=== PATIENT | female | born 1935 | race Caucasian/White ===

== ENCOUNTER 2018-09-24 16:51 | Inpatient (IN) | payer MEDICARE, OTHER ==
[2018-09-24] VITALS (7 sets, daily range): BP systolic 96–118; BP diastolic 44–73
[~2018-09-24] VITALS: Ht 152.4 cm; Wt 74.4 kg
[~2018-09-24 16:51] MED LIST: DONE5TAB14 PO; LEVO25TA4 PO; LOSA25TA54 PO; MEMA5TAB PO
[2018-09-24] MEDS ORDERED: PANTOPRAZOLE IV PUSH 40 MG VIAL. IVP ONE (17:15)
[2018-09-24] MEDS ORDERED: IV NORMAL SALINE 1000ML BAG 1,000 ML IV ONE (17:15)
--- NOTE | 2018-09-24 17:43 | PHYS DOC ---
Past Medical History Past Medical History: Arthritis, CAD, Hypertension, Hypothyroid, Other Additional Past Medical Histor: alzheimer's, MDD, insomnia (LOYDA OROSCO MD) Past Surgical History: Cholecystectomy, Tonsillectomy, Other Additional Past Surgical Histo: -, poor historian (LOYDA OROSCO MD) Alcohol Use: None Drug Use: None (LOYDA OROSCO MD) Adult General Chief Complaint Chief Complaint: DIZZY/LIGHT HEADED HPI HPI Patient is a 83 year old female patient resident of senior living who is in by EMS because of dizziness. Patient has dementia and history remain taking from her daughter who states she had stent placement and blood clot to right lower extremity recently and started on Eliquis besides Plavix. Patient had constipation and treated with laxative at senior living and had multiple episodes of diarrhea today. Patient states she had at least 6 episodes of diarrhea with black stool today. Patient complaining of nausea and mild intermittent abdominal pain without chest pain, headache, focal neuro deficit. EMS reported patient has blood pressure of 90s without tachycardia. (LOYDA OROSCO MD) Review of Systems Review of Systems Constitutional: Denies fever or chills [] Eyes: Denies change in visual acuity, redness, or eye pain [] HENT: Denies nasal congestion or sore throat [] Respiratory: Denies cough or shortness of breath [] Cardiovascular: No additional information not addressed in HPI [] GI: Denies abdominal pain, nausea, vomiting, bloody stools or diarrhea [] : Denies dysuria or hematuria [] Musculoskeletal: Denies back pain or joint pain [] Integument: Denies rash or skin lesions [] Neurologic: Denies headache, focal weakness or sensory changes, reports dizziness and generalized weakness[] Endocrine: Denies polyuria or polydipsia [] All other systems were reviewed and found to be within normal limits, except as documented in this note. (LOYDA OROSCO MD) Current Medications Current Medications Current Medications Medications (Trade) Dose Ordered Sig/Tiffanie Start Time Stop Time Status Last Admin Dose Admin Pantoprazole Sodium (PROTONIX VIAL for IV PUSH) 40 mg 1X ONCE 09/24/18 17:15 09/24/18 17:16 DC 09/24/18 17:43 40 MG Pantoprazole Sodium 80 mg/ Sodium Chloride 100 ml @ 10 mls/hr 1X ONCE 09/24/18 19:00 09/25/18 04:59 Sodium Chloride 1,000 ml @ 1,000 mls/hr 1X ONCE 09/24/18 17:15 09/24/18 18:14 DC 09/24/18 17:40 1,000 MLS/HR (LEONARD MONTIEL MD) Allergies Allergies Allergies Coded Allergies Type Severity Reaction Last Updated Verified No Known Drug Allergies 10/05/14 No (LEONARD MONTIEL MD) Physical Exam Physical Exam Constitutional: Well nourished, mild distress, non-toxic appearance, pale. [] HENT: Normocephalic, atraumatic, oropharynx dry, no oral exudates, nose normal. [] Eyes: PERRLA, EOMI, conjunctiva normal, no discharge. [] Neck: Normal range of motion, no tenderness, supple, no stridor. [] Cardiovascular:Heart rate regular rhythm, no murmur [] Lungs & Thorax: Bilateral breath sounds clear to auscultation [] Abdomen: Bowel sounds normal, soft, no tenderness, no masses, no pulsatile masses. Patient had large amount of black stool in her diaper.[] Skin: Warm, dry, no erythema, no rash. [] Back: No tenderness, no CVA tenderness. [] Extremities: No tenderness, no cyanosis, no clubbing, ROM intact, right lower extremity with trace edema and erythema that happening for months after she had DVT. Neurologic: Alert and oriented X 2, normal motor function, normal sensory function, no focal deficits noted. [] (LOYDA OROSCO MD) Current Patient Data Vital Signs Vital Signs Date Time Temp Pulse Resp B/P (MAP) Pulse Ox O2 Delivery O2 Flow Rate FiO2 09/24/18 18:30 86 16 100 09/24/18 16:51 97.8 97/63 (74) Room Air 97.8 (LEONARD MONTIEL MD) Lab Values Laboratory Tests Test 09/24/18 16:58 09/24/18 17:23 09/24/18 17:45 09/24/18 18:35 Glucose (Fingerstick) 118 mg/dL (70-99) H Lactic Acid Level 5.1 mmol/L (0.4-2.0) *H Stool Occult Blood Positive (NEG) White Blood Count 14.7 x10^3/uL (4.0-11.0) H Red Blood Count 1.47 x10^6/uL (3.50-5.40) L Hemoglobin 4.5 g/dL (12.0-15.5) *L Hematocrit 13.9 % (36.0-47.0) *L Mean Corpuscular Volume 95 fL (79-100) Mean Corpuscular Hemoglobin 30 pg (25-35) Mean Corpuscular Hemoglobin Concent 32 g/dL (31-37) Red Cell Distribution Width 16.0 % (11.5-14.5) H Platelet Count 223 x10^3/uL (140-400) Neutrophils (%) (Auto) 85 % (31-73) H Lymphocytes (%) (Auto) 9 % (24-48) L Monocytes (%) (Auto) 5 % (0-9) Eosinophils (%) (Auto) 0 % (0-3) Basophils (%) (Auto) 1 % (0-3) Neutrophils # (Auto) 12.5 x10^3uL (1.8-7.7) H Lymphocytes # (Auto) 1.4 x10^3/uL (1.0-4.8) Monocytes # (Auto) 0.7 x10^3/uL (0.0-1.1) Eosinophils # (Auto) 0.0 x10^3/uL (0.0-0.7) Basophils # (Auto) 0.1 x10^3/uL (0.0-0.2) Prothrombin Time 22.4 SEC (11.7-14.0) H Prothrombin Time INR 2.0 (0.8-1.1) H PTT 32 SEC (24-38) Sodium Level 143 mmol/L (136-145) Potassium Level 4.3 mmol/L (3.5-5.1) Chloride Level 106 mmol/L (98-107) Carbon Dioxide Level 25 mmol/L (21-32) Anion Gap 12 (6-14) Blood Urea Nitrogen 47 mg/dL (7-20) H Creatinine 0.7 mg/dL (0.6-1.0) Estimated GFR (Cockcroft-Gault) 80.3 BUN/Creatinine Ratio 67 (6-20) H Glucose Level 118 mg/dL (70-99) H Calcium Level 7.7 mg/dL (8.5-10.1) L Total Bilirubin 0.3 mg/dL (0.2-1.0) Aspartate Amino Transferase (AST) 14 U/L (15-37) L Alanine Aminotransferase (ALT) 14 U/L (14-59) Alkaline Phosphatase 47 U/L (46-116) Troponin I Quantitative 0.027 ng/mL (0.000-0.055) HB-Kbz-Z-Type Natriuretic Peptide 1290 pg/mL (0-449) H Total Protein 5.3 g/dL (6.4-8.2) L Albumin 3.0 g/dL (3.4-5.0) L Albumin/Globulin Ratio 1.3 (1.0-1.7) Laboratory Tests 09/24/18 18:35 Laboratory Tests 09/24/18 18:35 (LEONARD MONTIEL MD) EKG EKG EKG interpreted by me. EKG at 1705 showed sinus rhythm at rate of 76, LVH, prolonged QT at 470, poor R-wave progress in anteroseptal leads, no acute ST and T-wave abnormalities (LOYDA OROSCO MD) Radiology/Procedures Radiology/Procedures [] (LOYDA OROSCO MD) Course & Med Decision Making Course & Med Decision Making Pertinent Labs and Imaging studies are pending. Evaluation of patient in ER showed 83-year-old female patient resident of senior living recently started on Eliquis besides Plavix and had dizziness today after had several episodes of black stools. Patient had obvious melena blood pressure of 90 at arrival to ER that improved to 106 in few minutes. Lab studies pending. Sign out given to for further evaluation and final disposition. Discussed current findings and plan with patient and family, who acknowledge understanding and agreement. (LOYDA OROSCO MD) Course & Med Decision Making I received signout from Dr. Orosco patient is a GI bleed awaiting lab work and admission. I reevaluated the patient a blood pressure was in the 120 systolic I talked to the daughter in detail Critical care time was 45 minutes exclusive of procedures. For management of acute GI bleed with severe anemia I noted the blood pressure remained stable during my evaluation the ER as of 1930. I spoke with Dr. Lane [place] [address] CLEVELAND 191. Discussed case Dr. CLAY CLEVELAND recommends transfuse overnight for stability wait for ELIQUIS to wear OFF could give a unit of FFP, other agents are unlikely to be helpful just need to hold Brittney Lacho mainly. Serial lactic CT abdomen and pelvis pending. The lactic acidosis is much more likely volume down lactic acidosis rather than sepsis I have not seen the urinalysis she had per the chest x-ray shows no evidence of pneumonia and the clinical history is consistent with GI bleed. Lactic was ordered prior to my evaluation I have low suspicion for mesenteric ischemia because the patient has no abdominal pain but that scan is pending I spoke with Dr. Lane about it Protonix drip was ordered as well (LEONARD MONTIEL MD) Dragon Disclaimer Dragon Disclaimer This electronic medical record was generated, in whole or in part, using a voice recognition dictation system. (LOYDA OROSCO MD) Departure Departure Impression: Primary Impression: GI bleeding Additional Impression: Dizziness Disposition: 09 ADMITTED INPATIENT Admitting Physician: Tony Saravia (LEONARD MONTIEL MD) Condition: CRITICAL Referrals: DONALD CAGLE MD (PCP) Problem Qualifiers Primary Impression: GI bleeding GI bleed type/associated pathology: unspecified peptic ulcer Qualified Codes : K27.4 - Chronic or unspecified peptic ulcer, site unspecified, with hemorrhage LOYDA OROSCO MD Sep 24, 2018 17:43 LEONARD MONTIEL MD Sep 24, 2018 19:26
--- NOTE | 2018-09-24 18:00 | RAD ---
EXAM: CHEST 1 VIEW. HISTORY: Dizziness. COMPARISON: 10/05/2014. FINDINGS: A frontal view of the chest is obtained. There are no confluent infiltrates. There is no pneumothorax or pleural effusion. The heart is mildly enlarged. Retrocardiac opacity is consistent with a moderate hiatal hernia. There is mild elevation of the right hemidiaphragm. There are atherosclerotic calcifications of the aorta. Bilateral rotator cuff arthropathy is noted. IMPRESSION: 1. Mild cardiomegaly. Electronically signed by: Sheila Mo MD (09/24/2018 5:58 PM) [facility]
[2018-09-24 18:01] LABS: FECAL OB PT POSITIVE (NEG)
[2018-09-24 18:48] LABS: BASO # 0.1 x10^3/uL (0.0-0.2); BASO % 1 % (0-3); EOS % 0 % (0-3); LYMPH # 1.4 x10^3/uL (1.0-4.8); LYMPH % 9 % (24-48); MEAN CORPUSCULAR HEMOGLOBIN 30 pg (25-35); MEAN CORPUSCULAR HGB CONC 32 g/dL (31-37); MEAN CORPUSCULAR VOLUME 95 fL (79-100); MONO # 0.7 x10^3/uL (0.0-1.1); MONO % 5 % (0-9); NEUT # 12.5 x10^3uL (1.8-7.7); NEUT % 85 % (31-73); PLATELET COUNT 223 x10^3/uL (140-400); RED BLOOD COUNT 1.47 x10^6/uL (3.50-5.40); WHITE BLOOD COUNT 14.7 x10^3/uL (4.0-11.0)
[2018-09-24 18:54] LABS: HEMOGLOBIN 4.5 g/dL (12.0-15.5)
[2018-09-24 18:55] LABS: HEMATOCRIT 13.9 % (36.0-47.0)
[2018-09-24 18:56] LABS: CALCIUM 7.7 mg/dL (8.5-10.1); CREATININE 0.7 mg/dL (0.6-1.0); GFR 80.3; POTASSIUM 4.3 mmol/L (3.5-5.1)
[2018-09-24] MEDS ORDERED: PANTOPRAZOLE SODIUM IV DRIP 80 MG in IV NORMAL SALINE 100ML 100 ML IV ONE (19:00)
[2018-09-24 19:01] LABS: ALBUMIN/GLOBULIN RATIO 1.3 (1.0-1.7); TOTAL BILIRUBIN 0.3 mg/dL (0.2-1.0); TOTAL PROTEIN 5.3 g/dL (6.4-8.2)
[2018-09-24 19:03] LABS: PROTHROMBIN TIME PATIENT 22.4 SEC (11.7-14.0)
[2018-09-24] MEDS ORDERED: IOHEXOL 350 MG/ML 100 ML VIAL. IV ONE (19:30)
[2018-09-24] MEDS ORDERED: CONTRAST GIVEN. MC PRN (19:30)
--- NOTE | 2018-09-24 20:07 | PDOC1 ---
History and Physical Date of Admission Date of Admission DATE: 09/24/18 TIME: 20:05 Identification/Chief Complaint Chief Complaint SEEN IN ER , patient resident of [facility] who is in by EMS because of dizziness. Patient has dementia and history remain taking from her daughter who states she had stent placement and blood clot to right lower extremity recently and started on Eliquis and Plavix. Patient had constipation and treated with laxative //multiple episodes of diarrhea today. // 6 episodes of diarrhea with black stool today. Patient complaining of nausea and mild intermittent abdominal pain without chest pain, headache, focal neuro deficit. EMS reported patient has blood pressure of 90s , admitted to [facility] WITH HGB OF 4.5 INR OF 2.0 Past Medical History Past Medical History Past Medical History Past Medical History: Hypertension / CAD Additional Past Medical Histor: alzheimer, thyroid disease Past Surgical History: Cholecystectomy, Tonsillectomy Additional Information: Never Smoker Alcohol Use: None Drug Use: None family hx diabetes Cardiovascular: CAD CENTRAL NERVOUS SYSTEM: Dementia Musculoskeletal: Osteoarthritis Family History Family History: Diabetes, Hypertension Social History Smoke: No ALCOHOL: none Drugs: None Current Problem List Problem List Problems Medical Problems: (1) Dizziness Status: Acute (2) GI bleeding Status: Acute Current Medications Current Medications Current Medications Sodium Chloride 1,000 ml @ 1,000 mls/hr 1X ONCE IV Last administered on at 17:40; Start 09/24/18 at 17:15; Stop 09/24/18 at 18:14; Status DC Pantoprazole Sodium (PROTONIX VIAL for IV PUSH) 40 mg 1X ONCE IVP Last administered on 09/24/18at 17:43; Start 09/24/18 at 17:15; Stop 09/24/18 at 17:16 ; Status DC Pantoprazole Sodium 80 mg/ Sodium Chloride 100 ml @ 10 mls/hr 1X ONCE IV ; Start 09/24/18 at 19:00; Stop 09/25/18 at 04:59 Sodium Chloride 1,000 ml @ 75 mls/hr [id number] IV ; Start 09/24/18 at 19:09; Stop 09/25/18 at 19:08 Iohexol (Omnipaque 350 Mg/ml) 100 ml 1X ONCE IV Last administered on at 19:54; Start 09/24/18 at 19:30; Stop 09/24/18 at 19:31; Status DC Info (CONTRAST GIVEN -- Rx MONITORING) 1 each PRN DAILY PRN MC SEE COMMENTS; Start 09/24/18 at 19:30; Stop 09/26/18 at 19:29 Active Scripts Active Reported Donepezil Hcl 5 Mg Tab.rapdis Unknown Dose PO HS Losartan Potassium 25 Mg Tablet Unknown Dose PO DAILY Namenda (Memantine Hcl) 5 Mg Tablet Unknown Dose PO BID Levothyroxine Sodium 25 Mcg Tablet Unknown Dose PO DAILY Allergies Allergies: Coded Allergies: No Known Drug Allergies (Unverified , 10/05/14) ROS Review of System Review of Systems Review of Systems Constitutional: Denies fever or chills [] Eyes: Denies change in visual acuity, redness, or eye pain [] HENT: Denies nasal congestion or sore throat [] Respiratory: Denies cough or shortness of breath [] Cardiovascular: No additional information not addressed in HPI [] GI: Denies abdominal pain, nausea, vomiting, bloody stools or diarrhea [] : Denies dysuria or hematuria [] Musculoskeletal: Denies back pain or joint pain [] Integument: Denies rash or skin lesions [] Neurologic: Denies headache, focal weakness or sensory changes, reports dizziness and generalized weakness[] Endocrine: Denies polyuria or polydipsia [] 14 pt systems were reviewed and found to be within normal limits, except as documented , accuracy limited by dementia PSYCHOLOGICAL ROS: YES: Disorientation Hematological and Lymphatic: YES: Bleeding Problems ENDOCRINE: YES: Malaise/lethargy Physical Exam Physical Exam Constitutional: Well nourished, mild distress, non-toxic appearance, pale. [] HENT: Normocephalic, atraumatic, oropharynx dry, no oral exudates, nose normal. [] Eyes: PERRLA, EOMI, conjunctiva normal, no discharge. [] Neck: Normal range of motion, no tenderness, supple, no stridor. [] Cardiovascular:Heart rate regular rhythm, no murmur [] Lungs & Thorax: Bilateral breath sounds clear to auscultation [] Abdomen: Bowel sounds normal, soft, no tenderness, no masses, no pulsatile masses. Patient had large amount of black stool in her diaper.[] Skin: Warm, dry, no erythema, no rash. [] Back: No tenderness, no CVA tenderness. [] Extremities: No tenderness, no cyanosis, no clubbing, ROM intact, right lower extremity with trace edema and erythema that happening for months after she had DVT. Neurologic: Alert , normal motor function, normal sensory function, no focal deficits noted. [] General: Cooperative, mild distress HEENT: Atraumatic, EOMI, Mucous membr. moist/pink Heart: no thrills, no gallops Breasts: Not examined Abdomen: Soft Rectal Exam: deferred Extremities: No cyanosis Neuro: Cranial nerves 3-12 NL Psych/Mental Status: Mood NL Vitals Vitals Vital Signs Date Time Temp Pulse Resp B/P (MAP) Pulse Ox O2 Delivery O2 Flow Rate FiO2 09/24/18 18:30 86 16 100 09/24/18 16:51 97.8 97/63 (74) Room Air 97.8 Labs Labs Laboratory Tests Test 09/24/18 16:58 09/24/18 17:23 09/24/18 17:45 09/24/18 18:35 Glucose (Fingerstick) 118 mg/dL (70-99) Lactic Acid Level 5.1 mmol/L (0.4-2.0) Stool Occult Blood Positive (NEG) White Blood Count 14.7 x10^3/uL (4.0-11.0) Red Blood Count 1.47 x10^6/uL (3.50-5.40) Hemoglobin 4.5 g/dL (12.0-15.5) Hematocrit 13.9 % (36.0-47.0) Mean Corpuscular Volume 95 fL (79-100) Mean Corpuscular Hemoglobin 30 pg (25-35) Mean Corpuscular Hemoglobin Concent 32 g/dL (31-37) Red Cell Distribution Width 16.0 % (11.5-14.5) Platelet Count 223 x10^3/uL (140-400) Neutrophils (%) (Auto) 85 % (31-73) Lymphocytes (%) (Auto) 9 % (24-48) Monocytes (%) (Auto) 5 % (0-9) Eosinophils (%) (Auto) 0 % (0-3) Basophils (%) (Auto) 1 % (0-3) Neutrophils # (Auto) 12.5 x10^3uL (1.8-7.7) Lymphocytes # (Auto) 1.4 x10^3/uL (1.0-4.8) Monocytes # (Auto) 0.7 x10^3/uL (0.0-1.1) Eosinophils # (Auto) 0.0 x10^3/uL (0.0-0.7) Basophils # (Auto) 0.1 x10^3/uL (0.0-0.2) Prothrombin Time 22.4 SEC (11.7-14.0) Prothromb Time International Ratio 2.0 (0.8-1.1) Activated Partial Thromboplast Time 32 SEC (24-38) Sodium Level 143 mmol/L (136-145) Potassium Level 4.3 mmol/L (3.5-5.1) Chloride Level 106 mmol/L (98-107) Carbon Dioxide Level 25 mmol/L (21-32) Anion Gap 12 (6-14) Blood Urea Nitrogen 47 mg/dL (7-20) Creatinine 0.7 mg/dL (0.6-1.0) Estimated GFR (Cockcroft-Gault) 80.3 BUN/Creatinine Ratio 67 (6-20) Glucose Level 118 mg/dL (70-99) Calcium Level 7.7 mg/dL (8.5-10.1) Total Bilirubin 0.3 mg/dL (0.2-1.0) Aspartate Amino Transf (AST/SGOT) 14 U/L (15-37) Alanine Aminotransferase (ALT/SGPT) 14 U/L (14-59) Alkaline Phosphatase 47 U/L (46-116) Troponin I Quantitative 0.027 ng/mL (0.000-0.055) JN-Vxp-D-Type Natriuretic Peptide 1290 pg/mL (0-449) Total Protein 5.3 g/dL (6.4-8.2) Albumin 3.0 g/dL (3.4-5.0) Albumin/Globulin Ratio 1.3 (1.0-1.7) Laboratory Tests Test 09/24/18 16:58 09/24/18 17:23 09/24/18 17:45 09/24/18 18:35 Glucose (Fingerstick) 118 mg/dL (70-99) Lactic Acid Level 5.1 mmol/L (0.4-2.0) Stool Occult Blood Positive (NEG) White Blood Count 14.7 x10^3/uL (4.0-11.0) Red Blood Count 1.47 x10^6/uL (3.50-5.40) Hemoglobin 4.5 g/dL (12.0-15.5) Hematocrit 13.9 % (36.0-47.0) Mean Corpuscular Volume 95 fL (79-100) Mean Corpuscular Hemoglobin 30 pg (25-35) Mean Corpuscular Hemoglobin Concent 32 g/dL (31-37) Red Cell Distribution Width 16.0 % (11.5-14.5) Platelet Count 223 x10^3/uL (140-400) Neutrophils (%) (Auto) 85 % (31-73) Lymphocytes (%) (Auto) 9 % (24-48) Monocytes (%) (Auto) 5 % (0-9) Eosinophils (%) (Auto) 0 % (0-3) Basophils (%) (Auto) 1 % (0-3) Neutrophils # (Auto) 12.5 x10^3uL (1.8-7.7) Lymphocytes # (Auto) 1.4 x10^3/uL (1.0-4.8) Monocytes # (Auto) 0.7 x10^3/uL (0.0-1.1) Eosinophils # (Auto) 0.0 x10^3/uL (0.0-0.7) Basophils # (Auto) 0.1 x10^3/uL (0.0-0.2) Prothrombin Time 22.4 SEC (11.7-14.0) Prothromb Time International Ratio 2.0 (0.8-1.1) Activated Partial Thromboplast Time 32 SEC (24-38) Sodium Level 143 mmol/L (136-145) Potassium Level 4.3 mmol/L (3.5-5.1) Chloride Level 106 mmol/L (98-107) Carbon Dioxide Level 25 mmol/L (21-32) Anion Gap 12 (6-14) Blood Urea Nitrogen 47 mg/dL (7-20) Creatinine 0.7 mg/dL (0.6-1.0) Estimated GFR (Cockcroft-Gault) 80.3 BUN/Creatinine Ratio 67 (6-20) Glucose Level 118 mg/dL (70-99) Calcium Level 7.7 mg/dL (8.5-10.1) Total Bilirubin 0.3 mg/dL (0.2-1.0) Aspartate Amino Transf (AST/SGOT) 14 U/L (15-37) Alanine Aminotransferase (ALT/SGPT) 14 U/L (14-59) Alkaline Phosphatase 47 U/L (46-116) Troponin I Quantitative 0.027 ng/mL (0.000-0.055) GV-Zqt-X-Type Natriuretic Peptide 1290 pg/mL (0-449) Total Protein 5.3 g/dL (6.4-8.2) Albumin 3.0 g/dL (3.4-5.0) Albumin/Globulin Ratio 1.3 (1.0-1.7) Images Images EXAM: CHEST 1 VIEW. HISTORY: Dizziness. COMPARISON: 10/05/2014. FINDINGS: A frontal view of the chest is obtained. There are no confluent infiltrates. There is no pneumothorax or pleural effusion. The heart is mildly enlarged. Retrocardiac opacity is consistent with a moderate hiatal hernia. There is mild elevation of the right hemidiaphragm. There are atherosclerotic calcifications of the aorta. Bilateral rotator cuff arthropathy is noted. IMPRESSION: 1. Mild cardiomegaly. Electronically signed by: Sheila Mo MD (09/24/2018 5:58 PM) [facility] DICTATED and SIGNED BY: VIC MO MD DATE: 09/24/18 175 VTE Prophylaxis Ordered VTE Prophylaxis Devices: Contraindicated VTE Pharmacological Prophylaxi: Contraindicated Assessment/Plan Assessment/Plan impression 1. Acute gi bleeding// severe ANEMIA, ACUTE BLOOD LOSS 2. Moderate dementia 3. CAD with recent stent placement [facility] ON PLAVIX/ ELIQUIS 4. HX DVT Right lower leg on eliquis 5. morbid obesity 6. Pseudoaneurysm of right femoral artery , recent 7. POSSIBLE SEPSIS 8. LAD STENT, DRUG-eluting placed [facility] 09/24/[address] ANGIOGRAPHY OF ABDOMEN TRANSFUSE URGENTLY GI CONSULT Cardiology consult IV FLUID SUPPORT PRN IV PRESSOR SUPPORT hold eliquis/ plavix obtain recent records [facility] FFP TRANSFUSE JIM protonix drip ID CONSULT ZOSYN 3.75 GM IV IF OK WITH ID BLOOD CULTURE CBC Q 6 HRS 118 min cc time MARIELLE MARIA MD Sep 24, 2018 20:06
[2018-09-24] MEDS: IV NORMAL SALINE 1000ML BAG 1,000 ML IV SCH (20:17)
--- NOTE | 2018-09-24 21:00 | NUR ---
Admission Note: Patient admitted to room 108 from ED. Patient alert to name, confused otherwise, pleasant though. Small dark tarry stool noted. Sr on monitor. Daughter went home upon transfer from ED. Dr. Lane here to see patient, orders to transfuse blood.
--- NOTE | 2018-09-24 21:38 | RAD ---
EXAM: CT ANGIOGRAPHY OF THE ABDOMEN AND PELVIS WITH AND WITHOUT INTRAVENOUS CONTRAST. HISTORY: Gastrointestinal hemorrhage. Lactic acidosis. TECHNIQUE: Computed tomographic angiography of the abdomen and pelvis was performed before and after the intravenous administration of 100 mL Omnipaque 350. 3-D maximum intensity projections were also performed. COMPARISON: 10/05/2014. FINDINGS: There is mild infrarenal abdominal aortic ectasia without aneurysmal dilatation. Maximum diameter is 1.9 cm. The iliac systems are patent without stenosis. The celiac axis demonstrates mild atherosclerotic calcification in its origin but is widely patent. Hepatic arterial anatomy is standard. The splenic artery is patent. The superior mesenteric artery is widely patent proximally. The inferior mesenteric artery is patent. There are minimal atherosclerotic calcifications along the renal artery origins bilaterally. There is no renal artery stenosis. Both renal arteries are single. There are calcifications of the aortic valve and coronary arteries. The heart is at least mildly enlarged. Note is made of caseous calcification of the mitral valve annulus. Images of the lung bases reveal an uncalcified right lower lobe nodule on image 7 measuring 6 mm. This is not clearly changed since 2015 and is likely benign. There is a small hiatal hernia. Bone windows reveal no suspicious lesions. There is grade 1 anterolisthesis at L4-5. Lumbar central canal stenosis is moderate to severe at this level. The gallbladder is surgically absent. The common duct measures 8 mm. There is no clear cause for distal obstruction. Thickening of the right adrenal gland is chronic. The left adrenal gland is unremarkable. The spleen, pancreas and liver are unremarkable. The right renal collecting system is moderately dilated to the level of the ureteropelvic junction. This is new. No clear cause for obstruction is seen by this technique. 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 There are no pathologically enlarged lymph nodes. There is stranding and soft tissue density about the right common femoral artery extending to its bifurcation. Radicles of the right inferior epigastric artery appeared to perfuse the region. There are changes of pelvic floor relaxation. There is no small bowel obstruction. No abnormal bowel wall enhancement is identified. There is no ileus. The bladder is moderately distended. IMPRESSION: 1. The central mesenteric arteries are widely patent. 2. No sign of gastrointestinal hemorrhage or clear bowel ischemia is detectable by CT. 3. Ill-defined soft tissue is seen anterior to the right common femoral artery and measures approximately 2.8 x 2.1 cm. This may represent an old hematoma or scarring in the setting of a prior arterial puncture. Correlate for such history. If there is no such history follow-up is recommended to exclude lymphadenopathy. 4. Interval development of moderate right hydronephrosis and with apparent obstruction at the level of the ureteropelvic junction. Ureteroscopy could further evaluate if the diagnosis remains unclear. 5. Small hiatal hernia. 6. Aortic valve calcifications. Correlate for aortic stenosis. At least mild cardiomegaly. *One or more of the following individualized dose reduction techniques were utilized for this examination: 1. Automated exposure control. 2. Adjustment of the mA and/or kV according to patient size. 3. Use of iterative reconstruction technique. Electronically signed by: Sheila Mo MD (09/24/2018 9:35 PM) [facility]
[2018-09-24] MEDS ORDERED: CLOP75TA PO (21:48)
[2018-09-24] MEDS ORDERED: IPRA3AMP29 NEB (21:49)
[2018-09-24] MEDS ORDERED: APIX5TAB PO (21:50)
[2018-09-24] MEDS ORDERED: CHOL10003 PO (21:52)
[2018-09-24] MEDS ORDERED: ATOR40TA PO (21:52)
[2018-09-24] MEDS ORDERED: LEVO75TA5 PO (21:53)
[2018-09-24] MEDS ORDERED: IMIP10TA2 PO (21:53)
[2018-09-24] MEDS ORDERED: GUAI100L12 PO (21:53)
[2018-09-25] VITALS (30 sets, daily range): BP systolic 93–166; BP diastolic 46–77
--- NOTE | 2018-09-25 00:13 | NUR ---
Nursing Note: Upon entering room, blood noted on sheet and gown. Pt pulled out Left AC PIV. Pressure held. New IV started. Continue with blood transfusion. Mitts placed on patient for protection of lines .
[2018-09-25] MEDS: PIPERACILLIN/TAZOBACTAM 3.375 GM in IV NORMAL SALINE 50ML 50 ML IV SCH ×4 (00:31→17:53)
[2018-09-25 00:38] LABS: BASO % 0 % (0-3); EOS % 0 % (0-3); LYMPH # 1.6 x10^3/uL (1.0-4.8); LYMPH % 13 % (24-48); MEAN CORPUSCULAR HEMOGLOBIN 32 pg (25-35); MEAN CORPUSCULAR HGB CONC 33 g/dL (31-37); MEAN CORPUSCULAR VOLUME 95 fL (79-100); MONO # 0.8 x10^3/uL (0.0-1.1); MONO % 6 % (0-9); NEUT # 10.2 x10^3uL (1.8-7.7); NEUT % 81 % (31-73); PLATELET COUNT 195 x10^3/uL (140-400); RED BLOOD COUNT 1.73 x10^6/uL (3.50-5.40); RED CELL DISTRIBUTION WIDTH 14.5 % (11.5-14.5); WHITE BLOOD COUNT 12.7 x10^3/uL (4.0-11.0)
[2018-09-25 00:45] LABS: HEMATOCRIT 16.4 % (36.0-47.0); HEMOGLOBIN 5.4 g/dL (12.0-15.5)
[2018-09-25 06:36] LABS: BASO # 0.1 x10^3/uL (0.0-0.2); BASO % 0 % (0-3); EOS # 0.1 x10^3/uL (0.0-0.7); EOS % 1 % (0-3); LYMPH % 16 % (24-48); MEAN CORPUSCULAR HEMOGLOBIN 32 pg (25-35); MEAN CORPUSCULAR HGB CONC 34 g/dL (31-37); MEAN CORPUSCULAR VOLUME 92 fL (79-100); MONO # 0.9 x10^3/uL (0.0-1.1); MONO % 7 % (0-9); NEUT # 9.6 x10^3uL (1.8-7.7); NEUT % 76 % (31-73); PLATELET COUNT 182 x10^3/uL (140-400); RED BLOOD COUNT 2.12 x10^6/uL (3.50-5.40); RED CELL DISTRIBUTION WIDTH 14.1 % (11.5-14.5); WHITE BLOOD COUNT 12.7 x10^3/uL (4.0-11.0)
[2018-09-25 06:44] LABS: PROTHROMBIN TIME PATIENT 17.7 SEC (11.7-14.0)
[2018-09-25 06:46] LABS: HEMATOCRIT 19.6 % (36.0-47.0); HEMOGLOBIN 6.7 g/dL (12.0-15.5)
[2018-09-25] MEDS: IV NORMAL SALINE 1000ML BAG 1,000 ML IV SCH (08:29)
--- NOTE | 2018-09-25 09:11 | PDOC2 ---
CONSULT Date of Consult Date of Consult DATE: 09/25/18 TIME: 09:07 Reason for Consult Reason for Consult: melena and blood loss anemia- new History of Present Illness Reason for Visit: This as an 83 yo female with no prior history of PUD, GI bleeding and only rare heartburn who had onset over last 1-2 days of significant loose melenic stools associated with hypotension and anemia. She relates several prior negative colonoscopies in the past but recently in longterm has been constipated, requiring laxatives. She is on both Plavix for recent stent and Eliquis as well but had no prior bleeding issues until now. Denies abd pain, n/v, hematemesis or prior melena. Past Medical History Cardiovascular: CAD CENTRAL NERVOUS SYSTEM: Dementia Musculoskeletal: Osteoarthritis Family History Family History: Diabetes, Hypertension Social History No ALCOHOL: none Drugs: None Current Problem List Problem List Problems Medical Problems: (1) Dizziness Status: Acute (2) GI bleeding Status: Acute Current Medications Current Medications Current Medications Sodium Chloride 1,000 ml @ 1,000 mls/hr 1X ONCE IV Last administered on at 17:40; Start 09/24/18 at 17:15; Stop 09/24/18 at 18:14; Status DC Pantoprazole Sodium (PROTONIX VIAL for IV PUSH) 40 mg 1X ONCE IVP Last administered on 09/24/18at 17:43; Start 09/24/18 at 17:15; Stop 09/24/18 at 17:16 ; Status DC Pantoprazole Sodium 80 mg/ Sodium Chloride 100 ml @ 10 mls/hr 1X ONCE IV Last administered on 09/24/18at 20:18; Start 09/24/18 at 19:00; Stop 09/25/18 at 04:59; Status DC Sodium Chloride 1,000 ml @ 75 mls/hr [id number] IV Last administered on at 20:17; Start 09/24/18 at 19:09; Stop 09/25/18 at 19:08 Iohexol (Omnipaque 350 Mg/ml) 100 ml 1X ONCE IV Last administered on at 19:54; Start 09/24/18 at 19:30; Stop 09/24/18 at 19:31; Status DC Info (CONTRAST GIVEN -- Rx MONITORING) 1 each PRN DAILY PRN MC SEE COMMENTS; Start 09/24/18 at 19:30; Stop 09/26/18 at 19:29 Piperacillin Sod/ Tazobactam Sod 3.375 gm/Sodium Chloride 50 ml @ 100 mls/hr Q6HRS IV Last administered on 09/25/18at 05:24; Start 09/25/18 at 00:00 Active Scripts Active Reported Levothyroxine Sodium 75 Mcg Tablet 75 Mcg PO DAILYAC Imipramine Hcl 10 Mg Tablet 10 Mg PO HS Guaifenesin 100 Mg/5 Ml Liquid 100 Mg PO PRN Q6HRS PRN Vitamin D3 (Cholecalciferol (Vitamin D3)) 1,000 Unit Tablet 1 Tab PO DAILY Lipitor (Atorvastatin Calcium) 40 Mg Tablet 1 Tab PO QHS Eliquis (Apixaban) 5 Mg Tablet 5 Mg PO BID Duoneb 0.5-3(2.5) Mg/3 Ml (Albuterol/Ipratropium) 3 Ml Ampul.neb 3 Ml NEB PRN Q4HRS PRN Clopidogrel (Clopidogrel Bisulfate) 75 Mg Tablet 1 Tab PO DAILY Allergies Allergies: Coded Allergies: No Known Drug Allergies (Unverified , 10/05/14) ROS PSYCHOLOGICAL ROS: YES: Memory difficulties Gastrointestinal: Yes Melena Physical Exam General: Alert HEENT: PERRLA Lungs: Clear to auscultation Heart: Regular rate, Normal S1, Normal S2, Other (systolic murmur) Abdomen: Normal bowel sounds, Soft, No tenderness, No hepatosplenomegaly Extremities: No clubbing, No cyanosis Skin: No rashes Vitals VITALS Vital Signs Date Time Temp Pulse Resp B/P (MAP) Pulse Ox O2 Delivery O2 Flow Rate FiO2 09/25/18 08:45 98.3 75 16 100 98.3 09/25/18 08:41 141/69 09/25/18 08:00 Room Air 09/24/18 21:02 2.0 Labs Labs Laboratory Tests Test 09/24/18 16:58 09/24/18 17:23 09/24/18 17:45 09/24/18 18:35 Glucose (Fingerstick) 118 mg/dL (70-99) Lactic Acid Level 5.1 mmol/L (0.4-2.0) Stool Occult Blood Positive (NEG) White Blood Count 14.7 x10^3/uL (4.0-11.0) Red Blood Count 1.47 x10^6/uL (3.50-5.40) Hemoglobin 4.5 g/dL (12.0-15.5) Hematocrit 13.9 % (36.0-47.0) Mean Corpuscular Volume 95 fL (79-100) Mean Corpuscular Hemoglobin 30 pg (25-35) Mean Corpuscular Hemoglobin Concent 32 g/dL (31-37) Red Cell Distribution Width 16.0 % (11.5-14.5) Platelet Count 223 x10^3/uL (140-400) Neutrophils (%) (Auto) 85 % (31-73) Lymphocytes (%) (Auto) 9 % (24-48) Monocytes (%) (Auto) 5 % (0-9) Eosinophils (%) (Auto) 0 % (0-3) Basophils (%) (Auto) 1 % (0-3) Neutrophils # (Auto) 12.5 x10^3uL (1.8-7.7) Lymphocytes # (Auto) 1.4 x10^3/uL (1.0-4.8) Monocytes # (Auto) 0.7 x10^3/uL (0.0-1.1) Eosinophils # (Auto) 0.0 x10^3/uL (0.0-0.7) Basophils # (Auto) 0.1 x10^3/uL (0.0-0.2) Prothrombin Time 22.4 SEC (11.7-14.0) Prothromb Time International Ratio 2.0 (0.8-1.1) Activated Partial Thromboplast Time 32 SEC (24-38) Sodium Level 143 mmol/L (136-145) Potassium Level 4.3 mmol/L (3.5-5.1) Chloride Level 106 mmol/L (98-107) Carbon Dioxide Level 25 mmol/L (21-32) Anion Gap 12 (6-14) Blood Urea Nitrogen 47 mg/dL (7-20) Creatinine 0.7 mg/dL (0.6-1.0) Estimated GFR (Cockcroft-Gault) 80.3 BUN/Creatinine Ratio 67 (6-20) Glucose Level 118 mg/dL (70-99) Calcium Level 7.7 mg/dL (8.5-10.1) Total Bilirubin 0.3 mg/dL (0.2-1.0) Aspartate Amino Transf (AST/SGOT) 14 U/L (15-37) Alanine Aminotransferase (ALT/SGPT) 14 U/L (14-59) Alkaline Phosphatase 47 U/L (46-116) Troponin I Quantitative 0.027 ng/mL (0.000-0.055) FF-Zzl-T-Type Natriuretic Peptide 1290 pg/mL (0-449) Total Protein 5.3 g/dL (6.4-8.2) Albumin 3.0 g/dL (3.4-5.0) Albumin/Globulin Ratio 1.3 (1.0-1.7) Test 09/25/18 00:15 09/25/18 06:25 White Blood Count 12.7 x10^3/uL (4.0-11.0) 12.7 x10^3/uL (4.0-11.0) Red Blood Count 1.73 x10^6/uL (3.50-5.40) 2.12 x10^6/uL (3.50-5.40) Hemoglobin 5.4 g/dL (12.0-15.5) 6.7 g/dL (12.0-15.5) Hematocrit 16.4 % (36.0-47.0) 19.6 % (36.0-47.0) Mean Corpuscular Volume 95 fL (79-100) 92 fL (79-100) Mean Corpuscular Hemoglobin 32 pg (25-35) 32 pg (25-35) Mean Corpuscular Hemoglobin Concent 33 g/dL (31-37) 34 g/dL (31-37) Red Cell Distribution Width 14.5 % (11.5-14.5) 14.1 % (11.5-14.5) Platelet Count 195 x10^3/uL (140-400) 182 x10^3/uL (140-400) Neutrophils (%) (Auto) 81 % (31-73) 76 % (31-73) Lymphocytes (%) (Auto) 13 % (24-48) 16 % (24-48) Monocytes (%) (Auto) 6 % (0-9) 7 % (0-9) Eosinophils (%) (Auto) 0 % (0-3) 1 % (0-3) Basophils (%) (Auto) 0 % (0-3) 0 % (0-3) Neutrophils # (Auto) 10.2 x10^3uL (1.8-7.7) 9.6 x10^3uL (1.8-7.7) Lymphocytes # (Auto) 1.6 x10^3/uL (1.0-4.8) 2.0 x10^3/uL (1.0-4.8) Monocytes # (Auto) 0.8 x10^3/uL (0.0-1.1) 0.9 x10^3/uL (0.0-1.1) Eosinophils # (Auto) 0.0 x10^3/uL (0.0-0.7) 0.1 x10^3/uL (0.0-0.7) Basophils # (Auto) 0.0 x10^3/uL (0.0-0.2) 0.1 x10^3/uL (0.0-0.2) Lactic Acid Level 2.0 mmol/L (0.4-2.0) Prothrombin Time 17.7 SEC (11.7-14.0) Prothromb Time International Ratio 1.5 (0.8-1.1) Laboratory Tests Test 09/24/18 16:58 09/24/18 17:23 09/24/18 17:45 09/24/18 18:35 Glucose (Fingerstick) 118 mg/dL (70-99) Lactic Acid Level 5.1 mmol/L (0.4-2.0) Stool Occult Blood Positive (NEG) White Blood Count 14.7 x10^3/uL (4.0-11.0) Red Blood Count 1.47 x10^6/uL (3.50-5.40) Hemoglobin 4.5 g/dL (12.0-15.5) Hematocrit 13.9 % (36.0-47.0) Mean Corpuscular Volume 95 fL (79-100) Mean Corpuscular Hemoglobin 30 pg (25-35) Mean Corpuscular Hemoglobin Concent 32 g/dL (31-37) Red Cell Distribution Width 16.0 % (11.5-14.5) Platelet Count 223 x10^3/uL (140-400) Neutrophils (%) (Auto) 85 % (31-73) Lymphocytes (%) (Auto) 9 % (24-48) Monocytes (%) (Auto) 5 % (0-9) Eosinophils (%) (Auto) 0 % (0-3) Basophils (%) (Auto) 1 % (0-3) Neutrophils # (Auto) 12.5 x10^3uL (1.8-7.7) Lymphocytes # (Auto) 1.4 x10^3/uL (1.0-4.8) Monocytes # (Auto) 0.7 x10^3/uL (0.0-1.1) Eosinophils # (Auto) 0.0 x10^3/uL (0.0-0.7) Basophils # (Auto) 0.1 x10^3/uL (0.0-0.2) Prothrombin Time 22.4 SEC (11.7-14.0) Prothromb Time International Ratio 2.0 (0.8-1.1) Activated Partial Thromboplast Time 32 SEC (24-38) Sodium Level 143 mmol/L (136-145) Potassium Level 4.3 mmol/L (3.5-5.1) Chloride Level 106 mmol/L (98-107) Carbon Dioxide Level 25 mmol/L (21-32) Anion Gap 12 (6-14) Blood Urea Nitrogen 47 mg/dL (7-20) Creatinine 0.7 mg/dL (0.6-1.0) Estimated GFR (Cockcroft-Gault) 80.3 BUN/Creatinine Ratio 67 (6-20) Glucose Level 118 mg/dL (70-99) Calcium Level 7.7 mg/dL (8.5-10.1) Total Bilirubin 0.3 mg/dL (0.2-1.0) Aspartate Amino Transf (AST/SGOT) 14 U/L (15-37) Alanine Aminotransferase (ALT/SGPT) 14 U/L (14-59) Alkaline Phosphatase 47 U/L (46-116) Troponin I Quantitative 0.027 ng/mL (0.000-0.055) TD-Omg-Q-Type Natriuretic Peptide 1290 pg/mL (0-449) Total Protein 5.3 g/dL (6.4-8.2) Albumin 3.0 g/dL (3.4-5.0) Albumin/Globulin Ratio 1.3 (1.0-1.7) Test 09/25/18 00:15 09/25/18 06:25 White Blood Count 12.7 x10^3/uL (4.0-11.0) 12.7 x10^3/uL (4.0-11.0) Red Blood Count 1.73 x10^6/uL (3.50-5.40) 2.12 x10^6/uL (3.50-5.40) Hemoglobin 5.4 g/dL (12.0-15.5) 6.7 g/dL (12.0-15.5) Hematocrit 16.4 % (36.0-47.0) 19.6 % (36.0-47.0) Mean Corpuscular Volume 95 fL (79-100) 92 fL (79-100) Mean Corpuscular Hemoglobin 32 pg (25-35) 32 pg (25-35) Mean Corpuscular Hemoglobin Concent 33 g/dL (31-37) 34 g/dL (31-37) Red Cell Distribution Width 14.5 % (11.5-14.5) 14.1 % (11.5-14.5) Platelet Count 195 x10^3/uL (140-400) 182 x10^3/uL (140-400) Neutrophils (%) (Auto) 81 % (31-73) 76 % (31-73) Lymphocytes (%) (Auto) 13 % (24-48) 16 % (24-48) Monocytes (%) (Auto) 6 % (0-9) 7 % (0-9) Eosinophils (%) (Auto) 0 % (0-3) 1 % (0-3) Basophils (%) (Auto) 0 % (0-3) 0 % (0-3) Neutrophils # (Auto) 10.2 x10^3uL (1.8-7.7) 9.6 x10^3uL (1.8-7.7) Lymphocytes # (Auto) 1.6 x10^3/uL (1.0-4.8) 2.0 x10^3/uL (1.0-4.8) Monocytes # (Auto) 0.8 x10^3/uL (0.0-1.1) 0.9 x10^3/uL (0.0-1.1) Eosinophils # (Auto) 0.0 x10^3/uL (0.0-0.7) 0.1 x10^3/uL (0.0-0.7) Basophils # (Auto) 0.0 x10^3/uL (0.0-0.2) 0.1 x10^3/uL (0.0-0.2) Lactic Acid Level 2.0 mmol/L (0.4-2.0) Prothrombin Time 17.7 SEC (11.7-14.0) Prothromb Time International Ratio 1.5 (0.8-1.1) Assessment/Plan Assessment/Plan New onset melena with acute blood loss anemia- with hypotension and lactic acidosis- now improved after transfusion and fluids- history of mild heartburn in past, no regular NSAIDS but recently added Plavix due to stent to prior Eliquis therapy- consider PUD, AVM, gastritis etc Plan- stop Plavix and Eliquis IV protonix transfuse to Hgb over 8 and monitor Urgent EGD PELON HOUSE MD Sep 25, 2018 09:11
[2018-09-25] MEDS ORDERED: EPINEPHrine SYRINGE 1 MG/10 ML SYRINGE SQ ONE (09:40)
[2018-09-25] MEDS ORDERED: PROPOFOL 200 ML IV ONE (09:45)
[2018-09-25] MEDS ORDERED: PROPOFOL 40 ML IV ONE (09:47)
[2018-09-25] MEDS ORDERED: PROPOFOL 10 MG/ML (100ML) VIAL. IV ONE (10:00)
--- NOTE | 2018-09-25 10:04 | PDOC4 ---
PROCEDURE Procedure EGD melena and anemia Anesthesia in ICU- propofol Findings- Esophagus normal, gastritis without ulcer or bleeding, duodenal blood noted- recent bleeding and mild oozing noted in 2nd portion of duodenum but no discrete ulcer, AVM etc- area injected with epi and oozing seemed to stop- scope passed to 3rd portion- all areas irrigated- no other active bleeding seem but recent blood in lumen noted Plan- close observation if further active bleeding, then repeat EGD with ped colonoscopy and look further PELON HOUSE MD Sep 25, 2018 10:04
[2018-09-25] MEDS ORDERED: PROPOFOL 20 ML IV ONE (10:07)
[2018-09-25] MEDS ORDERED: LIDOCAINE 2% PF 5 ML VIAL. ONE (10:07)
[2018-09-25] MEDS ORDERED: EPINEPHrine SYRINGE 1 MG/10 ML SYRINGE ONE (10:29)
--- NOTE | 2018-09-25 10:48 | PDOC2 ---
CARDIOLOGY CONSULT NOTE CHEIF COMPLAINT: Cardiology asked to evaluated the patient in the setting of bleeding and recent PCI HPI: Kimberli is a 83-year-old woman with past medical history as noted below coming into the hospital in the setting of severe GI bleeding. She has been taken to the EGD suite and initial EGD did not reveal any significant bleeding pathology. Of note she underwent a cardiac catheterization in August 2017 and subsequently underwent a PCI to the LAD with a drug-eluting stent. She was discharged on Plavix and aspirin. She was also noted to have a right groin pseudoaneurysm which was treated with thrombin injection and in this setting also was noted to have a possible DVT and therefore she was also started on Eliquis at that time on September 10 or . The timing exactly is unclear. Nonetheless she was recuperating at her nursing facility and was brought here due to concern for melanotic stools. Currently the patient is denying any chest discomfort. She is confused and irritated due to her history of dementia and sundowning issues. Her daughter is her bedside and understands the critical nature of the current issues at hand. PMHX: #1 coronary artery disease 2. Severe aortic stenosis currently undergoing workup for transcatheter aortic valve replacement 3. Hypertension 4. Also has dementia 5. Right common femoral vein DVT in the setting of recent pseudoaneurysm after cardiac catheterization SOCHX: No alcohol, tobacco or illicit drug use. FAMHX: Noncontributory. CURRENT MEDS: Off of aspirin and Plavix. Not on anticoagulation at this time. ALLERGIES: Allergies Coded Allergies Type Severity Reaction Last Updated Verified No Known Drug Allergies 10/05/14 No ROS: Negative for 10 out of 14 systems reviewed unless otherwise mentioned above in history of present illness. PHYSICAL EXAM: Vital Signs: Vital Signs Date Time Temp Pulse Resp B/P (MAP) Pulse Ox O2 Delivery O2 Flow Rate FiO2 09/25/18 10:26 98.8 75 27 166/60 98.8 09/25/18 10:21 100 Nasal Cannula 2 I & O +1L Physical Exam: The patient appeared well nourished and normally developed. Head exam is unremarkable. No scleral icterus or corneal arcus noted. Neck is without jugular venous distension, thyromegaly, or carotid bruits. Carotid upstrokes are brisk bilaterally. Lungs are clear to auscultation and percussion. Cardiac exam reveals the PMI to be normally sized and situated. Rhythm is regular. 4/6 systolic murmur consistent with . Abdominal exam reveals normal bowel sounds, no masses, no organomegaly and no aortic enlargement. Extremities are nonedematous and both femoral and pedal pulses are normal. Msk: No traumua Neuro: No focal deficits DIAGNOSTIC TESTING: Hemoglobin stable now at 7.9 after 4 units of blood transfusion Normal creatinine. Telemetry without any obvious arrhythmias Echocardiogram pending ASSESSMENT: 1. Severe GI bleeding in the setting of recent anticoagulation and antiplatelet use due to right common femoral DVT and LAD PCI 2. Severe aortic stenosis 3. Alzheimer's dementia PLAN: 1. Case discussed with GI attending. Continue to hold anticoagulants and antiplatelets at this time 2. If she is stable overnight we will then consider a IVC filter for her proximal common femoral vein DVT. 3. From a cardiac standpoint at this present time when she's able to would restart aspirin. 4. Severe , can be evaluated on an outpt basis. NAYA AWAN MD Sep 25, 2018 10:47
[2018-09-25 12:25] LABS: BASO # 0.1 x10^3/uL (0.0-0.2); BASO % 1 % (0-3); EOS # 0.1 x10^3/uL (0.0-0.7); EOS % 1 % (0-3); HEMATOCRIT 23.3 % (36.0-47.0); HEMOGLOBIN 7.9 g/dL (12.0-15.5); LYMPH # 1.6 x10^3/uL (1.0-4.8); LYMPH % 12 % (24-48); MEAN CORPUSCULAR HEMOGLOBIN 31 pg (25-35); MEAN CORPUSCULAR HGB CONC 34 g/dL (31-37); MEAN CORPUSCULAR VOLUME 91 fL (79-100); MONO # 0.9 x10^3/uL (0.0-1.1); MONO % 7 % (0-9); NEUT # 10.4 x10^3uL (1.8-7.7); NEUT % 79 % (31-73); PLATELET COUNT 165 x10^3/uL (140-400); RED BLOOD COUNT 2.56 x10^6/uL (3.50-5.40); RED CELL DISTRIBUTION WIDTH 13.9 % (11.5-14.5); WHITE BLOOD COUNT 13.1 x10^3/uL (4.0-11.0)
--- NOTE | 2018-09-25 12:55 | PDOC ---
Infectious Disease Note Vital Sign Vital Signs Vital Signs Date Time Temp Pulse Resp B/P (MAP) Pulse Ox O2 Delivery O2 Flow Rate FiO2 09/25/18 11:26 98.6 77 23 127/68 98.6 09/25/18 11:00 99 Nasal Cannula 2.0 Labs Lab Laboratory Tests Test 09/24/18 16:58 09/24/18 17:23 09/24/18 17:45 09/24/18 18:35 Glucose (Fingerstick) 118 mg/dL (70-99) Lactic Acid Level 5.1 mmol/L (0.4-2.0) Stool Occult Blood Positive (NEG) White Blood Count 14.7 x10^3/uL (4.0-11.0) Red Blood Count 1.47 x10^6/uL (3.50-5.40) Hemoglobin 4.5 g/dL (12.0-15.5) Hematocrit 13.9 % (36.0-47.0) Mean Corpuscular Volume 95 fL (79-100) Mean Corpuscular Hemoglobin 30 pg (25-35) Mean Corpuscular Hemoglobin Concent 32 g/dL (31-37) Red Cell Distribution Width 16.0 % (11.5-14.5) Platelet Count 223 x10^3/uL (140-400) Neutrophils (%) (Auto) 85 % (31-73) Lymphocytes (%) (Auto) 9 % (24-48) Monocytes (%) (Auto) 5 % (0-9) Eosinophils (%) (Auto) 0 % (0-3) Basophils (%) (Auto) 1 % (0-3) Neutrophils # (Auto) 12.5 x10^3uL (1.8-7.7) Lymphocytes # (Auto) 1.4 x10^3/uL (1.0-4.8) Monocytes # (Auto) 0.7 x10^3/uL (0.0-1.1) Eosinophils # (Auto) 0.0 x10^3/uL (0.0-0.7) Basophils # (Auto) 0.1 x10^3/uL (0.0-0.2) Prothrombin Time 22.4 SEC (11.7-14.0) Prothromb Time International Ratio 2.0 (0.8-1.1) Activated Partial Thromboplast Time 32 SEC (24-38) Sodium Level 143 mmol/L (136-145) Potassium Level 4.3 mmol/L (3.5-5.1) Chloride Level 106 mmol/L (98-107) Carbon Dioxide Level 25 mmol/L (21-32) Anion Gap 12 (6-14) Blood Urea Nitrogen 47 mg/dL (7-20) Creatinine 0.7 mg/dL (0.6-1.0) Estimated GFR (Cockcroft-Gault) 80.3 BUN/Creatinine Ratio 67 (6-20) Glucose Level 118 mg/dL (70-99) Calcium Level 7.7 mg/dL (8.5-10.1) Total Bilirubin 0.3 mg/dL (0.2-1.0) Aspartate Amino Transf (AST/SGOT) 14 U/L (15-37) Alanine Aminotransferase (ALT/SGPT) 14 U/L (14-59) Alkaline Phosphatase 47 U/L (46-116) Troponin I Quantitative 0.027 ng/mL (0.000-0.055) ZE-Sxk-R-Type Natriuretic Peptide 1290 pg/mL (0-449) Total Protein 5.3 g/dL (6.4-8.2) Albumin 3.0 g/dL (3.4-5.0) Albumin/Globulin Ratio 1.3 (1.0-1.7) Test 09/25/18 00:15 09/25/18 06:25 09/25/18 12:15 White Blood Count 12.7 x10^3/uL (4.0-11.0) 12.7 x10^3/uL (4.0-11.0) 13.1 x10^3/uL (4.0-11.0) Red Blood Count 1.73 x10^6/uL (3.50-5.40) 2.12 x10^6/uL (3.50-5.40) 2.56 x10^6/uL (3.50-5.40) Hemoglobin 5.4 g/dL (12.0-15.5) 6.7 g/dL (12.0-15.5) 7.9 g/dL (12.0-15.5) Hematocrit 16.4 % (36.0-47.0) 19.6 % (36.0-47.0) 23.3 % (36.0-47.0) Mean Corpuscular Volume 95 fL (79-100) 92 fL (79-100) 91 fL (79-100) Mean Corpuscular Hemoglobin 32 pg (25-35) 32 pg (25-35) 31 pg (25-35) Mean Corpuscular Hemoglobin Concent 33 g/dL (31-37) 34 g/dL (31-37) 34 g/dL (31-37) Red Cell Distribution Width 14.5 % (11.5-14.5) 14.1 % (11.5-14.5) 13.9 % (11.5-14.5) Platelet Count 195 x10^3/uL (140-400) 182 x10^3/uL (140-400) 165 x10^3/uL (140-400) Neutrophils (%) (Auto) 81 % (31-73) 76 % (31-73) 79 % (31-73) Lymphocytes (%) (Auto) 13 % (24-48) 16 % (24-48) 12 % (24-48) Monocytes (%) (Auto) 6 % (0-9) 7 % (0-9) 7 % (0-9) Eosinophils (%) (Auto) 0 % (0-3) 1 % (0-3) 1 % (0-3) Basophils (%) (Auto) 0 % (0-3) 0 % (0-3) 1 % (0-3) Neutrophils # (Auto) 10.2 x10^3uL (1.8-7.7) 9.6 x10^3uL (1.8-7.7) 10.4 x10^3uL (1.8-7.7) Lymphocytes # (Auto) 1.6 x10^3/uL (1.0-4.8) 2.0 x10^3/uL (1.0-4.8) 1.6 x10^3/uL (1.0-4.8) Monocytes # (Auto) 0.8 x10^3/uL (0.0-1.1) 0.9 x10^3/uL (0.0-1.1) 0.9 x10^3/uL (0.0-1.1) Eosinophils # (Auto) 0.0 x10^3/uL (0.0-0.7) 0.1 x10^3/uL (0.0-0.7) 0.1 x10^3/uL (0.0-0.7) Basophils # (Auto) 0.0 x10^3/uL (0.0-0.2) 0.1 x10^3/uL (0.0-0.2) 0.1 x10^3/uL (0.0-0.2) Lactic Acid Level 2.0 mmol/L (0.4-2.0) Prothrombin Time 17.7 SEC (11.7-14.0) Prothromb Time International Ratio 1.5 (0.8-1.1) Objective Assessment Lactic acidoses Leukocytosis Acute GI bleed Right hydronephrosis CAD s/p stent H/o DVT in RCFV Diabetes Dementia Severe aortic stenosis Plan Plan of Care Continue empiric Zosyn f/u cultures Urology consulted Monitor labs Maintain aspiration precautions Supportive care Thank you [id number] Patient seen and examined. Chart reviewed in detail. Case discussed with RISK CONSULTANT. Agree with above plan. MAYELIN SAMAYOA [employer] Sep 25, 2018 12:55 ISADORA NAVARRETE MD Sep 25, 2018 18:49
[2018-09-25] MEDS ORDERED: BENZOCAINE/MENTHOL LOZENGE. PO PRN (13:45)
[2018-09-25 18:02] LABS: BASO # 0.1 x10^3/uL (0.0-0.2); BASO % 1 % (0-3); EOS # 0.1 x10^3/uL (0.0-0.7); EOS % 1 % (0-3); HEMATOCRIT 22.1 % (36.0-47.0); HEMOGLOBIN 7.2 g/dL (12.0-15.5); LYMPH % 14 % (24-48); MEAN CORPUSCULAR HEMOGLOBIN 31 pg (25-35); MEAN CORPUSCULAR HGB CONC 33 g/dL (31-37); MEAN CORPUSCULAR VOLUME 93 fL (79-100); MONO # 1.1 x10^3/uL (0.0-1.1); MONO % 8 % (0-9); NEUT # 10.8 x10^3uL (1.8-7.7); NEUT % 77 % (31-73); PLATELET COUNT 154 x10^3/uL (140-400); RED BLOOD COUNT 2.36 x10^6/uL (3.50-5.40); RED CELL DISTRIBUTION WIDTH 14.2 % (11.5-14.5); WHITE BLOOD COUNT 14.2 x10^3/uL (4.0-11.0)
--- NOTE | 2018-09-25 18:23 | PDOC ---
PROGRESS NOTES Chief Complaint Chief Complaint 1. Acute gi bleeding// severe anemia of acute blood loss 2. Moderate dementia 3. CAD with recent stent placement [facility] 4. HX DVT Right lower leg on eliquis 5. morbid obesity 6. Pseudoaneurysm of right femoral artery , recent 7. POSSIBLE SEPSIS 8. LAD STENT, DRUG-eluting placed [facility] 09/24/18 History of Present Illness History of Present Illness follow CBC, transfuse as needed s./p EGD, GI consult follwoing hold eliquis/ plavix, labs, cont q6 labs obtain recent records Vitals Vitals Vital Signs Date Time Temp Pulse Resp B/P (MAP) Pulse Ox O2 Delivery O2 Flow Rate FiO2 09/25/18 17:00 75 20 127/49 (75) 96 Room Air 09/25/18 15:00 98.4 98.4 09/25/18 12:00 2.0 Physical Exam General: Alert Heart: Regular rate, Normal S1, Normal S2, Other (systolic murmur) Abdomen: Normal bowel sounds, Soft, No tenderness, No hepatosplenomegaly Extremities: No clubbing, No cyanosis Skin: No rashes Labs LABS Laboratory Tests Test 09/24/18 18:35 09/24/18 20:56 09/25/18 00:15 09/25/18 06:25 White Blood Count 14.7 x10^3/uL (4.0-11.0) 12.7 x10^3/uL (4.0-11.0) 12.7 x10^3/uL (4.0-11.0) Red Blood Count 1.47 x10^6/uL (3.50-5.40) 1.73 x10^6/uL (3.50-5.40) 2.12 x10^6/uL (3.50-5.40) Hemoglobin 4.5 g/dL (12.0-15.5) 5.4 g/dL (12.0-15.5) 6.7 g/dL (12.0-15.5) Hematocrit 13.9 % (36.0-47.0) 16.4 % (36.0-47.0) 19.6 % (36.0-47.0) Mean Corpuscular Volume 95 fL (79-100) 95 fL (79-100) 92 fL (79-100) Mean Corpuscular Hemoglobin 30 pg (25-35) 32 pg (25-35) 32 pg (25-35) Mean Corpuscular Hemoglobin Concent 32 g/dL (31-37) 33 g/dL (31-37) 34 g/dL (31-37) Red Cell Distribution Width 16.0 % (11.5-14.5) 14.5 % (11.5-14.5) 14.1 % (11.5-14.5) Platelet Count 223 x10^3/uL (140-400) 195 x10^3/uL (140-400) 182 x10^3/uL (140-400) Neutrophils (%) (Auto) 85 % (31-73) 81 % (31-73) 76 % (31-73) Lymphocytes (%) (Auto) 9 % (24-48) 13 % (24-48) 16 % (24-48) Monocytes (%) (Auto) 5 % (0-9) 6 % (0-9) 7 % (0-9) Eosinophils (%) (Auto) 0 % (0-3) 0 % (0-3) 1 % (0-3) Basophils (%) (Auto) 1 % (0-3) 0 % (0-3) 0 % (0-3) Neutrophils # (Auto) 12.5 x10^3uL (1.8-7.7) 10.2 x10^3uL (1.8-7.7) 9.6 x10^3uL (1.8-7.7) Lymphocytes # (Auto) 1.4 x10^3/uL (1.0-4.8) 1.6 x10^3/uL (1.0-4.8) 2.0 x10^3/uL (1.0-4.8) Monocytes # (Auto) 0.7 x10^3/uL (0.0-1.1) 0.8 x10^3/uL (0.0-1.1) 0.9 x10^3/uL (0.0-1.1) Eosinophils # (Auto) 0.0 x10^3/uL (0.0-0.7) 0.0 x10^3/uL (0.0-0.7) 0.1 x10^3/uL (0.0-0.7) Basophils # (Auto) 0.1 x10^3/uL (0.0-0.2) 0.0 x10^3/uL (0.0-0.2) 0.1 x10^3/uL (0.0-0.2) Prothrombin Time 22.4 SEC (11.7-14.0) 17.7 SEC (11.7-14.0) Prothromb Time International Ratio 2.0 (0.8-1.1) 1.5 (0.8-1.1) Activated Partial Thromboplast Time 32 SEC (24-38) Sodium Level 143 mmol/L (136-145) Potassium Level 4.3 mmol/L (3.5-5.1) Chloride Level 106 mmol/L (98-107) Carbon Dioxide Level 25 mmol/L (21-32) Anion Gap 12 (6-14) Blood Urea Nitrogen 47 mg/dL (7-20) Creatinine 0.7 mg/dL (0.6-1.0) Estimated GFR (Cockcroft-Gault) 80.3 BUN/Creatinine Ratio 67 (6-20) Glucose Level 118 mg/dL (70-99) Calcium Level 7.7 mg/dL (8.5-10.1) Total Bilirubin 0.3 mg/dL (0.2-1.0) Aspartate Amino Transf (AST/SGOT) 14 U/L (15-37) Alanine Aminotransferase (ALT/SGPT) 14 U/L (14-59) Alkaline Phosphatase 47 U/L (46-116) Troponin I Quantitative 0.027 ng/mL (0.000-0.055) HM-Prh-C-Type Natriuretic Peptide 1290 pg/mL (0-449) Total Protein 5.3 g/dL (6.4-8.2) Albumin 3.0 g/dL (3.4-5.0) Albumin/Globulin Ratio 1.3 (1.0-1.7) Nasal Screen MRSA (PCR) Negative (Negative) Lactic Acid Level 2.0 mmol/L (0.4-2.0) Test 09/25/18 12:15 09/25/18 17:55 White Blood Count 13.1 x10^3/uL (4.0-11.0) 14.2 x10^3/uL (4.0-11.0) Red Blood Count 2.56 x10^6/uL (3.50-5.40) 2.36 x10^6/uL (3.50-5.40) Hemoglobin 7.9 g/dL (12.0-15.5) 7.2 g/dL (12.0-15.5) Hematocrit 23.3 % (36.0-47.0) 22.1 % (36.0-47.0) Mean Corpuscular Volume 91 fL (79-100) 93 fL (79-100) Mean Corpuscular Hemoglobin 31 pg (25-35) 31 pg (25-35) Mean Corpuscular Hemoglobin Concent 34 g/dL (31-37) 33 g/dL (31-37) Red Cell Distribution Width 13.9 % (11.5-14.5) 14.2 % (11.5-14.5) Platelet Count 165 x10^3/uL (140-400) 154 x10^3/uL (140-400) Neutrophils (%) (Auto) 79 % (31-73) 77 % (31-73) Lymphocytes (%) (Auto) 12 % (24-48) 14 % (24-48) Monocytes (%) (Auto) 7 % (0-9) 8 % (0-9) Eosinophils (%) (Auto) 1 % (0-3) 1 % (0-3) Basophils (%) (Auto) 1 % (0-3) 1 % (0-3) Neutrophils # (Auto) 10.4 x10^3uL (1.8-7.7) 10.8 x10^3uL (1.8-7.7) Lymphocytes # (Auto) 1.6 x10^3/uL (1.0-4.8) 2.0 x10^3/uL (1.0-4.8) Monocytes # (Auto) 0.9 x10^3/uL (0.0-1.1) 1.1 x10^3/uL (0.0-1.1) Eosinophils # (Auto) 0.1 x10^3/uL (0.0-0.7) 0.1 x10^3/uL (0.0-0.7) Basophils # (Auto) 0.1 x10^3/uL (0.0-0.2) 0.1 x10^3/uL (0.0-0.2) Assessment and Plan Assessmemt and Plan Problems Medical Problems: (1) Dizziness Status: Acute (2) GI bleeding Status: Acute Comment Review of Relevant I have reviewed the following items matty (where applicable) has been applied. Labs Laboratory Tests Test 09/24/18 16:58 09/24/18 17:23 09/24/18 17:45 09/24/18 18:35 Glucose (Fingerstick) 118 mg/dL (70-99) Lactic Acid Level 5.1 mmol/L (0.4-2.0) Stool Occult Blood Positive (NEG) White Blood Count 14.7 x10^3/uL (4.0-11.0) Red Blood Count 1.47 x10^6/uL (3.50-5.40) Hemoglobin 4.5 g/dL (12.0-15.5) Hematocrit 13.9 % (36.0-47.0) Mean Corpuscular Volume 95 fL (79-100) Mean Corpuscular Hemoglobin 30 pg (25-35) Mean Corpuscular Hemoglobin Concent 32 g/dL (31-37) Red Cell Distribution Width 16.0 % (11.5-14.5) Platelet Count 223 x10^3/uL (140-400) Neutrophils (%) (Auto) 85 % (31-73) Lymphocytes (%) (Auto) 9 % (24-48) Monocytes (%) (Auto) 5 % (0-9) Eosinophils (%) (Auto) 0 % (0-3) Basophils (%) (Auto) 1 % (0-3) Neutrophils # (Auto) 12.5 x10^3uL (1.8-7.7) Lymphocytes # (Auto) 1.4 x10^3/uL (1.0-4.8) Monocytes # (Auto) 0.7 x10^3/uL (0.0-1.1) Eosinophils # (Auto) 0.0 x10^3/uL (0.0-0.7) Basophils # (Auto) 0.1 x10^3/uL (0.0-0.2) Prothrombin Time 22.4 SEC (11.7-14.0) Prothromb Time International Ratio 2.0 (0.8-1.1) Activated Partial Thromboplast Time 32 SEC (24-38) Sodium Level 143 mmol/L (136-145) Potassium Level 4.3 mmol/L (3.5-5.1) Chloride Level 106 mmol/L (98-107) Carbon Dioxide Level 25 mmol/L (21-32) Anion Gap 12 (6-14) Blood Urea Nitrogen 47 mg/dL (7-20) Creatinine 0.7 mg/dL (0.6-1.0) Estimated GFR (Cockcroft-Gault) 80.3 BUN/Creatinine Ratio 67 (6-20) Glucose Level 118 mg/dL (70-99) Calcium Level 7.7 mg/dL (8.5-10.1) Total Bilirubin 0.3 mg/dL (0.2-1.0) Aspartate Amino Transf (AST/SGOT) 14 U/L (15-37) Alanine Aminotransferase (ALT/SGPT) 14 U/L (14-59) Alkaline Phosphatase 47 U/L (46-116) Troponin I Quantitative 0.027 ng/mL (0.000-0.055) SC-Ulf-X-Type Natriuretic Peptide 1290 pg/mL (0-449) Total Protein 5.3 g/dL (6.4-8.2) Albumin 3.0 g/dL (3.4-5.0) Albumin/Globulin Ratio 1.3 (1.0-1.7) Test 09/24/18 20:56 09/25/18 00:15 09/25/18 06:25 09/25/18 12:15 Nasal Screen MRSA (PCR) Negative (Negative) White Blood Count 12.7 x10^3/uL (4.0-11.0) 12.7 x10^3/uL (4.0-11.0) 13.1 x10^3/uL (4.0-11.0) Red Blood Count 1.73 x10^6/uL (3.50-5.40) 2.12 x10^6/uL (3.50-5.40) 2.56 x10^6/uL (3.50-5.40) Hemoglobin 5.4 g/dL (12.0-15.5) 6.7 g/dL (12.0-15.5) 7.9 g/dL (12.0-15.5) Hematocrit 16.4 % (36.0-47.0) 19.6 % (36.0-47.0) 23.3 % (36.0-47.0) Mean Corpuscular Volume 95 fL (79-100) 92 fL (79-100) 91 fL (79-100) Mean Corpuscular Hemoglobin 32 pg (25-35) 32 pg (25-35) 31 pg (25-35) Mean Corpuscular Hemoglobin Concent 33 g/dL (31-37) 34 g/dL (31-37) 34 g/dL (31-37) Red Cell Distribution Width 14.5 % (11.5-14.5) 14.1 % (11.5-14.5) 13.9 % (11.5-14.5) Platelet Count 195 x10^3/uL (140-400) 182 x10^3/uL (140-400) 165 x10^3/uL (140-400) Neutrophils (%) (Auto) 81 % (31-73) 76 % (31-73) 79 % (31-73) Lymphocytes (%) (Auto) 13 % (24-48) 16 % (24-48) 12 % (24-48) Monocytes (%) (Auto) 6 % (0-9) 7 % (0-9) 7 % (0-9) Eosinophils (%) (Auto) 0 % (0-3) 1 % (0-3) 1 % (0-3) Basophils (%) (Auto) 0 % (0-3) 0 % (0-3) 1 % (0-3) Neutrophils # (Auto) 10.2 x10^3uL (1.8-7.7) 9.6 x10^3uL (1.8-7.7) 10.4 x10^3uL (1.8-7.7) Lymphocytes # (Auto) 1.6 x10^3/uL (1.0-4.8) 2.0 x10^3/uL (1.0-4.8) 1.6 x10^3/uL (1.0-4.8) Monocytes # (Auto) 0.8 x10^3/uL (0.0-1.1) 0.9 x10^3/uL (0.0-1.1) 0.9 x10^3/uL (0.0-1.1) Eosinophils # (Auto) 0.0 x10^3/uL (0.0-0.7) 0.1 x10^3/uL (0.0-0.7) 0.1 x10^3/uL (0.0-0.7) Basophils # (Auto) 0.0 x10^3/uL (0.0-0.2) 0.1 x10^3/uL (0.0-0.2) 0.1 x10^3/uL (0.0-0.2) Lactic Acid Level 2.0 mmol/L (0.4-2.0) Prothrombin Time 17.7 SEC (11.7-14.0) Prothromb Time International Ratio 1.5 (0.8-1.1) Test 09/25/18 17:55 White Blood Count 14.2 x10^3/uL (4.0-11.0) Red Blood Count 2.36 x10^6/uL (3.50-5.40) Hemoglobin 7.2 g/dL (12.0-15.5) Hematocrit 22.1 % (36.0-47.0) Mean Corpuscular Volume 93 fL (79-100) Mean Corpuscular Hemoglobin 31 pg (25-35) Mean Corpuscular Hemoglobin Concent 33 g/dL (31-37) Red Cell Distribution Width 14.2 % (11.5-14.5) Platelet Count 154 x10^3/uL (140-400) Neutrophils (%) (Auto) 77 % (31-73) Lymphocytes (%) (Auto) 14 % (24-48) Monocytes (%) (Auto) 8 % (0-9) Eosinophils (%) (Auto) 1 % (0-3) Basophils (%) (Auto) 1 % (0-3) Neutrophils # (Auto) 10.8 x10^3uL (1.8-7.7) Lymphocytes # (Auto) 2.0 x10^3/uL (1.0-4.8) Monocytes # (Auto) 1.1 x10^3/uL (0.0-1.1) Eosinophils # (Auto) 0.1 x10^3/uL (0.0-0.7) Basophils # (Auto) 0.1 x10^3/uL (0.0-0.2) Laboratory Tests Test 09/24/18 18:35 09/24/18 20:56 09/25/18 00:15 09/25/18 06:25 White Blood Count 14.7 x10^3/uL (4.0-11.0) 12.7 x10^3/uL (4.0-11.0) 12.7 x10^3/uL (4.0-11.0) Red Blood Count 1.47 x10^6/uL (3.50-5.40) 1.73 x10^6/uL (3.50-5.40) 2.12 x10^6/uL (3.50-5.40) Hemoglobin 4.5 g/dL (12.0-15.5) 5.4 g/dL (12.0-15.5) 6.7 g/dL (12.0-15.5) Hematocrit 13.9 % (36.0-47.0) 16.4 % (36.0-47.0) 19.6 % (36.0-47.0) Mean Corpuscular Volume 95 fL (79-100) 95 fL (79-100) 92 fL (79-100) Mean Corpuscular Hemoglobin 30 pg (25-35) 32 pg (25-35) 32 pg (25-35) Mean Corpuscular Hemoglobin Concent 32 g/dL (31-37) 33 g/dL (31-37) 34 g/dL (31-37) Red Cell Distribution Width 16.0 % (11.5-14.5) 14.5 % (11.5-14.5) 14.1 % (11.5-14.5) Platelet Count 223 x10^3/uL (140-400) 195 x10^3/uL (140-400) 182 x10^3/uL (140-400) Neutrophils (%) (Auto) 85 % (31-73) 81 % (31-73) 76 % (31-73) Lymphocytes (%) (Auto) 9 % (24-48) 13 % (24-48) 16 % (24-48) Monocytes (%) (Auto) 5 % (0-9) 6 % (0-9) 7 % (0-9) Eosinophils (%) (Auto) 0 % (0-3) 0 % (0-3) 1 % (0-3) Basophils (%) (Auto) 1 % (0-3) 0 % (0-3) 0 % (0-3) Neutrophils # (Auto) 12.5 x10^3uL (1.8-7.7) 10.2 x10^3uL (1.8-7.7) 9.6 x10^3uL (1.8-7.7) Lymphocytes # (Auto) 1.4 x10^3/uL (1.0-4.8) 1.6 x10^3/uL (1.0-4.8) 2.0 x10^3/uL (1.0-4.8) Monocytes # (Auto) 0.7 x10^3/uL (0.0-1.1) 0.8 x10^3/uL (0.0-1.1) 0.9 x10^3/uL (0.0-1.1) Eosinophils # (Auto) 0.0 x10^3/uL (0.0-0.7) 0.0 x10^3/uL (0.0-0.7) 0.1 x10^3/uL (0.0-0.7) Basophils # (Auto) 0.1 x10^3/uL (0.0-0.2) 0.0 x10^3/uL (0.0-0.2) 0.1 x10^3/uL (0.0-0.2) Prothrombin Time 22.4 SEC (11.7-14.0) 17.7 SEC (11.7-14.0) Prothromb Time International Ratio 2.0 (0.8-1.1) 1.5 (0.8-1.1) Activated Partial Thromboplast Time 32 SEC (24-38) Sodium Level 143 mmol/L (136-145) Potassium Level 4.3 mmol/L (3.5-5.1) Chloride Level 106 mmol/L (98-107) Carbon Dioxide Level 25 mmol/L (21-32) Anion Gap 12 (6-14) Blood Urea Nitrogen 47 mg/dL (7-20) Creatinine 0.7 mg/dL (0.6-1.0) Estimated GFR (Cockcroft-Gault) 80.3 BUN/Creatinine Ratio 67 (6-20) Glucose Level 118 mg/dL (70-99) Calcium Level 7.7 mg/dL (8.5-10.1) Total Bilirubin 0.3 mg/dL (0.2-1.0) Aspartate Amino Transf (AST/SGOT) 14 U/L (15-37) Alanine Aminotransferase (ALT/SGPT) 14 U/L (14-59) Alkaline Phosphatase 47 U/L (46-116) Troponin I Quantitative 0.027 ng/mL (0.000-0.055) XM-Gbr-X-Type Natriuretic Peptide 1290 pg/mL (0-449) Total Protein 5.3 g/dL (6.4-8.2) Albumin 3.0 g/dL (3.4-5.0) Albumin/Globulin Ratio 1.3 (1.0-1.7) Nasal Screen MRSA (PCR) Negative (Negative) Lactic Acid Level 2.0 mmol/L (0.4-2.0) Test 09/25/18 12:15 09/25/18 17:55 White Blood Count 13.1 x10^3/uL (4.0-11.0) 14.2 x10^3/uL (4.0-11.0) Red Blood Count 2.56 x10^6/uL (3.50-5.40) 2.36 x10^6/uL (3.50-5.40) Hemoglobin 7.9 g/dL (12.0-15.5) 7.2 g/dL (12.0-15.5) Hematocrit 23.3 % (36.0-47.0) 22.1 % (36.0-47.0) Mean Corpuscular Volume 91 fL (79-100) 93 fL (79-100) Mean Corpuscular Hemoglobin 31 pg (25-35) 31 pg (25-35) Mean Corpuscular Hemoglobin Concent 34 g/dL (31-37) 33 g/dL (31-37) Red Cell Distribution Width 13.9 % (11.5-14.5) 14.2 % (11.5-14.5) Platelet Count 165 x10^3/uL (140-400) 154 x10^3/uL (140-400) Neutrophils (%) (Auto) 79 % (31-73) 77 % (31-73) Lymphocytes (%) (Auto) 12 % (24-48) 14 % (24-48) Monocytes (%) (Auto) 7 % (0-9) 8 % (0-9) Eosinophils (%) (Auto) 1 % (0-3) 1 % (0-3) Basophils (%) (Auto) 1 % (0-3) 1 % (0-3) Neutrophils # (Auto) 10.4 x10^3uL (1.8-7.7) 10.8 x10^3uL (1.8-7.7) Lymphocytes # (Auto) 1.6 x10^3/uL (1.0-4.8) 2.0 x10^3/uL (1.0-4.8) Monocytes # (Auto) 0.9 x10^3/uL (0.0-1.1) 1.1 x10^3/uL (0.0-1.1) Eosinophils # (Auto) 0.1 x10^3/uL (0.0-0.7) 0.1 x10^3/uL (0.0-0.7) Basophils # (Auto) 0.1 x10^3/uL (0.0-0.2) 0.1 x10^3/uL (0.0-0.2) Medications Current Medications Sodium Chloride 1,000 ml @ 1,000 mls/hr 1X ONCE IV Last administered on at 17:40; Start 09/24/18 at 17:15; Stop 09/24/18 at 18:14; Status DC Pantoprazole Sodium (PROTONIX VIAL for IV PUSH) 40 mg 1X ONCE IVP Last administered on 09/24/18at 17:43; Start 09/24/18 at 17:15; Stop 09/24/18 at 17:16 ; Status DC Pantoprazole Sodium 80 mg/ Sodium Chloride 100 ml @ 10 mls/hr 1X ONCE IV Last administered on 09/24/18at 20:18; Start 09/24/18 at 19:00; Stop 09/25/18 at 04:59; Status DC Sodium Chloride 1,000 ml @ 75 mls/hr [id number] IV Last administered on at 08:29; Start 09/24/18 at 19:09; Stop 09/25/18 at 19:08 Iohexol (Omnipaque 350 Mg/ml) 100 ml 1X ONCE IV Last administered on at 19:54; Start 09/24/18 at 19:30; Stop 09/24/18 at 19:31; Status DC Info (CONTRAST GIVEN -- Rx MONITORING) 1 each PRN DAILY PRN MC SEE COMMENTS; Start 09/24/18 at 19:30; Stop 09/26/18 at 19:29 Piperacillin Sod/ Tazobactam Sod 3.375 gm/Sodium Chloride 50 ml @ 100 mls/hr Q6HRS IV Last administered on 09/25/18at 17:53; Start 09/25/18 at 00:00 Propofol 200 ml @ As Directed STK-MED ONCE IV ; Start 09/25/18 at 09:45; Stop 09/25/18 at 09:46; Status DC Propofol 40 ml @ As Directed STK-MED ONCE IV ; Start 09/25/18 at 09:47; Stop at 09:48; Status DC Epinephrine HCl (EPINEPHrine SYRINGE) 1 mg STK-MED ONCE SQ Last administered on 09/25/18at 09:40; Start 09/25/18 at 09:40; Stop 09/25/18 at 09:54; Status DC Propofol 20 ml @ As Directed STK-MED ONCE IV ; Start 09/25/18 at 10:07; Stop at 10:08; Status DC Lidocaine HCl (Lidocaine Pf 2% Vial) 5 ml STK-MED ONCE .ROUTE ; Start 09/25/18 at 10:07; Stop 09/25/18 at 10:08; Status DC Epinephrine HCl (EPINEPHrine SYRINGE) 1 mg STK-MED ONCE .ROUTE ; Start 09/25/18 at 10:29; Stop 09/25/18 at 10:30; Status DC Throat Lozenges (Cepacol Sore Throat Lozenge) 1 lea PRN Q2HRS PRN PO SORE THROAT Last administered on 09/25/18at 13:58; Start 09/25/18 at 13:45 Active Scripts Active Reported Levothyroxine Sodium 75 Mcg Tablet 75 Mcg PO DAILYAC Imipramine Hcl 10 Mg Tablet 10 Mg PO HS Guaifenesin 100 Mg/5 Ml Liquid 100 Mg PO PRN Q6HRS PRN Vitamin D3 (Cholecalciferol (Vitamin D3)) 1,000 Unit Tablet 1 Tab PO DAILY Lipitor (Atorvastatin Calcium) 40 Mg Tablet 1 Tab PO QHS Eliquis (Apixaban) 5 Mg Tablet 5 Mg PO BID Duoneb 0.5-3(2.5) Mg/3 Ml (Albuterol/Ipratropium) 3 Ml Ampul.neb 3 Ml NEB PRN Q4HRS PRN Clopidogrel (Clopidogrel Bisulfate) 75 Mg Tablet 1 Tab PO DAILY Vitals/I & O Vital Sign - Last 24 Hours 09/24/18 09/24/18 09/24/18 09/24/18 18:30 19:00 19:30 20:00 Pulse 86 84 78 82 Resp 16 18 18 18 Pulse Ox 100 100 100 100 09/24/18 09/24/18 09/24/18 09/24/18 20:15 20:30 20:31 20:45 Temp 97.7 97.6 97.7 97.6 Pulse 84 80 83 82 Resp 18 20 14 20 B/P (MAP) 113/55 (74) 115/48 (70) 115/48 118/52 (74) Pulse Ox 100 100 100 O2 Delivery Nasal Cannula Nasal Cannula Nasal Cannula O2 Flow Rate 2.0 2.0 2.0 09/24/18 09/24/18 09/24/18 09/24/18 21:00 21:02 21:15 22:00 Temp 98.1 98.1 Pulse 80 84 82 Resp 20 20 18 B/P (MAP) 114/73 (87) 96/48 (64) 96/44 (61) Pulse Ox 99 100 98 O2 Delivery Nasal Cannula Nasal Cannula Room Air Room Air O2 Flow Rate 2.0 2.0 09/24/18 09/25/18 09/25/18 09/25/18 23:58 00:00 00:15 01:00 Temp 98.3 98.3 Pulse 70 78 84 Resp 20 20 B/P (MAP) 93/46 (62) 114/59 (77) 126/51 (76) Pulse Ox 98 100 100 O2 Delivery Room Air Room Air Room Air Room Air 09/25/18 09/25/18 09/25/18 09/25/18 01:34 02:00 03:00 04:00 Temp 98.7 98.2 98.7 98.2 Pulse 81 82 82 82 Resp 23 B/P (MAP) 106/47 132/57 (82) 138/55 (82) 122/47 (72) Pulse Ox 98 100 100 O2 Delivery Room Air Room Air Room Air 09/25/18 09/25/18 09/25/18 09/25/18 04:00 05:00 05:59 07:00 Temp 98.3 98.3 Pulse 82 84 77 Resp B/P (MAP) 140/60 (86) 119/47 (71) 140/56 (84) Pulse Ox 100 100 100 O2 Delivery Room Air Room Air Room Air Room Air 09/25/18 09/25/18 09/25/18 09/25/18 08:00 08:00 08:26 08:41 Temp 98.3 98.7 98.3 98.7 Pulse 76 77 76 Resp 24 B/P (MAP) 141/69 (93) 140/56 141/69 Pulse Ox 100 O2 Delivery Room Air Room Air 09/25/18 09/25/18 09/25/18 09/25/18 08:45 09:00 09:26 09:52 Temp 98.3 98.6 98.6 98.3 98.6 98.6 Pulse 75 76 76 77 Resp 15 16 B/P (MAP) 128/59 (82) 114/52 114/52 Pulse Ox 100 100 99 O2 Delivery Room Air Nasal Cannula O2 Flow Rate 4 09/25/18 09/25/18 09/25/18 09/25/18 09:58 10:00 10:08 10:12 Pulse 82 75 80 80 Resp 16 16 B/P (MAP) 146/51 166/60 (95) 166/60 Pulse Ox 100 98 100 O2 Delivery Nasal Cannula Nasal Cannula Nasal Cannula Nasal Cannula O2 Flow Rate 2 2.0 2 2 09/25/18 09/25/18 09/25/18 09/25/18 10:21 10:26 11:00 11:26 Temp 98.8 98.5 98.6 98.8 98.5 98.6 Pulse 78 75 77 77 Resp 16 23 B/P (MAP) 155/69 166/60 127/68 (87) 127/68 Pulse Ox 100 99 O2 Delivery Nasal Cannula Nasal Cannula O2 Flow Rate 2 2.0 09/25/18 09/25/18 09/25/18 09/25/18 12:00 12:00 13:00 14:00 Pulse 70 78 71 Resp 19 B/P (MAP) 149/67 (94) 154/75 (101) 147/61 (89) Pulse Ox 99 100 97 O2 Delivery Nasal Cannula Nasal Cannula Room Air Room Air O2 Flow Rate 2.0 2.0 09/25/18 09/25/18 09/25/18 09/25/18 15:00 16:00 16:00 17:00 Temp 98.4 98.4 Pulse 77 74 75 Resp 16 20 20 B/P (MAP) 114/62 (79) 114/62 (79) 127/49 (75) Pulse Ox 95 98 96 O2 Delivery Room Air Room Air Room Air Room Air Intake and Output 09/24/18 09/24/18 09/25/18 14:59 22:59 06:59 Intake Total 1000 ml 1452 ml Output Total 1175 ml Balance 1000 ml 277 ml PETER OLIVARES MD Sep 25, 2018 18:23
--- NOTE | 2018-09-25 19:31 | CARD ---
MR#: [id number] Date of Study: 09/25/2018 Ordering Physician: MARIELLE MARIA, Referring Physician: MARIELLE MARIA, Tech: Sangeetha Francis APPROVED REPORT EXAM: Two-dimensional and M-mode echocardiogram with Doppler and color Doppler. Other Information Quality : AverageHR: 78bpm Technically limited study due to Restless patient INDICATION Aortic Valve Disease 2D DIMENSIONS Left Atrium(2D)3.9 (1.6-4.0cm)IVSd1.4 (0.7-1.1cm) Aortic Root(2D)2.8 (2.0-3.7cm)LVDd4.6 (3.9-5.9cm) LVOT Diameter2.2 (1.8-2.4cm)PWd1.0 (0.7-1.1cm) LVDs2.9 (2.5-4.0cm)FS (%) 35.9 % SV62.6 mlLVEF(%)65.5 (>50%) Aortic Valve AoV Peak Nigel.394.7cm/sAoV TRI924.9cm AO Peak GR.62.3mmHgLVOT VTI 25.74cm AO Mean GR.61mmHg Mitral Valve MV E Mhibxbmb171.3cm/sMV DECEL [id number] MV A Ieosvpuf193.0cm/sE/A Ratio0.9 TDI Lateral E' P. V7.27cm/sMedial E' P. V7.92cm/s E/Lateral E'14.6E/Medial E'13.4 Tricuspid Valve TR P. Yfmewcin393gj/sRAP [id number] TR Peak Gr.[id number] Pulmonary Vein S1 Wveaorzi74.6cm/sS2 Ffbsmhxd36.55cm/s D2 Jngvxoaz12.5cm/sPVa [id number] LEFT VENTRICLE The left ventricle is normal size. There is mild to moderate concentric left ventricular hypertrophy. The left ventricular systolic function is normal and the ejection fraction is within normal range. T he Ejection Fraction is >55%. There is normal LV segmental wall motion. Transmitral Doppler flow john radha is Grade I-abnormal relaxation pattern. RIGHT VENTRICLE The right ventricle is normal size. There is normal right ventricular wall thickness. The right ventr icular systolic function is normal. ATRIA The left atrium is mildly dilated. The right atrium size is normal. The interatrial septum is intact with no evidence for an atrial septal defect or patent foramen ovale as noted on 2-D or Doppler imagi ng. AORTIC VALVE The aortic valve is calcified and displays decreased opening. Doppler and Color Flow revealed trace a ortic regurgitation. Calculated aortic valve area is .81 cm2 with maximum pressure gradient of 62 mmH g and mean pressure gradient of 61 mmHg. Doppler and color-flow analysis revealed severe aortic steno sis. MITRAL VALVE Mitral annular calcification is moderate. There is no evidence of mitral valve prolapse. There is no mitral valve stenosis. Doppler and Color-flow revealed trace to mild mitral regurgitation. TRICUSPID VALVE The tricuspid valve is normal in structure and function. Doppler and Color Flow revealed trace to mil d tricuspid regurgitation with an estimated PAP of 37 mmHg. There is no tricuspid valve prolapse or v egetation. There is no tricuspid valve stenosis. PULMONIC VALVE The pulmonary valve is normal in structure and function. Doppler and Color Flow revealed trace pulmon ic valvular regurgitation. There is mild to moderate pulmonic stenosis. GREAT VESSELS The aortic root is normal in size. The ascending aorta is Mildly dilated at 3.7 cm The IVC is normal in size and collapses >50% with inspiration. PERICARDIAL EFFUSION There is no evidence of significant pericardial effusion. Critical Notification Critical Value: No <Conclusion> The left ventricular systolic function is normal and the ejection fraction is within normal range. Th e Ejection Fraction is >55%. There is normal LV segmental wall motion. Calculated aortic valve area is .81 cm2 with maximum pressure gradient of 62 mmHg and mean pressure g radient of 61 mmHg. Doppler and color-flow analysis revealed severe aortic stenosis. Doppler and Color Flow revealed trace to mild tricuspid regurgitation with an estimated PAP of 37 mmH g. There is mild to moderate pulmonic stenosis. Signed by : Irvin Ulloa, Electronically Approved : 09/25/2018 19:30:50
[2018-09-26] VITALS (25 sets, daily range): BP systolic 67–173; BP diastolic 54–81
[2018-09-26] MEDS: PIPERACILLIN/TAZOBACTAM 3.375 GM in IV NORMAL SALINE 50ML 50 ML IV SCH ×4 (00:33→17:47)
[2018-09-26 00:48] LABS: BASO # 0.1 x10^3/uL (0.0-0.2); BASO % 1 % (0-3); EOS # 0.2 x10^3/uL (0.0-0.7); EOS % 2 % (0-3); LYMPH # 1.9 x10^3/uL (1.0-4.8); LYMPH % 15 % (24-48); MEAN CORPUSCULAR HEMOGLOBIN 31 pg (25-35); MEAN CORPUSCULAR HGB CONC 34 g/dL (31-37); MEAN CORPUSCULAR VOLUME 92 fL (79-100); MONO # 0.8 x10^3/uL (0.0-1.1); MONO % 6 % (0-9); NEUT # 9.9 x10^3uL (1.8-7.7); NEUT % 77 % (31-73); PLATELET COUNT 156 x10^3/uL (140-400); RED BLOOD COUNT 2.15 x10^6/uL (3.50-5.40); RED CELL DISTRIBUTION WIDTH 14.5 % (11.5-14.5); WHITE BLOOD COUNT 12.9 x10^3/uL (4.0-11.0)
[2018-09-26 00:54] LABS: HEMATOCRIT 19.9 % (36.0-47.0); HEMOGLOBIN 6.7 g/dL (12.0-15.5)
--- NOTE | 2018-09-26 01:59 | NUR ---
Received unit of blood from blood bank and went to patients bedside to verify unit with Ariana [facility]. Patients blood band did not have typenex number on it. Called blood bank, blood bank and laborer tin can came to bedside informed this RN this unit cannot be used must do new typenex before able to transfuse a new unit. This unit of blood thrown away in biohazard as directed by Mariann from blood bank. Continue to monitor.
--- NOTE | 2018-09-26 03:26 | CONS ---
DATE OF CONSULTATION: 09/25/2018 REFERRING PHYSICIAN: Dr. Lane REASON FOR CONSULTATION: Lactic acidosis and leukocytosis. HISTORY OF PRESENT ILLNESS: This patient is an 83-year-old female who is a longterm resident at [facility] who was sent to the ER with complaints of abdominal pain, nausea, black stools and dizziness. She recently underwent a coronary stent placement and also was found to have a DVT in right leg and was taking both Eliquis and Plavix. She was found to have an elevated white blood cell count of 14,700; lactic acid 5.1; hemoglobin 4.5. Positive occult blood in the stool and iron are 2.0. An abdominal/pelvis CTA showed no sign of GI hemorrhage or clear bowel ischemia; ill-defined soft tissue seen anterior to the right common femoral artery measuring approximately 2.8 x 2.1 cm; interval development of moderate right hydronephrosis. She underwent an EGD this morning. She was found to have a recent bleeding and mild oozing in the second portion of the duodenum without discrete ulcer. Status post epi injection. Both the Eliquis and Plavix have been discontinued. Cultures have been ordered. She is currently on Zosyn. ID has been asked to consult for further evaluation and antibiotic management. PAST MEDICAL HISTORY: Coronary artery disease, Alzheimer disease, severe aortic stenosis, peripheral vascular disease, hyperlipidemia, DVT, hypothyroidism, urinary tract infections, depression. PAST SURGICAL HISTORY: Appendectomy, coronary stent placement. SOCIAL HISTORY: The patient is a longterm resident at [facility]. Nonsmoker. She is . FAMILY HISTORY: Noncontributory. ALLERGIES: No known drug allergies. MEDICATIONS: Zosyn, onetime dose of Protonix, IV fluids. REVIEW OF SYSTEMS: The patient is confused and is a poor historian. Her daughter says that she has a history of having 3-4 urinary tract infections a year. She was last treated for one a few weeks ago. She does not recall what type of antibiotic she was on. No reports of fevers or chills. She is normally ambulatory. PHYSICAL EXAMINATION: VITAL SIGNS: Temperature 98.6, blood pressure 127/68, heart rate 77, respiratory rate 22, pulse oximetry is 99% on 2 liters oxygen. BMI 34. GENERAL: The patient is propped up in bed, alert, calm, wearing mittens. HEENT: Pupils are equally round. Normal conjunctivae. Oral cavity: Pharynx pink and moist. No thrush. Edentulous. NECK: Supple. LUNGS: Clear to auscultation. HEART: S1 and S2, loud murmur throughout. ABDOMEN: Obese, soft and nontender with bowel sounds present. GENITOURINARY: Indwelling Martin in place. EXTREMITIES: No gross edema or cyanosis. SKIN: Warm without rash. NEUROLOGIC: Alert, confused, but cooperative. LABORATORY DATA: Today's WBC 12.7 from 14.7; hemoglobin 6.7 from 4.5; platelets 182,000. Lactic acid 2.0 from 5.1. Electrolytes are unremarkable. Creatinine 0.7, BUN 12, total bilirubin 0.3, AST 14, ALT 14. Troponin 0.027. BNP 1290, albumin 3.0. Stool occult blood positive. Abdominal/pelvis CTA per HPI. Chest x-ray showed mild cardiomegaly. Urinalysis and blood cultures pending. IMPRESSION: 1. Lactic acidosis. 2. Leukocytosis. 3. Acute gastrointestinal bleed. 4. Right hydronephrosis. 5. Coronary artery disease, status post stent placement. 6. History of deep venous thrombosis in right common femoral vein. 7. Diabetes. 8. Dementia. PLAN: Continue empiric Zosyn. We will follow up on culture results. Urology has been consulted. Continue to monitor laboratory values. Maintain aspiration precautions. Supportive care. Discussed with the patient's daughter. Thank you, Dr. Lane, for asking us to participate in this patient's care. Should you have further questions or concerns, please call. ISADORA NAVARRETE MD DR: DIPTI/jackson JOB#: [id number] / [id number]
--- NOTE | 2018-09-26 07:43 | EKG ---
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
[2018-09-26 07:54] LABS: BASO # 0.1 x10^3/uL (0.0-0.2); BASO % 1 % (0-3); EOS # 0.3 x10^3/uL (0.0-0.7); EOS % 2 % (0-3); HEMATOCRIT 26.6 % (36.0-47.0); HEMOGLOBIN 8.9 g/dL (12.0-15.5); LYMPH # 1.9 x10^3/uL (1.0-4.8); LYMPH % 15 % (24-48); MEAN CORPUSCULAR HEMOGLOBIN 30 pg (25-35); MEAN CORPUSCULAR HGB CONC 33 g/dL (31-37); MEAN CORPUSCULAR VOLUME 91 fL (79-100); MONO # 0.8 x10^3/uL (0.0-1.1); MONO % 6 % (0-9); NEUT # 9.4 x10^3uL (1.8-7.7); NEUT % 76 % (31-73); PLATELET COUNT 153 x10^3/uL (140-400); RED BLOOD COUNT 2.92 x10^6/uL (3.50-5.40); RED CELL DISTRIBUTION WIDTH 14.6 % (11.5-14.5); WHITE BLOOD COUNT 12.4 x10^3/uL (4.0-11.0)
[2018-09-26 07:59] LABS: ALBUMIN 2.7 g/dL (3.4-5.0); ALBUMIN/GLOBULIN RATIO 1.2 (1.0-1.7); CALCIUM 7.2 mg/dL (8.5-10.1); CREATININE 0.5 mg/dL (0.6-1.0); GFR 118.4; POTASSIUM 3.3 mmol/L (3.5-5.1); TOTAL BILIRUBIN 0.7 mg/dL (0.2-1.0)
[2018-09-26 08:01] LABS: PROTHROMBIN TIME PATIENT 15.3 SEC (11.7-14.0)
--- NOTE | 2018-09-26 08:28 | PDOC ---
Infectious Disease Note Subjective: Subjective Pt says feels fine no f/c/n/v/d/abdo pain eating jello D/W RN Vital Signs: Vital Signs Vital Signs Date Time Temp Pulse Resp B/P (MAP) Pulse Ox O2 Delivery O2 Flow Rate FiO2 09/26/18 06:20 77 20 146/65 (92) 94 Room Air 09/26/18 06:19 98.8 98.8 09/25/18 20:38 99.0 Physical Exam: PHYSICAL EXAM GENERAL: The patient is propped up in bed, alert, calm, wearing mittens. HEENT: Pupils are equally round. Normal conjunctivae. Oral cavity: Pharynx pink and moist. No thrush. Edentulous. NECK: Supple. LUNGS: Clear to auscultation. HEART: S1 and S2, loud murmur throughout. ABDOMEN: Obese, soft and nontender with bowel sounds present. GENITOURINARY: Indwelling Martin in place. EXTREMITIES: No gross edema or cyanosis. SKIN: Warm without rash. NEUROLOGIC: Alert, confused, but cooperative. Medications: Inpatient Meds: Current Medications Medications (Trade) Dose Ordered Sig/Tiffanie Start Time Stop Time Status Last Admin Dose Admin Epinephrine HCl (EPINEPHrine SYRINGE) 1 mg STK-MED ONCE 09/25/18 10:29 09/25/18 10:30 DC Info (CONTRAST GIVEN -- Rx MONITORING) 1 each PRN DAILY PRN 09/24/18 19:30 09/26/18 19:29 Iohexol (Omnipaque 350 Mg/ml) 100 ml 1X ONCE 09/24/18 19:30 09/24/18 19:31 DC 09/24/18 19:54 100 ML Lidocaine HCl (Lidocaine Pf 2% Vial) 5 ml STK-MED ONCE 09/25/18 10:07 09/25/18 10:08 DC Pantoprazole Sodium (PROTONIX VIAL for IV PUSH) 40 mg 1X ONCE 09/24/18 17:15 09/24/18 17:16 DC 09/24/18 17:43 40 MG Pantoprazole Sodium 80 mg/ Sodium Chloride 100 ml @ 10 mls/hr 1X ONCE 09/24/18 19:00 09/25/18 04:59 DC 09/24/18 20:18 10 MLS/HR Piperacillin Sod/ Tazobactam Sod 3.375 gm/Sodium Chloride 50 ml @ 100 mls/hr Q6HRS 09/25/18 00:00 09/26/18 06:48 100 MLS/HR Propofol (Diprivan) 2,000 mg STK-MED ONCE 09/25/18 10:00 09/26/18 07:27 DC Sodium Chloride 1,000 ml @ 75 mls/hr [id number] 09/24/18 19:09 09/25/18 19:08 DC 09/25/18 08:29 75 MLS/HR Throat Lozenges (Cepacol Sore Throat Lozenge) 1 aki PRN Q2HRS PRN 09/25/18 13:45 09/25/18 13:58 1 AKI Labs: Lab Laboratory Tests Test 09/25/18 12:15 09/25/18 17:55 09/26/18 00:30 09/26/18 07:15 White Blood Count 13.1 x10^3/uL (4.0-11.0) 14.2 x10^3/uL (4.0-11.0) 12.9 x10^3/uL (4.0-11.0) 12.4 x10^3/uL (4.0-11.0) Red Blood Count 2.56 x10^6/uL (3.50-5.40) 2.36 x10^6/uL (3.50-5.40) 2.15 x10^6/uL (3.50-5.40) 2.92 x10^6/uL (3.50-5.40) Hemoglobin 7.9 g/dL (12.0-15.5) 7.2 g/dL (12.0-15.5) 6.7 g/dL (12.0-15.5) 8.9 g/dL (12.0-15.5) Hematocrit 23.3 % (36.0-47.0) 22.1 % (36.0-47.0) 19.9 % (36.0-47.0) 26.6 % (36.0-47.0) Mean Corpuscular Volume 91 fL (79-100) 93 fL (79-100) 92 fL (79-100) 91 fL ( 79-100) Mean Corpuscular Hemoglobin 31 pg (25-35) 31 pg (25-35) 31 pg (25-35) 30 pg ( 25-35) Mean Corpuscular Hemoglobin Concent 34 g/dL (31-37) 33 g/dL (31-37) 34 g/dL (31-37) 33 g/dL (31-37) Red Cell Distribution Width 13.9 % (11.5-14.5) 14.2 % (11.5-14.5) 14.5 % (11.5-14.5) 14.6 % (11.5-14.5) Platelet Count 165 x10^3/uL (140-400) 154 x10^3/uL (140-400) 156 x10^3/uL (140-400) 153 x10^3/uL (140-400) Neutrophils (%) (Auto) 79 % (31-73) 77 % (31-73) 77 % (31-73) 76 % (31-73) Lymphocytes (%) (Auto) 12 % (24-48) 14 % (24-48) 15 % (24-48) 15 % (24-48) Monocytes (%) (Auto) 7 % (0-9) 8 % (0-9) 6 % (0-9) 6 % (0-9) Eosinophils (%) (Auto) 1 % (0-3) 1 % (0-3) 2 % (0-3) 2 % (0-3) Basophils (%) (Auto) 1 % (0-3) 1 % (0-3) 1 % (0-3) 1 % (0-3) Neutrophils # (Auto) 10.4 x10^3uL (1.8-7.7) 10.8 x10^3uL (1.8-7.7) 9.9 x10^3uL (1.8-7.7) 9.4 x10^3uL (1.8-7.7) Lymphocytes # (Auto) 1.6 x10^3/uL (1.0-4.8) 2.0 x10^3/uL (1.0-4.8) 1.9 x10^3/uL (1.0-4.8) 1.9 x10^3/uL (1.0-4.8) Monocytes # (Auto) 0.9 x10^3/uL (0.0-1.1) 1.1 x10^3/uL (0.0-1.1) 0.8 x10^3/uL (0.0-1.1) 0.8 x10^3/uL (0.0-1.1) Eosinophils # (Auto) 0.1 x10^3/uL (0.0-0.7) 0.1 x10^3/uL (0.0-0.7) 0.2 x10^3/uL (0.0-0.7) 0.3 x10^3/uL (0.0-0.7) Basophils # (Auto) 0.1 x10^3/uL (0.0-0.2) 0.1 x10^3/uL (0.0-0.2) 0.1 x10^3/uL (0.0-0.2) 0.1 x10^3/uL (0.0-0.2) Prothrombin Time 15.3 SEC (11.7-14.0) Prothromb Time International Ratio 1.2 (0.8-1.1) Sodium Level 146 mmol/L (136-145) Potassium Level 3.3 mmol/L (3.5-5.1) Chloride Level 112 mmol/L (98-107) Carbon Dioxide Level 25 mmol/L (21-32) Anion Gap 9 (6-14) Blood Urea Nitrogen 27 mg/dL (7-20) Creatinine 0.5 mg/dL (0.6-1.0) Estimated GFR (Cockcroft-Gault) 118.4 BUN/Creatinine Ratio 54 (6-20) Glucose Level 111 mg/dL (70-99) Calcium Level 7.2 mg/dL (8.5-10.1) Total Bilirubin 0.7 mg/dL (0.2-1.0) Aspartate Amino Transf (AST/SGOT) 18 U/L (15-37) Alanine Aminotransferase (ALT/SGPT) 15 U/L (14-59) Alkaline Phosphatase 45 U/L (46-116) Total Protein 5.0 g/dL (6.4-8.2) Albumin 2.7 g/dL (3.4-5.0) Albumin/Globulin Ratio 1.2 (1.0-1.7) Objective: Assessment: 1. Acute gastrointestinal bleed. S/P EGD 2. Leukocytosis. Lactic acidosis. 3. Anemia s/p PRBCs 4. Right hydronephrosis. 5. Coronary artery disease, status post stent placement. 6. History of deep venous thrombosis in right common femoral vein. 7. Diabetes. 8. Dementia. 9. HX DVT Right lower leg on eliquis 10. morbid obesity 11. Pseudoaneurysm of right femoral artery , recent, ? hematoma Plan: Plan of Care Continue empiric Zosyn f/u cultures Urology consulted Monitor labs Maintain aspiration precautions Supportive care D/W PAUL BULL MD Sep 26, 2018 08:28
--- NOTE | 2018-09-26 08:32 | PDOC ---
PROGRESS NOTES Chief Complaint Chief Complaint 1. Acute gi bleeding// severe anemia of acute blood loss 2. Moderate dementia 3. CAD with recent stent placement [facility] 4. HX DVT Right lower leg on eliquis 5. morbid obesity 6. Pseudoaneurysm of right femoral artery , recent 7. POSSIBLE SEPSIS 8. LAD STENT, DRUG-eluting placed [facility] 09/24/18 9. Urinary retention 10. Possible uretal stone History of Present Illness History of Present Illness Ms Koroma is a SNF resident at [facility] who was sent to the ER with complaints of abdominal pain, nausea, black stools and dizziness. She recently underwent a coronary stent placement and also was found to have a DVT in right leg and was taking both Eliquis and Plavix. She was found to have an elevated white blood cell count of 14,700; lactic acid 5.1; hemoglobin 4.5. Positive occult blood in the stool and iron are 2.0. An abdominal/pelvis CTA showed no sign of GI hemorrhage or clear bowel ischemia; ill-defined soft tissue seen anterior to the right common femoral artery measuring approximately 2.8 x 2.1 cm; interval development of moderate right hydronephrosis. She underwent an EGD this morning. She was found to have a recent bleeding and mild oozing in the second portion of the duodenum without discrete ulcer. Status post epi injection. Both the Eliquis and Plavix have been discontinued Transfused 4u PRBC and 1u FFP total s./p EGD per GI - "Esophagus normal, gastritis without ulcer or bleeding, duodenal blood noted- recent bleeding and mild oozing noted in 2nd portion of duodenum but no discrete ulcer, AVM etc- area injected with epi and oozing seemed to stop- scope passed to 3rd portion- all areas irrigated- no other active bleeding seem but recent blood in lumen noted" She is feeling well, had some dark stool still this morning x2. Plan: hold eliquis/ plavix, labs, cont q6 labs obtain recent records She will need to restart antiplatelet agents when ok with GI, would recommend holding eliquis, may need IR consultation for filter placement Urology and ID to see for possible urosepsis Vitals Vitals Vital Signs Date Time Temp Pulse Resp B/P (MAP) Pulse Ox O2 Delivery O2 Flow Rate FiO2 09/26/18 06:20 77 20 146/65 (92) 94 Room Air 09/26/18 06:19 98.8 98.8 09/25/18 20:38 99.0 Physical Exam Physical Exam GENERAL: The patient is propped up in bed, alert, calm, wearing mittens. HEENT: Pupils are equally round. Normal conjunctivae. Oral cavity: Pharynx pink and moist. No thrush. Edentulous. NECK: Supple. LUNGS: Clear to auscultation. HEART: S1 and S2, loud murmur throughout. ABDOMEN: Obese, soft and nontender with bowel sounds present. GENITOURINARY: Indwelling Martin in place. EXTREMITIES: No gross edema or cyanosis. SKIN: Warm without rash. NEUROLOGIC: Alert, confused, but cooperative. General: Alert Heart: Regular rate, Normal S1, Normal S2, Other (systolic murmur) Abdomen: Normal bowel sounds, Soft, No tenderness, No hepatosplenomegaly Extremities: No clubbing, No cyanosis Skin: No rashes Labs LABS Laboratory Tests Test 09/25/18 12:15 09/25/18 17:55 09/26/18 00:30 09/26/18 07:15 White Blood Count 13.1 x10^3/uL (4.0-11.0) 14.2 x10^3/uL (4.0-11.0) 12.9 x10^3/uL (4.0-11.0) 12.4 x10^3/uL (4.0-11.0) Red Blood Count 2.56 x10^6/uL (3.50-5.40) 2.36 x10^6/uL (3.50-5.40) 2.15 x10^6/uL (3.50-5.40) 2.92 x10^6/uL (3.50-5.40) Hemoglobin 7.9 g/dL (12.0-15.5) 7.2 g/dL (12.0-15.5) 6.7 g/dL (12.0-15.5) 8.9 g/dL (12.0-15.5) Hematocrit 23.3 % (36.0-47.0) 22.1 % (36.0-47.0) 19.9 % (36.0-47.0) 26.6 % (36.0-47.0) Mean Corpuscular Volume 91 fL (79-100) 93 fL (79-100) 92 fL (79-100) 91 fL ( 79-100) Mean Corpuscular Hemoglobin 31 pg (25-35) 31 pg (25-35) 31 pg (25-35) 30 pg ( 25-35) Mean Corpuscular Hemoglobin Concent 34 g/dL (31-37) 33 g/dL (31-37) 34 g/dL (31-37) 33 g/dL (31-37) Red Cell Distribution Width 13.9 % (11.5-14.5) 14.2 % (11.5-14.5) 14.5 % (11.5-14.5) 14.6 % (11.5-14.5) Platelet Count 165 x10^3/uL (140-400) 154 x10^3/uL (140-400) 156 x10^3/uL (140-400) 153 x10^3/uL (140-400) Neutrophils (%) (Auto) 79 % (31-73) 77 % (31-73) 77 % (31-73) 76 % (31-73) Lymphocytes (%) (Auto) 12 % (24-48) 14 % (24-48) 15 % (24-48) 15 % (24-48) Monocytes (%) (Auto) 7 % (0-9) 8 % (0-9) 6 % (0-9) 6 % (0-9) Eosinophils (%) (Auto) 1 % (0-3) 1 % (0-3) 2 % (0-3) 2 % (0-3) Basophils (%) (Auto) 1 % (0-3) 1 % (0-3) 1 % (0-3) 1 % (0-3) Neutrophils # (Auto) 10.4 x10^3uL (1.8-7.7) 10.8 x10^3uL (1.8-7.7) 9.9 x10^3uL (1.8-7.7) 9.4 x10^3uL (1.8-7.7) Lymphocytes # (Auto) 1.6 x10^3/uL (1.0-4.8) 2.0 x10^3/uL (1.0-4.8) 1.9 x10^3/uL (1.0-4.8) 1.9 x10^3/uL (1.0-4.8) Monocytes # (Auto) 0.9 x10^3/uL (0.0-1.1) 1.1 x10^3/uL (0.0-1.1) 0.8 x10^3/uL (0.0-1.1) 0.8 x10^3/uL (0.0-1.1) Eosinophils # (Auto) 0.1 x10^3/uL (0.0-0.7) 0.1 x10^3/uL (0.0-0.7) 0.2 x10^3/uL (0.0-0.7) 0.3 x10^3/uL (0.0-0.7) Basophils # (Auto) 0.1 x10^3/uL (0.0-0.2) 0.1 x10^3/uL (0.0-0.2) 0.1 x10^3/uL (0.0-0.2) 0.1 x10^3/uL (0.0-0.2) Prothrombin Time 15.3 SEC (11.7-14.0) Prothromb Time International Ratio 1.2 (0.8-1.1) Sodium Level 146 mmol/L (136-145) Potassium Level 3.3 mmol/L (3.5-5.1) Chloride Level 112 mmol/L (98-107) Carbon Dioxide Level 25 mmol/L (21-32) Anion Gap 9 (6-14) Blood Urea Nitrogen 27 mg/dL (7-20) Creatinine 0.5 mg/dL (0.6-1.0) Estimated GFR (Cockcroft-Gault) 118.4 BUN/Creatinine Ratio 54 (6-20) Glucose Level 111 mg/dL (70-99) Calcium Level 7.2 mg/dL (8.5-10.1) Total Bilirubin 0.7 mg/dL (0.2-1.0) Aspartate Amino Transf (AST/SGOT) 18 U/L (15-37) Alanine Aminotransferase (ALT/SGPT) 15 U/L (14-59) Alkaline Phosphatase 45 U/L (46-116) Total Protein 5.0 g/dL (6.4-8.2) Albumin 2.7 g/dL (3.4-5.0) Albumin/Globulin Ratio 1.2 (1.0-1.7) Assessment and Plan Assessmemt and Plan Problems Medical Problems: (1) Dizziness Status: Acute (2) GI bleeding Status: Acute Comment Review of Relevant I have reviewed the following items matty (where applicable) has been applied. Labs Laboratory Tests Test 09/24/18 16:58 09/24/18 17:23 09/24/18 17:45 09/24/18 18:35 Glucose (Fingerstick) 118 mg/dL (70-99) Lactic Acid Level 5.1 mmol/L (0.4-2.0) Stool Occult Blood Positive (NEG) White Blood Count 14.7 x10^3/uL (4.0-11.0) Red Blood Count 1.47 x10^6/uL (3.50-5.40) Hemoglobin 4.5 g/dL (12.0-15.5) Hematocrit 13.9 % (36.0-47.0) Mean Corpuscular Volume 95 fL (79-100) Mean Corpuscular Hemoglobin 30 pg (25-35) Mean Corpuscular Hemoglobin Concent 32 g/dL (31-37) Red Cell Distribution Width 16.0 % (11.5-14.5) Platelet Count 223 x10^3/uL (140-400) Neutrophils (%) (Auto) 85 % (31-73) Lymphocytes (%) (Auto) 9 % (24-48) Monocytes (%) (Auto) 5 % (0-9) Eosinophils (%) (Auto) 0 % (0-3) Basophils (%) (Auto) 1 % (0-3) Neutrophils # (Auto) 12.5 x10^3uL (1.8-7.7) Lymphocytes # (Auto) 1.4 x10^3/uL (1.0-4.8) Monocytes # (Auto) 0.7 x10^3/uL (0.0-1.1) Eosinophils # (Auto) 0.0 x10^3/uL (0.0-0.7) Basophils # (Auto) 0.1 x10^3/uL (0.0-0.2) Prothrombin Time 22.4 SEC (11.7-14.0) Prothromb Time International Ratio 2.0 (0.8-1.1) Activated Partial Thromboplast Time 32 SEC (24-38) Sodium Level 143 mmol/L (136-145) Potassium Level 4.3 mmol/L (3.5-5.1) Chloride Level 106 mmol/L (98-107) Carbon Dioxide Level 25 mmol/L (21-32) Anion Gap 12 (6-14) Blood Urea Nitrogen 47 mg/dL (7-20) Creatinine 0.7 mg/dL (0.6-1.0) Estimated GFR (Cockcroft-Gault) 80.3 BUN/Creatinine Ratio 67 (6-20) Glucose Level 118 mg/dL (70-99) Calcium Level 7.7 mg/dL (8.5-10.1) Total Bilirubin 0.3 mg/dL (0.2-1.0) Aspartate Amino Transf (AST/SGOT) 14 U/L (15-37) Alanine Aminotransferase (ALT/SGPT) 14 U/L (14-59) Alkaline Phosphatase 47 U/L (46-116) Troponin I Quantitative 0.027 ng/mL (0.000-0.055) PQ-Ujo-R-Type Natriuretic Peptide 1290 pg/mL (0-449) Total Protein 5.3 g/dL (6.4-8.2) Albumin 3.0 g/dL (3.4-5.0) Albumin/Globulin Ratio 1.3 (1.0-1.7) Test 09/24/18 20:56 09/25/18 00:15 09/25/18 06:25 09/25/18 12:15 Nasal Screen MRSA (PCR) Negative (Negative) White Blood Count 12.7 x10^3/uL (4.0-11.0) 12.7 x10^3/uL (4.0-11.0) 13.1 x10^3/uL (4.0-11.0) Red Blood Count 1.73 x10^6/uL (3.50-5.40) 2.12 x10^6/uL (3.50-5.40) 2.56 x10^6/uL (3.50-5.40) Hemoglobin 5.4 g/dL (12.0-15.5) 6.7 g/dL (12.0-15.5) 7.9 g/dL (12.0-15.5) Hematocrit 16.4 % (36.0-47.0) 19.6 % (36.0-47.0) 23.3 % (36.0-47.0) Mean Corpuscular Volume 95 fL (79-100) 92 fL (79-100) 91 fL (79-100) Mean Corpuscular Hemoglobin 32 pg (25-35) 32 pg (25-35) 31 pg (25-35) Mean Corpuscular Hemoglobin Concent 33 g/dL (31-37) 34 g/dL (31-37) 34 g/dL (31-37) Red Cell Distribution Width 14.5 % (11.5-14.5) 14.1 % (11.5-14.5) 13.9 % (11.5-14.5) Platelet Count 195 x10^3/uL (140-400) 182 x10^3/uL (140-400) 165 x10^3/uL (140-400) Neutrophils (%) (Auto) 81 % (31-73) 76 % (31-73) 79 % (31-73) Lymphocytes (%) (Auto) 13 % (24-48) 16 % (24-48) 12 % (24-48) Monocytes (%) (Auto) 6 % (0-9) 7 % (0-9) 7 % (0-9) Eosinophils (%) (Auto) 0 % (0-3) 1 % (0-3) 1 % (0-3) Basophils (%) (Auto) 0 % (0-3) 0 % (0-3) 1 % (0-3) Neutrophils # (Auto) 10.2 x10^3uL (1.8-7.7) 9.6 x10^3uL (1.8-7.7) 10.4 x10^3uL (1.8-7.7) Lymphocytes # (Auto) 1.6 x10^3/uL (1.0-4.8) 2.0 x10^3/uL (1.0-4.8) 1.6 x10^3/uL (1.0-4.8) Monocytes # (Auto) 0.8 x10^3/uL (0.0-1.1) 0.9 x10^3/uL (0.0-1.1) 0.9 x10^3/uL (0.0-1.1) Eosinophils # (Auto) 0.0 x10^3/uL (0.0-0.7) 0.1 x10^3/uL (0.0-0.7) 0.1 x10^3/uL (0.0-0.7) Basophils # (Auto) 0.0 x10^3/uL (0.0-0.2) 0.1 x10^3/uL (0.0-0.2) 0.1 x10^3/uL (0.0-0.2) Lactic Acid Level 2.0 mmol/L (0.4-2.0) Prothrombin Time 17.7 SEC (11.7-14.0) Prothromb Time International Ratio 1.5 (0.8-1.1) Test 09/25/18 17:55 09/26/18 00:30 09/26/18 07:15 White Blood Count 14.2 x10^3/uL (4.0-11.0) 12.9 x10^3/uL (4.0-11.0) 12.4 x10^3/uL (4.0-11.0) Red Blood Count 2.36 x10^6/uL (3.50-5.40) 2.15 x10^6/uL (3.50-5.40) 2.92 x10^6/uL (3.50-5.40) Hemoglobin 7.2 g/dL (12.0-15.5) 6.7 g/dL (12.0-15.5) 8.9 g/dL (12.0-15.5) Hematocrit 22.1 % (36.0-47.0) 19.9 % (36.0-47.0) 26.6 % (36.0-47.0) Mean Corpuscular Volume 93 fL (79-100) 92 fL (79-100) 91 fL (79-100) Mean Corpuscular Hemoglobin 31 pg (25-35) 31 pg (25-35) 30 pg (25-35) Mean Corpuscular Hemoglobin Concent 33 g/dL (31-37) 34 g/dL (31-37) 33 g/dL (31-37) Red Cell Distribution Width 14.2 % (11.5-14.5) 14.5 % (11.5-14.5) 14.6 % (11.5-14.5) Platelet Count 154 x10^3/uL (140-400) 156 x10^3/uL (140-400) 153 x10^3/uL (140-400) Neutrophils (%) (Auto) 77 % (31-73) 77 % (31-73) 76 % (31-73) Lymphocytes (%) (Auto) 14 % (24-48) 15 % (24-48) 15 % (24-48) Monocytes (%) (Auto) 8 % (0-9) 6 % (0-9) 6 % (0-9) Eosinophils (%) (Auto) 1 % (0-3) 2 % (0-3) 2 % (0-3) Basophils (%) (Auto) 1 % (0-3) 1 % (0-3) 1 % (0-3) Neutrophils # (Auto) 10.8 x10^3uL (1.8-7.7) 9.9 x10^3uL (1.8-7.7) 9.4 x10^3uL (1.8-7.7) Lymphocytes # (Auto) 2.0 x10^3/uL (1.0-4.8) 1.9 x10^3/uL (1.0-4.8) 1.9 x10^3/uL (1.0-4.8) Monocytes # (Auto) 1.1 x10^3/uL (0.0-1.1) 0.8 x10^3/uL (0.0-1.1) 0.8 x10^3/uL (0.0-1.1) Eosinophils # (Auto) 0.1 x10^3/uL (0.0-0.7) 0.2 x10^3/uL (0.0-0.7) 0.3 x10^3/uL (0.0-0.7) Basophils # (Auto) 0.1 x10^3/uL (0.0-0.2) 0.1 x10^3/uL (0.0-0.2) 0.1 x10^3/uL (0.0-0.2) Prothrombin Time 15.3 SEC (11.7-14.0) Prothromb Time International Ratio 1.2 (0.8-1.1) Sodium Level 146 mmol/L (136-145) Potassium Level 3.3 mmol/L (3.5-5.1) Chloride Level 112 mmol/L (98-107) Carbon Dioxide Level 25 mmol/L (21-32) Anion Gap 9 (6-14) Blood Urea Nitrogen 27 mg/dL (7-20) Creatinine 0.5 mg/dL (0.6-1.0) Estimated GFR (Cockcroft-Gault) 118.4 BUN/Creatinine Ratio 54 (6-20) Glucose Level 111 mg/dL (70-99) Calcium Level 7.2 mg/dL (8.5-10.1) Total Bilirubin 0.7 mg/dL (0.2-1.0) Aspartate Amino Transf (AST/SGOT) 18 U/L (15-37) Alanine Aminotransferase (ALT/SGPT) 15 U/L (14-59) Alkaline Phosphatase 45 U/L (46-116) Total Protein 5.0 g/dL (6.4-8.2) Albumin 2.7 g/dL (3.4-5.0) Albumin/Globulin Ratio 1.2 (1.0-1.7) Laboratory Tests Test 09/25/18 12:15 09/25/18 17:55 09/26/18 00:30 09/26/18 07:15 White Blood Count 13.1 x10^3/uL (4.0-11.0) 14.2 x10^3/uL (4.0-11.0) 12.9 x10^3/uL (4.0-11.0) 12.4 x10^3/uL (4.0-11.0) Red Blood Count 2.56 x10^6/uL (3.50-5.40) 2.36 x10^6/uL (3.50-5.40) 2.15 x10^6/uL (3.50-5.40) 2.92 x10^6/uL (3.50-5.40) Hemoglobin 7.9 g/dL (12.0-15.5) 7.2 g/dL (12.0-15.5) 6.7 g/dL (12.0-15.5) 8.9 g/dL (12.0-15.5) Hematocrit 23.3 % (36.0-47.0) 22.1 % (36.0-47.0) 19.9 % (36.0-47.0) 26.6 % (36.0-47.0) Mean Corpuscular Volume 91 fL (79-100) 93 fL (79-100) 92 fL (79-100) 91 fL ( 79-100) Mean Corpuscular Hemoglobin 31 pg (25-35) 31 pg (25-35) 31 pg (25-35) 30 pg ( 25-35) Mean Corpuscular Hemoglobin Concent 34 g/dL (31-37) 33 g/dL (31-37) 34 g/dL (31-37) 33 g/dL (31-37) Red Cell Distribution Width 13.9 % (11.5-14.5) 14.2 % (11.5-14.5) 14.5 % (11.5-14.5) 14.6 % (11.5-14.5) Platelet Count 165 x10^3/uL (140-400) 154 x10^3/uL (140-400) 156 x10^3/uL (140-400) 153 x10^3/uL (140-400) Neutrophils (%) (Auto) 79 % (31-73) 77 % (31-73) 77 % (31-73) 76 % (31-73) Lymphocytes (%) (Auto) 12 % (24-48) 14 % (24-48) 15 % (24-48) 15 % (24-48) Monocytes (%) (Auto) 7 % (0-9) 8 % (0-9) 6 % (0-9) 6 % (0-9) Eosinophils (%) (Auto) 1 % (0-3) 1 % (0-3) 2 % (0-3) 2 % (0-3) Basophils (%) (Auto) 1 % (0-3) 1 % (0-3) 1 % (0-3) 1 % (0-3) Neutrophils # (Auto) 10.4 x10^3uL (1.8-7.7) 10.8 x10^3uL (1.8-7.7) 9.9 x10^3uL (1.8-7.7) 9.4 x10^3uL (1.8-7.7) Lymphocytes # (Auto) 1.6 x10^3/uL (1.0-4.8) 2.0 x10^3/uL (1.0-4.8) 1.9 x10^3/uL (1.0-4.8) 1.9 x10^3/uL (1.0-4.8) Monocytes # (Auto) 0.9 x10^3/uL (0.0-1.1) 1.1 x10^3/uL (0.0-1.1) 0.8 x10^3/uL (0.0-1.1) 0.8 x10^3/uL (0.0-1.1) Eosinophils # (Auto) 0.1 x10^3/uL (0.0-0.7) 0.1 x10^3/uL (0.0-0.7) 0.2 x10^3/uL (0.0-0.7) 0.3 x10^3/uL (0.0-0.7) Basophils # (Auto) 0.1 x10^3/uL (0.0-0.2) 0.1 x10^3/uL (0.0-0.2) 0.1 x10^3/uL (0.0-0.2) 0.1 x10^3/uL (0.0-0.2) Prothrombin Time 15.3 SEC (11.7-14.0) Prothromb Time International Ratio 1.2 (0.8-1.1) Sodium Level 146 mmol/L (136-145) Potassium Level 3.3 mmol/L (3.5-5.1) Chloride Level 112 mmol/L (98-107) Carbon Dioxide Level 25 mmol/L (21-32) Anion Gap 9 (6-14) Blood Urea Nitrogen 27 mg/dL (7-20) Creatinine 0.5 mg/dL (0.6-1.0) Estimated GFR (Cockcroft-Gault) 118.4 BUN/Creatinine Ratio 54 (6-20) Glucose Level 111 mg/dL (70-99) Calcium Level 7.2 mg/dL (8.5-10.1) Total Bilirubin 0.7 mg/dL (0.2-1.0) Aspartate Amino Transf (AST/SGOT) 18 U/L (15-37) Alanine Aminotransferase (ALT/SGPT) 15 U/L (14-59) Alkaline Phosphatase 45 U/L (46-116) Total Protein 5.0 g/dL (6.4-8.2) Albumin 2.7 g/dL (3.4-5.0) Albumin/Globulin Ratio 1.2 (1.0-1.7) Microbiology 09/25/18 Blood Culture - Preliminary, Resulted NO GROWTH AFTER 1 DAY Medications Current Medications Sodium Chloride 1,000 ml @ 1,000 mls/hr 1X ONCE IV Last administered on at 17:40; Start 09/24/18 at 17:15; Stop 09/24/18 at 18:14; Status DC Pantoprazole Sodium (PROTONIX VIAL for IV PUSH) 40 mg 1X ONCE IVP Last administered on 09/24/18at 17:43; Start 09/24/18 at 17:15; Stop 09/24/18 at 17:16 ; Status DC Pantoprazole Sodium 80 mg/ Sodium Chloride 100 ml @ 10 mls/hr 1X ONCE IV Last administered on 09/24/18at 20:18; Start 09/24/18 at 19:00; Stop 09/25/18 at 04:59; Status DC Sodium Chloride 1,000 ml @ 75 mls/hr [id number] IV Last administered on at 08:29; Start 09/24/18 at 19:09; Stop 09/25/18 at 19:08; Status DC Iohexol (Omnipaque 350 Mg/ml) 100 ml 1X ONCE IV Last administered on at 19:54; Start 09/24/18 at 19:30; Stop 09/24/18 at 19:31; Status DC Info (CONTRAST GIVEN -- Rx MONITORING) 1 each PRN DAILY PRN MC SEE COMMENTS; Start 09/24/18 at 19:30; Stop 09/26/18 at 19:29 Piperacillin Sod/ Tazobactam Sod 3.375 gm/Sodium Chloride 50 ml @ 100 mls/hr Q6HRS IV Last administered on 09/26/18at 06:48; Start 09/25/18 at 00:00 Propofol 200 ml @ As Directed STK-MED ONCE IV ; Start 09/25/18 at 09:45; Stop 09/25/18 at 09:46; Status DC Propofol 40 ml @ As Directed STK-MED ONCE IV ; Start 09/25/18 at 09:47; Stop at 09:48; Status DC Epinephrine HCl (EPINEPHrine SYRINGE) 1 mg STK-MED ONCE SQ Last administered on 09/25/18at 09:40; Start 09/25/18 at 09:40; Stop 09/25/18 at 09:54; Status DC Propofol 20 ml @ As Directed STK-MED ONCE IV ; Start 09/25/18 at 10:07; Stop at 10:08; Status DC Lidocaine HCl (Lidocaine Pf 2% Vial) 5 ml STK-MED ONCE .ROUTE ; Start 09/25/18 at 10:07; Stop 09/25/18 at 10:08; Status DC Epinephrine HCl (EPINEPHrine SYRINGE) 1 mg STK-MED ONCE .ROUTE ; Start 09/25/18 at 10:29; Stop 09/25/18 at 10:30; Status DC Throat Lozenges (Cepacol Sore Throat Lozenge) 1 lea PRN Q2HRS PRN PO SORE THROAT Last administered on 09/25/18at 13:58; Start 09/25/18 at 13:45 Propofol (Diprivan) 2,000 mg STK-MED ONCE IV ; Start 09/25/18 at 10:00; Stop at 07:27; Status DC Active Scripts Active Reported Levothyroxine Sodium 75 Mcg Tablet 75 Mcg PO DAILYAC Imipramine Hcl 10 Mg Tablet 10 Mg PO HS Guaifenesin 100 Mg/5 Ml Liquid 100 Mg PO PRN Q6HRS PRN Vitamin D3 (Cholecalciferol (Vitamin D3)) 1,000 Unit Tablet 1 Tab PO DAILY Lipitor (Atorvastatin Calcium) 40 Mg Tablet 1 Tab PO QHS Eliquis (Apixaban) 5 Mg Tablet 5 Mg PO BID Duoneb 0.5-3(2.5) Mg/3 Ml (Albuterol/Ipratropium) 3 Ml Ampul.neb 3 Ml NEB PRN Q4HRS PRN Clopidogrel (Clopidogrel Bisulfate) 75 Mg Tablet 1 Tab PO DAILY Vitals/I & O Vital Sign - Last 24 Hours 09/25/18 09/25/18 09/25/18 09/25/18 08:41 08:45 09:00 09:26 Temp 98.7 98.3 98.6 98.7 98.3 98.6 Pulse 76 75 76 76 Resp 15 B/P (MAP) 141/69 128/59 (82) 114/52 Pulse Ox 100 100 O2 Delivery Room Air 09/25/18 09/25/18 09/25/18 09/25/18 09:52 09:58 10:00 10:08 Temp 98.6 98.6 Pulse 77 82 75 80 Resp B/P (MAP) 114/52 146/51 166/60 (95) Pulse Ox 99 100 98 O2 Delivery Nasal Cannula Nasal Cannula Nasal Cannula Nasal Cannula O2 Flow Rate 4 2 2.0 2 09/25/18 09/25/18 09/25/18 09/25/18 10:12 10:21 10:26 11:00 Temp 98.8 98.5 98.8 98.5 Pulse 80 78 75 77 Resp B/P (MAP) 166/60 155/69 166/60 127/68 (87) Pulse Ox 100 100 99 O2 Delivery Nasal Cannula Nasal Cannula Nasal Cannula O2 Flow Rate 2 2 2.0 09/25/18 09/25/18 09/25/18 09/25/18 11:26 12:00 12:00 13:00 Temp 98.6 98.6 Pulse 77 70 78 Resp B/P (MAP) 127/68 149/67 (94) 154/75 (101) Pulse Ox 99 100 O2 Delivery Nasal Cannula Nasal Cannula Room Air O2 Flow Rate 2.0 2.0 09/25/18 09/25/18 09/25/18 09/25/18 14:00 15:00 16:00 16:00 Temp 98.4 98.4 Pulse 71 77 74 Resp 19 16 20 B/P (MAP) 147/61 (89) 114/62 (79) 114/62 (79) Pulse Ox 97 95 98 O2 Delivery Room Air Room Air Room Air Room Air 09/25/18 09/25/18 09/25/18 09/25/18 17:00 18:00 20:38 20:42 Temp 98.6 98.6 Pulse 75 82 83 Resp 20 26 24 B/P (MAP) 127/49 (75) 133/65 (87) 165/77 (106) Pulse Ox 96 98 O2 Delivery Room Air Room Air Room Air Room Air O2 Flow Rate 99.0 09/25/18 09/25/18 09/25/18 09/26/18 21:25 21:56 23:03 00:33 Temp 98.2 98.2 Pulse 77 78 76 Resp 20 20 20 B/P (MAP) 133/70 (91) 158/73 (101) 131/60 (83) Pulse Ox 100 95 O2 Delivery Room Air Room Air Room Air Room Air 09/26/18 09/26/18 09/26/18 09/26/18 00:34 01:22 02:05 03:28 Pulse 74 80 75 79 Resp 20 20 20 20 B/P (MAP) 128/59 (82) 133/57 (82) 120/54 (76) 169/64 (99) Pulse Ox 96 98 99 98 O2 Delivery Room Air Room Air Room Air Room Air 09/26/18 09/26/18 09/26/18 09/26/18 04:11 04:12 04:14 04:24 Temp 98.1 98.1 98.3 98.1 98.1 98.3 Pulse 96 96 96 Resp 20 20 20 B/P (MAP) 173/81 173/81 (111) 155/76 Pulse Ox 97 O2 Delivery Room Air Room Air 09/26/18 09/26/18 09/26/18 09/26/18 05:23 05:24 06:19 06:20 Temp 98.9 98.8 98.9 98.8 Pulse 78 78 76 77 Resp 20 20 20 20 B/P (MAP) 146/65 146/65 (92) 146/65 146/65 (92) Pulse Ox 97 94 O2 Delivery Room Air Room Air Intake and Output 4/14/19 4/14/19 4/15/19 14:59 22:59 06:59 Intake Total 200 ml 1129 ml 50 ml Output Total 640 ml 585 ml 770 ml Balance -440 ml 544 ml -720 ml ZANA BARAHONA MD Sep 26, 2018 08:31
--- NOTE | 2018-09-26 08:37 | PDOC2 ---
SAMEERA GRULLON GRANITE CUTTER 09/26/18 0837: UROLOGY CONSULT Date of Consult Date of Consult DATE: 09/26/18 TIME: 08:34 Source Source: Caregiver, Chart review, Patient History of Present Illness Reason for Visit: Patient is a very pleasant 83 year old female admitted for dizziness. Daughter relates that she has no history of kidney stones. However, she has had 2-3 UTI' s over the last year or so and is wondering if estrogen cream would be appropriate for her. Patient and daughter deny any flank or abd pain, and Rodriguez catheter, in place for measurement purposes, is not bothering her at this time. Patient and daughter deny any dysuria or hematuria prior to rodriguez catheter placement. She also denies abdominal or flank pain. Patient had seen a Investment Accountant at [facility] for protein in her urine, but has never seen a Urologist. Per attending RN Rodriguez is in place for measurement purposes only. Past Medical History Cardiovascular: CAD CENTRAL NERVOUS SYSTEM: Dementia Musculoskeletal: Osteoarthritis Renal/: UTI (2-3 over the last year ) Family History Family History: Diabetes, Hypertension Social History No ALCOHOL: none Drugs: None Current Medications Current Medications Current Medications Epinephrine HCl (EPINEPHrine SYRINGE) 1 mg STK-MED ONCE .ROUTE ; Start 09/25/18 at 10:29; Stop 09/25/18 at 10:30; Status DC Epinephrine HCl (EPINEPHrine SYRINGE) 1 mg STK-MED ONCE SQ Last administered on 09/25/18at 09:40; Start 09/25/18 at 09:40; Stop 09/25/18 at 09:54; Status DC Lidocaine HCl (Lidocaine Pf 2% Vial) 5 ml STK-MED ONCE .ROUTE ; Start 09/25/18 at 10:07; Stop 09/25/18 at 10:08; Status DC Propofol 20 ml @ As Directed STK-MED ONCE IV ; Start 09/25/18 at 10:07; Stop at 10:08; Status DC Propofol 40 ml @ As Directed STK-MED ONCE IV ; Start 09/25/18 at 09:47; Stop at 09:48; Status DC Propofol 200 ml @ As Directed STK-MED ONCE IV ; Start 09/25/18 at 09:45; Stop 09/25/18 at 09:46; Status DC Propofol (Diprivan) 2,000 mg STK-MED ONCE IV ; Start 09/25/18 at 10:00; Stop at 07:27; Status DC Throat Lozenges (Cepacol Sore Throat Lozenge) 1 lea PRN Q2HRS PRN PO SORE THROAT Last administered on 09/25/18at 13:58; Start 09/25/18 at 13:45 Allergies Allergies: Coded Allergies: No Known Drug Allergies (Unverified , 10/05/14) ROS Review Of Systems: CONSTITUTIONAL: No fever or chills EYES: No recent changes SKIN: No rash or itching CARDIOVASCULAR: No chest pain, syncope, palpitations, or edema RESPIRATORY: No SOB or cough GASTROINTESTINAL: No nausea, vomiting or abdominal pain NEUROLOGICAL: No headaches or weakness ENDOCRINE: No cold or heat intolerance GENITOURINARY: + Catheter in place MUSCULOSKELETAL: No back pain or joint pain LYMPHATICS: No enlarged lymph nodes PSYCHIATRIC: No anxiety or depression Physical Exam Physical Exam: General: Pleasant, no acute distress, well groomed Eyes: conjunctiva anicteric, eyes full range of motion ENT: moist oral mucosa, normal dentition Neck: Trachea midline, no masses Respiratory: unlabored breathing, not using accessory muscles, : + Rodriguez catheter in place, draining clear yellow urine. Abdomen: nontender, nondistended, no hepatosplenomegaly, no masses Skin: no rashes or skin lesions on visualized skin Psych: normal mood, affect. Alert and oriented x 3. Vitals VITALS Vital Signs Date Time Temp Pulse Resp B/P (MAP) Pulse Ox O2 Delivery O2 Flow Rate FiO2 09/26/18 06:20 77 20 146/65 (92) 94 Room Air 09/26/18 06:19 98.8 98.8 09/25/18 20:38 99.0 Labs Labs Laboratory Tests Test 09/24/18 16:58 09/24/18 17:23 09/24/18 17:45 09/24/18 18:35 Glucose (Fingerstick) 118 mg/dL (70-99) Lactic Acid Level 5.1 mmol/L (0.4-2.0) Stool Occult Blood Positive (NEG) White Blood Count 14.7 x10^3/uL (4.0-11.0) Red Blood Count 1.47 x10^6/uL (3.50-5.40) Hemoglobin 4.5 g/dL (12.0-15.5) Hematocrit 13.9 % (36.0-47.0) Mean Corpuscular Volume 95 fL (79-100) Mean Corpuscular Hemoglobin 30 pg (25-35) Mean Corpuscular Hemoglobin Concent 32 g/dL (31-37) Red Cell Distribution Width 16.0 % (11.5-14.5) Platelet Count 223 x10^3/uL (140-400) Neutrophils (%) (Auto) 85 % (31-73) Lymphocytes (%) (Auto) 9 % (24-48) Monocytes (%) (Auto) 5 % (0-9) Eosinophils (%) (Auto) 0 % (0-3) Basophils (%) (Auto) 1 % (0-3) Neutrophils # (Auto) 12.5 x10^3uL (1.8-7.7) Lymphocytes # (Auto) 1.4 x10^3/uL (1.0-4.8) Monocytes # (Auto) 0.7 x10^3/uL (0.0-1.1) Eosinophils # (Auto) 0.0 x10^3/uL (0.0-0.7) Basophils # (Auto) 0.1 x10^3/uL (0.0-0.2) Prothrombin Time 22.4 SEC (11.7-14.0) Prothromb Time International Ratio 2.0 (0.8-1.1) Activated Partial Thromboplast Time 32 SEC (24-38) Sodium Level 143 mmol/L (136-145) Potassium Level 4.3 mmol/L (3.5-5.1) Chloride Level 106 mmol/L (98-107) Carbon Dioxide Level 25 mmol/L (21-32) Anion Gap 12 (6-14) Blood Urea Nitrogen 47 mg/dL (7-20) Creatinine 0.7 mg/dL (0.6-1.0) Estimated GFR (Cockcroft-Gault) 80.3 BUN/Creatinine Ratio 67 (6-20) Glucose Level 118 mg/dL (70-99) Calcium Level 7.7 mg/dL (8.5-10.1) Total Bilirubin 0.3 mg/dL (0.2-1.0) Aspartate Amino Transf (AST/SGOT) 14 U/L (15-37) Alanine Aminotransferase (ALT/SGPT) 14 U/L (14-59) Alkaline Phosphatase 47 U/L (46-116) Troponin I Quantitative 0.027 ng/mL (0.000-0.055) LD-Tcj-M-Type Natriuretic Peptide 1290 pg/mL (0-449) Total Protein 5.3 g/dL (6.4-8.2) Albumin 3.0 g/dL (3.4-5.0) Albumin/Globulin Ratio 1.3 (1.0-1.7) Test 09/24/18 20:56 09/25/18 00:15 09/25/18 06:25 09/25/18 12:15 Nasal Screen MRSA (PCR) Negative (Negative) White Blood Count 12.7 x10^3/uL (4.0-11.0) 12.7 x10^3/uL (4.0-11.0) 13.1 x10^3/uL (4.0-11.0) Red Blood Count 1.73 x10^6/uL (3.50-5.40) 2.12 x10^6/uL (3.50-5.40) 2.56 x10^6/uL (3.50-5.40) Hemoglobin 5.4 g/dL (12.0-15.5) 6.7 g/dL (12.0-15.5) 7.9 g/dL (12.0-15.5) Hematocrit 16.4 % (36.0-47.0) 19.6 % (36.0-47.0) 23.3 % (36.0-47.0) Mean Corpuscular Volume 95 fL (79-100) 92 fL (79-100) 91 fL (79-100) Mean Corpuscular Hemoglobin 32 pg (25-35) 32 pg (25-35) 31 pg (25-35) Mean Corpuscular Hemoglobin Concent 33 g/dL (31-37) 34 g/dL (31-37) 34 g/dL (31-37) Red Cell Distribution Width 14.5 % (11.5-14.5) 14.1 % (11.5-14.5) 13.9 % (11.5-14.5) Platelet Count 195 x10^3/uL (140-400) 182 x10^3/uL (140-400) 165 x10^3/uL (140-400) Neutrophils (%) (Auto) 81 % (31-73) 76 % (31-73) 79 % (31-73) Lymphocytes (%) (Auto) 13 % (24-48) 16 % (24-48) 12 % (24-48) Monocytes (%) (Auto) 6 % (0-9) 7 % (0-9) 7 % (0-9) Eosinophils (%) (Auto) 0 % (0-3) 1 % (0-3) 1 % (0-3) Basophils (%) (Auto) 0 % (0-3) 0 % (0-3) 1 % (0-3) Neutrophils # (Auto) 10.2 x10^3uL (1.8-7.7) 9.6 x10^3uL (1.8-7.7) 10.4 x10^3uL (1.8-7.7) Lymphocytes # (Auto) 1.6 x10^3/uL (1.0-4.8) 2.0 x10^3/uL (1.0-4.8) 1.6 x10^3/uL (1.0-4.8) Monocytes # (Auto) 0.8 x10^3/uL (0.0-1.1) 0.9 x10^3/uL (0.0-1.1) 0.9 x10^3/uL (0.0-1.1) Eosinophils # (Auto) 0.0 x10^3/uL (0.0-0.7) 0.1 x10^3/uL (0.0-0.7) 0.1 x10^3/uL (0.0-0.7) Basophils # (Auto) 0.0 x10^3/uL (0.0-0.2) 0.1 x10^3/uL (0.0-0.2) 0.1 x10^3/uL (0.0-0.2) Lactic Acid Level 2.0 mmol/L (0.4-2.0) Prothrombin Time 17.7 SEC (11.7-14.0) Prothromb Time International Ratio 1.5 (0.8-1.1) Test 09/25/18 17:55 09/26/18 00:30 09/26/18 07:15 White Blood Count 14.2 x10^3/uL (4.0-11.0) 12.9 x10^3/uL (4.0-11.0) 12.4 x10^3/uL (4.0-11.0) Red Blood Count 2.36 x10^6/uL (3.50-5.40) 2.15 x10^6/uL (3.50-5.40) 2.92 x10^6/uL (3.50-5.40) Hemoglobin 7.2 g/dL (12.0-15.5) 6.7 g/dL (12.0-15.5) 8.9 g/dL (12.0-15.5) Hematocrit 22.1 % (36.0-47.0) 19.9 % (36.0-47.0) 26.6 % (36.0-47.0) Mean Corpuscular Volume 93 fL (79-100) 92 fL (79-100) 91 fL (79-100) Mean Corpuscular Hemoglobin 31 pg (25-35) 31 pg (25-35) 30 pg (25-35) Mean Corpuscular Hemoglobin Concent 33 g/dL (31-37) 34 g/dL (31-37) 33 g/dL (31-37) Red Cell Distribution Width 14.2 % (11.5-14.5) 14.5 % (11.5-14.5) 14.6 % (11.5-14.5) Platelet Count 154 x10^3/uL (140-400) 156 x10^3/uL (140-400) 153 x10^3/uL (140-400) Neutrophils (%) (Auto) 77 % (31-73) 77 % (31-73) 76 % (31-73) Lymphocytes (%) (Auto) 14 % (24-48) 15 % (24-48) 15 % (24-48) Monocytes (%) (Auto) 8 % (0-9) 6 % (0-9) 6 % (0-9) Eosinophils (%) (Auto) 1 % (0-3) 2 % (0-3) 2 % (0-3) Basophils (%) (Auto) 1 % (0-3) 1 % (0-3) 1 % (0-3) Neutrophils # (Auto) 10.8 x10^3uL (1.8-7.7) 9.9 x10^3uL (1.8-7.7) 9.4 x10^3uL (1.8-7.7) Lymphocytes # (Auto) 2.0 x10^3/uL (1.0-4.8) 1.9 x10^3/uL (1.0-4.8) 1.9 x10^3/uL (1.0-4.8) Monocytes # (Auto) 1.1 x10^3/uL (0.0-1.1) 0.8 x10^3/uL (0.0-1.1) 0.8 x10^3/uL (0.0-1.1) Eosinophils # (Auto) 0.1 x10^3/uL (0.0-0.7) 0.2 x10^3/uL (0.0-0.7) 0.3 x10^3/uL (0.0-0.7) Basophils # (Auto) 0.1 x10^3/uL (0.0-0.2) 0.1 x10^3/uL (0.0-0.2) 0.1 x10^3/uL (0.0-0.2) Prothrombin Time 15.3 SEC (11.7-14.0) Prothromb Time International Ratio 1.2 (0.8-1.1) Sodium Level 146 mmol/L (136-145) Potassium Level 3.3 mmol/L (3.5-5.1) Chloride Level 112 mmol/L (98-107) Carbon Dioxide Level 25 mmol/L (21-32) Anion Gap 9 (6-14) Blood Urea Nitrogen 27 mg/dL (7-20) Creatinine 0.5 mg/dL (0.6-1.0) Estimated GFR (Cockcroft-Gault) 118.4 BUN/Creatinine Ratio 54 (6-20) Glucose Level 111 mg/dL (70-99) Calcium Level 7.2 mg/dL (8.5-10.1) Total Bilirubin 0.7 mg/dL (0.2-1.0) Aspartate Amino Transf (AST/SGOT) 18 U/L (15-37) Alanine Aminotransferase (ALT/SGPT) 15 U/L (14-59) Alkaline Phosphatase 45 U/L (46-116) Total Protein 5.0 g/dL (6.4-8.2) Albumin 2.7 g/dL (3.4-5.0) Albumin/Globulin Ratio 1.2 (1.0-1.7) Laboratory Tests Test 09/25/18 12:15 09/25/18 17:55 09/26/18 00:30 09/26/18 07:15 White Blood Count 13.1 x10^3/uL (4.0-11.0) 14.2 x10^3/uL (4.0-11.0) 12.9 x10^3/uL (4.0-11.0) 12.4 x10^3/uL (4.0-11.0) Red Blood Count 2.56 x10^6/uL (3.50-5.40) 2.36 x10^6/uL (3.50-5.40) 2.15 x10^6/uL (3.50-5.40) 2.92 x10^6/uL (3.50-5.40) Hemoglobin 7.9 g/dL (12.0-15.5) 7.2 g/dL (12.0-15.5) 6.7 g/dL (12.0-15.5) 8.9 g/dL (12.0-15.5) Hematocrit 23.3 % (36.0-47.0) 22.1 % (36.0-47.0) 19.9 % (36.0-47.0) 26.6 % (36.0-47.0) Mean Corpuscular Volume 91 fL (79-100) 93 fL (79-100) 92 fL (79-100) 91 fL ( 79-100) Mean Corpuscular Hemoglobin 31 pg (25-35) 31 pg (25-35) 31 pg (25-35) 30 pg ( 25-35) Mean Corpuscular Hemoglobin Concent 34 g/dL (31-37) 33 g/dL (31-37) 34 g/dL (31-37) 33 g/dL (31-37) Red Cell Distribution Width 13.9 % (11.5-14.5) 14.2 % (11.5-14.5) 14.5 % (11.5-14.5) 14.6 % (11.5-14.5) Platelet Count 165 x10^3/uL (140-400) 154 x10^3/uL (140-400) 156 x10^3/uL (140-400) 153 x10^3/uL (140-400) Neutrophils (%) (Auto) 79 % (31-73) 77 % (31-73) 77 % (31-73) 76 % (31-73) Lymphocytes (%) (Auto) 12 % (24-48) 14 % (24-48) 15 % (24-48) 15 % (24-48) Monocytes (%) (Auto) 7 % (0-9) 8 % (0-9) 6 % (0-9) 6 % (0-9) Eosinophils (%) (Auto) 1 % (0-3) 1 % (0-3) 2 % (0-3) 2 % (0-3) Basophils (%) (Auto) 1 % (0-3) 1 % (0-3) 1 % (0-3) 1 % (0-3) Neutrophils # (Auto) 10.4 x10^3uL (1.8-7.7) 10.8 x10^3uL (1.8-7.7) 9.9 x10^3uL (1.8-7.7) 9.4 x10^3uL (1.8-7.7) Lymphocytes # (Auto) 1.6 x10^3/uL (1.0-4.8) 2.0 x10^3/uL (1.0-4.8) 1.9 x10^3/uL (1.0-4.8) 1.9 x10^3/uL (1.0-4.8) Monocytes # (Auto) 0.9 x10^3/uL (0.0-1.1) 1.1 x10^3/uL (0.0-1.1) 0.8 x10^3/uL (0.0-1.1) 0.8 x10^3/uL (0.0-1.1) Eosinophils # (Auto) 0.1 x10^3/uL (0.0-0.7) 0.1 x10^3/uL (0.0-0.7) 0.2 x10^3/uL (0.0-0.7) 0.3 x10^3/uL (0.0-0.7) Basophils # (Auto) 0.1 x10^3/uL (0.0-0.2) 0.1 x10^3/uL (0.0-0.2) 0.1 x10^3/uL (0.0-0.2) 0.1 x10^3/uL (0.0-0.2) Prothrombin Time 15.3 SEC (11.7-14.0) Prothromb Time International Ratio 1.2 (0.8-1.1) Sodium Level 146 mmol/L (136-145) Potassium Level 3.3 mmol/L (3.5-5.1) Chloride Level 112 mmol/L (98-107) Carbon Dioxide Level 25 mmol/L (21-32) Anion Gap 9 (6-14) Blood Urea Nitrogen 27 mg/dL (7-20) Creatinine 0.5 mg/dL (0.6-1.0) Estimated GFR (Cockcroft-Gault) 118.4 BUN/Creatinine Ratio 54 (6-20) Glucose Level 111 mg/dL (70-99) Calcium Level 7.2 mg/dL (8.5-10.1) Total Bilirubin 0.7 mg/dL (0.2-1.0) Aspartate Amino Transf (AST/SGOT) 18 U/L (15-37) Alanine Aminotransferase (ALT/SGPT) 15 U/L (14-59) Alkaline Phosphatase 45 U/L (46-116) Total Protein 5.0 g/dL (6.4-8.2) Albumin 2.7 g/dL (3.4-5.0) Albumin/Globulin Ratio 1.2 (1.0-1.7) Images Images IMPRESSION: 1. The central mesenteric arteries are widely patent. 2. No sign of gastrointestinal hemorrhage or clear bowel ischemia is detectable by CT. 3. Ill-defined soft tissue is seen anterior to the right common femoral artery and measures approximately 2.8 x 2.1 cm. This may represent an old hematoma or scarring in the setting of a prior arterial puncture. Correlate for such history. If there is no such history follow-up is recommended to exclude lymphadenopathy. 4. Interval development of moderate right hydronephrosis and with apparent obstruction at the level of the ureteropelvic junction. Ureteroscopy could further evaluate if the diagnosis remains unclear. 5. Small hiatal hernia. 6. Aortic valve calcifications. Correlate for aortic stenosis. At least mild cardiomegaly. *One or more of the following individualized dose reduction techniques were utilized for this examination: 1. Automated exposure control. 2. Adjustment of the mA and/or kV according to patient size. 3. Use of iterative reconstruction technique. Assessment/Plan Assessment/Plan Pt pleasantly confused, but answering questions appropriately. Patient not the best historian secondary to mild confusion. Discussed medical history with daughter who is at bedside. Pt asymptomatic despite CT findings( no flank or abd pain). No history of stones or strictures, and non tender on exam. Also creatinine not elevated at 0.5. Will get UA today: Nursing please obtain from hub of catheter, not from bag. Estrace cream three times weekly for frequent UTI for prevention: Apply 1 inch ribbon to vaginal introitus for prevention. Nursing to maintain Rodriguez catheter for now. Will have Dr. Ray review CT findings for a second opinion regarding CT findings and round on patient later. ALANNAH RAY MD 09/27/18 1049: UROLOGY CONSULT Assessment/Plan Assessment/Plan I have seen patient and she has no flank tenderness. I have reviewed the CT and agree she has R pyelectasis but good preservation of parenchyma. 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 In absence of pain, infection, or loss of fct of R kidney,no urologic intervention is indicated. SAMEERA GRULLON APRN Sep 26, 2018 08:37 ALANNAH RAY MD Sep 27, 2018 10:49
--- NOTE | 2018-09-26 10:20 | PDOC ---
Subjective: Subjective: RN and family present - had a dark stool before shift change and recently another moderate-sized dark stool - "old blood" Tolerating clears, denies pain. Objective: Objective: Transfused overnight - has received 4 units pRBCs total. Vital Signs: Vital Signs Date Time Temp Pulse Resp B/P (MAP) Pulse Ox O2 Delivery O2 Flow Rate FiO2 09/26/18 08:00 Room Air 09/26/18 08:00 98.6 97 20 147/58 (87) 98 98.6 09/25/18 20:38 99.0 Labs: Laboratory Tests Test 09/25/18 12:15 09/25/18 17:55 09/26/18 00:30 09/26/18 07:15 White Blood Count 13.1 x10^3/uL 14.2 x10^3/uL 12.9 x10^3/uL 12.4 x10^3/uL Red Blood Count 2.56 x10^6/uL 2.36 x10^6/uL 2.15 x10^6/uL 2.92 x10^6/uL Hemoglobin 7.9 g/dL 7.2 g/dL 6.7 g/dL 8.9 g/dL Hematocrit 23.3 % 22.1 % 19.9 % 26.6 % Mean Corpuscular Volume 91 fL 93 fL 92 fL 91 fL Mean Corpuscular Hemoglobin 31 pg 31 pg 31 pg 30 pg Mean Corpuscular Hemoglobin Concent 34 g/dL 33 g/dL 34 g/dL 33 g/dL Red Cell Distribution Width 13.9 % 14.2 % 14.5 % 14.6 % Platelet Count 165 x10^3/uL 154 x10^3/uL 156 x10^3/uL 153 x10^3/uL Neutrophils (%) (Auto) 79 % 77 % 77 % 76 % Lymphocytes (%) (Auto) 12 % 14 % 15 % 15 % Monocytes (%) (Auto) 7 % 8 % 6 % 6 % Eosinophils (%) (Auto) 1 % 1 % 2 % 2 % Basophils (%) (Auto) 1 % 1 % 1 % 1 % Neutrophils # (Auto) 10.4 x10^3uL 10.8 x10^3uL 9.9 x10^3uL 9.4 x10^3uL Lymphocytes # (Auto) 1.6 x10^3/uL 2.0 x10^3/uL 1.9 x10^3/uL 1.9 x10^3/uL Monocytes # (Auto) 0.9 x10^3/uL 1.1 x10^3/uL 0.8 x10^3/uL 0.8 x10^3/uL Eosinophils # (Auto) 0.1 x10^3/uL 0.1 x10^3/uL 0.2 x10^3/uL 0.3 x10^3/uL Basophils # (Auto) 0.1 x10^3/uL 0.1 x10^3/uL 0.1 x10^3/uL 0.1 x10^3/uL Prothrombin Time 15.3 SEC Prothromb Time International Ratio 1.2 Sodium Level 146 mmol/L Potassium Level 3.3 mmol/L Chloride Level 112 mmol/L Carbon Dioxide Level 25 mmol/L Anion Gap 9 Blood Urea Nitrogen 27 mg/dL Creatinine 0.5 mg/dL Estimated GFR (Cockcroft-Gault) 118.4 BUN/Creatinine Ratio 54 Glucose Level 111 mg/dL Calcium Level 7.2 mg/dL Magnesium Level 2.4 mg/dL Total Bilirubin 0.7 mg/dL Aspartate Amino Transf (AST/SGOT) 18 U/L Alanine Aminotransferase (ALT/SGPT) 15 U/L Alkaline Phosphatase 45 U/L Total Protein 5.0 g/dL Albumin 2.7 g/dL Albumin/Globulin Ratio 1.2 BLOOD CULTURE Preliminary NO GROWTH AFTER 1 DAY Imaging: EGD 09/25 Esophagus normal gastritis without ulcer or bleeding duodenal blood noted- recent bleeding and mild oozing noted in 2nd portion of duodenum but no discrete ulcer, AVM etc- area injected with epi and oozing seemed to stop scope passed to 3rd portion- all areas irrigated- no other active bleeding seem but recent blood in lumen noted Echocardiogram <Conclusion> The left ventricular systolic function is normal and the ejection fraction is within normal range. The Ejection Fraction is >55%. There is normal LV segmental wall motion. Calculated aortic valve area is .81 cm2 with maximum pressure gradient of 62 mmHg and mean pressure gradient of 61 mmHg. Doppler and color-flow analysis revealed severe aortic stenosis. Doppler and Color Flow revealed trace to mild tricuspid regurgitation with an estimated PAP of 37 mmHg. There is mild to moderate pulmonic stenosis. CTA A/P 09/24 IMPRESSION: 1. The central mesenteric arteries are widely patent. 2. No sign of gastrointestinal hemorrhage or clear bowel ischemia is detectable by CT. 3. Ill-defined soft tissue is seen anterior to the right common femoral artery and measures approximately 2.8 x 2.1 cm. This may represent an old hematoma or scarring in the setting of a prior arterial puncture. Correlate for such history. If there is no such history follow-up is recommended to exclude lymphadenopathy. 4. Interval development of moderate right hydronephrosis and with apparent obstruction at the level of the ureteropelvic junction. Ureteroscopy could further evaluate if the diagnosis remains unclear. 5. Small hiatal hernia. 6. Aortic valve calcifications. Correlate for aortic stenosis. At least mild cardiomegaly. PE: GEN: NAD - RN bathing her LUNGS: CTAB HEART: RRR +murm ABD: NABS, soft, non-tender NEURO/PSYCH: A & O 3 - probably forgetful A/P: Melena - EGD as above w/ duodenal blood s/p epi Anemia H/o CAD and DVT - on Plavix and Eliquis prior to admission Leukocytosis, lactic acidosis - on atbx per ID -- Reviewed w/ Dr. Mondragon - can advance diet today but will plan to repeat EGD tomorrow at 3:00 p.m. for re-eval (considering need to restart Plavix and Eliquis). MARIUM NGO Sep 26, 2018 10:20
--- NOTE | 2018-09-26 10:59 | PDOC ---
CARDIOLOGY PROGRESS NOTE SUBJECTIVE: No acute events overnight. Continues to have some bleeding, received transfusion overnight. Denies any chest pain. No dyspnea. Resting in bed comfortably. OBJECTIVE: Vital SIgns: Vital Signs Date Time Temp Pulse Resp B/P (MAP) Pulse Ox O2 Delivery O2 Flow Rate FiO2 09/26/18 08:00 Room Air 09/26/18 08:00 98.6 97 20 147/58 (87) 98 98.6 09/25/18 20:38 99.0 I & O -600 mL Objective: GEN.: No apparent distress. Alert and oriented. CV: RRR, 4/6 systolic murmur PULM: CTAB anteriorly ABD: Soft, NT/ND. EXT: No edema. 1+ pulses. CURRENT MEDICATIONS: Current Medications Medications (Trade) Dose Ordered Sig/Tiffanie Start Time Stop Time Status Last Admin Dose Admin Epinephrine HCl (EPINEPHrine SYRINGE) 1 mg STK-MED ONCE 09/25/18 10:29 09/25/18 10:30 DC Estradiol (Estrace) 1 carina QMWF@0900 09/26/18 10:00 Info (CONTRAST GIVEN -- Rx MONITORING) 1 each PRN DAILY PRN 09/24/18 19:30 09/26/18 19:29 Iohexol (Omnipaque 350 Mg/ml) 100 ml 1X ONCE 09/24/18 19:30 09/24/18 19:31 DC 09/24/18 19:54 100 ML Lactobacillus Rhamnosus (Culturelle) 1 cap BID 09/26/18 10:30 Lidocaine HCl (Lidocaine Pf 2% Vial) 5 ml STK-MED ONCE 09/25/18 10:07 09/25/18 10:08 DC Pantoprazole Sodium (PROTONIX VIAL for IV PUSH) 40 mg DAILYAC 09/26/18 10:30 Pantoprazole Sodium 80 mg/ Sodium Chloride 100 ml @ 10 mls/hr 1X ONCE 09/24/18 19:00 09/25/18 04:59 DC 09/24/18 20:18 10 MLS/HR Piperacillin Sod/ Tazobactam Sod 3.375 gm/Sodium Chloride 50 ml @ 100 mls/hr Q6HRS 09/25/18 00:00 09/26/18 06:48 100 MLS/HR Propofol (Diprivan) 2,000 mg STK-MED ONCE 09/25/18 10:00 09/26/18 07:27 DC Sodium Chloride 1,000 ml @ 75 mls/hr [id number] 09/24/18 19:09 09/25/18 19:08 DC 09/25/18 08:29 75 MLS/HR Throat Lozenges (Cepacol Sore Throat Lozenge) 1 aki PRN Q2HRS PRN 09/25/18 13:45 09/25/18 13:58 1 AKI DIAGNOSTIC TESTING: hgb 8.9, Cr 1.5 ASSESSMENT: 1. One vessel CAD s/p PCI to the LAD in aug 2018. 2. Severe 3. HTN 4. Severe GIB 5. 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 Will consult IR for possible IVC filter given severe GIB and RCFV DVT 2. Will await GI input and when cleared after repeat EGD, start ASA. 3. treatment on an outpt basis. Discussed critical issues with patient's daughter at bedside, pcp and nursing staff. NAYA AWAN MD Sep 26, 2018 10:59
[2018-09-26 12:04] LABS: BASO # 0.1 x10^3/uL (0.0-0.2); BASO % 1 % (0-3); EOS # 0.2 x10^3/uL (0.0-0.7); EOS % 2 % (0-3); HEMATOCRIT 24.9 % (36.0-47.0); HEMOGLOBIN 8.3 g/dL (12.0-15.5); LYMPH # 1.8 x10^3/uL (1.0-4.8); LYMPH % 15 % (24-48); MEAN CORPUSCULAR HEMOGLOBIN 30 pg (25-35); MEAN CORPUSCULAR HGB CONC 33 g/dL (31-37); MEAN CORPUSCULAR VOLUME 91 fL (79-100); MONO # 0.7 x10^3/uL (0.0-1.1); MONO % 6 % (0-9); NEUT # 8.9 x10^3uL (1.8-7.7); NEUT % 77 % (31-73); PLATELET COUNT 155 x10^3/uL (140-400); RED BLOOD COUNT 2.74 x10^6/uL (3.50-5.40); RED CELL DISTRIBUTION WIDTH 14.4 % (11.5-14.5); WHITE BLOOD COUNT 11.6 x10^3/uL (4.0-11.0)
[2018-09-26 13:07] LABS: BILIRUBIN,URINE NEGATIVE (NEG); CLARITY,URINE CLEAR; COLOR,URINE YELLOW; NITRITE,URINE NEGATIVE (NEG); PH,URINE 6.5; PROTEIN,URINE NEGATIVE (NEG-TRACE)
[2018-09-26 13:13] LABS: BACTERIA,URINE 0 /HPF (0-FEW); RBC,URINE OCC /HPF (0-2); SQUAMOUS EPITHELIAL CELL,UR OCC /LPF; WBC,URINE 0 /HPF (0-4)
--- NOTE | 2018-09-26 14:06 | RAD ---
EXAM: Right lower extremity venous Doppler sonogram. HISTORY: DVT. GI bleed. TECHNIQUE: Ballard scale and color Doppler sonographic imaging of the right lower extremity veins with spectral waveform analysis was performed.. COMPARISON: CT angiogram dated 09/24/2018. FINDINGS: There is normal color flow, normal compressibility and there are normal spectral waveforms within the right lower extremity veins. There is a nonvascular complex fluid collection within the right inguinal region measuring 3.2 x 2.9 x 1.4 cm. The adjacent artery and vein are patent and there is no accumulation dictation with this collection and the underlying vasculature. There is a 4.1 cm right popliteal cyst. IMPRESSION: 1. No Doppler evidence of right lower extremity venous thrombosis. 2. 4.1 cm right Coreas's cyst. 3. 3.2 cm suspected hematoma or thrombosed pseudoaneurysm within the right inguinal region at the site of prior catheterization. There is no clear indication of this collection with the underlying vasculature due to suggest a patent pseudoaneurysm or extravasation. Electronically signed by: Stacy Bob MD (09/26/2018 2:04 PM) [place] [id number]
[2018-09-26] MEDS: ESTRADIOL 0.01% VAGINAL CREAM 42.5GM TUBE. VG SCH (15:32)
[2018-09-26] MEDS: PANTOPRAZOLE IV PUSH 40 MG VIAL. IVP SCH (15:33)
[2018-09-26] MEDS: LACTOBACILLUS RHAMNOSUS GG 1 CAPSULE. PO SCH ×2 (15:33→20:54)
--- NOTE | 2018-09-26 15:38 | NUR ---
SS following for discharge planning. SS reviewed pt chart. Pt is from [facility], ; fax [phone]. SS contacted Tessa from [facility] and notified her of pt's admission. Tessa reported that pt was able to return as skilled rehabilitation resident if needing short term rehabilitation prior to returning to assisted living. Physician notified. SS requested PT/OT orders. SS will continue to follow for discharge planning.
[2018-09-26 18:44] LABS: BASO # 0.1 x10^3/uL (0.0-0.2); BASO % 1 % (0-3); EOS # 0.4 x10^3/uL (0.0-0.7); EOS % 3 % (0-3); HEMATOCRIT 23.3 % (36.0-47.0); HEMOGLOBIN 7.7 g/dL (12.0-15.5); LYMPH # 1.9 x10^3/uL (1.0-4.8); LYMPH % 17 % (24-48); MEAN CORPUSCULAR HEMOGLOBIN 30 pg (25-35); MEAN CORPUSCULAR HGB CONC 33 g/dL (31-37); MEAN CORPUSCULAR VOLUME 92 fL (79-100); MONO # 0.8 x10^3/uL (0.0-1.1); MONO % 7 % (0-9); NEUT # 8.5 x10^3uL (1.8-7.7); NEUT % 73 % (31-73); PLATELET COUNT 158 x10^3/uL (140-400); RED BLOOD COUNT 2.54 x10^6/uL (3.50-5.40); RED CELL DISTRIBUTION WIDTH 14.7 % (11.5-14.5); WHITE BLOOD COUNT 11.6 x10^3/uL (4.0-11.0)
[2018-09-27] VITALS (24 sets, daily range): BP systolic 85–176; BP diastolic 41–94
[2018-09-27] MEDS: PIPERACILLIN/TAZOBACTAM 3.375 GM in IV NORMAL SALINE 50ML 50 ML IV SCH ×6 (05:02→23:44)
[2018-09-27] MEDS: PANTOPRAZOLE IV PUSH 40 MG VIAL. IVP SCH (05:03)
[2018-09-27 06:29] LABS: CALCIUM 7.2 mg/dL (8.5-10.1); CREATININE 0.6 mg/dL (0.6-1.0); GFR 95.9; POTASSIUM 3.1 mmol/L (3.5-5.1)
[2018-09-27] MEDS ORDERED: IV RINGERS,LACTATED 1000ML 1,000 ML IV SCH (07:00)
[2018-09-27] MEDS: LACTOBACILLUS RHAMNOSUS GG 1 CAPSULE. PO SCH ×2 (07:03→20:49)
--- NOTE | 2018-09-27 07:56 | PDOC ---
Infectious Disease Note Subjective: Subjective Pt says feels fine no f/c/n/v/d/abdo pain D/W RN ROS: ROS Negative except for above. Vital Signs: Vital Signs Vital Signs Date Time Temp Pulse Resp B/P (MAP) Pulse Ox O2 Delivery O2 Flow Rate FiO2 09/27/18 07:00 98.4 95 18 170/93 (118) 98 Room Air 98.4 Physical Exam: PHYSICAL EXAM GENERAL: The patient is propped up in bed, alert, calm, wearing mittens. HEENT: Pupils are equally round. Normal conjunctivae. Oral cavity: Pharynx pink and moist. No thrush. Edentulous. NECK: Supple. LUNGS: Clear to auscultation. HEART: S1 and S2, loud murmur throughout. ABDOMEN: Obese, soft and nontender with bowel sounds present. GENITOURINARY: Indwelling Martin in place. EXTREMITIES: No gross edema or cyanosis. SKIN: Warm without rash. NEUROLOGIC: Alert, confused, but cooperative. Medications: Inpatient Meds: Current Medications Medications (Trade) Dose Ordered Sig/Tiffanie Start Time Stop Time Status Last Admin Dose Admin Epinephrine HCl (EPINEPHrine SYRINGE) 1 mg STK-MED ONCE 09/25/18 10:29 09/25/18 10:30 DC Estradiol (Estrace) 1 carina QMWF@0900 09/26/18 10:00 09/26/18 15:32 1 CARINA Info (CONTRAST GIVEN -- Rx MONITORING) 1 each PRN DAILY PRN 09/24/18 19:30 09/26/18 19:29 DC Iohexol (Omnipaque 350 Mg/ml) 100 ml 1X ONCE 09/24/18 19:30 09/24/18 19:31 DC 09/24/18 19:54 100 ML Lactobacillus Rhamnosus (Culturelle) 1 cap BID 09/26/18 10:30 09/26/18 20:54 1 CAP Lidocaine HCl (Lidocaine Pf 2% Vial) 5 ml STK-MED ONCE 09/25/18 10:07 09/25/18 10:08 DC Pantoprazole Sodium (PROTONIX VIAL for IV PUSH) 40 mg DAILYAC 09/26/18 10:30 09/27/18 05:03 40 MG Pantoprazole Sodium 80 mg/ Sodium Chloride 100 ml @ 10 mls/hr 1X ONCE 09/24/18 19:00 09/25/18 04:59 DC 09/24/18 20:18 10 MLS/HR Piperacillin Sod/ Tazobactam Sod 3.375 gm/Sodium Chloride 50 ml @ 100 mls/hr Q6HRS 09/25/18 00:00 09/27/18 05:02 100 MLS/HR Propofol (Diprivan) 2,000 mg STK-MED ONCE 09/25/18 10:00 09/26/18 07:27 DC Ringer's Solution 1,000 ml @ 50 mls/hr Q20H 09/27/18 07:00 09/27/18 18:59 Sodium Chloride 1,000 ml @ 75 mls/hr [id number] 09/24/18 19:09 09/25/18 19:08 DC 09/25/18 08:29 75 MLS/HR Throat Lozenges (Cepacol Sore Throat Lozenge) 1 aki PRN Q2HRS PRN 09/25/18 13:45 09/25/18 13:58 1 AKI Labs: Lab Laboratory Tests Test 09/26/18 12:00 09/26/18 13:00 09/26/18 18:40 09/27/18 05:45 White Blood Count 11.6 x10^3/uL (4.0-11.0) 11.6 x10^3/uL (4.0-11.0) Red Blood Count 2.74 x10^6/uL (3.50-5.40) 2.54 x10^6/uL (3.50-5.40) Hemoglobin 8.3 g/dL (12.0-15.5) 7.7 g/dL (12.0-15.5) Hematocrit 24.9 % (36.0-47.0) 23.3 % (36.0-47.0) Mean Corpuscular Volume 91 fL (79-100) 92 fL (79-100) Mean Corpuscular Hemoglobin 30 pg (25-35) 30 pg (25-35) Mean Corpuscular Hemoglobin Concent 33 g/dL (31-37) 33 g/dL (31-37) Red Cell Distribution Width 14.4 % (11.5-14.5) 14.7 % (11.5-14.5) Platelet Count 155 x10^3/uL (140-400) 158 x10^3/uL (140-400) Neutrophils (%) (Auto) 77 % (31-73) 73 % (31-73) Lymphocytes (%) (Auto) 15 % (24-48) 17 % (24-48) Monocytes (%) (Auto) 6 % (0-9) 7 % (0-9) Eosinophils (%) (Auto) 2 % (0-3) 3 % (0-3) Basophils (%) (Auto) 1 % (0-3) 1 % (0-3) Neutrophils # (Auto) 8.9 x10^3uL (1.8-7.7) 8.5 x10^3uL (1.8-7.7) Lymphocytes # (Auto) 1.8 x10^3/uL (1.0-4.8) 1.9 x10^3/uL (1.0-4.8) Monocytes # (Auto) 0.7 x10^3/uL (0.0-1.1) 0.8 x10^3/uL (0.0-1.1) Eosinophils # (Auto) 0.2 x10^3/uL (0.0-0.7) 0.4 x10^3/uL (0.0-0.7) Basophils # (Auto) 0.1 x10^3/uL (0.0-0.2) 0.1 x10^3/uL (0.0-0.2) Urine Collection Type Unknown Urine Color Yellow Urine Clarity Clear Urine pH 6.5 Urine Specific [place] 1.025 Urine Protein Negative mg/dL (NEG-TRACE) Urine Glucose (UA) Negative mg/dL (NEG) Urine Ketones (Stick) Negative mg/dL (NEG) Urine Blood Negative (NEG) Urine Nitrite Negative (NEG) Urine Bilirubin Negative (NEG) Urine Urobilinogen Dipstick 1.0 mg/dL (0.2 mg/dL) Urine Leukocyte Esterase Negative (NEG) Urine RBC Occ /HPF (0-2) Urine WBC 0 /HPF (0-4) Urine Squamous Epithelial Cells Occ /LPF Urine Bacteria 0 /HPF (0-FEW) Sodium Level 146 mmol/L (136-145) Potassium Level 3.1 mmol/L (3.5-5.1) Chloride Level 111 mmol/L (98-107) Carbon Dioxide Level 26 mmol/L (21-32) Anion Gap 9 (6-14) Blood Urea Nitrogen 23 mg/dL (7-20) Creatinine 0.6 mg/dL (0.6-1.0) Estimated GFR (Cockcroft-Gault) 95.9 Glucose Level 119 mg/dL (70-99) Calcium Level 7.2 mg/dL (8.5-10.1) Objective: Assessment: 1. Acute gastrointestinal bleed. S/P EGD 2. Leukocytosis. Lactic acidosis. 3. Anemia s/p PRBCs 4. Right hydronephrosis. 5. Coronary artery disease, status post stent placement. 6. History of deep venous thrombosis in right common femoral vein. 7. Diabetes. 8. Dementia. 9. HX DVT Right lower leg on eliquis 10. morbid obesity 11. Pseudoaneurysm of right femoral artery , recent, ? hematoma Plan: Plan of Care Continue empiric Zosyn for now f/u cultures awaiting repeat EGD later today Urology consulted Monitor labs Maintain aspiration precautions Supportive care D/W PAUL BULL MD Sep 27, 2018 07:56
--- NOTE | 2018-09-27 09:08 | PDOC ---
PROGRESS NOTES Chief Complaint Chief Complaint 1. Acute gi bleeding// severe anemia of acute blood loss 2. Moderate dementia 3. CAD with recent stent placement [facility] 4. HX DVT Right lower leg on eliquis 5. morbid obesity 6. Pseudoaneurysm of right femoral artery , recent 7. POSSIBLE SEPSIS 8. LAD STENT, DRUG-eluting placed [facility] 09/24/18 9. Urinary retention 10. Possible uretal stone History of Present Illness History of Present Illness Ms Koroma is a SNF resident at [facility] who was sent to the ER with complaints of abdominal pain, nausea, black stools and dizziness. She recently underwent a coronary stent placement and also was found to have a DVT in right leg and was taking both Eliquis and Plavix. She was found to have an elevated white blood cell count of 14,700; lactic acid 5.1; hemoglobin 4.5. Positive occult blood in the stool and iron are 2.0. An abdominal/pelvis CTA showed no sign of GI hemorrhage or clear bowel ischemia; ill-defined soft tissue seen anterior to the right common femoral artery measuring approximately 2.8 x 2.1 cm; interval development of moderate right hydronephrosis. She underwent an EGD this morning. She was found to have a recent bleeding and mild oozing in the second portion of the duodenum without discrete ulcer. Status post epi injection. Both the Eliquis and Plavix have been discontinued 09/26: Transfused 4u PRBC and 1u FFP total. s/p EGD per GI - "Esophagus normal, gastritis without ulcer or bleeding, duodenal blood noted- recent bleeding and mild oozing noted in 2nd portion of duodenum but no discrete ulcer, AVM etc - area injected with epi and oozing seemed to stop- scope passed to 3rd portion- all areas irrigated- no other active bleeding seem but recent blood in lumen noted" She is feeling well, had some dark stool still this morning x2. K 3.1 this morning. US shows pseudoaneurysm in right groin, no DVT. Plan for EGD this afternoon. Denies CP or SOB Plan: hold eliquis/ plavix, labs obtain recent records She will need to restart antiplatelet agents when ok with GI, would recommend holding eliquis, may need IR consultation for filter placement Repeat EGD Urology and ID to see for possible urosepsis Vitals Vitals Vital Signs Date Time Temp Pulse Resp B/P (MAP) Pulse Ox O2 Delivery O2 Flow Rate FiO2 09/27/18 08:00 98.4 73 16 138/74 (95) 98 Room Air 98.4 Physical Exam Physical Exam GENERAL: The patient is propped up in bed, alert, calm, wearing mittens. HEENT: Pupils are equally round. Normal conjunctivae. Oral cavity: Pharynx pink and moist. No thrush. Edentulous. NECK: Supple. LUNGS: Clear to auscultation. HEART: S1 and S2, loud murmur throughout. ABDOMEN: Obese, soft and nontender with bowel sounds present. GENITOURINARY: Indwelling Martin in place. EXTREMITIES: No gross edema or cyanosis. SKIN: Warm without rash. NEUROLOGIC: Alert, confused, but cooperative. General: Alert Heart: Regular rate, Normal S1, Normal S2, Other (systolic murmur) Abdomen: Normal bowel sounds, Soft, No tenderness, No hepatosplenomegaly Extremities: No clubbing, No cyanosis Skin: No rashes Labs LABS Laboratory Tests Test 09/26/18 12:00 09/26/18 13:00 09/26/18 18:40 09/27/18 05:45 White Blood Count 11.6 x10^3/uL (4.0-11.0) 11.6 x10^3/uL (4.0-11.0) Red Blood Count 2.74 x10^6/uL (3.50-5.40) 2.54 x10^6/uL (3.50-5.40) Hemoglobin 8.3 g/dL (12.0-15.5) 7.7 g/dL (12.0-15.5) Hematocrit 24.9 % (36.0-47.0) 23.3 % (36.0-47.0) Mean Corpuscular Volume 91 fL (79-100) 92 fL (79-100) Mean Corpuscular Hemoglobin 30 pg (25-35) 30 pg (25-35) Mean Corpuscular Hemoglobin Concent 33 g/dL (31-37) 33 g/dL (31-37) Red Cell Distribution Width 14.4 % (11.5-14.5) 14.7 % (11.5-14.5) Platelet Count 155 x10^3/uL (140-400) 158 x10^3/uL (140-400) Neutrophils (%) (Auto) 77 % (31-73) 73 % (31-73) Lymphocytes (%) (Auto) 15 % (24-48) 17 % (24-48) Monocytes (%) (Auto) 6 % (0-9) 7 % (0-9) Eosinophils (%) (Auto) 2 % (0-3) 3 % (0-3) Basophils (%) (Auto) 1 % (0-3) 1 % (0-3) Neutrophils # (Auto) 8.9 x10^3uL (1.8-7.7) 8.5 x10^3uL (1.8-7.7) Lymphocytes # (Auto) 1.8 x10^3/uL (1.0-4.8) 1.9 x10^3/uL (1.0-4.8) Monocytes # (Auto) 0.7 x10^3/uL (0.0-1.1) 0.8 x10^3/uL (0.0-1.1) Eosinophils # (Auto) 0.2 x10^3/uL (0.0-0.7) 0.4 x10^3/uL (0.0-0.7) Basophils # (Auto) 0.1 x10^3/uL (0.0-0.2) 0.1 x10^3/uL (0.0-0.2) Urine Collection Type Unknown Urine Color Yellow Urine Clarity Clear Urine pH 6.5 Urine Specific [place] 1.025 Urine Protein Negative mg/dL (NEG-TRACE) Urine Glucose (UA) Negative mg/dL (NEG) Urine Ketones (Stick) Negative mg/dL (NEG) Urine Blood Negative (NEG) Urine Nitrite Negative (NEG) Urine Bilirubin Negative (NEG) Urine Urobilinogen Dipstick 1.0 mg/dL (0.2 mg/dL) Urine Leukocyte Esterase Negative (NEG) Urine RBC Occ /HPF (0-2) Urine WBC 0 /HPF (0-4) Urine Squamous Epithelial Cells Occ /LPF Urine Bacteria 0 /HPF (0-FEW) Sodium Level 146 mmol/L (136-145) Potassium Level 3.1 mmol/L (3.5-5.1) Chloride Level 111 mmol/L (98-107) Carbon Dioxide Level 26 mmol/L (21-32) Anion Gap 9 (6-14) Blood Urea Nitrogen 23 mg/dL (7-20) Creatinine 0.6 mg/dL (0.6-1.0) Estimated GFR (Cockcroft-Gault) 95.9 Glucose Level 119 mg/dL (70-99) Calcium Level 7.2 mg/dL (8.5-10.1) Assessment and Plan Assessmemt and Plan Problems Medical Problems: (1) Dizziness Status: Acute (2) GI bleeding Status: Acute Comment Review of Relevant I have reviewed the following items matty (where applicable) has been applied. Labs Laboratory Tests Test 09/25/18 12:15 09/25/18 17:55 09/26/18 00:30 09/26/18 07:15 White Blood Count 13.1 x10^3/uL (4.0-11.0) 14.2 x10^3/uL (4.0-11.0) 12.9 x10^3/uL (4.0-11.0) 12.4 x10^3/uL (4.0-11.0) Red Blood Count 2.56 x10^6/uL (3.50-5.40) 2.36 x10^6/uL (3.50-5.40) 2.15 x10^6/uL (3.50-5.40) 2.92 x10^6/uL (3.50-5.40) Hemoglobin 7.9 g/dL (12.0-15.5) 7.2 g/dL (12.0-15.5) 6.7 g/dL (12.0-15.5) 8.9 g/dL (12.0-15.5) Hematocrit 23.3 % (36.0-47.0) 22.1 % (36.0-47.0) 19.9 % (36.0-47.0) 26.6 % (36.0-47.0) Mean Corpuscular Volume 91 fL (79-100) 93 fL (79-100) 92 fL (79-100) 91 fL ( 79-100) Mean Corpuscular Hemoglobin 31 pg (25-35) 31 pg (25-35) 31 pg (25-35) 30 pg ( 25-35) Mean Corpuscular Hemoglobin Concent 34 g/dL (31-37) 33 g/dL (31-37) 34 g/dL (31-37) 33 g/dL (31-37) Red Cell Distribution Width 13.9 % (11.5-14.5) 14.2 % (11.5-14.5) 14.5 % (11.5-14.5) 14.6 % (11.5-14.5) Platelet Count 165 x10^3/uL (140-400) 154 x10^3/uL (140-400) 156 x10^3/uL (140-400) 153 x10^3/uL (140-400) Neutrophils (%) (Auto) 79 % (31-73) 77 % (31-73) 77 % (31-73) 76 % (31-73) Lymphocytes (%) (Auto) 12 % (24-48) 14 % (24-48) 15 % (24-48) 15 % (24-48) Monocytes (%) (Auto) 7 % (0-9) 8 % (0-9) 6 % (0-9) 6 % (0-9) Eosinophils (%) (Auto) 1 % (0-3) 1 % (0-3) 2 % (0-3) 2 % (0-3) Basophils (%) (Auto) 1 % (0-3) 1 % (0-3) 1 % (0-3) 1 % (0-3) Neutrophils # (Auto) 10.4 x10^3uL (1.8-7.7) 10.8 x10^3uL (1.8-7.7) 9.9 x10^3uL (1.8-7.7) 9.4 x10^3uL (1.8-7.7) Lymphocytes # (Auto) 1.6 x10^3/uL (1.0-4.8) 2.0 x10^3/uL (1.0-4.8) 1.9 x10^3/uL (1.0-4.8) 1.9 x10^3/uL (1.0-4.8) Monocytes # (Auto) 0.9 x10^3/uL (0.0-1.1) 1.1 x10^3/uL (0.0-1.1) 0.8 x10^3/uL (0.0-1.1) 0.8 x10^3/uL (0.0-1.1) Eosinophils # (Auto) 0.1 x10^3/uL (0.0-0.7) 0.1 x10^3/uL (0.0-0.7) 0.2 x10^3/uL (0.0-0.7) 0.3 x10^3/uL (0.0-0.7) Basophils # (Auto) 0.1 x10^3/uL (0.0-0.2) 0.1 x10^3/uL (0.0-0.2) 0.1 x10^3/uL (0.0-0.2) 0.1 x10^3/uL (0.0-0.2) Prothrombin Time 15.3 SEC (11.7-14.0) Prothromb Time International Ratio 1.2 (0.8-1.1) Sodium Level 146 mmol/L (136-145) Potassium Level 3.3 mmol/L (3.5-5.1) Chloride Level 112 mmol/L (98-107) Carbon Dioxide Level 25 mmol/L (21-32) Anion Gap 9 (6-14) Blood Urea Nitrogen 27 mg/dL (7-20) Creatinine 0.5 mg/dL (0.6-1.0) Estimated GFR (Cockcroft-Gault) 118.4 BUN/Creatinine Ratio 54 (6-20) Glucose Level 111 mg/dL (70-99) Calcium Level 7.2 mg/dL (8.5-10.1) Magnesium Level 2.4 mg/dL (1.8-2.4) Total Bilirubin 0.7 mg/dL (0.2-1.0) Aspartate Amino Transf (AST/SGOT) 18 U/L (15-37) Alanine Aminotransferase (ALT/SGPT) 15 U/L (14-59) Alkaline Phosphatase 45 U/L (46-116) Total Protein 5.0 g/dL (6.4-8.2) Albumin 2.7 g/dL (3.4-5.0) Albumin/Globulin Ratio 1.2 (1.0-1.7) Test 09/26/18 12:00 09/26/18 13:00 09/26/18 18:40 09/27/18 05:45 White Blood Count 11.6 x10^3/uL (4.0-11.0) 11.6 x10^3/uL (4.0-11.0) Red Blood Count 2.74 x10^6/uL (3.50-5.40) 2.54 x10^6/uL (3.50-5.40) Hemoglobin 8.3 g/dL (12.0-15.5) 7.7 g/dL (12.0-15.5) Hematocrit 24.9 % (36.0-47.0) 23.3 % (36.0-47.0) Mean Corpuscular Volume 91 fL (79-100) 92 fL (79-100) Mean Corpuscular Hemoglobin 30 pg (25-35) 30 pg (25-35) Mean Corpuscular Hemoglobin Concent 33 g/dL (31-37) 33 g/dL (31-37) Red Cell Distribution Width 14.4 % (11.5-14.5) 14.7 % (11.5-14.5) Platelet Count 155 x10^3/uL (140-400) 158 x10^3/uL (140-400) Neutrophils (%) (Auto) 77 % (31-73) 73 % (31-73) Lymphocytes (%) (Auto) 15 % (24-48) 17 % (24-48) Monocytes (%) (Auto) 6 % (0-9) 7 % (0-9) Eosinophils (%) (Auto) 2 % (0-3) 3 % (0-3) Basophils (%) (Auto) 1 % (0-3) 1 % (0-3) Neutrophils # (Auto) 8.9 x10^3uL (1.8-7.7) 8.5 x10^3uL (1.8-7.7) Lymphocytes # (Auto) 1.8 x10^3/uL (1.0-4.8) 1.9 x10^3/uL (1.0-4.8) Monocytes # (Auto) 0.7 x10^3/uL (0.0-1.1) 0.8 x10^3/uL (0.0-1.1) Eosinophils # (Auto) 0.2 x10^3/uL (0.0-0.7) 0.4 x10^3/uL (0.0-0.7) Basophils # (Auto) 0.1 x10^3/uL (0.0-0.2) 0.1 x10^3/uL (0.0-0.2) Urine Collection Type Unknown Urine Color Yellow Urine Clarity Clear Urine pH 6.5 Urine Specific [place] 1.025 Urine Protein Negative mg/dL (NEG-TRACE) Urine Glucose (UA) Negative mg/dL (NEG) Urine Ketones (Stick) Negative mg/dL (NEG) Urine Blood Negative (NEG) Urine Nitrite Negative (NEG) Urine Bilirubin Negative (NEG) Urine Urobilinogen Dipstick 1.0 mg/dL (0.2 mg/dL) Urine Leukocyte Esterase Negative (NEG) Urine RBC Occ /HPF (0-2) Urine WBC 0 /HPF (0-4) Urine Squamous Epithelial Cells Occ /LPF Urine Bacteria 0 /HPF (0-FEW) Sodium Level 146 mmol/L (136-145) Potassium Level 3.1 mmol/L (3.5-5.1) Chloride Level 111 mmol/L (98-107) Carbon Dioxide Level 26 mmol/L (21-32) Anion Gap 9 (6-14) Blood Urea Nitrogen 23 mg/dL (7-20) Creatinine 0.6 mg/dL (0.6-1.0) Estimated GFR (Cockcroft-Gault) 95.9 Glucose Level 119 mg/dL (70-99) Calcium Level 7.2 mg/dL (8.5-10.1) Laboratory Tests Test 09/26/18 12:00 09/26/18 13:00 09/26/18 18:40 09/27/18 05:45 White Blood Count 11.6 x10^3/uL (4.0-11.0) 11.6 x10^3/uL (4.0-11.0) Red Blood Count 2.74 x10^6/uL (3.50-5.40) 2.54 x10^6/uL (3.50-5.40) Hemoglobin 8.3 g/dL (12.0-15.5) 7.7 g/dL (12.0-15.5) Hematocrit 24.9 % (36.0-47.0) 23.3 % (36.0-47.0) Mean Corpuscular Volume 91 fL (79-100) 92 fL (79-100) Mean Corpuscular Hemoglobin 30 pg (25-35) 30 pg (25-35) Mean Corpuscular Hemoglobin Concent 33 g/dL (31-37) 33 g/dL (31-37) Red Cell Distribution Width 14.4 % (11.5-14.5) 14.7 % (11.5-14.5) Platelet Count 155 x10^3/uL (140-400) 158 x10^3/uL (140-400) Neutrophils (%) (Auto) 77 % (31-73) 73 % (31-73) Lymphocytes (%) (Auto) 15 % (24-48) 17 % (24-48) Monocytes (%) (Auto) 6 % (0-9) 7 % (0-9) Eosinophils (%) (Auto) 2 % (0-3) 3 % (0-3) Basophils (%) (Auto) 1 % (0-3) 1 % (0-3) Neutrophils # (Auto) 8.9 x10^3uL (1.8-7.7) 8.5 x10^3uL (1.8-7.7) Lymphocytes # (Auto) 1.8 x10^3/uL (1.0-4.8) 1.9 x10^3/uL (1.0-4.8) Monocytes # (Auto) 0.7 x10^3/uL (0.0-1.1) 0.8 x10^3/uL (0.0-1.1) Eosinophils # (Auto) 0.2 x10^3/uL (0.0-0.7) 0.4 x10^3/uL (0.0-0.7) Basophils # (Auto) 0.1 x10^3/uL (0.0-0.2) 0.1 x10^3/uL (0.0-0.2) Urine Collection Type Unknown Urine Color Yellow Urine Clarity Clear Urine pH 6.5 Urine Specific [place] 1.025 Urine Protein Negative mg/dL (NEG-TRACE) Urine Glucose (UA) Negative mg/dL (NEG) Urine Ketones (Stick) Negative mg/dL (NEG) Urine Blood Negative (NEG) Urine Nitrite Negative (NEG) Urine Bilirubin Negative (NEG) Urine Urobilinogen Dipstick 1.0 mg/dL (0.2 mg/dL) Urine Leukocyte Esterase Negative (NEG) Urine RBC Occ /HPF (0-2) Urine WBC 0 /HPF (0-4) Urine Squamous Epithelial Cells Occ /LPF Urine Bacteria 0 /HPF (0-FEW) Sodium Level 146 mmol/L (136-145) Potassium Level 3.1 mmol/L (3.5-5.1) Chloride Level 111 mmol/L (98-107) Carbon Dioxide Level 26 mmol/L (21-32) Anion Gap 9 (6-14) Blood Urea Nitrogen 23 mg/dL (7-20) Creatinine 0.6 mg/dL (0.6-1.0) Estimated GFR (Cockcroft-Gault) 95.9 Glucose Level 119 mg/dL (70-99) Calcium Level 7.2 mg/dL (8.5-10.1) Microbiology 09/25/18 Blood Culture - Preliminary, Resulted NO GROWTH AFTER 2 DAYS Medications Current Medications Sodium Chloride 1,000 ml @ 1,000 mls/hr 1X ONCE IV Last administered on at 17:40; Start 09/24/18 at 17:15; Stop 09/24/18 at 18:14; Status DC Pantoprazole Sodium (PROTONIX VIAL for IV PUSH) 40 mg 1X ONCE IVP Last administered on 09/24/18at 17:43; Start 09/24/18 at 17:15; Stop 09/24/18 at 17:16 ; Status DC Pantoprazole Sodium 80 mg/ Sodium Chloride 100 ml @ 10 mls/hr 1X ONCE IV Last administered on 09/24/18at 20:18; Start 09/24/18 at 19:00; Stop 09/25/18 at 04:59; Status DC Sodium Chloride 1,000 ml @ 75 mls/hr [id number] IV Last administered on at 08:29; Start 09/24/18 at 19:09; Stop 09/25/18 at 19:08; Status DC Iohexol (Omnipaque 350 Mg/ml) 100 ml 1X ONCE IV Last administered on at 19:54; Start 09/24/18 at 19:30; Stop 09/24/18 at 19:31; Status DC Info (CONTRAST GIVEN -- Rx MONITORING) 1 each PRN DAILY PRN MC SEE COMMENTS; Start 09/24/18 at 19:30; Stop 09/26/18 at 19:29; Status DC Piperacillin Sod/ Tazobactam Sod 3.375 gm/Sodium Chloride 50 ml @ 100 mls/hr Q6HRS IV Last administered on 09/27/18at 05:02; Start 09/25/18 at 00:00 Propofol 200 ml @ As Directed STK-MED ONCE IV ; Start 09/25/18 at 09:45; Stop 09/25/18 at 09:46; Status DC Propofol 40 ml @ As Directed STK-MED ONCE IV ; Start 09/25/18 at 09:47; Stop at 09:48; Status DC Epinephrine HCl (EPINEPHrine SYRINGE) 1 mg STK-MED ONCE SQ Last administered on 09/25/18at 09:40; Start 09/25/18 at 09:40; Stop 09/25/18 at 09:54; Status DC Propofol 20 ml @ As Directed STK-MED ONCE IV ; Start 09/25/18 at 10:07; Stop at 10:08; Status DC Lidocaine HCl (Lidocaine Pf 2% Vial) 5 ml STK-MED ONCE .ROUTE ; Start 09/25/18 at 10:07; Stop 09/25/18 at 10:08; Status DC Epinephrine HCl (EPINEPHrine SYRINGE) 1 mg STK-MED ONCE .ROUTE ; Start 09/25/18 at 10:29; Stop 09/25/18 at 10:30; Status DC Throat Lozenges (Cepacol Sore Throat Lozenge) 1 lea PRN Q2HRS PRN PO SORE THROAT Last administered on 09/25/18at 13:58; Start 09/25/18 at 13:45 Propofol (Diprivan) 2,000 mg STK-MED ONCE IV ; Start 09/25/18 at 10:00; Stop at 07:27; Status DC Estradiol (Estrace) 1 carina QMWF@0900 VG Last administered on 09/26/18at 15:32; Start 09/26/18 at 10:00 Lactobacillus Rhamnosus (Culturelle) 1 cap BID PO Last administered on at 20:54; Start 09/26/18 at 10:30 Pantoprazole Sodium (PROTONIX VIAL for IV PUSH) 40 mg DAILYAC IVP Last administered on 09/27/18at 05:03; Start 09/26/18 at 10:30 Ringer's Solution 1,000 ml @ 50 mls/hr Q20H IV ; Start 09/27/18 at 07:00; Stop 09/27/18 at 18:59 Active Scripts Active Reported Levothyroxine Sodium 75 Mcg Tablet 75 Mcg PO DAILYAC Imipramine Hcl 10 Mg Tablet 10 Mg PO HS Guaifenesin 100 Mg/5 Ml Liquid 100 Mg PO PRN Q6HRS PRN Vitamin D3 (Cholecalciferol (Vitamin D3)) 1,000 Unit Tablet 1 Tab PO DAILY Lipitor (Atorvastatin Calcium) 40 Mg Tablet 1 Tab PO QHS Eliquis (Apixaban) 5 Mg Tablet 5 Mg PO BID Duoneb 0.5-3(2.5) Mg/3 Ml (Albuterol/Ipratropium) 3 Ml Ampul.neb 3 Ml NEB PRN Q4HRS PRN Clopidogrel (Clopidogrel Bisulfate) 75 Mg Tablet 1 Tab PO DAILY Vitals/I & O Vital Sign - Last 24 Hours 09/26/18 09/26/18 09/26/18 09/26/18 12:00 12:00 13:00 14:00 Temp 98.0 98.0 98.0 98.0 Pulse 76 76 80 Resp 20 21 28 B/P (MAP) 144/65 (91) 137/64 (88) 160/70 (100) Pulse Ox 97 98 98 O2 Delivery Room Air Room Air Room Air Room Air 09/26/18 09/26/18 09/26/18 09/26/18 15:00 16:00 16:00 17:00 Pulse 76 76 94 Resp 22 30 28 B/P (MAP) 133/68 (89) 138/73 (94) 116/70 (85) Pulse Ox 98 97 97 O2 Delivery Room Air Room Air Room Air Room Air 09/26/18 09/26/18 09/26/18 09/26/18 18:00 19:00 19:30 20:00 Temp 98.3 98.0 98.3 98.0 Pulse 80 80 100 Resp 22 18 20 B/P (MAP) 128/72 (90) 136/63 (87) 147/78 (101) Pulse Ox 97 97 99 O2 Delivery Room Air Room Air Room Air Room Air 09/26/18 09/26/18 09/26/18 09/26/18 21:13 21:18 22:00 23:00 Temp 97.0 97.0 97.7 97.9 97.0 97.0 97.7 97.9 Pulse 78 77 80 79 Resp 18 18 18 18 B/P (MAP) 85/63 (70) 67/63 (64) 159/67 (97) 129/72 (91) Pulse Ox 98 98 96 98 O2 Delivery Room Air Room Air Room Air Room Air 09/26/18 09/27/18 09/27/18 09/27/18 23:59 00:01 01:00 02:00 Temp 97.0 98.0 97.3 97.0 98.0 97.3 Pulse 78 79 80 Resp 18 20 20 B/P (MAP) 147/91 (109) 176/94 (121) 134/73 (93) Pulse Ox 97 98 97 O2 Delivery Room Air Room Air Room Air Room Air 09/27/18 09/27/18 09/27/18 09/27/18 03:00 04:00 04:09 05:00 Temp 97.8 97.0 97.3 97.8 97.0 97.3 Pulse 78 84 77 Resp 18 18 18 B/P (MAP) 162/74 (103) 166/68 (100) 176/84 (114) Pulse Ox 98 96 98 O2 Delivery Room Air Room Air Room Air Room Air 09/27/18 09/27/18 09/27/18 09/27/18 06:03 07:00 08:00 08:00 Temp 97.0 98.4 98.4 97.0 98.4 98.4 Pulse 76 95 73 Resp 20 18 20 B/P (MAP) 136/68 (90) 170/93 (118) 138/74 (95) Pulse Ox 99 98 98 O2 Delivery Room Air Room Air Room Air Room Air 09/27/18 08:00 Temp 98.4 98.4 Pulse 73 Resp 16 B/P (MAP) 138/74 (95) Pulse Ox 98 O2 Delivery Room Air Intake and Output 09/26/18 09/26/18 09/27/18 14:59 22:59 06:59 Intake Total 600 ml 700 ml 50 ml Output Total 461 ml 694 ml Balance 600 ml 239 ml -644 ml Images Right LE US 1. No Doppler evidence of right lower extremity venous thrombosis. 2. 4.1 cm right Coreas's cyst. 3. 3.2 cm suspected hematoma or thrombosed pseudoaneurysm within the right inguinal region at the site of prior catheterization. There is no clear indication of this collection with the underlying vasculature due to suggest a patent pseudoaneurysm or extravasation. ZANA BARAHONA MD Sep 27, 2018 09:08
[2018-09-27] MEDS ORDERED: guaiFENesin ORAL 200 MG/10 ML LIQUID. PO PRN (09:15)
[2018-09-27] MEDS ORDERED: ALBUTEROL SULFATE 2.5 MG/3 ML NEBU. NEB PRN (09:15)
--- NOTE | 2018-09-27 09:28 | PDOC2 ---
CONSULT Date of Consult Date of Consult DATE: 09/27/18 TIME: 09:18 Reason for consultation: History of DVT and GI bleed Consult: Hematology oncology, Dr. Melva Baum History of present illness: She is an 83-year-old female who was at [facility] recently in August with PCI to LAD and stent and recently diagnosed with a right common femoral vein DVT, she was on eliquis and Plavix and came in with GI bleed, dizziness, dark stools, and lower extremity ultrasound shows no residual DVT, but there was a pseudoaneurysm versus hematoma with patent adjacent artery and vein, looked like 2.[address], with some hydronephrosis, and frequent UTIs, urology has been involved, cardiology is involved, aspirin is recommended to be restarted and GI is involved, she did have an EGD on 25 September which showed gastritis, duodenal ulcer with recent blood , it was injected with epi. She has anemia, acute, severe, to a hemoglobin of 4.5, associated with dizziness, improved with transfusion, and worsened due to GI bleed, of note her hemoglobin was 13.9 at last check in 2014. Past medical history: Hypothyroid Depression Right common femoral vein DVT Right groin pseudoaneurysm/hematoma Coronary artery disease Hypertension Hyperlipidemia Frequent UTIs GI bleed Peripheral vascular disease Severe aortic stenosis Proteinuria dementia Osteoarthritis Past surgical history: EGD PCI Colonoscopy Cholecystectomy Tonsillectomy Allergies: No known drug allergies Medications: See attached list Social history: From assisted living, no tobacco or alcohol, Family history: Diabetes, hypertension Review of systems: Frequent UTIs, dizziness, dark stools, otherwise 10 point review of systems negative, though she is demented Physical exam: Vitals reviewed Gen.: Well-nourished and well-developed in no acute distress HEENT: mucous membranes moist, head normocephalic atraumatic Neck: Supple, no lymphadenopathy Lymph nodes: No palpable lymphadenopathy neck or axilla Lungs: Breathing comfortably, no evidence of respiratory distress Abdomen: Soft, nontender, nondistended Extremities: No cyanosis only tr bilat edema Skin: No obvious rashes or skin breakdown Neuro: Alert, demented Psych: pleasant mood and affect Lab reviewed: White count 11.6, hemoglobin 4.5, platelets 158 INR 1.2 Fecal occult blood test positive Creatinine 2.6 Blood cultures negative Rads reviewed: 26 September ultrasound showed no right lower extremity DVT, 4.1 cm Coreas's cyst, 3.2 cm suspected hematoma or thrombosed pseudoaneurysm at right inguinal region at prior catheterization site, with patent adjacent artery and vein CT abdomen and pelvis angiogram showed hematoma versus scar near right common femoral artery 2.8 cm, right hydronephrosis with UPJ obstruction possibly, small hiatal hernia, aortic valve calcifications, at least mild cardiomegaly Chest x-ray mild cardiomegaly Case discussed with: Patient, records reviewed in [facility] including labs and radiology, please see note for summary details. Assessment and Plan: She is an 83-year-old female with history of coronary artery disease and recent stent in August with DVT recently on Eliquis and Plavix , in with anemia and GI bleed, with baseline dementia. History of recent DVT: No evidence of DVT at this time on u/s reassuring, would withhold anticoagulation at this point in time from a venous thrombosis standpoint, also with possible hematoma would not restart anticoagulation, if she did need it in the future would consider dose reduction, do not see a need for IVC filter at this time Frequent UTIs: Vaginal estradiol was recommended by urology, would doubt she would get significant systemic absorption but do caution hormones with history of thrombosis Coronary artery disease: Defer to cardiology regarding the antiplatelet agents necessary with recent stent GI bleed: GI is involved, recent duodenal ulcer injected with epi, good response to transfusion thus far Anemia: Her hemoglobin has improved to 7.7 after 4 units red blood cells and 1 unit of FFP, can check iron panel Disposition: After continued clinical improvement Thank you kindly for this consultation, and please don't hesitate to call with any further questions. Past Medical History Cardiovascular: CAD CENTRAL NERVOUS SYSTEM: Dementia Musculoskeletal: Osteoarthritis Renal/: UTI (2-3 over the last year ) Family History Family History: Diabetes, Hypertension Social History No ALCOHOL: none Drugs: None Current Problem List Problem List Problems Medical Problems: (1) Dizziness Status: Acute (2) GI bleeding Status: Acute Current Medications Current Medications Current Medications Sodium Chloride 1,000 ml @ 1,000 mls/hr 1X ONCE IV Last administered on at 17:40; Start 09/24/18 at 17:15; Stop 09/24/18 at 18:14; Status DC Pantoprazole Sodium (PROTONIX VIAL for IV PUSH) 40 mg 1X ONCE IVP Last administered on 09/24/18at 17:43; Start 09/24/18 at 17:15; Stop 09/24/18 at 17:16 ; Status DC Pantoprazole Sodium 80 mg/ Sodium Chloride 100 ml @ 10 mls/hr 1X ONCE IV Last administered on 09/24/18at 20:18; Start 09/24/18 at 19:00; Stop 09/25/18 at 04:59; Status DC Sodium Chloride 1,000 ml @ 75 mls/hr [id number] IV Last administered on at 08:29; Start 09/24/18 at 19:09; Stop 09/25/18 at 19:08; Status DC Iohexol (Omnipaque 350 Mg/ml) 100 ml 1X ONCE IV Last administered on at 19:54; Start 09/24/18 at 19:30; Stop 09/24/18 at 19:31; Status DC Info (CONTRAST GIVEN -- Rx MONITORING) 1 each PRN DAILY PRN MC SEE COMMENTS; Start 09/24/18 at 19:30; Stop 09/26/18 at 19:29; Status DC Piperacillin Sod/ Tazobactam Sod 3.375 gm/Sodium Chloride 50 ml @ 100 mls/hr Q6HRS IV Last administered on 09/27/18at 05:02; Start 09/25/18 at 00:00 Propofol 200 ml @ As Directed STK-MED ONCE IV ; Start 09/25/18 at 09:45; Stop 09/25/18 at 09:46; Status DC Propofol 40 ml @ As Directed STK-MED ONCE IV ; Start 09/25/18 at 09:47; Stop at 09:48; Status DC Epinephrine HCl (EPINEPHrine SYRINGE) 1 mg STK-MED ONCE SQ Last administered on 09/25/18at 09:40; Start 09/25/18 at 09:40; Stop 09/25/18 at 09:54; Status DC Propofol 20 ml @ As Directed STK-MED ONCE IV ; Start 09/25/18 at 10:07; Stop at 10:08; Status DC Lidocaine HCl (Lidocaine Pf 2% Vial) 5 ml STK-MED ONCE .ROUTE ; Start 09/25/18 at 10:07; Stop 09/25/18 at 10:08; Status DC Epinephrine HCl (EPINEPHrine SYRINGE) 1 mg STK-MED ONCE .ROUTE ; Start 09/25/18 at 10:29; Stop 09/25/18 at 10:30; Status DC Throat Lozenges (Cepacol Sore Throat Lozenge) 1 lea PRN Q2HRS PRN PO SORE THROAT Last administered on 09/25/18at 13:58; Start 09/25/18 at 13:45 Propofol (Diprivan) 2,000 mg STK-MED ONCE IV ; Start 09/25/18 at 10:00; Stop at 07:27; Status DC Estradiol (Estrace) 1 carina QMWF@0900 VG Last administered on 09/26/18at 15:32; Start 09/26/18 at 10:00 Lactobacillus Rhamnosus (Culturelle) 1 cap BID PO Last administered on at 20:54; Start 09/26/18 at 10:30 Pantoprazole Sodium (PROTONIX VIAL for IV PUSH) 40 mg DAILYAC IVP Last administered on 09/27/18at 05:03; Start 09/26/18 at 10:30 Ringer's Solution 1,000 ml @ 50 mls/hr Q20H IV ; Start 09/27/18 at 07:00; Stop 09/27/18 at 18:59 Potassium Chloride/Water 100 ml @ 100 mls/hr Q1H IV ; Start 09/27/18 at 09:30; Stop 09/27/18 at 13:29 Atorvastatin Calcium (Lipitor) 40 mg QHS PO ; Start 09/27/18 at 21:00 Vitamin D (Vitamin D3) 1,000 unit DAILY PO ; Start 09/27/18 at 10:00 Guaifenesin (Robitussin) 100 mg PRN Q6HRS PRN PO COUGH; Start 09/27/18 at 09:15 Albuterol Sulfate (Ventolin Neb Soln) 2.5 mg PRN Q4HRS PRN NEB SHORTNESS OF BREATH; Start 09/27/18 at 09:15 Levothyroxine Sodium (Synthroid) 75 mcg DAILYAC PO ; Start 09/27/18 at 09:30 Imipramine HCl (Tofranil) 12.5 mg QHS PO ; Start 4/16/19 at 21:00 Active Scripts Active Reported Levothyroxine Sodium 75 Mcg Tablet 75 Mcg PO DAILYAC Imipramine Hcl 10 Mg Tablet 10 Mg PO HS Guaifenesin 100 Mg/5 Ml Liquid 100 Mg PO PRN Q6HRS PRN Vitamin D3 (Cholecalciferol (Vitamin D3)) 1,000 Unit Tablet 1 Tab PO DAILY Lipitor (Atorvastatin Calcium) 40 Mg Tablet 1 Tab PO QHS Eliquis (Apixaban) 5 Mg Tablet 5 Mg PO BID Duoneb 0.5-3(2.5) Mg/3 Ml (Albuterol/Ipratropium) 3 Ml Ampul.neb 3 Ml NEB PRN Q4HRS PRN Clopidogrel (Clopidogrel Bisulfate) 75 Mg Tablet 1 Tab PO DAILY Allergies Allergies: Coded Allergies: No Known Drug Allergies (Unverified , 10/05/14) Vitals VITALS Vital Signs Date Time Temp Pulse Resp B/P (MAP) Pulse Ox O2 Delivery O2 Flow Rate FiO2 09/27/18 09:00 97.7 73 18 155/90 (111) 99 Room Air 97.7 Labs Labs Laboratory Tests Test 09/25/18 12:15 09/25/18 17:55 09/26/18 00:30 09/26/18 07:15 White Blood Count 13.1 x10^3/uL (4.0-11.0) 14.2 x10^3/uL (4.0-11.0) 12.9 x10^3/uL (4.0-11.0) 12.4 x10^3/uL (4.0-11.0) Red Blood Count 2.56 x10^6/uL (3.50-5.40) 2.36 x10^6/uL (3.50-5.40) 2.15 x10^6/uL (3.50-5.40) 2.92 x10^6/uL (3.50-5.40) Hemoglobin 7.9 g/dL (12.0-15.5) 7.2 g/dL (12.0-15.5) 6.7 g/dL (12.0-15.5) 8.9 g/dL (12.0-15.5) Hematocrit 23.3 % (36.0-47.0) 22.1 % (36.0-47.0) 19.9 % (36.0-47.0) 26.6 % (36.0-47.0) Mean Corpuscular Volume 91 fL (79-100) 93 fL (79-100) 92 fL (79-100) 91 fL ( 79-100) Mean Corpuscular Hemoglobin 31 pg (25-35) 31 pg (25-35) 31 pg (25-35) 30 pg ( 25-35) Mean Corpuscular Hemoglobin Concent 34 g/dL (31-37) 33 g/dL (31-37) 34 g/dL (31-37) 33 g/dL (31-37) Red Cell Distribution Width 13.9 % (11.5-14.5) 14.2 % (11.5-14.5) 14.5 % (11.5-14.5) 14.6 % (11.5-14.5) Platelet Count 165 x10^3/uL (140-400) 154 x10^3/uL (140-400) 156 x10^3/uL (140-400) 153 x10^3/uL (140-400) Neutrophils (%) (Auto) 79 % (31-73) 77 % (31-73) 77 % (31-73) 76 % (31-73) Lymphocytes (%) (Auto) 12 % (24-48) 14 % (24-48) 15 % (24-48) 15 % (24-48) Monocytes (%) (Auto) 7 % (0-9) 8 % (0-9) 6 % (0-9) 6 % (0-9) Eosinophils (%) (Auto) 1 % (0-3) 1 % (0-3) 2 % (0-3) 2 % (0-3) Basophils (%) (Auto) 1 % (0-3) 1 % (0-3) 1 % (0-3) 1 % (0-3) Neutrophils # (Auto) 10.4 x10^3uL (1.8-7.7) 10.8 x10^3uL (1.8-7.7) 9.9 x10^3uL (1.8-7.7) 9.4 x10^3uL (1.8-7.7) Lymphocytes # (Auto) 1.6 x10^3/uL (1.0-4.8) 2.0 x10^3/uL (1.0-4.8) 1.9 x10^3/uL (1.0-4.8) 1.9 x10^3/uL (1.0-4.8) Monocytes # (Auto) 0.9 x10^3/uL (0.0-1.1) 1.1 x10^3/uL (0.0-1.1) 0.8 x10^3/uL (0.0-1.1) 0.8 x10^3/uL (0.0-1.1) Eosinophils # (Auto) 0.1 x10^3/uL (0.0-0.7) 0.1 x10^3/uL (0.0-0.7) 0.2 x10^3/uL (0.0-0.7) 0.3 x10^3/uL (0.0-0.7) Basophils # (Auto) 0.1 x10^3/uL (0.0-0.2) 0.1 x10^3/uL (0.0-0.2) 0.1 x10^3/uL (0.0-0.2) 0.1 x10^3/uL (0.0-0.2) Prothrombin Time 15.3 SEC (11.7-14.0) Prothromb Time International Ratio 1.2 (0.8-1.1) Sodium Level 146 mmol/L (136-145) Potassium Level 3.3 mmol/L (3.5-5.1) Chloride Level 112 mmol/L (98-107) Carbon Dioxide Level 25 mmol/L (21-32) Anion Gap 9 (6-14) Blood Urea Nitrogen 27 mg/dL (7-20) Creatinine 0.5 mg/dL (0.6-1.0) Estimated GFR (Cockcroft-Gault) 118.4 BUN/Creatinine Ratio 54 (6-20) Glucose Level 111 mg/dL (70-99) Calcium Level 7.2 mg/dL (8.5-10.1) Magnesium Level 2.4 mg/dL (1.8-2.4) Total Bilirubin 0.7 mg/dL (0.2-1.0) Aspartate Amino Transf (AST/SGOT) 18 U/L (15-37) Alanine Aminotransferase (ALT/SGPT) 15 U/L (14-59) Alkaline Phosphatase 45 U/L (46-116) Total Protein 5.0 g/dL (6.4-8.2) Albumin 2.7 g/dL (3.4-5.0) Albumin/Globulin Ratio 1.2 (1.0-1.7) Test 09/26/18 12:00 09/26/18 13:00 09/26/18 18:40 09/27/18 05:45 White Blood Count 11.6 x10^3/uL (4.0-11.0) 11.6 x10^3/uL (4.0-11.0) Red Blood Count 2.74 x10^6/uL (3.50-5.40) 2.54 x10^6/uL (3.50-5.40) Hemoglobin 8.3 g/dL (12.0-15.5) 7.7 g/dL (12.0-15.5) Hematocrit 24.9 % (36.0-47.0) 23.3 % (36.0-47.0) Mean Corpuscular Volume 91 fL (79-100) 92 fL (79-100) Mean Corpuscular Hemoglobin 30 pg (25-35) 30 pg (25-35) Mean Corpuscular Hemoglobin Concent 33 g/dL (31-37) 33 g/dL (31-37) Red Cell Distribution Width 14.4 % (11.5-14.5) 14.7 % (11.5-14.5) Platelet Count 155 x10^3/uL (140-400) 158 x10^3/uL (140-400) Neutrophils (%) (Auto) 77 % (31-73) 73 % (31-73) Lymphocytes (%) (Auto) 15 % (24-48) 17 % (24-48) Monocytes (%) (Auto) 6 % (0-9) 7 % (0-9) Eosinophils (%) (Auto) 2 % (0-3) 3 % (0-3) Basophils (%) (Auto) 1 % (0-3) 1 % (0-3) Neutrophils # (Auto) 8.9 x10^3uL (1.8-7.7) 8.5 x10^3uL (1.8-7.7) Lymphocytes # (Auto) 1.8 x10^3/uL (1.0-4.8) 1.9 x10^3/uL (1.0-4.8) Monocytes # (Auto) 0.7 x10^3/uL (0.0-1.1) 0.8 x10^3/uL (0.0-1.1) Eosinophils # (Auto) 0.2 x10^3/uL (0.0-0.7) 0.4 x10^3/uL (0.0-0.7) Basophils # (Auto) 0.1 x10^3/uL (0.0-0.2) 0.1 x10^3/uL (0.0-0.2) Urine Collection Type Unknown Urine Color Yellow Urine Clarity Clear Urine pH 6.5 Urine Specific [place] 1.025 Urine Protein Negative mg/dL (NEG-TRACE) Urine Glucose (UA) Negative mg/dL (NEG) Urine Ketones (Stick) Negative mg/dL (NEG) Urine Blood Negative (NEG) Urine Nitrite Negative (NEG) Urine Bilirubin Negative (NEG) Urine Urobilinogen Dipstick 1.0 mg/dL (0.2 mg/dL) Urine Leukocyte Esterase Negative (NEG) Urine RBC Occ /HPF (0-2) Urine WBC 0 /HPF (0-4) Urine Squamous Epithelial Cells Occ /LPF Urine Bacteria 0 /HPF (0-FEW) Sodium Level 146 mmol/L (136-145) Potassium Level 3.1 mmol/L (3.5-5.1) Chloride Level 111 mmol/L (98-107) Carbon Dioxide Level 26 mmol/L (21-32) Anion Gap 9 (6-14) Blood Urea Nitrogen 23 mg/dL (7-20) Creatinine 0.6 mg/dL (0.6-1.0) Estimated GFR (Cockcroft-Gault) 95.9 Glucose Level 119 mg/dL (70-99) Calcium Level 7.2 mg/dL (8.5-10.1) Laboratory Tests Test 09/26/18 12:00 09/26/18 13:00 09/26/18 18:40 09/27/18 05:45 White Blood Count 11.6 x10^3/uL (4.0-11.0) 11.6 x10^3/uL (4.0-11.0) Red Blood Count 2.74 x10^6/uL (3.50-5.40) 2.54 x10^6/uL (3.50-5.40) Hemoglobin 8.3 g/dL (12.0-15.5) 7.7 g/dL (12.0-15.5) Hematocrit 24.9 % (36.0-47.0) 23.3 % (36.0-47.0) Mean Corpuscular Volume 91 fL (79-100) 92 fL (79-100) Mean Corpuscular Hemoglobin 30 pg (25-35) 30 pg (25-35) Mean Corpuscular Hemoglobin Concent 33 g/dL (31-37) 33 g/dL (31-37) Red Cell Distribution Width 14.4 % (11.5-14.5) 14.7 % (11.5-14.5) Platelet Count 155 x10^3/uL (140-400) 158 x10^3/uL (140-400) Neutrophils (%) (Auto) 77 % (31-73) 73 % (31-73) Lymphocytes (%) (Auto) 15 % (24-48) 17 % (24-48) Monocytes (%) (Auto) 6 % (0-9) 7 % (0-9) Eosinophils (%) (Auto) 2 % (0-3) 3 % (0-3) Basophils (%) (Auto) 1 % (0-3) 1 % (0-3) Neutrophils # (Auto) 8.9 x10^3uL (1.8-7.7) 8.5 x10^3uL (1.8-7.7) Lymphocytes # (Auto) 1.8 x10^3/uL (1.0-4.8) 1.9 x10^3/uL (1.0-4.8) Monocytes # (Auto) 0.7 x10^3/uL (0.0-1.1) 0.8 x10^3/uL (0.0-1.1) Eosinophils # (Auto) 0.2 x10^3/uL (0.0-0.7) 0.4 x10^3/uL (0.0-0.7) Basophils # (Auto) 0.1 x10^3/uL (0.0-0.2) 0.1 x10^3/uL (0.0-0.2) Urine Collection Type Unknown Urine Color Yellow Urine Clarity Clear Urine pH 6.5 Urine Specific [place] 1.025 Urine Protein Negative mg/dL (NEG-TRACE) Urine Glucose (UA) Negative mg/dL (NEG) Urine Ketones (Stick) Negative mg/dL (NEG) Urine Blood Negative (NEG) Urine Nitrite Negative (NEG) Urine Bilirubin Negative (NEG) Urine Urobilinogen Dipstick 1.0 mg/dL (0.2 mg/dL) Urine Leukocyte Esterase Negative (NEG) Urine RBC Occ /HPF (0-2) Urine WBC 0 /HPF (0-4) Urine Squamous Epithelial Cells Occ /LPF Urine Bacteria 0 /HPF (0-FEW) Sodium Level 146 mmol/L (136-145) Potassium Level 3.1 mmol/L (3.5-5.1) Chloride Level 111 mmol/L (98-107) Carbon Dioxide Level 26 mmol/L (21-32) Anion Gap 9 (6-14) Blood Urea Nitrogen 23 mg/dL (7-20) Creatinine 0.6 mg/dL (0.6-1.0) Estimated GFR (Cockcroft-Gault) 95.9 Glucose Level 119 mg/dL (70-99) Calcium Level 7.2 mg/dL (8.5-10.1) MELVA BAUM MD Sep 27, 2018 09:28
[2018-09-27] MEDS: LEVOTHYROXINE 75 MCG TABLET PO SCH (09:30)
[2018-09-27] MEDS: CHOLECALCIFEROL (VITAMIN D3) 1,000 UNIT TABLET PO SCH (10:00)
[2018-09-27] MEDS: POTASSIUM CHLORIDE 10MEQ 100 ML IV SCH ×4 (10:44→16:58)
--- NOTE | 2018-09-27 12:25 | PDOC ---
ALVIN BOTELLO [employer] 09/27/18 1224: CARDIO Progress Notes Date and Time Date of Service 09/27/2018 Time of Evaluation 1210 Subjective Subjective: No Chest Pain, No shortness of breath, No Palpitations Vitals Vitals Vital Signs Date Time Temp Pulse Resp B/P (MAP) Pulse Ox O2 Delivery O2 Flow Rate FiO2 09/27/18 12:09 98.1 73 16 148/47 (80) 98 Room Air 98.1 Weight Weight [ ] Input and Output Intake and Output Intake and Output 09/27/18 07:00 Intake Total 1350 ml Output Total 1190 ml Balance 160 ml Intake Oral 1300 ml IV Total 50 ml Output Urine Total 1185 ml Stool Total 5 ml Laboratory Labs Laboratory Tests Test 09/26/18 13:00 09/26/18 18:40 09/27/18 05:45 Urine Collection Type Unknown Urine Color Yellow Urine Clarity Clear Urine pH 6.5 Urine Specific [place] 1.025 Urine Protein Negative mg/dL (NEG-TRACE) Urine Glucose (UA) Negative mg/dL (NEG) Urine Ketones (Stick) Negative mg/dL (NEG) Urine Blood Negative (NEG) Urine Nitrite Negative (NEG) Urine Bilirubin Negative (NEG) Urine Urobilinogen Dipstick 1.0 mg/dL (0.2 mg/dL) Urine Leukocyte Esterase Negative (NEG) Urine RBC Occ /HPF (0-2) Urine WBC 0 /HPF (0-4) Urine Squamous Epithelial Cells Occ /LPF Urine Bacteria 0 /HPF (0-FEW) White Blood Count 11.6 x10^3/uL (4.0-11.0) Red Blood Count 2.54 x10^6/uL (3.50-5.40) Hemoglobin 7.7 g/dL (12.0-15.5) Hematocrit 23.3 % (36.0-47.0) Mean Corpuscular Volume 92 fL (79-100) Mean Corpuscular Hemoglobin 30 pg (25-35) Mean Corpuscular Hemoglobin Concent 33 g/dL (31-37) Red Cell Distribution Width 14.7 % (11.5-14.5) Platelet Count 158 x10^3/uL (140-400) Neutrophils (%) (Auto) 73 % (31-73) Lymphocytes (%) (Auto) 17 % (24-48) Monocytes (%) (Auto) 7 % (0-9) Eosinophils (%) (Auto) 3 % (0-3) Basophils (%) (Auto) 1 % (0-3) Neutrophils # (Auto) 8.5 x10^3uL (1.8-7.7) Lymphocytes # (Auto) 1.9 x10^3/uL (1.0-4.8) Monocytes # (Auto) 0.8 x10^3/uL (0.0-1.1) Eosinophils # (Auto) 0.4 x10^3/uL (0.0-0.7) Basophils # (Auto) 0.1 x10^3/uL (0.0-0.2) Sodium Level 146 mmol/L (136-145) Potassium Level 3.1 mmol/L (3.5-5.1) Chloride Level 111 mmol/L (98-107) Carbon Dioxide Level 26 mmol/L (21-32) Anion Gap 9 (6-14) Blood Urea Nitrogen 23 mg/dL (7-20) Creatinine 0.6 mg/dL (0.6-1.0) Estimated GFR (Cockcroft-Gault) 95.9 Glucose Level 119 mg/dL (70-99) Calcium Level 7.2 mg/dL (8.5-10.1) Magnesium Level 2.2 mg/dL (1.8-2.4) Iron Level 46 ug/dL (50-170) Total Iron Binding Capacity 229 ug/dL (250-450) Iron Saturation 20 % (15-34) Ferritin 84 ng/mL (8-252) Microbiology Micro Microbiology 09/25/18 Blood Culture - Preliminary, Resulted NO GROWTH AFTER 2 DAYS Physical Exam HEENT: Neck Supple W Full Motion Chest: Symmetric LUNGS: Clear to Auscultation Heart: S1S2, RRR (SR), murmurs (5/6 systolic murmur radiating to apex) Abdomen: Soft N/T Extremities: No Calf Tenderness Neurology: alert, oriented, follow commands Assessment Assessment 1. One vessel CAD s/p PCI/GRACIA to the LAD in aug 2018. 2. Severe 3. HTN: controlled 4. Severe GIB 5. RCFV DVT due to right groin pseudoaneurysm 6. Hypokalemia: Recommendations 1. Will need IVC filter. EGD pending today with Hgb trending down again 2. ASA and/or plavix once cleared with GI. Replace K. Labetolol IV PRN 3. treatment on an outpt basis. Follow with [facility] 4. Will follow along NAYA AWAN MD 09/27/18 [id number]: CARDIO Progress Notes Plan Plan Pt. seen and examined. AGree with above with following comments: DVT scan negative, no filter needed. Will restart ASA and monitor. Ok to hold Plavix for now. Supportive care. ALVIN BOTELLO [employer] HAND Sep 27, 2018 12:24 NAYA AWAN MD Sep 27, 2018 17:54
[2018-09-27] MEDS ORDERED: LABETALOL 20 MG/4 ML DISP.SYRIN. IVP PRN (12:30)
--- NOTE | 2018-09-27 14:33 | NUR ---
Pt's records from [facility] reviewed with regard to type of stent placed 08/30/2018. Pt noted to have PROMUS 3.0 x20mm drug-eluting stent, post PCI to LAD.
[2018-09-27] MEDS ORDERED: LIDOCAINE 2% PF 5 ML VIAL. ONE (14:52)
[2018-09-27] MEDS ORDERED: PROPOFOL 20 ML IV ONE (14:52)
--- NOTE | 2018-09-27 15:09 | PDOC4 ---
PROCEDURE Procedure EGD recent UPPER IG bleeding anesthesia with propofol Findings Normal esophagitis Gastritis with few erosions and some bile no ulcers NO bleeding Duodenitis in bulb- near site of prior oozing but NO further bleeding here or anywhere in duodenum - no AVM, ulcer etc seen Plan- add carafate BID take protonix daily OK to restart blood thinners but will defer to cardiology PELON HOUSE MD Sep 27, 2018 15:09
[2018-09-27] MEDS: ATORVASTATIN CALCIUM 40 MG TABLET. PO SCH (20:49)
[2018-09-27] MEDS: SUCRALFATE 1 GM TABLET. PO SCH (20:49)
[2018-09-27] MEDS: IMIPRAMINE 25 MG TABLET PO SCH (20:59)
[2018-09-28] VITALS (16 sets, daily range): BP systolic 84–126; BP diastolic 42–73
[2018-09-28] MEDS: PIPERACILLIN/TAZOBACTAM 3.375 GM in IV NORMAL SALINE 50ML 50 ML IV SCH (06:20)
--- NOTE | 2018-09-28 06:32 | NUR ---
patient slept most of the night with period of confusion reorient prn
--- NOTE | 2018-09-28 07:22 | PDOC ---
Infectious Disease Note Subjective: Subjective Pt says feels fine no f/c/n/v/d/abdo pain underwent egd 09/27 D/W RN Vital Signs: Vital Signs Vital Signs Date Time Temp Pulse Resp B/P (MAP) Pulse Ox O2 Delivery O2 Flow Rate FiO2 09/28/18 07:07 97.6 63 18 104/46 (65) 98 Room Air 97.6 09/27/18 15:25 2 Physical Exam: PHYSICAL EXAM GENERAL: The patient is propped up in bed, alert, calm, HEENT: Pupils are equally round. Normal conjunctivae. Oral cavity: Pharynx pink and moist. No thrush. Edentulous. NECK: Supple. LUNGS: Clear to auscultation. HEART: S1 and S2, loud murmur throughout. ABDOMEN: Obese, soft and nontender with bowel sounds present. GENITOURINARY: Indwelling Martin in place. EXTREMITIES: No gross edema or cyanosis. SKIN: Warm without rash. NEUROLOGIC: Alert, confused, but cooperative. Medications: Inpatient Meds: Current Medications Medications (Trade) Dose Ordered Sig/Tiffanie Start Time Stop Time Status Last Admin Dose Admin Albuterol Sulfate (Ventolin Neb Soln) 2.5 mg PRN Q4HRS PRN 09/27/18 09:15 Atorvastatin Calcium (Lipitor) 40 mg QHS 09/27/18 21:00 09/27/18 20:49 40 MG Epinephrine HCl (EPINEPHrine SYRINGE) 1 mg STK-MED ONCE 09/25/18 10:29 09/25/18 10:30 DC Estradiol (Estrace) 1 carina QMWF@0900 09/26/18 10:00 09/26/18 15:32 1 CARINA Guaifenesin (Robitussin) 100 mg PRN Q6HRS PRN 09/27/18 09:15 Imipramine HCl (Tofranil) 12.5 mg QHS 09/27/18 21:00 09/27/18 20:59 12.5 MG Info (CONTRAST GIVEN -- Rx MONITORING) 1 each PRN DAILY PRN 09/24/18 19:30 09/26/18 19:29 DC Iohexol (Omnipaque 350 Mg/ml) 100 ml 1X ONCE 09/24/18 19:30 09/24/18 19:31 DC 09/24/18 19:54 100 ML Labetalol HCl (Normodyne Iv Push) 20 mg PRN Q2HR PRN 09/27/18 12:30 Lactobacillus Rhamnosus (Culturelle) 1 cap BID 09/26/18 10:30 09/27/18 20:49 1 CAP Levothyroxine Sodium (Synthroid) 75 mcg DAILYAC 09/27/18 09:30 Lidocaine HCl (Lidocaine Pf 2% Vial) 5 ml STK-MED ONCE 09/27/18 14:52 09/27/18 14:53 DC Pantoprazole Sodium (PROTONIX VIAL for IV PUSH) 40 mg DAILYAC 09/26/18 10:30 09/27/18 15:07 DC 09/27/18 05:03 40 MG Pantoprazole Sodium (Protonix) 40 mg DAILYAC 09/28/18 07:30 Pantoprazole Sodium 80 mg/ Sodium Chloride 100 ml @ 10 mls/hr 1X ONCE 09/24/18 19:00 09/25/18 04:59 DC 09/24/18 20:18 10 MLS/HR Piperacillin Sod/ Tazobactam Sod 3.375 gm/Sodium Chloride 50 ml @ 100 mls/hr Q6HRS 09/25/18 00:00 09/28/18 06:20 100 MLS/HR Potassium Chloride/Water 100 ml @ 100 mls/hr Q1H 09/27/18 09:30 09/27/18 13:29 DC 09/27/18 16:58 100 MLS/HR Propofol 20 ml @ As Directed STK-MED ONCE 09/27/18 14:52 09/27/18 14:53 DC Propofol (Diprivan) 2,000 mg STK-MED ONCE 09/25/18 10:00 09/26/18 07:27 DC Ringer's Solution 1,000 ml @ 50 mls/hr Q20H 09/27/18 07:00 09/27/18 18:59 DC 09/27/18 14:42 50 MLS/HR Sodium Chloride 1,000 ml @ 75 mls/hr [id number] 09/24/18 19:09 09/25/18 19:08 DC 09/25/18 08:29 75 MLS/HR Sucralfate (Carafate) 1 gm BID 09/27/18 21:00 09/27/18 20:49 1 GM Throat Lozenges (Cepacol Sore Throat Lozenge) 1 aki PRN Q2HRS PRN 09/25/18 13:45 09/25/18 13:58 1 AKI Vitamin D (Vitamin D3) 1,000 unit DAILY 09/27/18 10:00 Objective: Assessment: 1. Acute gastrointestinal bleed. S/P EGD ,repeat 09/27 neg 2. Leukocytosis. Lactic acidosis. likely reactive and from above 3. Anemia s/p PRBCs 4. Right hydronephrosis. 5. Coronary artery disease, status post stent placement. 6. History of deep venous thrombosis in right common femoral vein. 7. Diabetes. 8. Dementia. 9. HX DVT Right lower leg on eliquis 10. morbid obesity 11. Pseudoaneurysm of right femoral artery , recent, ? hematoma Plan: Plan of Care YONI Zurita augmentin Cult nonrevealing so far Urology consult noted Monitor labs Supportive care D/W PAUL BULL MD Sep 28, 2018 07:22
[2018-09-28] MEDS: PANTOPRAZOLE 40 MG TABLET.DR. PO SCH (07:47)
[2018-09-28] MEDS: LEVOTHYROXINE 75 MCG TABLET PO SCH (07:47)
--- NOTE | 2018-09-28 08:46 | PDOC ---
PROGRESS NOTES Chief Complaint Chief Complaint 1. Acute gi bleeding// severe anemia of acute blood loss 2. Moderate dementia 3. CAD with recent stent placement [facility] 4. HX DVT Right lower leg on eliquis 5. morbid obesity 6. Pseudoaneurysm of right femoral artery , recent 7. POSSIBLE SEPSIS 8. LAD STENT, DRUG-eluting placed [facility], [facility]–1983 09/24/18 9. Urinary retention 10. Possible uretal stone History of Present Illness History of Present Illness Ms Koroma is a SNF resident at [place] who was sent to the ER with complaints of abdominal pain, nausea, black stools and dizziness. She recently underwent a coronary stent placement and also was found to have a DVT in right leg and was taking both Eliquis and Plavix. She was found to have an elevated white blood cell count of 14,700; lactic acid 5.1; hemoglobin 4.5. Positive occult blood in the stool and iron are 2.0. An abdominal/pelvis CTA showed no sign of GI hemorrhage or clear bowel ischemia; ill-defined soft tissue seen anterior to the right common femoral artery measuring approximately 2.8 x 2.1 cm; interval development of moderate right hydronephrosis. She underwent an EGD this morning. She was found to have a recent bleeding and mild oozing in the second portion of the duodenum without discrete ulcer. Status post epi injection. Both the Eliquis and Plavix have been discontinued 09/26: Transfused 4u PRBC and 1u FFP total. s/p EGD per GI - "Esophagus normal, gastritis without ulcer or bleeding, duodenal blood noted- recent bleeding and mild oozing noted in 2nd portion of duodenum but no discrete ulcer, AVM etc - area injected with epi and oozing seemed to stop- scope passed to 3rd portion- all areas irrigated- no other active bleeding seem but recent blood in lumen noted" 09/27: Repeat EGD, gastritis, duodenitis, no ulcer or AVM. Placed on PPI and carafate BID She is feeling well, had some dark stool still this morning x2. K 3.1 this morning. US shows pseudoaneurysm in right groin, no DVT. Denies CP or SOB Plan: hold eliquis/ plavix, labs obtain recent records She will need to restart antiplatelet agents when ok with GI, would recommend holding eliquis, may need IR consultation for filter placement Repeat EGD Urology and ID to see for possible urosepsis Vitals Vitals Vital Signs Date Time Temp Pulse Resp B/P (MAP) Pulse Ox O2 Delivery O2 Flow Rate FiO2 09/28/18 08:11 63 20 101/51 (68) 93 Room Air 09/28/18 07:07 97.6 97.6 09/27/18 15:25 2 Physical Exam Physical Exam GENERAL: The patient is propped up in bed, alert, calm, HEENT: Pupils are equally round. Normal conjunctivae. Oral cavity: Pharynx pink and moist. No thrush. Edentulous. NECK: Supple. LUNGS: Clear to auscultation. HEART: S1 and S2, loud murmur throughout. ABDOMEN: Obese, soft and nontender with bowel sounds present. GENITOURINARY: Indwelling Martin in place. EXTREMITIES: No gross edema or cyanosis. SKIN: Warm without rash. NEUROLOGIC: Alert, confused, but cooperative. General: Alert Heart: Regular rate, Normal S1, Normal S2, Other (systolic murmur) Abdomen: Normal bowel sounds, Soft, No tenderness, No hepatosplenomegaly Extremities: No clubbing, No cyanosis Skin: No rashes Assessment and Plan Assessmemt and Plan Problems Medical Problems: (1) Dizziness Status: Acute (2) GI bleeding Status: Acute Comment Review of Relevant I have reviewed the following items matty (where applicable) has been applied. Labs Laboratory Tests Test 09/26/18 12:00 09/26/18 13:00 09/26/18 18:40 09/27/18 05:45 White Blood Count 11.6 x10^3/uL (4.0-11.0) 11.6 x10^3/uL (4.0-11.0) Red Blood Count 2.74 x10^6/uL (3.50-5.40) 2.54 x10^6/uL (3.50-5.40) Hemoglobin 8.3 g/dL (12.0-15.5) 7.7 g/dL (12.0-15.5) Hematocrit 24.9 % (36.0-47.0) 23.3 % (36.0-47.0) Mean Corpuscular Volume 91 fL (79-100) 92 fL (79-100) Mean Corpuscular Hemoglobin 30 pg (25-35) 30 pg (25-35) Mean Corpuscular Hemoglobin Concent 33 g/dL (31-37) 33 g/dL (31-37) Red Cell Distribution Width 14.4 % (11.5-14.5) 14.7 % (11.5-14.5) Platelet Count 155 x10^3/uL (140-400) 158 x10^3/uL (140-400) Neutrophils (%) (Auto) 77 % (31-73) 73 % (31-73) Lymphocytes (%) (Auto) 15 % (24-48) 17 % (24-48) Monocytes (%) (Auto) 6 % (0-9) 7 % (0-9) Eosinophils (%) (Auto) 2 % (0-3) 3 % (0-3) Basophils (%) (Auto) 1 % (0-3) 1 % (0-3) Neutrophils # (Auto) 8.9 x10^3uL (1.8-7.7) 8.5 x10^3uL (1.8-7.7) Lymphocytes # (Auto) 1.8 x10^3/uL (1.0-4.8) 1.9 x10^3/uL (1.0-4.8) Monocytes # (Auto) 0.7 x10^3/uL (0.0-1.1) 0.8 x10^3/uL (0.0-1.1) Eosinophils # (Auto) 0.2 x10^3/uL (0.0-0.7) 0.4 x10^3/uL (0.0-0.7) Basophils # (Auto) 0.1 x10^3/uL (0.0-0.2) 0.1 x10^3/uL (0.0-0.2) Urine Collection Type Unknown Urine Color Yellow Urine Clarity Clear Urine pH 6.5 Urine Specific [place] 1.025 Urine Protein Negative mg/dL (NEG-TRACE) Urine Glucose (UA) Negative mg/dL (NEG) Urine Ketones (Stick) Negative mg/dL (NEG) Urine Blood Negative (NEG) Urine Nitrite Negative (NEG) Urine Bilirubin Negative (NEG) Urine Urobilinogen Dipstick 1.0 mg/dL (0.2 mg/dL) Urine Leukocyte Esterase Negative (NEG) Urine RBC Occ /HPF (0-2) Urine WBC 0 /HPF (0-4) Urine Squamous Epithelial Cells Occ /LPF Urine Bacteria 0 /HPF (0-FEW) Sodium Level 146 mmol/L (136-145) Potassium Level 3.1 mmol/L (3.5-5.1) Chloride Level 111 mmol/L (98-107) Carbon Dioxide Level 26 mmol/L (21-32) Anion Gap 9 (6-14) Blood Urea Nitrogen 23 mg/dL (7-20) Creatinine 0.6 mg/dL (0.6-1.0) Estimated GFR (Cockcroft-Gault) 95.9 Glucose Level 119 mg/dL (70-99) Calcium Level 7.2 mg/dL (8.5-10.1) Magnesium Level 2.2 mg/dL (1.8-2.4) Iron Level 46 ug/dL (50-170) Total Iron Binding Capacity 229 ug/dL (250-450) Iron Saturation 20 % (15-34) Ferritin 84 ng/mL (8-252) Microbiology 09/25/18 Blood Culture - Preliminary, Resulted NO GROWTH AFTER 3 DAYS Medications Current Medications Sodium Chloride 1,000 ml @ 1,000 mls/hr 1X ONCE IV Last administered on at 17:40; Start 09/24/18 at 17:15; Stop 09/24/18 at 18:14; Status DC Pantoprazole Sodium (PROTONIX VIAL for IV PUSH) 40 mg 1X ONCE IVP Last administered on 09/24/18at 17:43; Start 09/24/18 at 17:15; Stop 09/24/18 at 17:16 ; Status DC Pantoprazole Sodium 80 mg/ Sodium Chloride 100 ml @ 10 mls/hr 1X ONCE IV Last administered on 09/24/18at 20:18; Start 09/24/18 at 19:00; Stop 09/25/18 at 04:59; Status DC Sodium Chloride 1,000 ml @ 75 mls/hr [id number] IV Last administered on at 08:29; Start 09/24/18 at 19:09; Stop 09/25/18 at 19:08; Status DC Iohexol (Omnipaque 350 Mg/ml) 100 ml 1X ONCE IV Last administered on at 19:54; Start 09/24/18 at 19:30; Stop 09/24/18 at 19:31; Status DC Info (CONTRAST GIVEN -- Rx MONITORING) 1 each PRN DAILY PRN MC SEE COMMENTS; Start 09/24/18 at 19:30; Stop 09/26/18 at 19:29; Status DC Piperacillin Sod/ Tazobactam Sod 3.375 gm/Sodium Chloride 50 ml @ 100 mls/hr Q6HRS IV Last administered on 09/28/18at 06:20; Start 09/25/18 at 00:00; Stop at 07:22; Status DC Propofol 200 ml @ As Directed STK-MED ONCE IV ; Start 09/25/18 at 09:45; Stop 09/25/18 at 09:46; Status DC Propofol 40 ml @ As Directed STK-MED ONCE IV ; Start 09/25/18 at 09:47; Stop at 09:48; Status DC Epinephrine HCl (EPINEPHrine SYRINGE) 1 mg STK-MED ONCE SQ Last administered on 09/25/18at 09:40; Start 09/25/18 at 09:40; Stop 09/25/18 at 09:54; Status DC Propofol 20 ml @ As Directed STK-MED ONCE IV ; Start 09/25/18 at 10:07; Stop at 10:08; Status DC Lidocaine HCl (Lidocaine Pf 2% Vial) 5 ml STK-MED ONCE .ROUTE ; Start 09/25/18 at 10:07; Stop 09/25/18 at 10:08; Status DC Epinephrine HCl (EPINEPHrine SYRINGE) 1 mg STK-MED ONCE .ROUTE ; Start 09/25/18 at 10:29; Stop 09/25/18 at 10:30; Status DC Throat Lozenges (Cepacol Sore Throat Lozenge) 1 lea PRN Q2HRS PRN PO SORE THROAT Last administered on 09/25/18at 13:58; Start 09/25/18 at 13:45 Propofol (Diprivan) 2,000 mg STK-MED ONCE IV ; Start 09/25/18 at 10:00; Stop at 07:27; Status DC Estradiol (Estrace) 1 carina QMWF@0900 VG Last administered on 09/26/18at 15:32; Start 09/26/18 at 10:00 Lactobacillus Rhamnosus (Culturelle) 1 cap BID PO Last administered on at 20:49; Start 09/26/18 at 10:30 Pantoprazole Sodium (PROTONIX VIAL for IV PUSH) 40 mg DAILYAC IVP Last administered on 09/27/18at 05:03; Start 09/26/18 at 10:30; Stop 09/27/18 at 15:07 ; Status DC Ringer's Solution 1,000 ml @ 50 mls/hr Q20H IV Last administered on 09/27/18at 14:42; Start 09/27/18 at 07:00; Stop 09/27/18 at 18:59; Status DC Potassium Chloride/Water 100 ml @ 100 mls/hr Q1H IV Last administered on at 16:58; Start 09/27/18 at 09:30; Stop 09/27/18 at 13:29; Status DC Atorvastatin Calcium (Lipitor) 40 mg QHS PO Last administered on 09/27/18at 20: 49; Start 09/27/18 at 21:00 Vitamin D (Vitamin D3) 1,000 unit DAILY PO ; Start 09/27/18 at 10:00 Guaifenesin (Robitussin) 100 mg PRN Q6HRS PRN PO COUGH; Start 09/27/18 at 09:15 Albuterol Sulfate (Ventolin Neb Soln) 2.5 mg PRN Q4HRS PRN NEB SHORTNESS OF BREATH; Start 09/27/18 at 09:15 Levothyroxine Sodium (Synthroid) 75 mcg DAILYAC PO Last administered on at 07:47; Start 09/27/18 at 09:30 Imipramine HCl (Tofranil) 12.5 mg QHS PO Last administered on 09/27/18at 20:59; Start 09/27/18 at 21:00 Labetalol HCl (Normodyne Iv Push) 20 mg PRN Q2HR PRN IVP HYPERTENSION, SEE COMMENTS; Start 09/27/18 at 12:30 Propofol 20 ml @ As Directed STK-MED ONCE IV ; Start 09/27/18 at 14:52; Stop at 14:53; Status DC Lidocaine HCl (Lidocaine Pf 2% Vial) 5 ml STK-MED ONCE .ROUTE ; Start 09/27/18 at 14:52; Stop 09/27/18 at 14:53; Status DC Sucralfate (Carafate) 1 gm BID PO Last administered on 09/27/18at 20:49; Start 09/27/18 at 21:00 Pantoprazole Sodium (Protonix) 40 mg DAILYAC PO Last administered on 09/28/18at 07:47; Start 09/28/18 at 07:30 Amoxicillin/ Clavulanate Potassium (Augmentin 875/ 125mg) 1 tab BID PO ; Start 09/28/18 at 09:00 Active Scripts Active Reported Levothyroxine Sodium 75 Mcg Tablet 75 Mcg PO DAILYAC Imipramine Hcl 10 Mg Tablet 10 Mg PO HS Guaifenesin 100 Mg/5 Ml Liquid 100 Mg PO PRN Q6HRS PRN Vitamin D3 (Cholecalciferol (Vitamin D3)) 1,000 Unit Tablet 1 Tab PO DAILY Lipitor (Atorvastatin Calcium) 40 Mg Tablet 1 Tab PO QHS Eliquis (Apixaban) 5 Mg Tablet 5 Mg PO BID Duoneb 0.5-3(2.5) Mg/3 Ml (Albuterol/Ipratropium) 3 Ml Ampul.neb 3 Ml NEB PRN Q4HRS PRN Clopidogrel (Clopidogrel Bisulfate) 75 Mg Tablet 1 Tab PO DAILY Vitals/I & O Vital Sign - Last 24 Hours 09/27/18 09/27/18 09/27/18 09/27/18 09:00 10:00 11:00 12:00 Temp 97.7 98.1 98.1 98.1 97.7 98.1 98.1 98.1 Pulse 73 73 72 73 Resp 18 16 18 20 B/P (MAP) 155/90 (111) 157/60 (92) 148/47 (80) 122/74 (90) Pulse Ox 99 96 97 99 O2 Delivery Room Air Room Air Room Air Room Air 09/27/18 09/27/18 09/27/18 09/27/18 12:00 12:09 13:30 14:30 Temp 98.1 98.2 98.1 98.1 98.2 98.1 Pulse 73 74 69 Resp 16 22 21 B/P (MAP) 148/47 (80) 122/74 (90) 118/63 (81) Pulse Ox 98 98 98 O2 Delivery Room Air Room Air Room Air Room Air 09/27/18 09/27/18 09/27/18 09/27/18 14:39 14:40 15:05 15:10 Temp 98.9 98.9 Pulse 64 67 66 Resp 18 18 16 B/P (MAP) 74/60 97/46 Pulse Ox 100 100 100 O2 Delivery Room Air Nasal Cannula Nasal Cannula O2 Flow Rate 2.0 4 2 09/27/18 09/27/18 09/27/18 09/27/18 15:25 15:40 16:00 16:21 Temp 98.3 98.3 Pulse 67 67 66 Resp 16 16 16 B/P (MAP) 104/49 112/47 114/50 (71) Pulse Ox 100 97 99 O2 Delivery Nasal Cannula Room Air Room Air Room Air O2 Flow Rate 2 09/27/18 09/27/18 09/27/18 09/27/18 16:21 18:00 19:15 20:00 Temp 98.1 97.9 98.2 98.1 97.9 98.2 Pulse 73 66 70 Resp 20 16 16 B/P (MAP) 122/74 (90) 105/41 (62) 114/51 (72) Pulse Ox 99 96 98 O2 Delivery Room Air Room Air Room Air Room Air 09/27/18 09/27/18 09/27/18 09/27/18 20:12 21:09 22:06 23:06 Temp 98.1 98.1 Pulse 72 67 64 67 Resp 19 17 23 B/P (MAP) 85/42 (56) 102/52 (69) 95/48 (64) 98/44 (62) Pulse Ox 96 99 98 98 O2 Delivery Room Air Room Air Room Air Room Air 09/27/18 09/28/18 09/28/18 09/28/18 23:59 00:07 01:06 02:08 Pulse 63 64 64 Resp 16 16 17 B/P (MAP) 87/43 (58) 94/43 (60) 84/42 (56) Pulse Ox 93 98 95 O2 Delivery Room Air Room Air Room Air Room Air 09/28/18 09/28/18 09/28/18 09/28/18 03:08 04:00 04:07 05:10 Temp 97.7 97.7 Pulse 61 62 61 Resp 17 15 16 B/P (MAP) 95/46 (62) 101/51 (68) 84/43 (57) Pulse Ox 95 97 96 O2 Delivery Room Air Room Air Room Air Room Air 09/28/18 09/28/18 09/28/18 09/28/18 05:55 06:09 07:07 08:03 Temp 97.6 97.6 Pulse 65 65 63 Resp 17 16 18 B/P (MAP) 92/49 (63) 102/46 (64) 104/46 (65) Pulse Ox 97 99 98 O2 Delivery Room Air Room Air Room Air Room Air 09/28/18 08:11 Pulse 63 Resp 20 B/P (MAP) 101/51 (68) Pulse Ox 93 O2 Delivery Room Air Intake and Output 09/27/18 09/27/18 09/28/18 14:59 22:59 06:59 Intake Total 0 ml 740 ml 70 ml Output Total 100 ml 940 ml 210 ml Balance -100 ml -200 ml -140 ml ZANA BARAHONA MD Sep 28, 2018 08:46
--- NOTE | 2018-09-28 08:47 | PDOC ---
SUBJECTIVE Subjective Pt doing well today. No flank or abd pain, no discomfort from rodriguez catheter. Per RN she is not up and walking yet but PT and OT scheduled to work with her later today OBJECTIVE Objective Physical Exam: General appearance: Alert and Oriented Head: Normocephalic, without obvious abnormality Eyes: conjunctivae/corneas clear. PERRL, EOM's intact. Fundi benign Back: no flank pain bilaterally on testing Lungs: Regular respirations, non labored breathing Abdomen: soft, non-tender, obese No masses, no organomegaly Pelvic: + Rodriguez catheter in place draining clear yellow urine. Vital Signs Vital Signs Date Time Temp Pulse Resp B/P (MAP) Pulse Ox O2 Delivery O2 Flow Rate FiO2 09/28/18 08:11 63 20 101/51 (68) 93 Room Air 09/28/18 08:03 Room Air 09/28/18 07:07 97.6 63 18 104/46 (65) 98 Room Air 97.6 09/28/18 06:09 65 16 102/46 (64) 99 Room Air 09/28/18 05:55 65 17 92/49 (63) 97 Room Air 09/28/18 05:10 61 16 84/43 (57) 96 Room Air 09/28/18 04:07 62 15 101/51 (68) 97 Room Air 09/28/18 04:00 Room Air 09/28/18 03:08 97.7 61 17 95/46 (62) 95 Room Air 97.7 09/28/18 02:08 64 17 84/42 (56) 95 Room Air 09/28/18 01:06 64 16 94/43 (60) 98 Room Air 09/28/18 00:07 63 16 87/43 (58) 93 Room Air 09/27/18 23:59 Room Air 09/27/18 23:06 98.1 67 23 98/44 (62) 98 Room Air 98.1 09/27/18 22:06 64 95/48 (64) 98 Room Air 09/27/18 21:09 67 17 102/52 (69) 99 Room Air 09/27/18 20:12 72 19 85/42 (56) 96 Room Air 09/27/18 20:00 Room Air 09/27/18 19:15 98.2 70 16 114/51 (72) 98 Room Air 98.2 09/27/18 18:00 97.9 66 16 105/41 (62) 96 Room Air 97.9 09/27/18 16:21 98.1 73 20 122/74 (90) 99 Room Air 98.1 09/27/18 16:21 Room Air 09/27/18 16:00 98.3 66 16 114/50 (71) 99 Room Air 98.3 09/27/18 15:40 67 16 112/47 97 Room Air 09/27/18 15:25 67 16 104/49 100 Nasal Cannula 2 09/27/18 15:10 66 16 97/46 100 Nasal Cannula 2 09/27/18 15:05 67 18 74/60 100 Nasal Cannula 4 09/27/18 14:40 98.9 64 18 100 98.9 09/27/18 14:39 Room Air 2.0 09/27/18 14:30 98.1 69 21 118/63 (81) 98 Room Air 98.1 09/27/18 13:30 98.2 74 22 122/74 (90) 98 Room Air 98.2 09/27/18 12:09 98.1 73 16 148/47 (80) 98 Room Air 98.1 09/27/18 12:00 Room Air 09/27/18 12:00 98.1 73 20 122/74 (90) 99 Room Air 98.1 09/27/18 11:00 98.1 72 18 148/47 (80) 97 Room Air 98.1 09/27/18 10:00 98.1 73 16 157/60 (92) 96 Room Air 98.1 09/27/18 09:00 97.7 73 18 155/90 (111) 99 Room Air 97.7 I & O Intake and Output 09/28/18 06:59 Intake Total 810 ml Output Total 1250 ml Balance -440 ml Intake Oral 310 ml IV Total 500 ml Output Urine Total 1250 ml PHYSICAL EXAM Physical Exam Physical Exam: General appearance: Alert and Oriented Head: Normocephalic, without obvious abnormality Eyes: conjunctivae/corneas clear. PERRL, EOM's intact. Fundi benign Back: no flank pain bilaterally on testing Lungs: Regular respirations, non labored breathing Abdomen: soft, non-tender, obese No masses, no organomegaly Pelvic: + Rodriguez catheter in place draining clear yellow urine. ASSESSMENT/PLAN Assessment/Plan Nursing to continue to maintain Rodriguez catheter for now. Will defer decision on when to remove to medical team. Continue Estrace cream as ordered for UTI prevention, three times per week. Again, do not recommend intervention on CT finding; HOSPITALIST NOCTURNIST PHYSICIAN/BUN remain WNL and patient is consistently free of abd and flank pain. Mild obstruction therefore not clinically significant. CT has been reviewed by Dr. Michael as well and he concurs. UA on is not concerning for UTI= - leukocytes, - nitrites, no bacteria, - blood. Will sign off at this time but please call with questions or changes in patient condition. COMMENT Imaging IMPRESSION: 1. The central mesenteric arteries are widely patent. 2. No sign of gastrointestinal hemorrhage or clear bowel ischemia is detectable by CT. 3. Ill-defined soft tissue is seen anterior to the right common femoral artery and measures approximately 2.8 x 2.1 cm. This may represent an old hematoma or scarring in the setting of a prior arterial puncture. Correlate for such history. If there is no such history follow-up is recommended to exclude lymphadenopathy. 4. Interval development of moderate right hydronephrosis and with apparent obstruction at the level of the ureteropelvic junction. Ureteroscopy could further evaluate if the diagnosis remains unclear. 5. Small hiatal hernia. 6. Aortic valve calcifications. Correlate for aortic stenosis. At least mild cardiomegaly. *One or more of the following individualized dose reduction techniques were utilized for this examination: 1. Automated exposure control. 2. Adjustment of the mA and/or kV according to patient size. 3. Use of iterative reconstruction technique. SAMEERA GRULLON APRN Sep 28, 2018 08:47
[2018-09-28] MEDS: LACTOBACILLUS RHAMNOSUS GG 1 CAPSULE. PO SCH ×2 (09:04→20:58)
[2018-09-28] MEDS: CHOLECALCIFEROL (VITAMIN D3) 1,000 UNIT TABLET PO SCH (09:04)
[2018-09-28] MEDS: AMOXICILLIN/K CLAV 875/125MG TABLET. PO SCH ×2 (09:04→21:02)
[2018-09-28] MEDS: SUCRALFATE 1 GM TABLET. PO SCH ×2 (09:04→21:02)
--- NOTE | 2018-09-28 09:38 | PDOC ---
SUBJECTIVE Subjective S: Doing well, no bleeding, hemoglobin remains greater than 7, last transfusion on 26 September O: Physical exam: Gen.: Well-nourished and well-developed, resting in bed Lungs: Breathing comfortably with no evidence of respiratory distress Psychiatric: Pleasant mood and affect Labs: Hemoglobin 7.7, platelet count 158, white count 11,000 and ferritin of 84 Iron sat 20% TIBC low Assessment and Plan: She is an 83-year-old female with history of coronary artery disease and recent stent in August with DVT recently on Eliquis and Plavix , in with anemia and GI bleed which has been treated, with baseline dementia. History of recent DVT: No evidence of DVT at this time on u/s reassuring, would withhold anticoagulation at this point in time from a venous thrombosis standpoint, also with possible hematoma would not restart anticoagulation, if she did need it in the future would consider dose reduction, do not see a need for IVC filter at this time Frequent UTIs: Vaginal estradiol was recommended by urology, would doubt she would get significant systemic absorption but do caution hormones with history of thrombosis Coronary artery disease: Defer to cardiology regarding the antiplatelet agents necessary with recent stent GI bleed: GI is involved, recent duodenal ulcer injected with epi, good response to transfusion thus far, no obvious recurrence of bleeding by labs or repeat EGD Anemia: Her hemoglobin has stayed over 7 after 4 units red blood cells and 1 unit of FFP, iron is currently adequate Disposition: After continued clinical improvement Thank you kindly, and please don't hesitate to call with any further questions. OBJECTIVE Vital Signs Vital Signs Date Time Temp Pulse Resp B/P (MAP) Pulse Ox O2 Delivery O2 Flow Rate FiO2 09/28/18 09:10 98.0 67 18 103/44 (63) 92 Room Air 98.0 09/28/18 08:11 63 20 101/51 (68) 93 Room Air 09/28/18 08:03 Room Air 09/28/18 07:07 97.6 63 18 104/46 (65) 98 Room Air 97.6 09/28/18 06:09 65 16 102/46 (64) 99 Room Air 09/28/18 05:55 65 17 92/49 (63) 97 Room Air 09/28/18 05:10 61 16 84/43 (57) 96 Room Air 09/28/18 04:07 62 15 101/51 (68) 97 Room Air 09/28/18 04:00 Room Air 09/28/18 03:08 97.7 61 17 95/46 (62) 95 Room Air 97.7 09/28/18 02:08 64 17 84/42 (56) 95 Room Air 09/28/18 01:06 64 16 94/43 (60) 98 Room Air 09/28/18 00:07 63 16 87/43 (58) 93 Room Air 09/27/18 23:59 Room Air 09/27/18 23:06 98.1 67 23 98/44 (62) 98 Room Air 98.1 09/27/18 22:06 64 95/48 (64) 98 Room Air 09/27/18 21:09 67 17 102/52 (69) 99 Room Air 09/27/18 20:12 72 19 85/42 (56) 96 Room Air 09/27/18 20:00 Room Air 09/27/18 19:15 98.2 70 16 114/51 (72) 98 Room Air 98.2 09/27/18 18:00 97.9 66 16 105/41 (62) 96 Room Air 97.9 09/27/18 16:21 98.1 73 20 122/74 (90) 99 Room Air 98.1 09/27/18 16:21 Room Air 09/27/18 16:00 98.3 66 16 114/50 (71) 99 Room Air 98.3 09/27/18 15:40 67 16 112/47 97 Room Air 09/27/18 15:25 67 16 104/49 100 Nasal Cannula 2 09/27/18 15:10 66 16 97/46 100 Nasal Cannula 2 09/27/18 15:05 67 18 74/60 100 Nasal Cannula 4 09/27/18 14:40 98.9 64 18 100 98.9 09/27/18 14:39 Room Air 2.0 09/27/18 14:30 98.1 69 21 118/63 (81) 98 Room Air 98.1 09/27/18 13:30 98.2 74 22 122/74 (90) 98 Room Air 98.2 09/27/18 12:09 98.1 73 16 148/47 (80) 98 Room Air 98.1 09/27/18 12:00 Room Air 09/27/18 12:00 98.1 73 20 122/74 (90) 99 Room Air 98.1 09/27/18 11:00 98.1 72 18 148/47 (80) 97 Room Air 98.1 09/27/18 10:00 98.1 73 16 157/60 (92) 96 Room Air 98.1 I & O Intake and Output 09/28/18 07:00 Intake Total 810 ml Output Total 1215 ml Balance -405 ml Intake Oral 310 ml IV Total 500 ml Output Urine Total 1215 ml MELVA HALE MD Sep 28, 2018 09:38
[2018-09-28 10:05] LABS: CALCIUM 7.6 mg/dL (8.5-10.1); CREATININE 0.7 mg/dL (0.6-1.0); GFR 80.3; POTASSIUM 3.9 mmol/L (3.5-5.1)
[2018-09-28] MEDS: ESTRADIOL 0.01% VAGINAL CREAM 42.5GM TUBE. VG SCH (10:52)
--- NOTE | 2018-09-28 11:11 | PDOC ---
Subjective: Subjective: No bleeding. Objective: Objective: Reviewed chart and d/w RN - cardiology has questions about blood thinners, no plans for IVC filter now, asks about advance diet. Vital Signs: Vital Signs Date Time Temp Pulse Resp B/P (MAP) Pulse Ox O2 Delivery O2 Flow Rate FiO2 09/28/18 10:05 68 20 103/51 (68) 98 Room Air 09/28/18 09:10 98.0 98.0 09/27/18 15:25 2 Labs: Laboratory Tests Test 09/28/18 09:10 Sodium Level 145 mmol/L Potassium Level 3.9 mmol/L Chloride Level 110 mmol/L Carbon Dioxide Level 29 mmol/L Anion Gap 6 Blood Urea Nitrogen 18 mg/dL Creatinine 0.7 mg/dL Estimated GFR (Cockcroft-Gault) 80.3 Glucose Level 132 mg/dL Calcium Level 7.6 mg/dL Imaging: EGD 09/27 Normal esophagitis Gastritis with few erosions and some bile no ulcers NO bleeding Duodenitis in bulb- near site of prior oozing but NO further bleeding here or anywhere in duodenum - no AVM, ulcer etc seen Plan- add carafate BID take protonix daily OK to restart blood thinners but will defer to cardiology PE: GEN: NAD LUNGS: CTAB HEART: RRR ABD: NABS, S/ND/NT NEURO/PSYCH: A & O 3 A/P: Melena - resolved, repeat EGD as above w/o bleeding Anemia H/o CAD and DVT - on Plavix and Eliquis prior to admission, IVC filter placement discussed but not to be pursued at this time -- ADAT as ordered yesterday, recheck Hgb, defer to cardiology re: restarting Plavix and Eliquis. MARIUM NGO Sep 28, 2018 11:11
[2018-09-28 11:32] LABS: HEMATOCRIT 21.3 % (36.0-47.0); RED BLOOD COUNT 2.26 x10^6/uL (3.50-5.40); RED CELL DISTRIBUTION WIDTH 15.7 % (11.5-14.5); WHITE BLOOD COUNT 7.7 x10^3/uL (4.0-11.0)
--- NOTE | 2018-09-28 11:40 | NUR ---
Transferred pt to room 508 by w/c. Tolerated it well. Notified daughter by phone about room change and spoke with pt. No c/o at this time. Cont. monitor.
[2018-09-28] MEDS: ATORVASTATIN CALCIUM 40 MG TABLET. PO SCH (20:58)
[2018-09-28] MEDS: IMIPRAMINE 25 MG TABLET PO SCH (21:00)
[2018-09-29] VITALS (11 sets, daily range): BP systolic 111–135; BP diastolic 43–57
[2018-09-29 03:56] LABS: BASO % 1 % (0-3); EOS # 0.8 x10^3/uL (0.0-0.7); EOS % 10 % (0-3); LYMPH # 1.8 x10^3/uL (1.0-4.8); LYMPH % 22 % (24-48); MEAN CORPUSCULAR HEMOGLOBIN 31 pg (25-35); MEAN CORPUSCULAR HGB CONC 33 g/dL (31-37); MEAN CORPUSCULAR VOLUME 94 fL (79-100); MONO # 0.5 x10^3/uL (0.0-1.1); MONO % 6 % (0-9); NEUT # 5.1 x10^3uL (1.8-7.7); NEUT % 62 % (31-73); PLATELET COUNT 183 x10^3/uL (140-400); RED BLOOD COUNT 2.14 x10^6/uL (3.50-5.40); RED CELL DISTRIBUTION WIDTH 15.9 % (11.5-14.5); WHITE BLOOD COUNT 8.3 x10^3/uL (4.0-11.0)
[2018-09-29 04:03] LABS: HEMOGLOBIN 6.6 g/dL (12.0-15.5)
--- NOTE | 2018-09-29 07:48 | PDOC ---
GI PROGRESS NOTES Date Date/Time DATE: 09/29/18 TIME: 07:46 Subjective Subjective Some drop in hemoglobin yesterday necessitating further transfusion today. However no signs of persistent or recurrent bleeding such as melena or elevated BUN/creatinine. Most likely this represents equilibration from previous significant GI blood loss Objective Vitals Vital Signs Date Time Temp Pulse Resp B/P (MAP) Pulse Ox O2 Delivery O2 Flow Rate FiO2 09/29/18 07:03 98.1 70 18 124/44 (70) 97 Room Air 98.1 09/29/18 03:00 97.4 69 20 114/57 (76) 93 Room Air 97.4 09/28/18 23:00 97.3 74 20 125/73 (90) 96 Room Air 97.3 09/28/18 19:30 Room Air 09/28/18 19:00 97.5 71 20 126/71 (89) 97 Room Air 97.5 09/28/18 15:59 98.1 70 18 111/51 (71) 97 Room Air 98.1 09/28/18 11:07 98.2 66 106/46 (66) 99 Room Air 98.2 09/28/18 10:05 68 20 103/51 (68) 98 Room Air 09/28/18 09:10 98.0 67 18 103/44 (63) 92 Room Air 98.0 09/28/18 08:11 63 20 101/51 (68) 93 Room Air 09/28/18 08:03 Room Air Objective Chest clear 3/6 systolic murmur Abdomen soft nontender Labs Labs Laboratory Tests Test 09/28/18 09:10 09/29/18 03:05 White Blood Count 7.7 x10^3/uL (4.0-11.0) 8.3 x10^3/uL (4.0-11.0) Red Blood Count 2.26 x10^6/uL (3.50-5.40) 2.14 x10^6/uL (3.50-5.40) Hemoglobin 7.0 g/dL (12.0-15.5) 6.6 g/dL (12.0-15.5) Hematocrit 21.3 % (36.0-47.0) 20.0 % (36.0-47.0) Mean Corpuscular Volume 94 fL (79-100) 94 fL (79-100) Mean Corpuscular Hemoglobin 31 pg (25-35) 31 pg (25-35) Mean Corpuscular Hemoglobin Concent 33 g/dL (31-37) 33 g/dL (31-37) Red Cell Distribution Width 15.7 % (11.5-14.5) 15.9 % (11.5-14.5) Platelet Count 170 x10^3/uL (140-400) 183 x10^3/uL (140-400) Sodium Level 145 mmol/L (136-145) Potassium Level 3.9 mmol/L (3.5-5.1) Chloride Level 110 mmol/L (98-107) Carbon Dioxide Level 29 mmol/L (21-32) Anion Gap 6 (6-14) Blood Urea Nitrogen 18 mg/dL (7-20) Creatinine 0.7 mg/dL (0.6-1.0) Estimated GFR (Cockcroft-Gault) 80.3 Glucose Level 132 mg/dL (70-99) Calcium Level 7.6 mg/dL (8.5-10.1) Neutrophils (%) (Auto) 62 % (31-73) Lymphocytes (%) (Auto) 22 % (24-48) Monocytes (%) (Auto) 6 % (0-9) Eosinophils (%) (Auto) 10 % (0-3) Basophils (%) (Auto) 1 % (0-3) Neutrophils # (Auto) 5.1 x10^3uL (1.8-7.7) Lymphocytes # (Auto) 1.8 x10^3/uL (1.0-4.8) Monocytes # (Auto) 0.5 x10^3/uL (0.0-1.1) Eosinophils # (Auto) 0.8 x10^3/uL (0.0-0.7) Basophils # (Auto) 0.0 x10^3/uL (0.0-0.2) Physical Exam Physical Exam Chest clear Heart regular rate and rhythm with 3/6 systolic murmur Abdomen soft nontender Assessment Assessment Significant GI bleed with anemia. No evidence of further active bleeding clinically but the drop in hemoglobin is concerning. However I think a better explanation is equilibration with inadequate transfusion after such a significant prior GI blood loss. I would expect stabilization of the hemoglobin after this next transfusion but close monitoring for recurrence of melena or elevated BUNs. PELON HOUSE MD Sep 29, 2018 07:48
[2018-09-29] MEDS: AMOXICILLIN/K CLAV 875/125MG TABLET. PO SCH ×2 (08:52→20:44)
[2018-09-29] MEDS: ASPIRIN ENTERIC COATED 81 MG TABLET.DR. PO SCH (08:52)
[2018-09-29] MEDS: PANTOPRAZOLE 40 MG TABLET.DR. PO SCH (08:52)
[2018-09-29] MEDS: CHOLECALCIFEROL (VITAMIN D3) 1,000 UNIT TABLET PO SCH (08:52)
[2018-09-29] MEDS: SUCRALFATE 1 GM TABLET. PO SCH ×2 (08:52→20:44)
[2018-09-29] MEDS: LACTOBACILLUS RHAMNOSUS GG 1 CAPSULE. PO SCH ×2 (08:53→20:44)
[2018-09-29] MEDS: LEVOTHYROXINE 75 MCG TABLET PO SCH (08:53)
--- NOTE | 2018-09-29 09:51 | PDOC ---
Infectious Disease Note Subjective: Subjective pt says feels fine no f/c/n/v/d/abdo pain underwent egd 09/27 awaiting PRBC D/W RN ROS: ROS Negative except for above. Vital Signs: Vital Signs Vital Signs Date Time Temp Pulse Resp B/P (MAP) Pulse Ox O2 Delivery O2 Flow Rate FiO2 09/29/18 08:00 Room Air 09/29/18 07:03 98.1 70 18 124/44 (70) 97 98.1 Physical Exam: PHYSICAL EXAM GENERAL: The patient is propped up in bed, alert, calm, HEENT: Pupils are equally round. Normal conjunctivae. Oral cavity: Pharynx pink and moist. No thrush. Edentulous. NECK: Supple. LUNGS: Clear to auscultation. HEART: S1 and S2, loud murmur throughout. ABDOMEN: Obese, soft and nontender with bowel sounds present. GENITOURINARY: Indwelling Martin in place. EXTREMITIES: No gross edema or cyanosis. SKIN: Warm without rash. NEUROLOGIC: Alert, confused, but cooperative. Medications: Inpatient Meds: Current Medications Medications (Trade) Dose Ordered Sig/Tiffanie Start Time Stop Time Status Last Admin Dose Admin Albuterol Sulfate (Ventolin Neb Soln) 2.5 mg PRN Q4HRS PRN 09/27/18 09:15 Amoxicillin/ Clavulanate Potassium (Augmentin 875/ 125mg) 1 tab BID 09/28/18 09:00 09/29/18 08:52 1 TAB Aspirin (Ecotrin) 81 mg DAILYWBKFT 09/29/18 08:00 09/29/18 08:52 81 MG Atorvastatin Calcium (Lipitor) 40 mg QHS 09/27/18 21:00 09/28/18 20:58 40 MG Epinephrine HCl (EPINEPHrine SYRINGE) 1 mg STK-MED ONCE 09/25/18 10:29 09/25/18 10:30 DC Estradiol (Estrace) 1 carina QMWF@0900 09/26/18 10:00 09/28/18 10:52 1 CARINA Guaifenesin (Robitussin) 100 mg PRN Q6HRS PRN 09/27/18 09:15 Imipramine HCl (Tofranil) 12.5 mg QHS 09/27/18 21:00 09/28/18 21:00 12.5 MG Info (CONTRAST GIVEN -- Rx MONITORING) 1 each PRN DAILY PRN 09/24/18 19:30 09/26/18 19:29 DC Iohexol (Omnipaque 350 Mg/ml) 100 ml 1X ONCE 09/24/18 19:30 09/24/18 19:31 DC 09/24/18 19:54 100 ML Labetalol HCl (Normodyne Iv Push) 20 mg PRN Q2HR PRN 09/27/18 12:30 Lactobacillus Rhamnosus (Culturelle) 1 cap BID 09/26/18 10:30 09/29/18 08:53 1 CAP Levothyroxine Sodium (Synthroid) 75 mcg DAILYAC 09/27/18 09:30 09/29/18 08:53 75 MCG Lidocaine HCl (Lidocaine Pf 2% Vial) 5 ml STK-MED ONCE 09/27/18 14:52 09/27/18 14:53 DC Pantoprazole Sodium (PROTONIX VIAL for IV PUSH) 40 mg DAILYAC 09/26/18 10:30 09/27/18 15:07 DC 09/27/18 05:03 40 MG Pantoprazole Sodium (Protonix) 40 mg DAILYAC 09/28/18 07:30 09/29/18 08:52 40 MG Pantoprazole Sodium 80 mg/ Sodium Chloride 100 ml @ 10 mls/hr 1X ONCE 09/24/18 19:00 09/25/18 04:59 DC 09/24/18 20:18 10 MLS/HR Piperacillin Sod/ Tazobactam Sod 3.375 gm/Sodium Chloride 50 ml @ 100 mls/hr Q6HRS 09/25/18 00:00 09/28/18 07:22 DC 09/28/18 06:20 100 MLS/HR Potassium Chloride/Water 100 ml @ 100 mls/hr Q1H 09/27/18 09:30 09/27/18 13:29 DC 09/27/18 16:58 100 MLS/HR Propofol 20 ml @ As Directed STK-MED ONCE 09/27/18 14:52 09/27/18 14:53 DC Propofol (Diprivan) 2,000 mg STK-MED ONCE 09/25/18 10:00 09/26/18 07:27 DC Ringer's Solution 1,000 ml @ 50 mls/hr Q20H 09/27/18 07:00 09/27/18 18:59 DC 09/27/18 14:42 50 MLS/HR Sodium Chloride 1,000 ml @ 75 mls/hr [id number] 09/24/18 19:09 09/25/18 19:08 DC 09/25/18 08:29 75 MLS/HR Sucralfate (Carafate) 1 gm BID 09/27/18 21:00 09/29/18 08:52 1 GM Throat Lozenges (Cepacol Sore Throat Lozenge) 1 aki PRN Q2HRS PRN 09/25/18 13:45 09/25/18 13:58 1 AKI Vitamin D (Vitamin D3) 1,000 unit DAILY 09/27/18 10:00 09/29/18 08:52 1,000 UNIT Labs: Lab Laboratory Tests Test 09/29/18 03:05 White Blood Count 8.3 x10^3/uL (4.0-11.0) Red Blood Count 2.14 x10^6/uL (3.50-5.40) Hemoglobin 6.6 g/dL (12.0-15.5) Hematocrit 20.0 % (36.0-47.0) Mean Corpuscular Volume 94 fL (79-100) Mean Corpuscular Hemoglobin 31 pg (25-35) Mean Corpuscular Hemoglobin Concent 33 g/dL (31-37) Red Cell Distribution Width 15.9 % (11.5-14.5) Platelet Count 183 x10^3/uL (140-400) Neutrophils (%) (Auto) 62 % (31-73) Lymphocytes (%) (Auto) 22 % (24-48) Monocytes (%) (Auto) 6 % (0-9) Eosinophils (%) (Auto) 10 % (0-3) Basophils (%) (Auto) 1 % (0-3) Neutrophils # (Auto) 5.1 x10^3uL (1.8-7.7) Lymphocytes # (Auto) 1.8 x10^3/uL (1.0-4.8) Monocytes # (Auto) 0.5 x10^3/uL (0.0-1.1) Eosinophils # (Auto) 0.8 x10^3/uL (0.0-0.7) Basophils # (Auto) 0.0 x10^3/uL (0.0-0.2) Objective: Assessment: 1. Acute gastrointestinal bleed. S/P EGD ,repeat 09/27 neg 2. Leukocytosis. Lactic acidosis. likely reactive and from above 3. Anemia s/p PRBCs 4. Right hydronephrosis. 5. Coronary artery disease, status post stent placement. 6. History of deep venous thrombosis in right common femoral vein. 7. Diabetes. 8. Dementia. 9. HX DVT Right lower leg on eliquis 10. morbid obesity 11. Pseudoaneurysm of right femoral artery , recent, ? hematoma Plan: Plan of Care augmentin for now PRBC today Supportive care D/W PAUL BULL MD Sep 29, 2018 09:51
[2018-09-29 16:02] LABS: HEMATOCRIT 26.8 % (36.0-47.0); HEMOGLOBIN 8.8 g/dL (12.0-15.5)
--- NOTE | 2018-09-29 16:15 | PDOC ---
Provider Note Provider Note CARDIOLOGY FOLLOW UP NOTE: S: Continues to have low blood counts. ASA started yesterday. Hgb stable. BP stable. O: VSS No new exam changes. Persistent harsh systolic murmur Soft abd. No significant edema. Labs reviewed/[employer] notes reviewed. Impression: 1. CAD s/p LAD PCI 2. Severe GIB 3. Severe . Plan: 1. Continue ASA if tolerated. If further hgb drop, ok to stop asa. 2. Will d/w with hem/onc and rule out any hemolysis from severe as a contributing factor if no significant GI source noted. Supportive care. Poor intermediate prognosis. NAYA AWAN MD Sep 29, 2018 16:15
--- NOTE | 2018-09-29 16:21 | NUR ---
SW following pt. PT/OT has been on hold due to medical reasons. will continue to follow.
[2018-09-29 17:23] LABS: ALBUMIN 2.3 g/dL (3.4-5.0); DIRECT BILIRUBIN 0.1 mg/dL (0.0-0.2); TOTAL BILIRUBIN 0.4 mg/dL (0.2-1.0); TOTAL PROTEIN 4.7 g/dL (6.4-8.2)
--- NOTE | 2018-09-29 17:57 | PDOC ---
PROGRESS NOTES Chief Complaint Chief Complaint 1. Acute gi bleeding// severe anemia of acute blood loss 2. Moderate dementia 3. CAD with recent stent placement [facility] 4. HX DVT Right lower leg on eliquis 5. morbid obesity 6. Pseudoaneurysm of right femoral artery , recent 7. POSSIBLE SEPSIS 8. LAD STENT, DRUG-eluting placed [facility] 09/24/18 9. Urinary retention 10. Possible uretal stone History of Present Illness History of Present Illness Ms Koroma is a SNF resident at [facility] who was sent to the ER with complaints of abdominal pain, nausea, black stools and dizziness. She recently underwent a coronary stent placement and also was found to have a DVT in right leg and was taking both Eliquis and Plavix. She was found to have an elevated white blood cell count of 14,700; lactic acid 5.1; hemoglobin 4.5. Positive occult blood in the stool and iron are 2.0. An abdominal/pelvis CTA showed no sign of GI hemorrhage or clear bowel ischemia; ill-defined soft tissue seen anterior to the right common femoral artery measuring approximately 2.8 x 2.1 cm; interval development of moderate right hydronephrosis. She underwent an EGD this morning. She was found to have a recent bleeding and mild oozing in the second portion of the duodenum without discrete ulcer. Status post epi injection. Both the Eliquis and Plavix have been discontinued 09/26: Transfused 4u PRBC and 1u FFP total. s/p EGD per GI - "Esophagus normal, gastritis without ulcer or bleeding, duodenal blood noted- recent bleeding and mild oozing noted in 2nd portion of duodenum but no discrete ulcer, AVM etc - area injected with epi and oozing seemed to stop- scope passed to 3rd portion- all areas irrigated- no other active bleeding seem but recent blood in lumen noted" 09/27: Repeat EGD, gastritis, duodenitis, no ulcer or AVM. Placed on PPI and carafate BID No acute issues overnight. Plan: hb 6.6 so giving more blood. follow H and H hold eliquis/ plavix. continue ASA per cards, okay to stop if bleeds again apprec hem Urology and ID following continue augmentin per ID Vitals Vitals Vital Signs Date Time Temp Pulse Resp B/P (MAP) Pulse Ox O2 Delivery O2 Flow Rate FiO2 09/29/18 16:00 98.1 73 18 131/45 (73) 86 Room Air 98.1 Physical Exam Physical Exam GENERAL: The patient is propped up in bed, alert, calm, HEENT: Pupils are equally round. Normal conjunctivae. Oral cavity: Pharynx pink and moist. No thrush. Edentulous. NECK: Supple. LUNGS: Clear to auscultation. HEART: S1 and S2, loud murmur throughout. ABDOMEN: Obese, soft and nontender with bowel sounds present. GENITOURINARY: Indwelling Martin in place. EXTREMITIES: No gross edema or cyanosis. SKIN: Warm without rash. NEUROLOGIC: Alert, confused, but cooperative. General: Alert Heart: Regular rate, Normal S1, Normal S2, Other (systolic murmur) Abdomen: Normal bowel sounds, Soft, No tenderness, No hepatosplenomegaly Extremities: No clubbing, No cyanosis Skin: No rashes Labs LABS Laboratory Tests Test 09/29/18 03:05 09/29/18 09:10 09/29/18 15:58 White Blood Count 8.3 x10^3/uL (4.0-11.0) Red Blood Count 2.14 x10^6/uL (3.50-5.40) Hemoglobin 6.6 g/dL (12.0-15.5) 8.8 g/dL (12.0-15.5) Hematocrit 20.0 % (36.0-47.0) 26.8 % (36.0-47.0) Mean Corpuscular Volume 94 fL (79-100) Mean Corpuscular Hemoglobin 31 pg (25-35) Mean Corpuscular Hemoglobin Concent 33 g/dL (31-37) 33 g/dL (31-37) Red Cell Distribution Width 15.9 % (11.5-14.5) Platelet Count 183 x10^3/uL (140-400) Neutrophils (%) (Auto) 62 % (31-73) Lymphocytes (%) (Auto) 22 % (24-48) Monocytes (%) (Auto) 6 % (0-9) Eosinophils (%) (Auto) 10 % (0-3) Basophils (%) (Auto) 1 % (0-3) Neutrophils # (Auto) 5.1 x10^3uL (1.8-7.7) Lymphocytes # (Auto) 1.8 x10^3/uL (1.0-4.8) Monocytes # (Auto) 0.5 x10^3/uL (0.0-1.1) Eosinophils # (Auto) 0.8 x10^3/uL (0.0-0.7) Basophils # (Auto) 0.0 x10^3/uL (0.0-0.2) Total Bilirubin 0.4 mg/dL (0.2-1.0) Direct Bilirubin 0.1 mg/dL (0.0-0.2) Aspartate Amino Transf (AST/SGOT) 15 U/L (15-37) Alanine Aminotransferase (ALT/SGPT) 14 U/L (14-59) Alkaline Phosphatase 43 U/L (46-116) Lactate Dehydrogenase 199 U/L (81-234) Total Protein 4.7 g/dL (6.4-8.2) Albumin 2.3 g/dL (3.4-5.0) Assessment and Plan Assessmemt and Plan Problems Medical Problems: (1) Dizziness Status: Acute (2) GI bleeding Status: Acute Comment Review of Relevant I have reviewed the following items matty (where applicable) has been applied. Labs Laboratory Tests Test 09/28/18 09:10 09/29/18 03:05 09/29/18 09:10 09/29/18 15:58 White Blood Count 7.7 x10^3/uL (4.0-11.0) 8.3 x10^3/uL (4.0-11.0) Red Blood Count 2.26 x10^6/uL (3.50-5.40) 2.14 x10^6/uL (3.50-5.40) Hemoglobin 7.0 g/dL (12.0-15.5) 6.6 g/dL (12.0-15.5) 8.8 g/dL (12.0-15.5) Hematocrit 21.3 % (36.0-47.0) 20.0 % (36.0-47.0) 26.8 % (36.0-47.0) Mean Corpuscular Volume 94 fL (79-100) 94 fL (79-100) Mean Corpuscular Hemoglobin 31 pg (25-35) 31 pg (25-35) Mean Corpuscular Hemoglobin Concent 33 g/dL (31-37) 33 g/dL (31-37) 33 g/dL (31-37) Red Cell Distribution Width 15.7 % (11.5-14.5) 15.9 % (11.5-14.5) Platelet Count 170 x10^3/uL (140-400) 183 x10^3/uL (140-400) Sodium Level 145 mmol/L (136-145) Potassium Level 3.9 mmol/L (3.5-5.1) Chloride Level 110 mmol/L (98-107) Carbon Dioxide Level 29 mmol/L (21-32) Anion Gap 6 (6-14) Blood Urea Nitrogen 18 mg/dL (7-20) Creatinine 0.7 mg/dL (0.6-1.0) Estimated GFR (Cockcroft-Gault) 80.3 Glucose Level 132 mg/dL (70-99) Calcium Level 7.6 mg/dL (8.5-10.1) Neutrophils (%) (Auto) 62 % (31-73) Lymphocytes (%) (Auto) 22 % (24-48) Monocytes (%) (Auto) 6 % (0-9) Eosinophils (%) (Auto) 10 % (0-3) Basophils (%) (Auto) 1 % (0-3) Neutrophils # (Auto) 5.1 x10^3uL (1.8-7.7) Lymphocytes # (Auto) 1.8 x10^3/uL (1.0-4.8) Monocytes # (Auto) 0.5 x10^3/uL (0.0-1.1) Eosinophils # (Auto) 0.8 x10^3/uL (0.0-0.7) Basophils # (Auto) 0.0 x10^3/uL (0.0-0.2) Total Bilirubin 0.4 mg/dL (0.2-1.0) Direct Bilirubin 0.1 mg/dL (0.0-0.2) Aspartate Amino Transf (AST/SGOT) 15 U/L (15-37) Alanine Aminotransferase (ALT/SGPT) 14 U/L (14-59) Alkaline Phosphatase 43 U/L (46-116) Lactate Dehydrogenase 199 U/L (81-234) Total Protein 4.7 g/dL (6.4-8.2) Albumin 2.3 g/dL (3.4-5.0) Laboratory Tests Test 09/29/18 03:05 09/29/18 09:10 09/29/18 15:58 White Blood Count 8.3 x10^3/uL (4.0-11.0) Red Blood Count 2.14 x10^6/uL (3.50-5.40) Hemoglobin 6.6 g/dL (12.0-15.5) 8.8 g/dL (12.0-15.5) Hematocrit 20.0 % (36.0-47.0) 26.8 % (36.0-47.0) Mean Corpuscular Volume 94 fL (79-100) Mean Corpuscular Hemoglobin 31 pg (25-35) Mean Corpuscular Hemoglobin Concent 33 g/dL (31-37) 33 g/dL (31-37) Red Cell Distribution Width 15.9 % (11.5-14.5) Platelet Count 183 x10^3/uL (140-400) Neutrophils (%) (Auto) 62 % (31-73) Lymphocytes (%) (Auto) 22 % (24-48) Monocytes (%) (Auto) 6 % (0-9) Eosinophils (%) (Auto) 10 % (0-3) Basophils (%) (Auto) 1 % (0-3) Neutrophils # (Auto) 5.1 x10^3uL (1.8-7.7) Lymphocytes # (Auto) 1.8 x10^3/uL (1.0-4.8) Monocytes # (Auto) 0.5 x10^3/uL (0.0-1.1) Eosinophils # (Auto) 0.8 x10^3/uL (0.0-0.7) Basophils # (Auto) 0.0 x10^3/uL (0.0-0.2) Total Bilirubin 0.4 mg/dL (0.2-1.0) Direct Bilirubin 0.1 mg/dL (0.0-0.2) Aspartate Amino Transf (AST/SGOT) 15 U/L (15-37) Alanine Aminotransferase (ALT/SGPT) 14 U/L (14-59) Alkaline Phosphatase 43 U/L (46-116) Lactate Dehydrogenase 199 U/L (81-234) Total Protein 4.7 g/dL (6.4-8.2) Albumin 2.3 g/dL (3.4-5.0) Microbiology 09/25/18 Blood Culture - Preliminary, Resulted NO GROWTH AFTER 4 DAYS Medications Current Medications Sodium Chloride 1,000 ml @ 1,000 mls/hr 1X ONCE IV Last administered on at 17:40; Start 09/24/18 at 17:15; Stop 09/24/18 at 18:14; Status DC Pantoprazole Sodium (PROTONIX VIAL for IV PUSH) 40 mg 1X ONCE IVP Last administered on 09/24/18at 17:43; Start 09/24/18 at 17:15; Stop 09/24/18 at 17:16 ; Status DC Pantoprazole Sodium 80 mg/ Sodium Chloride 100 ml @ 10 mls/hr 1X ONCE IV Last administered on 09/24/18at 20:18; Start 09/24/18 at 19:00; Stop 09/25/18 at 04:59; Status DC Sodium Chloride 1,000 ml @ 75 mls/hr [id number] IV Last administered on at 08:29; Start 09/24/18 at 19:09; Stop 09/25/18 at 19:08; Status DC Iohexol (Omnipaque 350 Mg/ml) 100 ml 1X ONCE IV Last administered on at 19:54; Start 09/24/18 at 19:30; Stop 09/24/18 at 19:31; Status DC Info (CONTRAST GIVEN -- Rx MONITORING) 1 each PRN DAILY PRN MC SEE COMMENTS; Start 09/24/18 at 19:30; Stop 09/26/18 at 19:29; Status DC Piperacillin Sod/ Tazobactam Sod 3.375 gm/Sodium Chloride 50 ml @ 100 mls/hr Q6HRS IV Last administered on 09/28/18at 06:20; Start 09/25/18 at 00:00; Stop at 07:22; Status DC Propofol 200 ml @ As Directed STK-MED ONCE IV ; Start 09/25/18 at 09:45; Stop 09/25/18 at 09:46; Status DC Propofol 40 ml @ As Directed STK-MED ONCE IV ; Start 09/25/18 at 09:47; Stop at 09:48; Status DC Epinephrine HCl (EPINEPHrine SYRINGE) 1 mg STK-MED ONCE SQ Last administered on 09/25/18at 09:40; Start 09/25/18 at 09:40; Stop 09/25/18 at 09:54; Status DC Propofol 20 ml @ As Directed STK-MED ONCE IV ; Start 09/25/18 at 10:07; Stop at 10:08; Status DC Lidocaine HCl (Lidocaine Pf 2% Vial) 5 ml STK-MED ONCE .ROUTE ; Start 09/25/18 at 10:07; Stop 09/25/18 at 10:08; Status DC Epinephrine HCl (EPINEPHrine SYRINGE) 1 mg STK-MED ONCE .ROUTE ; Start 09/25/18 at 10:29; Stop 09/25/18 at 10:30; Status DC Throat Lozenges (Cepacol Sore Throat Lozenge) 1 lea PRN Q2HRS PRN PO SORE THROAT Last administered on 09/25/18at 13:58; Start 09/25/18 at 13:45 Propofol (Diprivan) 2,000 mg STK-MED ONCE IV ; Start 09/25/18 at 10:00; Stop at 07:27; Status DC Estradiol (Estrace) 1 carina QMWF@0900 VG Last administered on 09/28/18at 10:52; Start 09/26/18 at 10:00 Lactobacillus Rhamnosus (Culturelle) 1 cap BID PO Last administered on at 08:53; Start 09/26/18 at 10:30 Pantoprazole Sodium (PROTONIX VIAL for IV PUSH) 40 mg DAILYAC IVP Last administered on 09/27/18at 05:03; Start 09/26/18 at 10:30; Stop 09/27/18 at 15:07 ; Status DC Ringer's Solution 1,000 ml @ 50 mls/hr Q20H IV Last administered on 09/27/18at 14:42; Start 09/27/18 at 07:00; Stop 09/27/18 at 18:59; Status DC Potassium Chloride/Water 100 ml @ 100 mls/hr Q1H IV Last administered on at 16:58; Start 09/27/18 at 09:30; Stop 09/27/18 at 13:29; Status DC Atorvastatin Calcium (Lipitor) 40 mg QHS PO Last administered on 09/28/18at 20: 58; Start 09/27/18 at 21:00 Vitamin D (Vitamin D3) 1,000 unit DAILY PO Last administered on 09/29/18 08:52 ; Start 09/27/18 at 10:00 Guaifenesin (Robitussin) 100 mg PRN Q6HRS PRN PO COUGH; Start 09/27/18 at 09:15 Albuterol Sulfate (Ventolin Neb Soln) 2.5 mg PRN Q4HRS PRN NEB SHORTNESS OF BREATH; Start 09/27/18 at 09:15 Levothyroxine Sodium (Synthroid) 75 mcg DAILYAC PO Last administered on at 08:53; Start 09/27/18 at 09:30 Imipramine HCl (Tofranil) 12.5 mg QHS PO Last administered on 09/28/18at 21:00; Start 09/27/18 at 21:00 Labetalol HCl (Normodyne Iv Push) 20 mg PRN Q2HR PRN IVP HYPERTENSION, SEE COMMENTS; Start 09/27/18 at 12:30 Propofol 20 ml @ As Directed STK-MED ONCE IV ; Start 09/27/18 at 14:52; Stop at 14:53; Status DC Lidocaine HCl (Lidocaine Pf 2% Vial) 5 ml STK-MED ONCE .ROUTE ; Start 09/27/18 at 14:52; Stop 09/27/18 at 14:53; Status DC Sucralfate (Carafate) 1 gm BID PO Last administered on 09/29/18at 08:52; Start 09/27/18 at 21:00 Pantoprazole Sodium (Protonix) 40 mg DAILYAC PO Last administered on 09/29/18 08:52; Start 09/28/18 at 07:30 Amoxicillin/ Clavulanate Potassium (Augmentin 875/ 125mg) 1 tab BID PO Last administered on 09/29/18 08:52; Start 09/28/18 at 09:00 Aspirin (Ecotrin) 81 mg DAILYWBKFT PO Last administered on 09/29/18at 08:52; Start 09/29/18 at 08:00 Active Scripts Active Reported Levothyroxine Sodium 75 Mcg Tablet 75 Mcg PO DAILYAC Imipramine Hcl 10 Mg Tablet 10 Mg PO HS Guaifenesin 100 Mg/5 Ml Liquid 100 Mg PO PRN Q6HRS PRN Vitamin D3 (Cholecalciferol (Vitamin D3)) 1,000 Unit Tablet 1 Tab PO DAILY Lipitor (Atorvastatin Calcium) 40 Mg Tablet 1 Tab PO QHS Eliquis (Apixaban) 5 Mg Tablet 5 Mg PO BID Duoneb 0.5-3(2.5) Mg/3 Ml (Albuterol/Ipratropium) 3 Ml Ampul.neb 3 Ml NEB PRN Q4HRS PRN Clopidogrel (Clopidogrel Bisulfate) 75 Mg Tablet 1 Tab PO DAILY Vitals/I & O Vital Sign - Last 24 Hours 09/28/18 09/28/18 09/28/18 09/29/18 19:00 19:30 23:00 03:00 Temp 97.5 97.3 97.4 97.5 97.3 97.4 Pulse 71 74 69 Resp 20 20 20 B/P (MAP) 126/71 (89) 125/73 (90) 114/57 (76) Pulse Ox 97 96 93 O2 Delivery Room Air Room Air Room Air Room Air 09/29/18 09/29/18 09/29/18 09/29/18 07:03 08:00 10:12 11:00 Temp 98.1 98.3 98.3 98.1 98.3 98.3 Pulse 70 75 75 Resp 18 18 18 B/P (MAP) 124/44 (70) 111/46 (67) 111/46 Pulse Ox 97 97 O2 Delivery Room Air Room Air Room Air 09/29/18 09/29/18 09/29/18 09/29/18 11:14 11:17 12:09 12:10 Temp 98.2 98.2 98.6 98.6 98.2 98.2 98.6 98.6 Pulse 73 73 71 71 Resp 18 18 18 18 B/P (MAP) 115/53 115/53 (73) 115/48 (70) 115/48 Pulse Ox 98 96 O2 Delivery Room Air Room Air 09/29/18 16:00 Temp 98.1 98.1 Pulse 73 Resp 18 B/P (MAP) 131/45 (73) Pulse Ox 86 O2 Delivery Room Air Intake and Output 09/28/18 09/28/18 09/29/18 15:00 23:00 07:00 Intake Total 470 ml 600 ml Output Total 160 ml 350 ml 950 ml Balance 310 ml 250 ml -950 ml KATHY BRIGHT MD Sep 29, 2018 17:57
[2018-09-29] MEDS: IMIPRAMINE 25 MG TABLET PO SCH (20:44)
[2018-09-29] MEDS: ATORVASTATIN CALCIUM 40 MG TABLET. PO SCH (20:44)
[2018-09-30 03:00] VITALS: BP 143/44
[2018-09-30 06:32] LABS: BASO % 1 % (0-3); EOS # 0.7 x10^3/uL (0.0-0.7); EOS % 10 % (0-3); HEMATOCRIT 23.6 % (36.0-47.0); HEMOGLOBIN 7.8 g/dL (12.0-15.5); LYMPH # 1.3 x10^3/uL (1.0-4.8); LYMPH % 18 % (24-48); MEAN CORPUSCULAR HEMOGLOBIN 31 pg (25-35); MEAN CORPUSCULAR HGB CONC 33 g/dL (31-37); MEAN CORPUSCULAR VOLUME 92 fL (79-100); MONO # 0.4 x10^3/uL (0.0-1.1); MONO % 6 % (0-9); NEUT # 4.8 x10^3uL (1.8-7.7); NEUT % 66 % (31-73); PLATELET COUNT 197 x10^3/uL (140-400); RED BLOOD COUNT 2.56 x10^6/uL (3.50-5.40); RED CELL DISTRIBUTION WIDTH 16.2 % (11.5-14.5); WHITE BLOOD COUNT 7.2 x10^3/uL (4.0-11.0)
[2018-09-30 06:46] LABS: CALCIUM 7.5 mg/dL (8.5-10.1); CREATININE 0.6 mg/dL (0.6-1.0); GFR 95.9; POTASSIUM 3.4 mmol/L (3.5-5.1)
[2018-09-30 07:00] VITALS: BP 129/38
[2018-09-30] MEDS: AMOXICILLIN/K CLAV 875/125MG TABLET. PO SCH (08:10)
[2018-09-30] MEDS: LACTOBACILLUS RHAMNOSUS GG 1 CAPSULE. PO SCH ×2 (08:10→21:05)
[2018-09-30] MEDS: LEVOTHYROXINE 75 MCG TABLET PO SCH (08:10)
[2018-09-30] MEDS: PANTOPRAZOLE 40 MG TABLET.DR. PO SCH (08:10)
[2018-09-30] MEDS: ASPIRIN ENTERIC COATED 81 MG TABLET.DR. PO SCH (08:11)
[2018-09-30] MEDS: ESTRADIOL 0.01% VAGINAL CREAM 42.5GM TUBE. VG SCH (08:11)
[2018-09-30] MEDS: SUCRALFATE 1 GM TABLET. PO SCH ×2 (08:11→21:05)
[2018-09-30] MEDS: CHOLECALCIFEROL (VITAMIN D3) 1,000 UNIT TABLET PO SCH (08:11)
[2018-09-30] MEDS: POTASSIUM CHLORIDE 10MEQ 100 ML IV SCH ×2 (09:01→10:00)
--- NOTE | 2018-09-30 09:16 | PDOC ---
Subjective: Subjective: No complaints - "my daughter told me breakfast was important so I ate it all!" Objective: Objective: D/w RN - dark smears of stool yesterday. Vital Signs: Vital Signs Date Time Temp Pulse Resp B/P (MAP) Pulse Ox O2 Delivery O2 Flow Rate FiO2 09/30/18 07:00 98.2 70 18 129/38 (68) 93 Room Air 98.2 09/29/18 20:02 2.0 Labs: Laboratory Tests Test 09/29/18 15:58 09/30/18 05:15 Hemoglobin 8.8 g/dL 7.8 g/dL Hematocrit 26.8 % 23.6 % Mean Corpuscular Hemoglobin Concent 33 g/dL 33 g/dL Haptoglobin 111 mg/dL White Blood Count 7.2 x10^3/uL Red Blood Count 2.56 x10^6/uL Mean Corpuscular Volume 92 fL Mean Corpuscular Hemoglobin 31 pg Red Cell Distribution Width 16.2 % Platelet Count 197 x10^3/uL Neutrophils (%) (Auto) 66 % Lymphocytes (%) (Auto) 18 % Monocytes (%) (Auto) 6 % Eosinophils (%) (Auto) 10 % Basophils (%) (Auto) 1 % Neutrophils # (Auto) 4.8 x10^3uL Lymphocytes # (Auto) 1.3 x10^3/uL Monocytes # (Auto) 0.4 x10^3/uL Eosinophils # (Auto) 0.7 x10^3/uL Basophils # (Auto) 0.0 x10^3/uL Sodium Level 144 mmol/L Potassium Level 3.4 mmol/L Chloride Level 109 mmol/L Carbon Dioxide Level 29 mmol/L Anion Gap 6 Blood Urea Nitrogen 8 mg/dL Creatinine 0.6 mg/dL Estimated GFR (Cockcroft-Gault) 95.9 Glucose Level 94 mg/dL Calcium Level 7.5 mg/dL PE: GEN: NAD - up to chair, breakfast tray empty except for a bit of toast she's eating LUNGS: room air HEART: RRR +murm ABD: NABS, S/ND/NT NEURO/PSYCH: A & O 3 A/P: Melena - resolved? UGI bleeding - resolved on interval EGD, on PPI and Carafate Anemia - Hgb from 6.6 to 8.8 s/p transfusion yesterday, today 7.8 w/ BUN 8 H/o CAD and DVT - on Plavix and Eliquis prior to admission, now ASA 81mg QD -- Fluctuating Hgb, smears of dark stool, normal BUN - mixed picture. Continue same per GI, will review w/ Dr. Mondragon. MARIUM NGO Sep 30, 2018 09:15
--- NOTE | 2018-09-30 09:35 | PDOC ---
Infectious Disease Note Subjective: Subjective pt says feels fine no f/c/n/v/d/abdo pain had dark colored bm D/W RN ROS: ROS Negative except for above. Vital Signs: Vital Signs Vital Signs Date Time Temp Pulse Resp B/P (MAP) Pulse Ox O2 Delivery O2 Flow Rate FiO2 09/30/18 07:00 98.2 70 18 129/38 (68) 93 Room Air 98.2 09/29/18 20:02 2.0 Physical Exam: PHYSICAL EXAM GENERAL: The patient is propped up in bed, alert, calm, HEENT: Pupils are equally round. Normal conjunctivae. Oral cavity: Pharynx pink and moist. No thrush. Edentulous. NECK: Supple. LUNGS: Clear to auscultation. HEART: S1 and S2, loud murmur throughout. ABDOMEN: Obese, soft and nontender with bowel sounds present. GENITOURINARY: Indwelling Martin in place. EXTREMITIES: No gross edema or cyanosis. SKIN: Warm without rash. NEUROLOGIC: Alert, confused, but cooperative. Medications: Inpatient Meds: Current Medications Medications (Trade) Dose Ordered Sig/Tiffanie Start Time Stop Time Status Last Admin Dose Admin Albuterol Sulfate (Ventolin Neb Soln) 2.5 mg PRN Q4HRS PRN 09/27/18 09:15 Amoxicillin/ Clavulanate Potassium (Augmentin 875/ 125mg) 1 tab BID 09/28/18 09:00 09/30/18 08:10 1 TAB Aspirin (Ecotrin) 81 mg DAILYWBKFT 09/29/18 08:00 09/30/18 08:11 81 MG Atorvastatin Calcium (Lipitor) 40 mg QHS 09/27/18 21:00 09/29/18 20:44 40 MG Epinephrine HCl (EPINEPHrine SYRINGE) 1 mg STK-MED ONCE 09/25/18 10:29 09/25/18 10:30 DC Estradiol (Estrace) 1 carina QMWF@0900 09/26/18 10:00 09/30/18 08:11 1 CARINA Guaifenesin (Robitussin) 100 mg PRN Q6HRS PRN 09/27/18 09:15 Imipramine HCl (Tofranil) 12.5 mg QHS 09/27/18 21:00 09/29/18 20:44 12.5 MG Info (CONTRAST GIVEN -- Rx MONITORING) 1 each PRN DAILY PRN 09/24/18 19:30 09/26/18 19:29 DC Iohexol (Omnipaque 350 Mg/ml) 100 ml 1X ONCE 09/24/18 19:30 09/24/18 19:31 DC 09/24/18 19:54 100 ML Labetalol HCl (Normodyne Iv Push) 20 mg PRN Q2HR PRN 09/27/18 12:30 Lactobacillus Rhamnosus (Culturelle) 1 cap BID 09/26/18 10:30 09/30/18 08:10 1 CAP Levothyroxine Sodium (Synthroid) 75 mcg DAILYAC 09/27/18 09:30 09/30/18 08:10 75 MCG Lidocaine HCl (Lidocaine Pf 2% Vial) 5 ml STK-MED ONCE 09/27/18 14:52 09/27/18 14:53 DC Pantoprazole Sodium (PROTONIX VIAL for IV PUSH) 40 mg DAILYAC 09/26/18 10:30 09/27/18 15:07 DC 09/27/18 05:03 40 MG Pantoprazole Sodium (Protonix) 40 mg DAILYAC 09/28/18 07:30 09/30/18 08:10 40 MG Pantoprazole Sodium 80 mg/ Sodium Chloride 100 ml @ 10 mls/hr 1X ONCE 09/24/18 19:00 09/25/18 04:59 DC 09/24/18 20:18 10 MLS/HR Piperacillin Sod/ Tazobactam Sod 3.375 gm/Sodium Chloride 50 ml @ 100 mls/hr Q6HRS 09/25/18 00:00 09/28/18 07:22 DC 09/28/18 06:20 100 MLS/HR Potassium Chloride/Water 100 ml @ 100 mls/hr Q1H 09/30/18 09:00 09/30/18 12:59 09/30/18 09:01 100 MLS/HR Propofol 20 ml @ As Directed STK-MED ONCE 09/27/18 14:52 09/27/18 14:53 DC Propofol (Diprivan) 2,000 mg STK-MED ONCE 09/25/18 10:00 09/26/18 07:27 DC Ringer's Solution 1,000 ml @ 50 mls/hr Q20H 09/27/18 07:00 09/27/18 18:59 DC 09/27/18 14:42 50 MLS/HR Sodium Chloride 1,000 ml @ 75 mls/hr [id number] 09/24/18 19:09 09/25/18 19:08 DC 09/25/18 08:29 75 MLS/HR Sucralfate (Carafate) 1 gm BID 09/27/18 21:00 09/30/18 08:11 1 GM Throat Lozenges (Cepacol Sore Throat Lozenge) 1 aki PRN Q2HRS PRN 09/25/18 13:45 09/25/18 13:58 1 AKI Vitamin D (Vitamin D3) 1,000 unit DAILY 09/27/18 10:00 09/30/18 08:11 1,000 UNIT Labs: Lab Laboratory Tests Test 09/29/18 15:58 09/30/18 05:15 Hemoglobin 8.8 g/dL (12.0-15.5) 7.8 g/dL (12.0-15.5) Hematocrit 26.8 % (36.0-47.0) 23.6 % (36.0-47.0) Mean Corpuscular Hemoglobin Concent 33 g/dL (31-37) 33 g/dL (31-37) Haptoglobin 111 mg/dL (34-200) White Blood Count 7.2 x10^3/uL (4.0-11.0) Red Blood Count 2.56 x10^6/uL (3.50-5.40) Mean Corpuscular Volume 92 fL (79-100) Mean Corpuscular Hemoglobin 31 pg (25-35) Red Cell Distribution Width 16.2 % (11.5-14.5) Platelet Count 197 x10^3/uL (140-400) Neutrophils (%) (Auto) 66 % (31-73) Lymphocytes (%) (Auto) 18 % (24-48) Monocytes (%) (Auto) 6 % (0-9) Eosinophils (%) (Auto) 10 % (0-3) Basophils (%) (Auto) 1 % (0-3) Neutrophils # (Auto) 4.8 x10^3uL (1.8-7.7) Lymphocytes # (Auto) 1.3 x10^3/uL (1.0-4.8) Monocytes # (Auto) 0.4 x10^3/uL (0.0-1.1) Eosinophils # (Auto) 0.7 x10^3/uL (0.0-0.7) Basophils # (Auto) 0.0 x10^3/uL (0.0-0.2) Sodium Level 144 mmol/L (136-145) Potassium Level 3.4 mmol/L (3.5-5.1) Chloride Level 109 mmol/L (98-107) Carbon Dioxide Level 29 mmol/L (21-32) Anion Gap 6 (6-14) Blood Urea Nitrogen 8 mg/dL (7-20) Creatinine 0.6 mg/dL (0.6-1.0) Estimated GFR (Cockcroft-Gault) 95.9 Glucose Level 94 mg/dL (70-99) Calcium Level 7.5 mg/dL (8.5-10.1) Objective: Assessment: 1. Acute gastrointestinal bleed. S/P EGD ,repeat 09/27 neg 2. Leukocytosis. Lactic acidosis. likely reactive and from above 3. Anemia s/p PRBCs 4. Right hydronephrosis. 5. Coronary artery disease, status post stent placement. 6. History of deep venous thrombosis in right common femoral vein. 7. Diabetes. 8. Dementia. 9. HX DVT Right lower leg on eliquis 10. morbid obesity 11. Pseudoaneurysm of right femoral artery , recent, ? hematoma Plan: Plan of Care Dc augmentin observe off antibiotics Supportive care D/W PAUL BULL MD Sep 30, 2018 09:35
[2018-09-30 11:00] VITALS: BP 133/65
--- NOTE | 2018-09-30 12:53 | PDOC ---
PROGRESS NOTES Chief Complaint Chief Complaint GI bleed History of Present Illness History of Present Illness Patient sitting in bedside chair. She reports some dark stools, but denies black stools. Asking about going home. Vitals Vitals Vital Signs Date Time Temp Pulse Resp B/P (MAP) Pulse Ox O2 Delivery O2 Flow Rate FiO2 09/30/18 11:00 98.4 67 16 133/65 (87) 97 Room Air 98.4 09/29/18 20:02 2.0 Physical Exam Physical Exam General: Alert, Cooperative, No acute distress Heart: Regular rate, Normal S1, Normal S2, Other (systolic murmur 3/6) Lungs: Clear Abdomen: Normal bowel sounds, Soft, No tenderness, No hepatosplenomegaly Extremities: No clubbing, No cyanosis Skin: No rashes Labs LABS Laboratory Tests Test 09/29/18 15:58 09/30/18 05:15 Hemoglobin 8.8 g/dL (12.0-15.5) 7.8 g/dL (12.0-15.5) Hematocrit 26.8 % (36.0-47.0) 23.6 % (36.0-47.0) Mean Corpuscular Hemoglobin Concent 33 g/dL (31-37) 33 g/dL (31-37) Haptoglobin 111 mg/dL (34-200) White Blood Count 7.2 x10^3/uL (4.0-11.0) Red Blood Count 2.56 x10^6/uL (3.50-5.40) Mean Corpuscular Volume 92 fL (79-100) Mean Corpuscular Hemoglobin 31 pg (25-35) Red Cell Distribution Width 16.2 % (11.5-14.5) Platelet Count 197 x10^3/uL (140-400) Neutrophils (%) (Auto) 66 % (31-73) Lymphocytes (%) (Auto) 18 % (24-48) Monocytes (%) (Auto) 6 % (0-9) Eosinophils (%) (Auto) 10 % (0-3) Basophils (%) (Auto) 1 % (0-3) Neutrophils # (Auto) 4.8 x10^3uL (1.8-7.7) Lymphocytes # (Auto) 1.3 x10^3/uL (1.0-4.8) Monocytes # (Auto) 0.4 x10^3/uL (0.0-1.1) Eosinophils # (Auto) 0.7 x10^3/uL (0.0-0.7) Basophils # (Auto) 0.0 x10^3/uL (0.0-0.2) Sodium Level 144 mmol/L (136-145) Potassium Level 3.4 mmol/L (3.5-5.1) Chloride Level 109 mmol/L (98-107) Carbon Dioxide Level 29 mmol/L (21-32) Anion Gap 6 (6-14) Blood Urea Nitrogen 8 mg/dL (7-20) Creatinine 0.6 mg/dL (0.6-1.0) Estimated GFR (Cockcroft-Gault) 95.9 Glucose Level 94 mg/dL (70-99) Calcium Level 7.5 mg/dL (8.5-10.1) Review of Systems Review of Systems as per above Assessment and Plan Assessmemt and Plan Problems Medical Problems: (1) Dizziness Status: Acute (2) GI bleeding Status: Acute Assessment: Acute GI bleed Severe anemia secondary to acute blood loss Gastritis Duodenitis Leukocytosis and lactic acidosis, likely reactive Moderate dementia CAD with recent LAD stent on 09/24/18 on ASA, plavix at home DVT right lower leg on eliquis at home Recent pseudoaneurysm of R femoral artery Urinary retention R hydronephrosis, ? uretal stone Severe aortic stenosis Diabetes mellitus, type 2 Recurrent UTI, history of Plan: Hold eliquis and plavix GI: repeat EGD on 09/27 negative for bleed, continue PPI and carafate Cardiology: ASA, can hold if GI bleed Heme: good response to transfusion, s/p 5 U PRBC, 1 U FFP Last transfusion: 1 U PRBC on 09/29 ID: discontinue augmentin, observe off antibiotics Uro: vaginal estradiol for frequent UTIs, signed off. Monitor labs Appreciate subspecialty recs PT/OT Dispo: Plan to discharge to SNU once Hgb stable Comment Review of Relevant I have reviewed the following items matty (where applicable) has been applied. Labs Laboratory Tests Test 09/29/18 03:05 09/29/18 09:10 09/29/18 15:58 09/30/18 05:15 White Blood Count 8.3 x10^3/uL (4.0-11.0) 7.2 x10^3/uL (4.0-11.0) Red Blood Count 2.14 x10^6/uL (3.50-5.40) 2.56 x10^6/uL (3.50-5.40) Hemoglobin 6.6 g/dL (12.0-15.5) 8.8 g/dL (12.0-15.5) 7.8 g/dL (12.0-15.5) Hematocrit 20.0 % (36.0-47.0) 26.8 % (36.0-47.0) 23.6 % (36.0-47.0) Mean Corpuscular Volume 94 fL (79-100) 92 fL (79-100) Mean Corpuscular Hemoglobin 31 pg (25-35) 31 pg (25-35) Mean Corpuscular Hemoglobin Concent 33 g/dL (31-37) 33 g/dL (31-37) 33 g/dL (31-37) Red Cell Distribution Width 15.9 % (11.5-14.5) 16.2 % (11.5-14.5) Platelet Count 183 x10^3/uL (140-400) 197 x10^3/uL (140-400) Neutrophils (%) (Auto) 62 % (31-73) 66 % (31-73) Lymphocytes (%) (Auto) 22 % (24-48) 18 % (24-48) Monocytes (%) (Auto) 6 % (0-9) 6 % (0-9) Eosinophils (%) (Auto) 10 % (0-3) 10 % (0-3) Basophils (%) (Auto) 1 % (0-3) 1 % (0-3) Neutrophils # (Auto) 5.1 x10^3uL (1.8-7.7) 4.8 x10^3uL (1.8-7.7) Lymphocytes # (Auto) 1.8 x10^3/uL (1.0-4.8) 1.3 x10^3/uL (1.0-4.8) Monocytes # (Auto) 0.5 x10^3/uL (0.0-1.1) 0.4 x10^3/uL (0.0-1.1) Eosinophils # (Auto) 0.8 x10^3/uL (0.0-0.7) 0.7 x10^3/uL (0.0-0.7) Basophils # (Auto) 0.0 x10^3/uL (0.0-0.2) 0.0 x10^3/uL (0.0-0.2) Total Bilirubin 0.4 mg/dL (0.2-1.0) Direct Bilirubin 0.1 mg/dL (0.0-0.2) Aspartate Amino Transf (AST/SGOT) 15 U/L (15-37) Alanine Aminotransferase (ALT/SGPT) 14 U/L (14-59) Alkaline Phosphatase 43 U/L (46-116) Lactate Dehydrogenase 199 U/L (81-234) Total Protein 4.7 g/dL (6.4-8.2) Albumin 2.3 g/dL (3.4-5.0) Haptoglobin 111 mg/dL (34-200) Sodium Level 144 mmol/L (136-145) Potassium Level 3.4 mmol/L (3.5-5.1) Chloride Level 109 mmol/L (98-107) Carbon Dioxide Level 29 mmol/L (21-32) Anion Gap 6 (6-14) Blood Urea Nitrogen 8 mg/dL (7-20) Creatinine 0.6 mg/dL (0.6-1.0) Estimated GFR (Cockcroft-Gault) 95.9 Glucose Level 94 mg/dL (70-99) Calcium Level 7.5 mg/dL (8.5-10.1) Laboratory Tests Test 09/29/18 15:58 09/30/18 05:15 Hemoglobin 8.8 g/dL (12.0-15.5) 7.8 g/dL (12.0-15.5) Hematocrit 26.8 % (36.0-47.0) 23.6 % (36.0-47.0) Mean Corpuscular Hemoglobin Concent 33 g/dL (31-37) 33 g/dL (31-37) Haptoglobin 111 mg/dL (34-200) White Blood Count 7.2 x10^3/uL (4.0-11.0) Red Blood Count 2.56 x10^6/uL (3.50-5.40) Mean Corpuscular Volume 92 fL (79-100) Mean Corpuscular Hemoglobin 31 pg (25-35) Red Cell Distribution Width 16.2 % (11.5-14.5) Platelet Count 197 x10^3/uL (140-400) Neutrophils (%) (Auto) 66 % (31-73) Lymphocytes (%) (Auto) 18 % (24-48) Monocytes (%) (Auto) 6 % (0-9) Eosinophils (%) (Auto) 10 % (0-3) Basophils (%) (Auto) 1 % (0-3) Neutrophils # (Auto) 4.8 x10^3uL (1.8-7.7) Lymphocytes # (Auto) 1.3 x10^3/uL (1.0-4.8) Monocytes # (Auto) 0.4 x10^3/uL (0.0-1.1) Eosinophils # (Auto) 0.7 x10^3/uL (0.0-0.7) Basophils # (Auto) 0.0 x10^3/uL (0.0-0.2) Sodium Level 144 mmol/L (136-145) Potassium Level 3.4 mmol/L (3.5-5.1) Chloride Level 109 mmol/L (98-107) Carbon Dioxide Level 29 mmol/L (21-32) Anion Gap 6 (6-14) Blood Urea Nitrogen 8 mg/dL (7-20) Creatinine 0.6 mg/dL (0.6-1.0) Estimated GFR (Cockcroft-Gault) 95.9 Glucose Level 94 mg/dL (70-99) Calcium Level 7.5 mg/dL (8.5-10.1) Microbiology 09/25/18 Blood Culture - Final, Complete NO GROWTH AFTER 5 DAYS Medications Current Medications Sodium Chloride 1,000 ml @ 1,000 mls/hr 1X ONCE IV Last administered on at 17:40; Start 09/24/18 at 17:15; Stop 09/24/18 at 18:14; Status DC Pantoprazole Sodium (PROTONIX VIAL for IV PUSH) 40 mg 1X ONCE IVP Last administered on 09/24/18at 17:43; Start 09/24/18 at 17:15; Stop 09/24/18 at 17:16 ; Status DC Pantoprazole Sodium 80 mg/ Sodium Chloride 100 ml @ 10 mls/hr 1X ONCE IV Last administered on 09/24/18at 20:18; Start 09/24/18 at 19:00; Stop 09/25/18 at 04:59; Status DC Sodium Chloride 1,000 ml @ 75 mls/hr [id number] IV Last administered on at 08:29; Start 09/24/18 at 19:09; Stop 09/25/18 at 19:08; Status DC Iohexol (Omnipaque 350 Mg/ml) 100 ml 1X ONCE IV Last administered on at 19:54; Start 09/24/18 at 19:30; Stop 09/24/18 at 19:31; Status DC Info (CONTRAST GIVEN -- Rx MONITORING) 1 each PRN DAILY PRN MC SEE COMMENTS; Start 09/24/18 at 19:30; Stop 09/26/18 at 19:29; Status DC Piperacillin Sod/ Tazobactam Sod 3.375 gm/Sodium Chloride 50 ml @ 100 mls/hr Q6HRS IV Last administered on 09/28/18at 06:20; Start 09/25/18 at 00:00; Stop at 07:22; Status DC Propofol 200 ml @ As Directed STK-MED ONCE IV ; Start 09/25/18 at 09:45; Stop 09/25/18 at 09:46; Status DC Propofol 40 ml @ As Directed STK-MED ONCE IV ; Start 09/25/18 at 09:47; Stop at 09:48; Status DC Epinephrine HCl (EPINEPHrine SYRINGE) 1 mg STK-MED ONCE SQ Last administered on 09/25/18at 09:40; Start 09/25/18 at 09:40; Stop 09/25/18 at 09:54; Status DC Propofol 20 ml @ As Directed STK-MED ONCE IV ; Start 09/25/18 at 10:07; Stop at 10:08; Status DC Lidocaine HCl (Lidocaine Pf 2% Vial) 5 ml STK-MED ONCE .ROUTE ; Start 09/25/18 at 10:07; Stop 09/25/18 at 10:08; Status DC Epinephrine HCl (EPINEPHrine SYRINGE) 1 mg STK-MED ONCE .ROUTE ; Start 09/25/18 at 10:29; Stop 09/25/18 at 10:30; Status DC Throat Lozenges (Cepacol Sore Throat Lozenge) 1 lea PRN Q2HRS PRN PO SORE THROAT Last administered on 09/25/18at 13:58; Start 09/25/18 at 13:45 Propofol (Diprivan) 2,000 mg STK-MED ONCE IV ; Start 09/25/18 at 10:00; Stop at 07:27; Status DC Estradiol (Estrace) 1 carina QMWF@0900 VG Last administered on 09/30/18at 08:11; Start 09/26/18 at 10:00 Lactobacillus Rhamnosus (Culturelle) 1 cap BID PO Last administered on at 08:10; Start 09/26/18 at 10:30 Pantoprazole Sodium (PROTONIX VIAL for IV PUSH) 40 mg DAILYAC IVP Last administered on 09/27/18at 05:03; Start 09/26/18 at 10:30; Stop 09/27/18 at 15:07 ; Status DC Ringer's Solution 1,000 ml @ 50 mls/hr Q20H IV Last administered on 09/27/18at 14:42; Start 09/27/18 at 07:00; Stop 09/27/18 at 18:59; Status DC Potassium Chloride/Water 100 ml @ 100 mls/hr Q1H IV Last administered on at 16:58; Start 09/27/18 at 09:30; Stop 09/27/18 at 13:29; Status DC Atorvastatin Calcium (Lipitor) 40 mg QHS PO Last administered on 09/29/18at 20: 44; Start 09/27/18 at 21:00 Vitamin D (Vitamin D3) 1,000 unit DAILY PO Last administered on 09/30/18at 08:11 ; Start 09/27/18 at 10:00 Guaifenesin (Robitussin) 100 mg PRN Q6HRS PRN PO COUGH; Start 09/27/18 at 09:15 Albuterol Sulfate (Ventolin Neb Soln) 2.5 mg PRN Q4HRS PRN NEB SHORTNESS OF BREATH; Start 09/27/18 at 09:15 Levothyroxine Sodium (Synthroid) 75 mcg DAILYAC PO Last administered on 08:10; Start 09/27/18 at 09:30 Imipramine HCl (Tofranil) 12.5 mg QHS PO Last administered on 09/29/18at 20:44; Start 09/27/18 at 21:00 Labetalol HCl (Normodyne Iv Push) 20 mg PRN Q2HR PRN IVP HYPERTENSION, SEE COMMENTS; Start 09/27/18 at 12:30 Propofol 20 ml @ As Directed STK-MED ONCE IV ; Start 09/27/18 at 14:52; Stop at 14:53; Status DC Lidocaine HCl (Lidocaine Pf 2% Vial) 5 ml STK-MED ONCE .ROUTE ; Start 09/27/18 at 14:52; Stop 09/27/18 at 14:53; Status DC Sucralfate (Carafate) 1 gm BID PO Last administered on 09/30/18at 08:11; Start 09/27/18 at 21:00 Pantoprazole Sodium (Protonix) 40 mg DAILYAC PO Last administered on 09/30/18at 08:10; Start 09/28/18 at 07:30 Amoxicillin/ Clavulanate Potassium (Augmentin 875/ 125mg) 1 tab BID PO Last administered on 09/30/18 08:10; Start 09/28/18 at 09:00; Stop 09/30/18 at 10:04 ; Status DC Aspirin (Ecotrin) 81 mg DAILYWBKFT PO Last administered on 09/30/18at 08:11; Start 09/29/18 at 08:00 Potassium Chloride/Water 100 ml @ 100 mls/hr Q1H IV Last administered on at 10:00; Start 09/30/18 at 09:00; Stop 09/30/18 at 12:59 Active Scripts Active Reported Levothyroxine Sodium 75 Mcg Tablet 75 Mcg PO DAILYAC Imipramine Hcl 10 Mg Tablet 10 Mg PO HS Guaifenesin 100 Mg/5 Ml Liquid 100 Mg PO PRN Q6HRS PRN Vitamin D3 (Cholecalciferol (Vitamin D3)) 1,000 Unit Tablet 1 Tab PO DAILY Lipitor (Atorvastatin Calcium) 40 Mg Tablet 1 Tab PO QHS Eliquis (Apixaban) 5 Mg Tablet 5 Mg PO BID Duoneb 0.5-3(2.5) Mg/3 Ml (Albuterol/Ipratropium) 3 Ml Ampul.neb 3 Ml NEB PRN Q4HRS PRN Clopidogrel (Clopidogrel Bisulfate) 75 Mg Tablet 1 Tab PO DAILY Vitals/I & O Vital Sign - Last 24 Hours 09/29/18 09/29/18 09/29/18 09/29/18 16:00 19:00 20:02 23:00 Temp 98.1 98.4 98.0 98.1 98.4 98.0 Pulse 73 73 74 Resp B/P (MAP) 131/45 (73) 135/51 (79) 133/43 (73) Pulse Ox 86 97 94 O2 Delivery Room Air Room Air Room Air Room Air O2 Flow Rate 2.0 09/30/18 09/30/18 09/30/18 09/30/18 03:00 07:00 08:00 11:00 Temp 98.4 98.2 98.4 98.4 98.2 98.4 Pulse 68 70 67 Resp B/P (MAP) 143/44 (77) 129/38 (68) 133/65 (87) Pulse Ox 94 93 97 O2 Delivery Room Air Room Air Room Air Room Air Intake and Output 09/29/18 09/29/18 09/30/18 14:59 22:59 06:59 Intake Total 470 ml Output Total 2200 ml Balance 470 ml -2200 ml JACE ROA III DO Sep 30, 2018 12:53
[2018-09-30 15:00] VITALS: BP 104/58
--- NOTE | 2018-09-30 15:16 | NUR ---
[facility] following pt. PT/OT recommends SNU. [facility] faxed to [facility], phone: [phone]; fax [phone]. Anticipate dc to back [place] tomorrow.
[2018-09-30 19:00] VITALS: BP 137/50
[2018-09-30] MEDS: IMIPRAMINE 25 MG TABLET PO SCH (21:05)
[2018-09-30] MEDS: ATORVASTATIN CALCIUM 40 MG TABLET. PO SCH (21:06)
[2018-09-30 23:00] VITALS: BP 93/66
--- NOTE | 2018-09-30 23:19 | RAD ---
Chest AP portable at 2008: Reason for examination: PICC line placement. Comparison is made to previous study dated 09/24/2018. PICC line is present on the right with the tip in the distal superior vena cava. The heart size is normal. Mediastinum is unremarkable. Lung calle show elevation of the right hemidiaphragm. This appears be related to the liver. Lung calle are clear. No acute bony abnormalities are seen. IMPRESSION: PICC line present on the right with the tip of the distal superior vena cava. Elevated right hemidiaphragm which appears to be due to the liver anteriorly as seen on recent CT exam. Electronically signed by: Cathy Gong MD (09/30/2018 11:16 PM) [facility]
[2018-10-01] MEDS: POTASSIUM CHLORIDE 10MEQ 100 ML IV SCH ×2 (00:28→02:41)
[2018-10-01 03:00] VITALS: BP 102/50
[2018-10-01 04:32] LABS: BASO % 1 % (0-3); EOS # 0.6 x10^3/uL (0.0-0.7); EOS % 10 % (0-3); HEMATOCRIT 23.1 % (36.0-47.0); HEMOGLOBIN 7.6 g/dL (12.0-15.5); LYMPH # 1.3 x10^3/uL (1.0-4.8); LYMPH % 22 % (24-48); MEAN CORPUSCULAR HEMOGLOBIN 31 pg (25-35); MEAN CORPUSCULAR HGB CONC 33 g/dL (31-37); MEAN CORPUSCULAR VOLUME 93 fL (79-100); MONO # 0.4 x10^3/uL (0.0-1.1); MONO % 6 % (0-9); NEUT # 3.8 x10^3uL (1.8-7.7); NEUT % 62 % (31-73); PLATELET COUNT 147 x10^3/uL (140-400); RED BLOOD COUNT 2.48 x10^6/uL (3.50-5.40); RED CELL DISTRIBUTION WIDTH 16.8 % (11.5-14.5); WHITE BLOOD COUNT 6.2 x10^3/uL (4.0-11.0)
[2018-10-01 04:34] LABS: CALCIUM 7.8 mg/dL (8.5-10.1); CREATININE 0.6 mg/dL (0.6-1.0); GFR 95.9; POTASSIUM 4.2 mmol/L (3.5-5.1)
[2018-10-01 07:00] VITALS: BP 120/41
[2018-10-01] MEDS: ASPIRIN ENTERIC COATED 81 MG TABLET.DR. PO SCH (07:32)
[2018-10-01] MEDS: PANTOPRAZOLE 40 MG TABLET.DR. PO SCH (07:32)
[2018-10-01] MEDS: LEVOTHYROXINE 75 MCG TABLET PO SCH (07:32)
[2018-10-01] MEDS: LACTOBACILLUS RHAMNOSUS GG 1 CAPSULE. PO SCH ×2 (08:26→21:06)
[2018-10-01] MEDS: CHOLECALCIFEROL (VITAMIN D3) 1,000 UNIT TABLET PO SCH (08:27)
[2018-10-01] MEDS: SUCRALFATE 1 GM TABLET. PO SCH ×2 (08:27→21:06)
--- NOTE | 2018-10-01 10:10 | NUR ---
D/W Dr. Feliciano on rounds patient having dark stools per [employer] times two this morning, he states Hgb. stable and she will continue to pass some dark stools from UGI bleed, OK for discharge and to put in orders discharge today to SNU at [place] with PT/OT. Patient verb. understanding POC. This RN talked with patient's daughter Jacki this morning and to come to visit patient this morning after gets off work. Patient informed and will notify her daughter of dc planning when she arrives. Patient verb. understanding.
[2018-10-01 11:00] VITALS: BP 135/51
--- NOTE | 2018-10-01 11:09 | NUR ---
Patient's daughter Jacki here to see patient, she and patient verb. understanding discharge planning for today to [facility]. Await orders.
--- NOTE | 2018-10-01 11:57 | NUR ---
Dr. Feliciano called and not discharging patient today r/t blood thinner medication issues. Patient and daughter Jacki leo. understanding POC. Continue cares and monitor.
--- NOTE | 2018-10-01 13:26 | PDOC ---
PROGRESS NOTES Chief Complaint Chief Complaint CC: GI bleed History of Present Illness History of Present Illness Patient seen and examined this morning Nursing reports dark stool this am Pt asking about going home Denies any other complaints Vitals Vitals Vital Signs Date Time Temp Pulse Resp B/P (MAP) Pulse Ox O2 Delivery O2 Flow Rate FiO2 10/01/18 11:00 97.7 68 14 135/51 (79) 97 Room Air 97.7 10/01/18 07:00 2.0 Physical Exam Physical Exam General: Alert, Cooperative, No acute distress, Other (pleasantly confused) Heart: Regular rate, Normal S1, Normal S2, Other (systolic murmur 3/6) Lungs: Clear, Other (No crackels or wheezing ) Abdomen: Normal bowel sounds, Soft, No tenderness, No hepatosplenomegaly Extremities: No clubbing, No cyanosis, Normal pulses Skin: No rashes, No breakdown, No significant lesion Labs LABS Laboratory Tests Test 10/01/18 03:52 White Blood Count 6.2 x10^3/uL (4.0-11.0) Red Blood Count 2.48 x10^6/uL (3.50-5.40) Hemoglobin 7.6 g/dL (12.0-15.5) Hematocrit 23.1 % (36.0-47.0) Mean Corpuscular Volume 93 fL (79-100) Mean Corpuscular Hemoglobin 31 pg (25-35) Mean Corpuscular Hemoglobin Concent 33 g/dL (31-37) Red Cell Distribution Width 16.8 % (11.5-14.5) Platelet Count 147 x10^3/uL (140-400) Neutrophils (%) (Auto) 62 % (31-73) Lymphocytes (%) (Auto) 22 % (24-48) Monocytes (%) (Auto) 6 % (0-9) Eosinophils (%) (Auto) 10 % (0-3) Basophils (%) (Auto) 1 % (0-3) Neutrophils # (Auto) 3.8 x10^3uL (1.8-7.7) Lymphocytes # (Auto) 1.3 x10^3/uL (1.0-4.8) Monocytes # (Auto) 0.4 x10^3/uL (0.0-1.1) Eosinophils # (Auto) 0.6 x10^3/uL (0.0-0.7) Basophils # (Auto) 0.0 x10^3/uL (0.0-0.2) Sodium Level 144 mmol/L (136-145) Potassium Level 4.2 mmol/L (3.5-5.1) Chloride Level 111 mmol/L (98-107) Carbon Dioxide Level 29 mmol/L (21-32) Anion Gap 4 (6-14) Blood Urea Nitrogen 9 mg/dL (7-20) Creatinine 0.6 mg/dL (0.6-1.0) Estimated GFR (Cockcroft-Gault) 95.9 Glucose Level 101 mg/dL (70-99) Calcium Level 7.8 mg/dL (8.5-10.1) Review of Systems Review of Systems Denies N/V Denies CP/SOA Admits to dark stools Assessment and Plan Assessmemt and Plan Assessment Acute GI bleed Severe anemia secondary to acute blood loss Gastritis Duodenitis Leukocytosis and lactic acidosis, likely reactive Moderate dementia CAD with recent LAD stent on 09/24/18 on ASA, plavix at home DVT right lower leg on eliquis at home Recent pseudoaneurysm of R femoral artery Urinary retention R hydronephrosis, ? uretal stone Severe aortic stenosis Diabetes mellitus, type 2 Recurrent UTI, history of Plan: Holding pt D/c to SNU 2/2 bloody stoolsx2 this am per nursing with hgb down to 7.6 from 8.8 s.p transfusion On 81mg ASA, can hold if hgb drops Hold eliquis and plavix EGD on 09/27 negative for bleed, continue PPI and carafate, appreciate GI recommendations Heme: Good response to transfusion, s/p 5 U PRBC, 1 U FFP Last transfusion: 1 U PRBC on 09/29 ID: started on empiric antibiotics for leukocytosis and lactic acidosis, discontinue Augmentin, observe off antibiotics Uro: vaginal estradiol for frequent UTIs, signed off. Recheck labs in am Appreciate subspecialty recs PT/OT orders Discussed care with RN Dispo: Plan to discharge to [facility] once Hgb stable and blood stools decrease in frequency Problems Medical Problems: (1) Dizziness Status: Acute (2) GI bleeding Status: Acute Comment Review of Relevant I have reviewed the following items matty (where applicable) has been applied. Labs Laboratory Tests Test 09/29/18 15:58 09/30/18 05:15 10/01/18 03:52 Hemoglobin 8.8 g/dL (12.0-15.5) 7.8 g/dL (12.0-15.5) 7.6 g/dL (12.0-15.5) Hematocrit 26.8 % (36.0-47.0) 23.6 % (36.0-47.0) 23.1 % (36.0-47.0) Mean Corpuscular Hemoglobin Concent 33 g/dL (31-37) 33 g/dL (31-37) 33 g/dL (31-37) Haptoglobin 111 mg/dL (34-200) White Blood Count 7.2 x10^3/uL (4.0-11.0) 6.2 x10^3/uL (4.0-11.0) Red Blood Count 2.56 x10^6/uL (3.50-5.40) 2.48 x10^6/uL (3.50-5.40) Mean Corpuscular Volume 92 fL (79-100) 93 fL (79-100) Mean Corpuscular Hemoglobin 31 pg (25-35) 31 pg (25-35) Red Cell Distribution Width 16.2 % (11.5-14.5) 16.8 % (11.5-14.5) Platelet Count 197 x10^3/uL (140-400) 147 x10^3/uL (140-400) Neutrophils (%) (Auto) 66 % (31-73) 62 % (31-73) Lymphocytes (%) (Auto) 18 % (24-48) 22 % (24-48) Monocytes (%) (Auto) 6 % (0-9) 6 % (0-9) Eosinophils (%) (Auto) 10 % (0-3) 10 % (0-3) Basophils (%) (Auto) 1 % (0-3) 1 % (0-3) Neutrophils # (Auto) 4.8 x10^3uL (1.8-7.7) 3.8 x10^3uL (1.8-7.7) Lymphocytes # (Auto) 1.3 x10^3/uL (1.0-4.8) 1.3 x10^3/uL (1.0-4.8) Monocytes # (Auto) 0.4 x10^3/uL (0.0-1.1) 0.4 x10^3/uL (0.0-1.1) Eosinophils # (Auto) 0.7 x10^3/uL (0.0-0.7) 0.6 x10^3/uL (0.0-0.7) Basophils # (Auto) 0.0 x10^3/uL (0.0-0.2) 0.0 x10^3/uL (0.0-0.2) Reticulocyte Count (auto) 11.0 % (0.5-2.5) Sodium Level 144 mmol/L (136-145) 144 mmol/L (136-145) Potassium Level 3.4 mmol/L (3.5-5.1) 4.2 mmol/L (3.5-5.1) Chloride Level 109 mmol/L (98-107) 111 mmol/L (98-107) Carbon Dioxide Level 29 mmol/L (21-32) 29 mmol/L (21-32) Anion Gap 6 (6-14) 4 (6-14) Blood Urea Nitrogen 8 mg/dL (7-20) 9 mg/dL (7-20) Creatinine 0.6 mg/dL (0.6-1.0) 0.6 mg/dL (0.6-1.0) Estimated GFR (Cockcroft-Gault) 95.9 95.9 Glucose Level 94 mg/dL (70-99) 101 mg/dL (70-99) Calcium Level 7.5 mg/dL (8.5-10.1) 7.8 mg/dL (8.5-10.1) Vitamin B12 Level 1276 pg/mL (247-911) Laboratory Tests Test 10/01/18 03:52 White Blood Count 6.2 x10^3/uL (4.0-11.0) Red Blood Count 2.48 x10^6/uL (3.50-5.40) Hemoglobin 7.6 g/dL (12.0-15.5) Hematocrit 23.1 % (36.0-47.0) Mean Corpuscular Volume 93 fL (79-100) Mean Corpuscular Hemoglobin 31 pg (25-35) Mean Corpuscular Hemoglobin Concent 33 g/dL (31-37) Red Cell Distribution Width 16.8 % (11.5-14.5) Platelet Count 147 x10^3/uL (140-400) Neutrophils (%) (Auto) 62 % (31-73) Lymphocytes (%) (Auto) 22 % (24-48) Monocytes (%) (Auto) 6 % (0-9) Eosinophils (%) (Auto) 10 % (0-3) Basophils (%) (Auto) 1 % (0-3) Neutrophils # (Auto) 3.8 x10^3uL (1.8-7.7) Lymphocytes # (Auto) 1.3 x10^3/uL (1.0-4.8) Monocytes # (Auto) 0.4 x10^3/uL (0.0-1.1) Eosinophils # (Auto) 0.6 x10^3/uL (0.0-0.7) Basophils # (Auto) 0.0 x10^3/uL (0.0-0.2) Sodium Level 144 mmol/L (136-145) Potassium Level 4.2 mmol/L (3.5-5.1) Chloride Level 111 mmol/L (98-107) Carbon Dioxide Level 29 mmol/L (21-32) Anion Gap 4 (6-14) Blood Urea Nitrogen 9 mg/dL (7-20) Creatinine 0.6 mg/dL (0.6-1.0) Estimated GFR (Cockcroft-Gault) 95.9 Glucose Level 101 mg/dL (70-99) Calcium Level 7.8 mg/dL (8.5-10.1) Microbiology 09/25/18 Blood Culture - Final, Complete NO GROWTH AFTER 5 DAYS Medications Current Medications Sodium Chloride 1,000 ml @ 1,000 mls/hr 1X ONCE IV Last administered on at 17:40; Start 09/24/18 at 17:15; Stop 09/24/18 at 18:14; Status DC Pantoprazole Sodium (PROTONIX VIAL for IV PUSH) 40 mg 1X ONCE IVP Last administered on 09/24/18at 17:43; Start 09/24/18 at 17:15; Stop 09/24/18 at 17:16 ; Status DC Pantoprazole Sodium 80 mg/ Sodium Chloride 100 ml @ 10 mls/hr 1X ONCE IV Last administered on 09/24/18at 20:18; Start 09/24/18 at 19:00; Stop 09/25/18 at 04:59; Status DC Sodium Chloride 1,000 ml @ 75 mls/hr [id number] IV Last administered on at 08:29; Start 09/24/18 at 19:09; Stop 09/25/18 at 19:08; Status DC Iohexol (Omnipaque 350 Mg/ml) 100 ml 1X ONCE IV Last administered on at 19:54; Start 09/24/18 at 19:30; Stop 09/24/18 at 19:31; Status DC Info (CONTRAST GIVEN -- Rx MONITORING) 1 each PRN DAILY PRN MC SEE COMMENTS; Start 09/24/18 at 19:30; Stop 09/26/18 at 19:29; Status DC Piperacillin Sod/ Tazobactam Sod 3.375 gm/Sodium Chloride 50 ml @ 100 mls/hr Q6HRS IV Last administered on 09/28/18at 06:20; Start 09/25/18 at 00:00; Stop at 07:22; Status DC Propofol 200 ml @ As Directed STK-MED ONCE IV ; Start 09/25/18 at 09:45; Stop 09/25/18 at 09:46; Status DC Propofol 40 ml @ As Directed STK-MED ONCE IV ; Start 09/25/18 at 09:47; Stop at 09:48; Status DC Epinephrine HCl (EPINEPHrine SYRINGE) 1 mg STK-MED ONCE SQ Last administered on 09/25/18at 09:40; Start 09/25/18 at 09:40; Stop 09/25/18 at 09:54; Status DC Propofol 20 ml @ As Directed STK-MED ONCE IV ; Start 09/25/18 at 10:07; Stop at 10:08; Status DC Lidocaine HCl (Lidocaine Pf 2% Vial) 5 ml STK-MED ONCE .ROUTE ; Start 09/25/18 at 10:07; Stop 09/25/18 at 10:08; Status DC Epinephrine HCl (EPINEPHrine SYRINGE) 1 mg STK-MED ONCE .ROUTE ; Start 09/25/18 at 10:29; Stop 09/25/18 at 10:30; Status DC Throat Lozenges (Cepacol Sore Throat Lozenge) 1 lea PRN Q2HRS PRN PO SORE THROAT Last administered on 09/25/18at 13:58; Start 09/25/18 at 13:45 Propofol (Diprivan) 2,000 mg STK-MED ONCE IV ; Start 09/25/18 at 10:00; Stop at 07:27; Status DC Estradiol (Estrace) 1 carina QMWF@0900 VG Last administered on 09/30/18at 08:11; Start 09/26/18 at 10:00 Lactobacillus Rhamnosus (Culturelle) 1 cap BID PO Last administered on at 08:26; Start 09/26/18 at 10:30 Pantoprazole Sodium (PROTONIX VIAL for IV PUSH) 40 mg DAILYAC IVP Last administered on 09/27/18at 05:03; Start 09/26/18 at 10:30; Stop 09/27/18 at 15:07 ; Status DC Ringer's Solution 1,000 ml @ 50 mls/hr Q20H IV Last administered on 09/27/18at 14:42; Start 09/27/18 at 07:00; Stop 09/27/18 at 18:59; Status DC Potassium Chloride/Water 100 ml @ 100 mls/hr Q1H IV Last administered on at 16:58; Start 09/27/18 at 09:30; Stop 09/27/18 at 13:29; Status DC Atorvastatin Calcium (Lipitor) 40 mg QHS PO Last administered on 09/30/18at 21: 06; Start 09/27/18 at 21:00 Vitamin D (Vitamin D3) 1,000 unit DAILY PO Last administered on 10/01/18at 08:27 ; Start 09/27/18 at 10:00 Guaifenesin (Robitussin) 100 mg PRN Q6HRS PRN PO COUGH; Start 09/27/18 at 09:15 Albuterol Sulfate (Ventolin Neb Soln) 2.5 mg PRN Q4HRS PRN NEB SHORTNESS OF BREATH; Start 09/27/18 at 09:15 Levothyroxine Sodium (Synthroid) 75 mcg DAILYAC PO Last administered on at 07:32; Start 09/27/18 at 09:30 Imipramine HCl (Tofranil) 12.5 mg QHS PO Last administered on 09/30/18at 21:05; Start 09/27/18 at 21:00 Labetalol HCl (Normodyne Iv Push) 20 mg PRN Q2HR PRN IVP HYPERTENSION, SEE COMMENTS; Start 09/27/18 at 12:30 Propofol 20 ml @ As Directed STK-MED ONCE IV ; Start 09/27/18 at 14:52; Stop at 14:53; Status DC Lidocaine HCl (Lidocaine Pf 2% Vial) 5 ml STK-MED ONCE .ROUTE ; Start 09/27/18 at 14:52; Stop 09/27/18 at 14:53; Status DC Sucralfate (Carafate) 1 gm BID PO Last administered on 10/01/18at 08:27; Start 09/27/18 at 21:00 Pantoprazole Sodium (Protonix) 40 mg DAILYAC PO Last administered on 10/01/18at 07:32; Start 09/28/18 at 07:30 Amoxicillin/ Clavulanate Potassium (Augmentin 875/ 125mg) 1 tab BID PO Last administered on 09/30/18at 08:10; Start 09/28/18 at 09:00; Stop 09/30/18 at 10:04 ; Status DC Aspirin (Ecotrin) 81 mg [id number] PO Last administered on 10/01/18at 07:32; Start 09/29/18 at 08:00 Potassium Chloride/Water 100 ml @ 100 mls/hr Q1H IV Last administered on at 02:41; Start 09/30/18 at 09:00; Stop 09/30/18 at 12:59; Status DC Active Scripts Active Reported Levothyroxine Sodium 75 Mcg Tablet 75 Mcg PO DAILYAC Imipramine Hcl 10 Mg Tablet 10 Mg PO HS Guaifenesin 100 Mg/5 Ml Liquid 100 Mg PO PRN Q6HRS PRN Vitamin D3 (Cholecalciferol (Vitamin D3)) 1,000 Unit Tablet 1 Tab PO DAILY Lipitor (Atorvastatin Calcium) 40 Mg Tablet 1 Tab PO QHS Eliquis (Apixaban) 5 Mg Tablet 5 Mg PO BID Duoneb 0.5-3(2.5) Mg/3 Ml (Albuterol/Ipratropium) 3 Ml Ampul.neb 3 Ml NEB PRN Q4HRS PRN Clopidogrel (Clopidogrel Bisulfate) 75 Mg Tablet 1 Tab PO DAILY Vitals/I & O Vital Sign - Last 24 Hours 09/30/18 09/30/18 09/30/18 09/30/18 15:00 19:00 20:17 23:00 Temp 98.3 98.4 98.3 98.3 98.4 98.3 Pulse 69 69 69 Resp 18 18 18 B/P (MAP) 104/58 (73) 137/50 (79) 93/66 (75) Pulse Ox 95 97 92 O2 Delivery Room Air Room Air Room Air Room Air O2 Flow Rate 2.0 2.0 10/01/18 10/01/18 10/01/18 03:00 07:00 11:00 Temp 98.0 97.9 97.7 98.0 97.9 97.7 Pulse 62 71 68 Resp 18 14 14 B/P (MAP) 102/50 (67) 120/41 (67) 135/51 (79) Pulse Ox 100 95 97 O2 Delivery Room Air Room Air Room Air O2 Flow Rate 2.0 2.0 Intake and Output 09/30/18 09/30/18 10/01/18 14:59 22:59 06:59 Output Total 375 ml Balance -375 ml JACE ROA III DO Oct 01, 2018 13:26
[2018-10-01 15:00] VITALS: BP 111/55
[2018-10-01 19:00] VITALS: BP 114/69
[2018-10-01] MEDS: ATORVASTATIN CALCIUM 40 MG TABLET. PO SCH (21:06)
[2018-10-01] MEDS: IMIPRAMINE 25 MG TABLET PO SCH (21:06)
[2018-10-01 23:00] VITALS: BP 154/54
[2018-10-02 03:39] VITALS: BP 176/58
[2018-10-02 05:51] LABS: BASO # 0.1 x10^3/uL (0.0-0.2); BASO % 1 % (0-3); EOS # 0.8 x10^3/uL (0.0-0.7); EOS % 11 % (0-3); HEMATOCRIT 26.1 % (36.0-47.0); HEMOGLOBIN 8.7 g/dL (12.0-15.5); LYMPH # 1.3 x10^3/uL (1.0-4.8); LYMPH % 17 % (24-48); MEAN CORPUSCULAR HEMOGLOBIN 31 pg (25-35); MEAN CORPUSCULAR HGB CONC 33 g/dL (31-37); MEAN CORPUSCULAR VOLUME 92 fL (79-100); MONO # 0.4 x10^3/uL (0.0-1.1); MONO % 6 % (0-9); NEUT % 66 % (31-73); PLATELET COUNT 253 x10^3/uL (140-400); RED BLOOD COUNT 2.84 x10^6/uL (3.50-5.40); RED CELL DISTRIBUTION WIDTH 16.8 % (11.5-14.5); WHITE BLOOD COUNT 7.5 x10^3/uL (4.0-11.0)
[2018-10-02 06:03] LABS: CALCIUM 8.2 mg/dL (8.5-10.1); CREATININE 0.7 mg/dL (0.6-1.0); GFR 80.3; POTASSIUM 3.8 mmol/L (3.5-5.1)
[2018-10-02 07:00] VITALS: BP 154/66
[2018-10-02] MEDS: PANTOPRAZOLE 40 MG TABLET.DR. PO SCH (07:24)
[2018-10-02] MEDS: LEVOTHYROXINE 75 MCG TABLET PO SCH (07:24)
[2018-10-02] MEDS: ASPIRIN ENTERIC COATED 81 MG TABLET.DR. PO SCH (07:25)
[2018-10-02] MEDS: CHOLECALCIFEROL (VITAMIN D3) 1,000 UNIT TABLET PO SCH (08:26)
[2018-10-02] MEDS: LACTOBACILLUS RHAMNOSUS GG 1 CAPSULE. PO SCH ×2 (08:26→20:42)
[2018-10-02] MEDS: SUCRALFATE 1 GM TABLET. PO SCH ×2 (08:26→20:42)
[2018-10-02 11:00] VITALS: BP 125/55
--- NOTE | 2018-10-02 13:15 | PDOC ---
PROGRESS NOTES Chief Complaint Chief Complaint CC: GI bleed History of Present Illness History of Present Illness Patient seen and examined this morning, sitting up right in chair, daughter at bedside Pts and daughter asking if she can go today, all questions answered Per nursing, stools have become less melanotic No new complaints Vitals Vitals Vital Signs Date Time Temp Pulse Resp B/P (MAP) Pulse Ox O2 Delivery O2 Flow Rate FiO2 10/02/18 11:00 98.4 65 12 125/55 (78) 97 Room Air 98.4 10/01/18 07:00 2.0 Physical Exam Physical Exam General: Alert, Cooperative, No acute distress, Other (pleasantly confused) Heart: Regular rate, Normal S1, Normal S2, Other (systolic murmur 3/6) Lungs: Clear, Other (No crackels or wheezing ) Abdomen: Normal bowel sounds, Soft, No tenderness, No hepatosplenomegaly Extremities: No clubbing, No cyanosis, Normal pulses Skin: No rashes, No breakdown, No significant lesion Labs LABS Laboratory Tests Test 10/02/18 05:40 White Blood Count 7.5 x10^3/uL (4.0-11.0) Red Blood Count 2.84 x10^6/uL (3.50-5.40) Hemoglobin 8.7 g/dL (12.0-15.5) Hematocrit 26.1 % (36.0-47.0) Mean Corpuscular Volume 92 fL (79-100) Mean Corpuscular Hemoglobin 31 pg (25-35) Mean Corpuscular Hemoglobin Concent 33 g/dL (31-37) Red Cell Distribution Width 16.8 % (11.5-14.5) Platelet Count 253 x10^3/uL (140-400) Neutrophils (%) (Auto) 66 % (31-73) Lymphocytes (%) (Auto) 17 % (24-48) Monocytes (%) (Auto) 6 % (0-9) Eosinophils (%) (Auto) 11 % (0-3) Basophils (%) (Auto) 1 % (0-3) Neutrophils # (Auto) 5.0 x10^3uL (1.8-7.7) Lymphocytes # (Auto) 1.3 x10^3/uL (1.0-4.8) Monocytes # (Auto) 0.4 x10^3/uL (0.0-1.1) Eosinophils # (Auto) 0.8 x10^3/uL (0.0-0.7) Basophils # (Auto) 0.1 x10^3/uL (0.0-0.2) Sodium Level 143 mmol/L (136-145) Potassium Level 3.8 mmol/L (3.5-5.1) Chloride Level 108 mmol/L (98-107) Carbon Dioxide Level 30 mmol/L (21-32) Anion Gap 5 (6-14) Blood Urea Nitrogen 8 mg/dL (7-20) Creatinine 0.7 mg/dL (0.6-1.0) Estimated GFR (Cockcroft-Gault) 80.3 Glucose Level 105 mg/dL (70-99) Calcium Level 8.2 mg/dL (8.5-10.1) Review of Systems Review of Systems Denies CP/SOA Denies N/V Denies F/C Assessment and Plan Assessmemt and Plan Assessment: Acute GI bleed Severe anemia secondary to acute blood loss Gastritis Duodenitis Leukocytosis and lactic acidosis, likely reactive Moderate dementia CAD with recent LAD stent on 09/24/18 on ASA, plavix at home DVT right lower leg on eliquis at home Recent pseudoaneurysm of R femoral artery Urinary retention R hydronephrosis, ? uretal stone Severe aortic stenosis Diabetes mellitus, type 2 Recurrent UTI, history of Plan: D/c to [facility] today given pts Hgb has stabilized and increased from yesterday, 8.7 from 7.6, and stools are less melanotic Will restart Eliquis & Plavix, pt instructed to stop medication and f/u should stools darken in color EGD on 09/27 negative for bleed, continue PPI and carafate, appreciate GI recommendations Heme: Good response to transfusion, s/p 5 U PRBC, 1 U FFP; Hbg 8.7 today on d/c ID: started on empiric antibiotics for leukocytosis & lactic acidosis, discontinued abx, pt has beens stable w/o signs or symptoms of infection. Instructed to f/u should symptoms return. Uro: vaginal estradiol for frequent UTIs, signed off. Appreciate subspecialty recs PT/OT orders Discussed care with RN Problems Medical Problems: (1) Dizziness Status: Acute (2) GI bleeding Status: Acute Comment Review of Relevant I have reviewed the following items matty (where applicable) has been applied. Labs Laboratory Tests Test 10/01/18 03:52 10/02/18 05:40 White Blood Count 6.2 x10^3/uL (4.0-11.0) 7.5 x10^3/uL (4.0-11.0) Red Blood Count 2.48 x10^6/uL (3.50-5.40) 2.84 x10^6/uL (3.50-5.40) Hemoglobin 7.6 g/dL (12.0-15.5) 8.7 g/dL (12.0-15.5) Hematocrit 23.1 % (36.0-47.0) 26.1 % (36.0-47.0) Mean Corpuscular Volume 93 fL (79-100) 92 fL (79-100) Mean Corpuscular Hemoglobin 31 pg (25-35) 31 pg (25-35) Mean Corpuscular Hemoglobin Concent 33 g/dL (31-37) 33 g/dL (31-37) Red Cell Distribution Width 16.8 % (11.5-14.5) 16.8 % (11.5-14.5) Platelet Count 147 x10^3/uL (140-400) 253 x10^3/uL (140-400) Neutrophils (%) (Auto) 62 % (31-73) 66 % (31-73) Lymphocytes (%) (Auto) 22 % (24-48) 17 % (24-48) Monocytes (%) (Auto) 6 % (0-9) 6 % (0-9) Eosinophils (%) (Auto) 10 % (0-3) 11 % (0-3) Basophils (%) (Auto) 1 % (0-3) 1 % (0-3) Neutrophils # (Auto) 3.8 x10^3uL (1.8-7.7) 5.0 x10^3uL (1.8-7.7) Lymphocytes # (Auto) 1.3 x10^3/uL (1.0-4.8) 1.3 x10^3/uL (1.0-4.8) Monocytes # (Auto) 0.4 x10^3/uL (0.0-1.1) 0.4 x10^3/uL (0.0-1.1) Eosinophils # (Auto) 0.6 x10^3/uL (0.0-0.7) 0.8 x10^3/uL (0.0-0.7) Basophils # (Auto) 0.0 x10^3/uL (0.0-0.2) 0.1 x10^3/uL (0.0-0.2) Sodium Level 144 mmol/L (136-145) 143 mmol/L (136-145) Potassium Level 4.2 mmol/L (3.5-5.1) 3.8 mmol/L (3.5-5.1) Chloride Level 111 mmol/L (98-107) 108 mmol/L (98-107) Carbon Dioxide Level 29 mmol/L (21-32) 30 mmol/L (21-32) Anion Gap 4 (6-14) 5 (6-14) Blood Urea Nitrogen 9 mg/dL (7-20) 8 mg/dL (7-20) Creatinine 0.6 mg/dL (0.6-1.0) 0.7 mg/dL (0.6-1.0) Estimated GFR (Cockcroft-Gault) 95.9 80.3 Glucose Level 101 mg/dL (70-99) 105 mg/dL (70-99) Calcium Level 7.8 mg/dL (8.5-10.1) 8.2 mg/dL (8.5-10.1) Laboratory Tests Test 10/02/18 05:40 White Blood Count 7.5 x10^3/uL (4.0-11.0) Red Blood Count 2.84 x10^6/uL (3.50-5.40) Hemoglobin 8.7 g/dL (12.0-15.5) Hematocrit 26.1 % (36.0-47.0) Mean Corpuscular Volume 92 fL (79-100) Mean Corpuscular Hemoglobin 31 pg (25-35) Mean Corpuscular Hemoglobin Concent 33 g/dL (31-37) Red Cell Distribution Width 16.8 % (11.5-14.5) Platelet Count 253 x10^3/uL (140-400) Neutrophils (%) (Auto) 66 % (31-73) Lymphocytes (%) (Auto) 17 % (24-48) Monocytes (%) (Auto) 6 % (0-9) Eosinophils (%) (Auto) 11 % (0-3) Basophils (%) (Auto) 1 % (0-3) Neutrophils # (Auto) 5.0 x10^3uL (1.8-7.7) Lymphocytes # (Auto) 1.3 x10^3/uL (1.0-4.8) Monocytes # (Auto) 0.4 x10^3/uL (0.0-1.1) Eosinophils # (Auto) 0.8 x10^3/uL (0.0-0.7) Basophils # (Auto) 0.1 x10^3/uL (0.0-0.2) Sodium Level 143 mmol/L (136-145) Potassium Level 3.8 mmol/L (3.5-5.1) Chloride Level 108 mmol/L (98-107) Carbon Dioxide Level 30 mmol/L (21-32) Anion Gap 5 (6-14) Blood Urea Nitrogen 8 mg/dL (7-20) Creatinine 0.7 mg/dL (0.6-1.0) Estimated GFR (Cockcroft-Gault) 80.3 Glucose Level 105 mg/dL (70-99) Calcium Level 8.2 mg/dL (8.5-10.1) Microbiology 09/25/18 Blood Culture - Final, Complete NO GROWTH AFTER 5 DAYS Medications Current Medications Sodium Chloride 1,000 ml @ 1,000 mls/hr 1X ONCE IV Last administered on at 17:40; Start 09/24/18 at 17:15; Stop 09/24/18 at 18:14; Status DC Pantoprazole Sodium (PROTONIX VIAL for IV PUSH) 40 mg 1X ONCE IVP Last administered on 09/24/18at 17:43; Start 09/24/18 at 17:15; Stop 09/24/18 at 17:16 ; Status DC Pantoprazole Sodium 80 mg/ Sodium Chloride 100 ml @ 10 mls/hr 1X ONCE IV Last administered on 09/24/18at 20:18; Start 09/24/18 at 19:00; Stop 09/25/18 at 04:59; Status DC Sodium Chloride 1,000 ml @ 75 mls/hr [id number] IV Last administered on at 08:29; Start 09/24/18 at 19:09; Stop 09/25/18 at 19:08; Status DC Iohexol (Omnipaque 350 Mg/ml) 100 ml 1X ONCE IV Last administered on at 19:54; Start 09/24/18 at 19:30; Stop 09/24/18 at 19:31; Status DC Info (CONTRAST GIVEN -- Rx MONITORING) 1 each PRN DAILY PRN MC SEE COMMENTS; Start 09/24/18 at 19:30; Stop 09/26/18 at 19:29; Status DC Piperacillin Sod/ Tazobactam Sod 3.375 gm/Sodium Chloride 50 ml @ 100 mls/hr Q6HRS IV Last administered on 09/28/18at 06:20; Start 09/25/18 at 00:00; Stop at 07:22; Status DC Propofol 200 ml @ As Directed STK-MED ONCE IV ; Start 09/25/18 at 09:45; Stop 09/25/18 at 09:46; Status DC Propofol 40 ml @ As Directed STK-MED ONCE IV ; Start 09/25/18 at 09:47; Stop at 09:48; Status DC Epinephrine HCl (EPINEPHrine SYRINGE) 1 mg STK-MED ONCE SQ Last administered on 09/25/18at 09:40; Start 09/25/18 at 09:40; Stop 09/25/18 at 09:54; Status DC Propofol 20 ml @ As Directed STK-MED ONCE IV ; Start 09/25/18 at 10:07; Stop at 10:08; Status DC Lidocaine HCl (Lidocaine Pf 2% Vial) 5 ml STK-MED ONCE .ROUTE ; Start 09/25/18 at 10:07; Stop 09/25/18 at 10:08; Status DC Epinephrine HCl (EPINEPHrine SYRINGE) 1 mg STK-MED ONCE .ROUTE ; Start 09/25/18 at 10:29; Stop 09/25/18 at 10:30; Status DC Throat Lozenges (Cepacol Sore Throat Lozenge) 1 lea PRN Q2HRS PRN PO SORE THROAT Last administered on 09/25/18at 13:58; Start 09/25/18 at 13:45 Propofol (Diprivan) 2,000 mg STK-MED ONCE IV ; Start 09/25/18 at 10:00; Stop at 07:27; Status DC Estradiol (Estrace) 1 carina QMWF@0900 VG Last administered on 09/30/18 08:11; Start 09/26/18 at 10:00 Lactobacillus Rhamnosus (Culturelle) 1 cap BID PO Last administered on at 08:26; Start 09/26/18 at 10:30 Pantoprazole Sodium (PROTONIX VIAL for IV PUSH) 40 mg DAILYAC IVP Last administered on 09/27/18 05:03; Start 09/26/18 at 10:30; Stop 09/27/18 at 15:07 ; Status DC Ringer's Solution 1,000 ml @ 50 mls/hr Q20H IV Last administered on 09/27/18at 14:42; Start 09/27/18 at 07:00; Stop 09/27/18 at 18:59; Status DC Potassium Chloride/Water 100 ml @ 100 mls/hr Q1H IV Last administered on at 16:58; Start 09/27/18 at 09:30; Stop 09/27/18 at 13:29; Status DC Atorvastatin Calcium (Lipitor) 40 mg QHS PO Last administered on 10/01/18at 21: 06; Start 09/27/18 at 21:00 Vitamin D (Vitamin D3) 1,000 unit DAILY PO Last administered on 10/02/18 08:26 ; Start 09/27/18 at 10:00 Guaifenesin (Robitussin) 100 mg PRN Q6HRS PRN PO COUGH; Start 09/27/18 at 09:15 Albuterol Sulfate (Ventolin Neb Soln) 2.5 mg PRN Q4HRS PRN NEB SHORTNESS OF BREATH; Start 09/27/18 at 09:15 Levothyroxine Sodium (Synthroid) 75 mcg DAILYAC PO Last administered on at 07:24; Start 09/27/18 at 09:30 Imipramine HCl (Tofranil) 12.5 mg QHS PO Last administered on 10/01/18at 21:06; Start 09/27/18 at 21:00 Labetalol HCl (Normodyne Iv Push) 20 mg PRN Q2HR PRN IVP HYPERTENSION, SEE COMMENTS; Start 09/27/18 at 12:30 Propofol 20 ml @ As Directed STK-MED ONCE IV ; Start 09/27/18 at 14:52; Stop at 14:53; Status DC Lidocaine HCl (Lidocaine Pf 2% Vial) 5 ml STK-MED ONCE .ROUTE ; Start 09/27/18 at 14:52; Stop 09/27/18 at 14:53; Status DC Sucralfate (Carafate) 1 gm BID PO Last administered on 10/02/18at 08:26; Start 09/27/18 at 21:00 Pantoprazole Sodium (Protonix) 40 mg DAILYAC PO Last administered on 10/02/18at 07:24; Start 09/28/18 at 07:30 Amoxicillin/ Clavulanate Potassium (Augmentin 875/ 125mg) 1 tab BID PO Last administered on 09/30/18at 08:10; Start 09/28/18 at 09:00; Stop 09/30/18 at 10:04 ; Status DC Aspirin (Ecotrin) 81 mg DAILYWBKFT PO Last administered on 10/02/18at 07:25; Start 09/29/18 at 08:00 Potassium Chloride/Water 100 ml @ 100 mls/hr Q1H IV Last administered on at 02:41; Start 09/30/18 at 09:00; Stop 09/30/18 at 12:59; Status DC Active Scripts Active Reported Levothyroxine Sodium 75 Mcg Tablet 75 Mcg PO DAILYAC Imipramine Hcl 10 Mg Tablet 10 Mg PO HS Guaifenesin 100 Mg/5 Ml Liquid 100 Mg PO PRN Q6HRS PRN Vitamin D3 (Cholecalciferol (Vitamin D3)) 1,000 Unit Tablet 1 Tab PO DAILY Lipitor (Atorvastatin Calcium) 40 Mg Tablet 1 Tab PO QHS Eliquis (Apixaban) 5 Mg Tablet 5 Mg PO BID Duoneb 0.5-3(2.5) Mg/3 Ml (Albuterol/Ipratropium) 3 Ml Ampul.neb 3 Ml NEB PRN Q4HRS PRN Clopidogrel (Clopidogrel Bisulfate) 75 Mg Tablet 1 Tab PO DAILY Vitals/I & O Vital Sign - Last 24 Hours 10/01/18 10/01/18 10/01/18 10/01/18 15:00 19:00 19:30 23:00 Temp 98.5 98.0 98.2 98.5 98.0 98.2 Pulse 71 66 66 Resp 14 20 20 B/P (MAP) 111/55 (73) 114/69 (84) 154/54 (87) Pulse Ox 92 99 98 O2 Delivery Room Air Room Air Room Air Room Air 10/02/18 10/02/18 10/02/18 10/02/18 03:39 07:00 08:00 11:00 Temp 98.0 97.6 98.4 98.0 97.6 98.4 Pulse 68 65 65 Resp 20 12 12 B/P (MAP) 176/58 (97) 154/66 (95) 125/55 (78) Pulse Ox 100 98 97 O2 Delivery Room Air Room Air Room Air Room Air Intake and Output 10/01/18 10/01/18 10/02/18 15:00 23:00 07:00 Intake Total 120 ml 120 ml Output Total 2 ml 1 ml Balance 118 ml 120 ml -1 ml JACE ROA III DO Oct 02, 2018 13:15
[2018-10-02 15:00] VITALS: BP 110/34
[2018-10-02 19:00] VITALS: BP 149/64
[2018-10-02] MEDS: ATORVASTATIN CALCIUM 40 MG TABLET. PO SCH (20:42)
[2018-10-02] MEDS: IMIPRAMINE 25 MG TABLET PO SCH (20:42)
[2018-10-02 23:00] VITALS: BP 126/60
[2018-10-03 03:00] VITALS: BP_SYST 123; BP_SYST 130; BP_DIAS 36; BP_DIAS 83
[2018-10-03 05:44] LABS: BASO # 0.1 x10^3/uL (0.0-0.2); BASO % 1 % (0-3); EOS # 0.7 x10^3/uL (0.0-0.7); EOS % 11 % (0-3); HEMATOCRIT 24.4 % (36.0-47.0); HEMOGLOBIN 8.2 g/dL (12.0-15.5); LYMPH # 1.5 x10^3/uL (1.0-4.8); LYMPH % 23 % (24-48); MEAN CORPUSCULAR HEMOGLOBIN 31 pg (25-35); MEAN CORPUSCULAR HGB CONC 34 g/dL (31-37); MEAN CORPUSCULAR VOLUME 91 fL (79-100); MONO # 0.4 x10^3/uL (0.0-1.1); MONO % 6 % (0-9); NEUT # 3.9 x10^3uL (1.8-7.7); NEUT % 59 % (31-73); PLATELET COUNT 266 x10^3/uL (140-400); RED BLOOD COUNT 2.67 x10^6/uL (3.50-5.40); WHITE BLOOD COUNT 6.6 x10^3/uL (4.0-11.0)
[2018-10-03 05:54] LABS: CREATININE 0.7 mg/dL (0.6-1.0); GFR 80.3; POTASSIUM 3.5 mmol/L (3.5-5.1)
[2018-10-03 07:00] VITALS: BP 140/62
--- NOTE | 2018-10-03 09:19 | PDOC ---
Subjective: Subjective: Feels fine. I asked about bleeding - "it's hard to say, there's some black in it." Objective: Objective: D/w RN - unclear when last stooled - either 10/01 or 10/02, received in report stools are "black and loose." Was going to discharge yesterday but held "for a change" (though it's unclear what changed). Vital Signs: Vital Signs Date Time Temp Pulse Resp B/P (MAP) Pulse Ox O2 Delivery O2 Flow Rate FiO2 10/03/18 07:00 98.3 70 18 140/62 (88) 98 Room Air 98.3 Labs: Laboratory Tests Test 10/03/18 05:25 White Blood Count 6.6 x10^3/uL Red Blood Count 2.67 x10^6/uL Hemoglobin 8.2 g/dL Hematocrit 24.4 % Mean Corpuscular Volume 91 fL Mean Corpuscular Hemoglobin 31 pg Mean Corpuscular Hemoglobin Concent 34 g/dL Red Cell Distribution Width 16.0 % Platelet Count 266 x10^3/uL Neutrophils (%) (Auto) 59 % Lymphocytes (%) (Auto) 23 % Monocytes (%) (Auto) 6 % Eosinophils (%) (Auto) 11 % Basophils (%) (Auto) 1 % Neutrophils # (Auto) 3.9 x10^3uL Lymphocytes # (Auto) 1.5 x10^3/uL Monocytes # (Auto) 0.4 x10^3/uL Eosinophils # (Auto) 0.7 x10^3/uL Basophils # (Auto) 0.1 x10^3/uL Sodium Level 141 mmol/L Potassium Level 3.5 mmol/L Chloride Level 106 mmol/L Carbon Dioxide Level 31 mmol/L Anion Gap 4 Blood Urea Nitrogen 9 mg/dL Creatinine 0.7 mg/dL Estimated GFR (Cockcroft-Gault) 80.3 Glucose Level 100 mg/dL Calcium Level 8.0 mg/dL PE: GEN: NAD, laying in bed watching tv - breakfast tray empty LUNGS: CTAB HEART: RRR ABD: NABS, S/ND/NT NEURO/PSYCH: A & O 3, probably forgetful A/P: Melena, UGI bleeding - s/p EGD x 2 Anemia - Hgb improved/stable (8s), last transfused on 4/18 H/o CAD and DVT - on ASA 81mg QD as inpt -- Reports unclear re: ongoing melena, but Hgb is stable, BUN remains WNL, and hasn 't required transfusion in a few days. Discharge plans unclear - okay per GI on PPI and Carafate. Defer Eliquis/ Plavix decisions to cardiology, etc. MARIUM NGO Oct 03, 2018 09:19
--- NOTE | 2018-10-03 09:30 | PDOC ---
SUBJECTIVE Subjective S: Feeling fine, anticipating discharge O: Physical exam: Gen.: Well-nourished and well-developed, resting in bed Lungs: Breathing comfortably Psychiatric: Pleasant mood and affect Labs: White count 6.6, hemoglobin 8.2, platelets 266 ferritin of 84 Iron sat 20% TIBC low Reticulocyte 11% on 30 September but after 5 unit transfusion Haptoglobin not bound, LDH normal, T bili normal Assessment and Plan: She is an 83-year-old female with history of coronary artery disease and recent stent in August with DVT recently on Eliquis and Plavix , in with anemia and GI bleed which has been treated, with baseline dementia. History of recent DVT: No evidence of DVT at this time on u/s reassuring, would withhold anticoagulation at this point in time from a venous thrombosis standpoint, also with possible hematoma would not restart anticoagulation, if she did need it in the future would consider dose reduction, does not have a need for IVC filter at this time Frequent UTIs: Vaginal estradiol was recommended by urology, would doubt she would get significant systemic absorption but do caution hormones with history of thrombosis Coronary artery disease: Defer to cardiology regarding the antiplatelet agents necessary with recent stent, currently back on baby aspirin daily Aortic stenosis: Per cardiology, however her reticulocyte was elevated after transfusion but the total bili was not increased and LDH was normal and haptoglobin was not bound, do not think she is having significant hemolysis, do suspect the anemia was to GI bleeding that should improve off anticoagulation hopefully GI bleed: GI is involved, recent duodenal ulcer injected with epi, good response to transfusion, no obvious recurrence of bleeding by labs or repeat EGD Anemia: Her hemoglobin has stayed over 7 after 5 units red blood cells and 1 unit of FFP, iron is currently adequate Disposition: After continued clinical improvement Thank you kindly, and please don't hesitate to call with any further questions. OBJECTIVE Vital Signs Vital Signs Date Time Temp Pulse Resp B/P (MAP) Pulse Ox O2 Delivery O2 Flow Rate FiO2 10/03/18 07:00 98.3 70 18 140/62 (88) 98 Room Air 98.3 10/03/18 03:00 98.1 67 20 130/36 (67) 97 98.1 10/02/18 23:00 99.1 69 18 126/60 (82) 97 99.1 10/02/18 19:00 98.5 68 18 149/64 (92) 95 98.5 10/02/18 19:00 Room Air 10/02/18 15:00 98.3 63 14 110/34 (59) 90 Room Air 98.3 10/02/18 11:00 98.4 65 12 125/55 (78) 97 Room Air 98.4 I & O Intake and Output 10/03/18 06:59 Intake Total 660 ml Balance 660 ml Intake Oral 660 ml # Voids 4 COMMENT Lab Laboratory Tests Test 10/03/18 05:25 White Blood Count 6.6 x10^3/uL (4.0-11.0) Red Blood Count 2.67 x10^6/uL (3.50-5.40) Hemoglobin 8.2 g/dL (12.0-15.5) Hematocrit 24.4 % (36.0-47.0) Mean Corpuscular Volume 91 fL (79-100) Mean Corpuscular Hemoglobin 31 pg (25-35) Mean Corpuscular Hemoglobin Concent 34 g/dL (31-37) Red Cell Distribution Width 16.0 % (11.5-14.5) Platelet Count 266 x10^3/uL (140-400) Neutrophils (%) (Auto) 59 % (31-73) Lymphocytes (%) (Auto) 23 % (24-48) Monocytes (%) (Auto) 6 % (0-9) Eosinophils (%) (Auto) 11 % (0-3) Basophils (%) (Auto) 1 % (0-3) Neutrophils # (Auto) 3.9 x10^3uL (1.8-7.7) Lymphocytes # (Auto) 1.5 x10^3/uL (1.0-4.8) Monocytes # (Auto) 0.4 x10^3/uL (0.0-1.1) Eosinophils # (Auto) 0.7 x10^3/uL (0.0-0.7) Basophils # (Auto) 0.1 x10^3/uL (0.0-0.2) Sodium Level 141 mmol/L (136-145) Potassium Level 3.5 mmol/L (3.5-5.1) Chloride Level 106 mmol/L (98-107) Carbon Dioxide Level 31 mmol/L (21-32) Anion Gap 4 (6-14) Blood Urea Nitrogen 9 mg/dL (7-20) Creatinine 0.7 mg/dL (0.6-1.0) Estimated GFR (Cockcroft-Gault) 80.3 Glucose Level 100 mg/dL (70-99) Calcium Level 8.0 mg/dL (8.5-10.1) MELVA HALE MD Oct 03, 2018 09:29
[2018-10-03] MEDS: LEVOTHYROXINE 75 MCG TABLET PO SCH (09:35)
[2018-10-03] MEDS: LACTOBACILLUS RHAMNOSUS GG 1 CAPSULE. PO SCH (09:35)
[2018-10-03] MEDS: CHOLECALCIFEROL (VITAMIN D3) 1,000 UNIT TABLET PO SCH (09:35)
[2018-10-03] MEDS: SUCRALFATE 1 GM TABLET. PO SCH (09:35)
[2018-10-03] MEDS: PANTOPRAZOLE 40 MG TABLET.DR. PO SCH (09:35)
[2018-10-03] MEDS: ASPIRIN ENTERIC COATED 81 MG TABLET.DR. PO SCH (09:35)
[2018-10-03 10:41] VITALS: BP 137/60
--- NOTE | 2018-10-03 11:23 | SNU/HH DC ---
DISCHARGE ORDERS DISCHARGE INFORMATION: FINAL DIAGNOSIS Problems Medical Problems: (1) Dizziness Status: Acute (2) GI bleeding Status: Acute CONDITION ON DISCHARGE: Stable CODE STATUS: Code Status: Full INTERMEDIATE: SNF STAY <30 DAYS: Yes HOSPICE: HOSPICE: No HOSPICE EVAL & TREAT: No LTAC: ADMIT TO LTAC: No POST DISCHARGE ORDERS: ACTIVITY ORDERS: Resume previous activity DIET AFTER DISCHARGE: Cardiac TREATMENT/EQUIPMENT ORDERS: Physical Therapy For: Evalulation/Treatment Occupational Therapy For: Evaluation/Treatment DISCHARGE MEDICATIONS: Home Meds Reported Medications Levothyroxine Sodium (LEVOTHYROXINE SODIUM) 75 Mcg Tablet, 75 MCG PO DAILYAC for THYROID SUPPLEMENT, #30 TAB 0 Refills 09/24/18 Imipramine Hcl (IMIPRAMINE HCL) 10 Mg Tablet, 10 MG PO HS for depression, TAB 09/24/18 Guaifenesin (GUAIFENESIN) 100 Mg/5 Ml Liquid, 100 MG PO PRN Q6HRS PRN for COUGH, LIQUID 09/24/18 Cholecalciferol (Vitamin D3) (VITAMIN D3) 1,000 Unit Tablet, 1 TAB PO DAILY for vitamin, #30 TAB 5 Refills 09/24/18 Atorvastatin Calcium (LIPITOR) 40 Mg Tablet, 1 TAB PO QHS for cholesterol, #90 TAB 1 Refill 09/24/18 Apixaban (ELIQUIS) 5 Mg Tablet, 5 MG PO BID for clot prevention, TAB 09/24/18 Ipratropium/Albuterol Sulfate (DUONEB 0.5-3(2.5) MG/3 ML) 3 Ml Ampul.neb, 3 ML NEB PRN Q4HRS PRN for WHEEZING, EACH 09/24/18 Clopidogrel Bisulfate (CLOPIDOGREL) 75 Mg Tablet, 1 TAB PO DAILY for clot prevention, #90 TAB 1 Refill 09/24/18 JACE ROA III DO Oct 03, 2018 11:23
--- NOTE | 2018-10-03 12:40 | PDOC ---
PROGRESS NOTES Chief Complaint Chief Complaint CC: GI bleed History of Present Illness History of Present Illness Patient seen and examined this morning, was working with therapies Unsure why pt was not d/c yesterday, reports she is ready to be d/c to [place] No new complaints Vitals Vitals Vital Signs Date Time Temp Pulse Resp B/P (MAP) Pulse Ox O2 Delivery O2 Flow Rate FiO2 10/03/18 10:41 98.0 78 18 137/60 (85) 97 Room Air 98.0 Physical Exam Physical Exam General: Alert, Cooperative, No acute distress Heart: Regular rate, Normal S1, Normal S2, Other (systolic murmur 3/6) Lungs: Clear, Other (No crackels or wheezing ) Abdomen: Normal bowel sounds, Soft, No tenderness, No hepatosplenomegaly Extremities: No clubbing, No cyanosis, Normal pulses Skin: No rashes, No breakdown, No significant lesion Labs LABS Laboratory Tests Test 10/03/18 05:25 White Blood Count 6.6 x10^3/uL (4.0-11.0) Red Blood Count 2.67 x10^6/uL (3.50-5.40) Hemoglobin 8.2 g/dL (12.0-15.5) Hematocrit 24.4 % (36.0-47.0) Mean Corpuscular Volume 91 fL (79-100) Mean Corpuscular Hemoglobin 31 pg (25-35) Mean Corpuscular Hemoglobin Concent 34 g/dL (31-37) Red Cell Distribution Width 16.0 % (11.5-14.5) Platelet Count 266 x10^3/uL (140-400) Neutrophils (%) (Auto) 59 % (31-73) Lymphocytes (%) (Auto) 23 % (24-48) Monocytes (%) (Auto) 6 % (0-9) Eosinophils (%) (Auto) 11 % (0-3) Basophils (%) (Auto) 1 % (0-3) Neutrophils # (Auto) 3.9 x10^3uL (1.8-7.7) Lymphocytes # (Auto) 1.5 x10^3/uL (1.0-4.8) Monocytes # (Auto) 0.4 x10^3/uL (0.0-1.1) Eosinophils # (Auto) 0.7 x10^3/uL (0.0-0.7) Basophils # (Auto) 0.1 x10^3/uL (0.0-0.2) Sodium Level 141 mmol/L (136-145) Potassium Level 3.5 mmol/L (3.5-5.1) Chloride Level 106 mmol/L (98-107) Carbon Dioxide Level 31 mmol/L (21-32) Anion Gap 4 (6-14) Blood Urea Nitrogen 9 mg/dL (7-20) Creatinine 0.7 mg/dL (0.6-1.0) Estimated GFR (Cockcroft-Gault) 80.3 Glucose Level 100 mg/dL (70-99) Calcium Level 8.0 mg/dL (8.5-10.1) Review of Systems Review of Systems Denies F/C Denies N/V today Denies CP or SOA Assessment and Plan Assessmemt and Plan Assessment: Acute GI bleed Severe anemia secondary to acute blood loss Gastritis Duodenitis Leukocytosis and lactic acidosis, likely reactive Moderate dementia CAD with recent LAD stent on 09/24/18 on ASA, plavix at home DVT right lower leg on eliquis at home Recent pseudoaneurysm of R femoral artery Urinary retention R hydronephrosis, ? uretal stone Severe aortic stenosis Diabetes mellitus, type 2 Recurrent UTI, history of Plan: Not sure why D/c was held yesterday, will re-discharge to [facility] today- pts Hgb has stabilized (8's) & stools are less melanotic EGDx2 (-) on 09/27 for bleed, continue PPI and carafate, appreciate GI recommendations Heme: Good response to transfusion, s/p 5 U PRBC, 1 U FFP; Hbg 8.2 today on d/c ID: started on empiric antibiotics for leukocytosis & lactic acidosis, discontinued abx, pt has beens stable w/o signs or symptoms of infection. Instructed to f/u should symptoms return. Uro: vaginal estradiol for frequent UTIs- signed off, given hx of DVT pt should use caution when using hormone replacement Therapy On ASA 81mg QD, was taking Eliquis & Plavix as out pt. Appreciate subspecialty recs Tolerating regular diet PT/OT orders Discussed care with RN Problems Medical Problems: (1) Dizziness Status: Acute (2) GI bleeding Status: Acute Comment Review of Relevant I have reviewed the following items matty (where applicable) has been applied. Labs Laboratory Tests Test 10/02/18 05:40 10/03/18 05:25 White Blood Count 7.5 x10^3/uL (4.0-11.0) 6.6 x10^3/uL (4.0-11.0) Red Blood Count 2.84 x10^6/uL (3.50-5.40) 2.67 x10^6/uL (3.50-5.40) Hemoglobin 8.7 g/dL (12.0-15.5) 8.2 g/dL (12.0-15.5) Hematocrit 26.1 % (36.0-47.0) 24.4 % (36.0-47.0) Mean Corpuscular Volume 92 fL (79-100) 91 fL (79-100) Mean Corpuscular Hemoglobin 31 pg (25-35) 31 pg (25-35) Mean Corpuscular Hemoglobin Concent 33 g/dL (31-37) 34 g/dL (31-37) Red Cell Distribution Width 16.8 % (11.5-14.5) 16.0 % (11.5-14.5) Platelet Count 253 x10^3/uL (140-400) 266 x10^3/uL (140-400) Neutrophils (%) (Auto) 66 % (31-73) 59 % (31-73) Lymphocytes (%) (Auto) 17 % (24-48) 23 % (24-48) Monocytes (%) (Auto) 6 % (0-9) 6 % (0-9) Eosinophils (%) (Auto) 11 % (0-3) 11 % (0-3) Basophils (%) (Auto) 1 % (0-3) 1 % (0-3) Neutrophils # (Auto) 5.0 x10^3uL (1.8-7.7) 3.9 x10^3uL (1.8-7.7) Lymphocytes # (Auto) 1.3 x10^3/uL (1.0-4.8) 1.5 x10^3/uL (1.0-4.8) Monocytes # (Auto) 0.4 x10^3/uL (0.0-1.1) 0.4 x10^3/uL (0.0-1.1) Eosinophils # (Auto) 0.8 x10^3/uL (0.0-0.7) 0.7 x10^3/uL (0.0-0.7) Basophils # (Auto) 0.1 x10^3/uL (0.0-0.2) 0.1 x10^3/uL (0.0-0.2) Sodium Level 143 mmol/L (136-145) 141 mmol/L (136-145) Potassium Level 3.8 mmol/L (3.5-5.1) 3.5 mmol/L (3.5-5.1) Chloride Level 108 mmol/L (98-107) 106 mmol/L (98-107) Carbon Dioxide Level 30 mmol/L (21-32) 31 mmol/L (21-32) Anion Gap 5 (6-14) 4 (6-14) Blood Urea Nitrogen 8 mg/dL (7-20) 9 mg/dL (7-20) Creatinine 0.7 mg/dL (0.6-1.0) 0.7 mg/dL (0.6-1.0) Estimated GFR (Cockcroft-Gault) 80.3 80.3 Glucose Level 105 mg/dL (70-99) 100 mg/dL (70-99) Calcium Level 8.2 mg/dL (8.5-10.1) 8.0 mg/dL (8.5-10.1) Laboratory Tests Test 10/03/18 05:25 White Blood Count 6.6 x10^3/uL (4.0-11.0) Red Blood Count 2.67 x10^6/uL (3.50-5.40) Hemoglobin 8.2 g/dL (12.0-15.5) Hematocrit 24.4 % (36.0-47.0) Mean Corpuscular Volume 91 fL (79-100) Mean Corpuscular Hemoglobin 31 pg (25-35) Mean Corpuscular Hemoglobin Concent 34 g/dL (31-37) Red Cell Distribution Width 16.0 % (11.5-14.5) Platelet Count 266 x10^3/uL (140-400) Neutrophils (%) (Auto) 59 % (31-73) Lymphocytes (%) (Auto) 23 % (24-48) Monocytes (%) (Auto) 6 % (0-9) Eosinophils (%) (Auto) 11 % (0-3) Basophils (%) (Auto) 1 % (0-3) Neutrophils # (Auto) 3.9 x10^3uL (1.8-7.7) Lymphocytes # (Auto) 1.5 x10^3/uL (1.0-4.8) Monocytes # (Auto) 0.4 x10^3/uL (0.0-1.1) Eosinophils # (Auto) 0.7 x10^3/uL (0.0-0.7) Basophils # (Auto) 0.1 x10^3/uL (0.0-0.2) Sodium Level 141 mmol/L (136-145) Potassium Level 3.5 mmol/L (3.5-5.1) Chloride Level 106 mmol/L (98-107) Carbon Dioxide Level 31 mmol/L (21-32) Anion Gap 4 (6-14) Blood Urea Nitrogen 9 mg/dL (7-20) Creatinine 0.7 mg/dL (0.6-1.0) Estimated GFR (Cockcroft-Gault) 80.3 Glucose Level 100 mg/dL (70-99) Calcium Level 8.0 mg/dL (8.5-10.1) Microbiology 09/25/18 Blood Culture - Final, Complete NO GROWTH AFTER 5 DAYS Medications Current Medications Sodium Chloride 1,000 ml @ 1,000 mls/hr 1X ONCE IV Last administered on 09/24/18at 17:40; Start 09/24/18 at 17:15; Stop 09/24/18 at 18:14; Status DC Pantoprazole Sodium (PROTONIX VIAL for IV PUSH) 40 mg 1X ONCE IVP Last administered on 09/24/18at 17:43; Start 09/24/18 at 17:15; Stop 09/24/18 at 17:16; Status DC Pantoprazole Sodium 80 mg/ Sodium Chloride 100 ml @ 10 mls/hr 1X ONCE IV Last administered on 09/24/18at 20:18; Start 09/24/18 at 19:00; Stop 09/25/18 at 04:59; Status DC Sodium Chloride 1,000 ml @ 75 mls/hr [id number] IV Last administered on 09/25/18at 08:29; Start 09/24/18 at 19:09; Stop 09/25/18 at 19:08; Status DC Iohexol (Omnipaque 350 Mg/ml) 100 ml 1X ONCE IV Last administered on 09/24/18at 19:54; Start 09/24/18 at 19:30; Stop 09/24/18 at 19:31; Status DC Info (CONTRAST GIVEN -- Rx MONITORING) 1 each PRN DAILY PRN MC SEE COMMENTS; Start 09/24/18 at 19:30; Stop 09/26/18 at 19:29; Status DC Piperacillin Sod/ Tazobactam Sod 3.375 gm/Sodium Chloride 50 ml @ 100 mls/hr Q6HRS IV Last administered on 09/28/18at 06:20; Start 09/25/18 at 00:00; Stop 09/28/18 at 07:22; Status DC Propofol 200 ml @ As Directed STK-MED ONCE IV ; Start 09/25/18 at 09:45; Stop 09/25/18 at 09:46; Status DC Propofol 40 ml @ As Directed STK-MED ONCE IV ; Start 09/25/18 at 09:47; Stop 09/25/18 at 09:48; Status DC Epinephrine HCl (EPINEPHrine SYRINGE) 1 mg STK-MED ONCE SQ Last administered on 09/25/18at 09:40; Start 09/25/18 at 09:40; Stop 09/25/18 at 09:54; Status DC Propofol 20 ml @ As Directed STK-MED ONCE IV ; Start 09/25/18 at 10:07; Stop 09/25/18 at 10:08; Status DC Lidocaine HCl (Lidocaine Pf 2% Vial) 5 ml STK-MED ONCE .ROUTE ; Start 09/25/18 at 10:07; Stop 09/25/18 at 10:08; Status DC Epinephrine HCl (EPINEPHrine SYRINGE) 1 mg STK-MED ONCE .ROUTE ; Start 09/25/18 at 10:29; Stop 09/25/18 at 10:30; Status DC Throat Lozenges (Cepacol Sore Throat Lozenge) 1 lea PRN Q2HRS PRN PO SORE THROAT Last administered on 09/25/18at 13:58; Start 09/25/18 at 13:45 Propofol (Diprivan) 2,000 mg STK-MED ONCE IV ; Start 09/25/18 at 10:00; Stop 09/26/18 at 07:27; Status DC Estradiol (Estrace) 1 carina QMWF@0900 VG Last administered on 09/30/18 08:11; Start 09/26/18 at 10:00 Lactobacillus Rhamnosus (Culturelle) 1 cap BID PO Last administered on 10/03/18 09:35; Start 09/26/18 at 10:30 Pantoprazole Sodium (PROTONIX VIAL for IV PUSH) 40 mg DAILYAC IVP Last administered on 09/27/18 05:03; Start 09/26/18 at 10:30; Stop 09/27/18 at 15:07; Status DC Ringer's Solution 1,000 ml @ 50 mls/hr Q20H IV Last administered on 09/27/18 14:42; Start 09/27/18 at 07:00; Stop 09/27/18 at 18:59; Status DC Potassium Chloride/Water 100 ml @ 100 mls/hr Q1H IV Last administered on 09/27/18 16:58; Start 09/27/18 at 09:30; Stop 09/27/18 at 13:29; Status DC Atorvastatin Calcium (Lipitor) 40 mg QHS PO Last administered on 10/02/18at 20:42; Start 09/27/18 at 21:00 Vitamin D (Vitamin D3) 1,000 unit DAILY PO Last administered on 10/03/18 09:35; Start 09/27/18 at 10:00 Guaifenesin (Robitussin) 100 mg PRN Q6HRS PRN PO COUGH; Start 09/27/18 at 09:15 Albuterol Sulfate (Ventolin Neb Soln) 2.5 mg PRN Q4HRS PRN NEB SHORTNESS OF BREATH; Start 09/27/18 at 09:15 Levothyroxine Sodium (Synthroid) 75 mcg DAILYAC PO Last administered on 10/03/18 09:35; Start 09/27/18 at 09:30 Imipramine HCl (Tofranil) 12.5 mg QHS PO Last administered on 10/02/18at 20:42; Start 09/27/18 at 21:00 Labetalol HCl (Normodyne Iv Push) 20 mg PRN Q2HR PRN IVP HYPERTENSION, SEE COMMENTS; Start 09/27/18 at 12:30 Propofol 20 ml @ As Directed STK-MED ONCE IV ; Start 09/27/18 at 14:52; Stop 09/27/18 at 14:53; Status DC Lidocaine HCl (Lidocaine Pf 2% Vial) 5 ml STK-MED ONCE .ROUTE ; Start 09/27/18 at 14:52; Stop 09/27/18 at 14:53; Status DC Sucralfate (Carafate) 1 gm BID PO Last administered on 10/03/18at 09:35; Start 09/27/18 at 21:00 Pantoprazole Sodium (Protonix) 40 mg DAILYAC PO Last administered on 10/03/18at 09:35; Start 09/28/18 at 07:30 Amoxicillin/ Clavulanate Potassium (Augmentin 875/ 125mg) 1 tab BID PO Last administered on 09/30/18at 08:10; Start 09/28/18 at 09:00; Stop 09/30/18 at 10:04; Status DC Aspirin (Ecotrin) 81 mg DAILYWBKFT PO Last administered on 10/03/18at 09:35; Start 09/29/18 at 08:00 Potassium Chloride/Water 100 ml @ 100 mls/hr Q1H IV Last administered on 10/01/18at 02:41; Start 09/30/18 at 09:00; Stop 09/30/18 at 12:59; Status DC Active Scripts Active Reported Levothyroxine Sodium 75 Mcg Tablet 75 Mcg PO DAILYAC Imipramine Hcl 10 Mg Tablet 10 Mg PO HS Guaifenesin 100 Mg/5 Ml Liquid 100 Mg PO PRN Q6HRS PRN Vitamin D3 (Cholecalciferol (Vitamin D3)) 1,000 Unit Tablet 1 Tab PO DAILY Lipitor (Atorvastatin Calcium) 40 Mg Tablet 1 Tab PO QHS Eliquis (Apixaban) 5 Mg Tablet 5 Mg PO BID Duoneb 0.5-3(2.5) Mg/3 Ml (Albuterol/Ipratropium) 3 Ml Ampul.neb 3 Ml NEB PRN Q4HRS PRN Clopidogrel (Clopidogrel Bisulfate) 75 Mg Tablet 1 Tab PO DAILY Vitals/I & O Vital Sign - Last 24 Hours 10/02/18 10/02/18 10/02/18 10/02/18 15:00 19:00 19:00 23:00 Temp 98.3 98.5 99.1 98.3 98.5 99.1 Pulse 63 68 69 Resp 18 B/P (MAP) 110/34 (59) 149/64 (92) 126/60 (82) Pulse Ox 90 95 97 O2 Delivery Room Air Room Air 10/03/18 10/03/18 10/03/18 03:00 07:00 10:41 Temp 98.1 98.3 98.0 98.1 98.3 98.0 Pulse 67 70 78 Resp 18 B/P (MAP) 130/36 (67) 140/62 (88) 137/60 (85) Pulse Ox 97 98 97 O2 Delivery Room Air Room Air Intake and Output 10/02/18 10/02/18 10/03/18 14:59 22:59 06:59 Intake Total 360 ml 300 ml Balance 360 ml 300 ml JACE ROA III DO Oct 03, 2018 12:40
--- NOTE | 2018-10-03 13:12 | NUR ---
SW following pt. Orders faxed to [facility] and Packet on chart. Pt will transport via facility arranged w/c van between [phone]. Pt's choice and rights forms signed by pt and copies placed on chart. Pt's daughter in room and agreeable with plan. DIXIE WU.
[2018-10-03] MEDS: ESTRADIOL 0.01% VAGINAL CREAM 42.5GM TUBE. VG SCH (14:28)
[2018-10-03 15:00] VITALS: BP 131/52
--- NOTE | 2018-10-03 18:11 | NUR ---
Called report to CORINNE Mejía at [facility].
--- NOTE | 2018-10-03 19:17 | DS ---
DATE OF DISCHARGE: 10/03/2018 ADMISSION DIAGNOSIS: Melena with gastrointestinal bleed. DISCHARGE DIAGNOSES: 1. Resolving melena. 2. Resolving gastrointestinal bleed. CONSULT: GI. PROCEDURES: Endoscopy which did not show the site of bleeding. HOSPITAL COURSE: The patient is a pleasant 83-year-old female who presented with melena and was noted to have hemoglobin of 6.8. She was transfused a couple units of blood. We consulted GI. She went for EGD, which was essentially negative. Over the past couple of days, she has returned to baseline. Her hemoglobin is up to 8.8 and she is not passing blood anymore. I examined her this morning. Her heart tones were normal. Her lungs were clear. Abdomen soft. Extremities no edema. We plan to discharge to assisted at [facility]. DISPOSITION: Skilled. ACTIVITY: As tolerated. DIET: Low sodium. MEDICATIONS: We put her back on her home medications. TOTAL TIME: 32 minutes. JACE ROA DO DR: GIANFRANCO/jackson JOB#: [id number] / [id number]
== END 2018-10-03 16:15 | DRG 377 ==
LOC: ER 16:51 → 1 WEST ICU 19:05 → 5 NORTH 09-28 11:43
PROVIDERS: ADMIT Family Medicine; ATTEND Family Medicine
PROC: 30233K1 Transfusion of Nonautologous Frozen Plasma into Peripheral Vein, Percutaneous Approach (ICD-10-PCS; 2018-09-24)
PROC: 30233N1 Transfusion of Nonautologous Red Blood Cells into Peripheral Vein, Percutaneous Approach (ICD-10-PCS; 2018-09-24)
PROC: 3E0G8GC Introduction of Other Therapeutic Substance into Upper GI, Via Natural or Artificial Opening Endoscopic (ICD-10-PCS; 2018-09-25)
PROC: 0DJ08ZZ Inspection of Upper Intestinal Tract, Via Natural or Artificial Opening Endoscopic (ICD-10-PCS; principal; 2018-09-25 08:30)
PROC: 0DJ08ZZ Inspection of Upper Intestinal Tract, Via Natural or Artificial Opening Endoscopic (ICD-10-PCS; 2018-09-27)
DX: K29.81 Duodenitis with bleeding (principal); G93.41 Metabolic encephalopathy; N13.30 Unspecified hydronephrosis; D62 Acute posthemorrhagic anemia; E87.2 Acidosis; Q27.30 Arteriovenous malformation, site unspecified; E03.9 Hypothyroidism, unspecified; E11.51 Type 2 diabetes mellitus with diabetic peripheral angiopathy without gangrene; E78.5 Hyperlipidemia, unspecified; E87.6 Hypokalemia; F02.80 Dementia in other diseases classified elsewhere, unspecified severity, without behavioral disturbance, psychotic disturbance, mood disturbance, and anxiety; G30.9 Alzheimer's disease, unspecified; F32.9 Major depressive disorder, single episode, unspecified; G47.00 Insomnia, unspecified; M19.90 Unspecified osteoarthritis, unspecified site; I95.9 Hypotension, unspecified; D72.829 Elevated white blood cell count, unspecified; I72.4 Aneurysm of artery of lower extremity; I10 Essential (primary) hypertension; I25.10 Atherosclerotic heart disease of native coronary artery without angina pectoris; I35.0 Nonrheumatic aortic (valve) stenosis; K20.9 Esophagitis, unspecified; Z82.49 Family history of ischemic heart disease and other diseases of the circulatory system; Z83.3 Family history of diabetes mellitus; Z86.718 Personal history of other venous thrombosis and embolism; Z87.440 Personal history of urinary (tract) infections; Z90.49 Acquired absence of other specified parts of digestive tract; Z95.5 Presence of coronary angioplasty implant and graft; E66.01 Morbid (severe) obesity due to excess calories; Z68.32 Body mass index [BMI] 32.0-32.9, adult; K29.70 Gastritis, unspecified, without bleeding
CPT/HCPCS: 36415; 36569; 43235; 43255; 71045; 74174; 80048; 80053; 80076; 81001; 82274; 82607; 82728; 82962; 83010; 83540; 83550; 83605; 83615; 83735; 83880; 84484; 85014; 85018; 85025; 85027; 85045; 85610; 85730; 86850; 86900; 86901; 86920; 86927; 87040; 87641; 93005; 93306; 93971; 96361; 96374; 99291; C9113; J0171; J2001; J2543; J2704; J3480; J7030; J7120; P9016; P9017; Q9967; 97110; 97116; 97530; 97535

== ENCOUNTER 2018-10-09 17:28 | Inpatient (IN) | payer MEDICARE, OTHER ==
[~2018-10-09] VITALS: Ht 154.9 cm; Wt 79.4 kg
[~2018-10-09 17:28] MED LIST changes: +APIX5TAB PO; +ATOR40TA PO; +CHOL10003 PO; +CLOP75TA PO; +GUAI100L12 PO; +IMIP10TA2 PO; +IPRA3AMP29 NEB; +LEVO75TA5 PO
[2018-10-09 17:44] LABS: BASO # 0.1 x10^3/uL (0.0-0.2); BASO % 1 % (0-3); EOS # 0.4 x10^3/uL (0.0-0.7); EOS % 3 % (0-3); HEMATOCRIT 27.2 % (36.0-47.0); HEMOGLOBIN 8.8 g/dL (12.0-15.5); LYMPH # 0.8 x10^3/uL (1.0-4.8); LYMPH % 7 % (24-48); MEAN CORPUSCULAR HEMOGLOBIN 30 pg (25-35); MEAN CORPUSCULAR HGB CONC 32 g/dL (31-37); MEAN CORPUSCULAR VOLUME 92 fL (79-100); MONO # 0.5 x10^3/uL (0.0-1.1); MONO % 4 % (0-9); NEUT # 9.9 x10^3uL (1.8-7.7); NEUT % 85 % (31-73); PLATELET COUNT 325 x10^3/uL (140-400); RED BLOOD COUNT 2.96 x10^6/uL (3.50-5.40); RED CELL DISTRIBUTION WIDTH 16.8 % (11.5-14.5); WHITE BLOOD COUNT 11.7 x10^3/uL (4.0-11.0)
[2018-10-09 17:56] LABS: CALCIUM 9.8 mg/dL (8.5-10.1); CREATININE 0.9 mg/dL (0.6-1.0); GFR 60.1; POTASSIUM 4.1 mmol/L (3.5-5.1)
--- NOTE | 2018-10-09 18:01 | PHYS DOC ---
Past Medical History Past Medical History: Arthritis, DVT, Hypertension, Hypothyroid, UTI, Other Additional Past Medical Histor: alzheimer's, MDD, insomnia, AORTIC STENOSIS, (CHAR GIRARD APRN) Past Surgical History: Cholecystectomy, Tonsillectomy, Other Additional Past Surgical Histo: 09/30, marco historian (CHAR GIRARD APRN) Alcohol Use: None Drug Use: None (CHAR GIRARD APRN) Adult General Chief Complaint Chief Complaint: FLANK PAIN HPI HPI 83-year-old female presents to ER via EMS from her home for complaints of right lower abdominal pain and generalized fatigue and weakness. She reports she has had intermittent nausea and has been throwing up bilateral. She denies any fever, diarrhea, or urinary symptoms. Patient denies any chest pain or shortness of air. (CHAR GIRARD APRN) Review of Systems Review of Systems Constitutional: Denies fever or chills. Reports generalized fatigue and weakness Eyes: Denies change in visual acuity, redness, or eye pain [] HENT: Denies nasal congestion or sore throat [] Respiratory: Denies cough or shortness of breath [] Cardiovascular: Denies chest pain GI: Denies bloody stools or diarrhea. Reports RLQ pain with Intermittent nausea with bile like vomit : Denies dysuria or hematuria [] Musculoskeletal: Denies joint pain. Reports rt lower back pain Integument: Denies rash or skin lesions [] Neurologic: Denies headache, focal weakness or sensory changes [] Endocrine: Denies polyuria or polydipsia [] All other systems were reviewed and found to be within normal limits, except as documented in this note. (CHAR GIRARD APRN) Allergies Allergies Allergies Coded Allergies Type Severity Reaction Last Updated Verified No Known Drug Allergies 09/27/18 No (PAM RAY DO) Physical Exam Physical Exam Constitutional: Well developed, well nourished, no acute distress, non-toxic appearance. Fatigued appearance-patient closes her eyes during majority of exam. Patient wakes easily to voice command and is answering questions appropriately. HENT: Normocephalic, atraumatic, bilateral ears normal, mucous membranes pink/ dry, no oral exudates, nose normal. [] Eyes: Pupils equal, no nystagmus, conjunctiva normal, no discharge. [] Neck: Normal range of motion, no tenderness, supple, no stridor. [] Cardiovascular: Heart rate regular rhythm, no murmur [] Lungs & Thorax: Bilateral breath sounds clear to auscultation- resp. equal/nonl abored Abdomen: Bowel sounds normal, soft/obese, diffuse tenderness in right lower abdomen without rebound tenderness, no masses, no pulsatile masses. [] Skin: Warm, dry, no erythema, no rash. [] Back: No tenderness on palp, no CVA tenderness. [] Extremities: No tenderness, no cyanosis, no clubbing, ROM intact, no edema. [] Neurologic: Alert and oriented X 3, normal motor function, normal sensory function, no focal deficits noted. [] Psychologic: Affect normal, judgement normal, mood normal. [] (REFFITT,CHAR Davila APRN) Current Patient Data Vital Signs Vital Signs Date Time Temp Pulse Resp B/P (MAP) Pulse Ox O2 Delivery O2 Flow Rate FiO2 10/09/18 18:30 100 23 191/74 (113) 99 Nasal Cannula 2.0 10/09/18 17:28 98.0 98.0 (PAM RAY DO) Lab Values Laboratory Tests Test 10/09/18 17:35 10/09/18 18:30 White Blood Count 11.7 x10^3/uL (4.0-11.0) H Red Blood Count 2.96 x10^6/uL (3.50-5.40) L Hemoglobin 8.8 g/dL (12.0-15.5) L Hematocrit 27.2 % (36.0-47.0) L Mean Corpuscular Volume 92 fL (79-100) Mean Corpuscular Hemoglobin 30 pg (25-35) Mean Corpuscular Hemoglobin Concent 32 g/dL (31-37) Red Cell Distribution Width 16.8 % (11.5-14.5) H Platelet Count 325 x10^3/uL (140-400) Neutrophils (%) (Auto) 85 % (31-73) H Lymphocytes (%) (Auto) 7 % (24-48) L Monocytes (%) (Auto) 4 % (0-9) Eosinophils (%) (Auto) 3 % (0-3) Basophils (%) (Auto) 1 % (0-3) Neutrophils # (Auto) 9.9 x10^3uL (1.8-7.7) H Lymphocytes # (Auto) 0.8 x10^3/uL (1.0-4.8) L Monocytes # (Auto) 0.5 x10^3/uL (0.0-1.1) Eosinophils # (Auto) 0.4 x10^3/uL (0.0-0.7) Basophils # (Auto) 0.1 x10^3/uL (0.0-0.2) Sodium Level 140 mmol/L (136-145) Potassium Level 4.1 mmol/L (3.5-5.1) Chloride Level 102 mmol/L (98-107) Carbon Dioxide Level 30 mmol/L (21-32) Anion Gap 8 (6-14) Blood Urea Nitrogen 13 mg/dL (7-20) Creatinine 0.9 mg/dL (0.6-1.0) Estimated GFR (Cockcroft-Gault) 60.1 BUN/Creatinine Ratio 14 (6-20) Glucose Level 141 mg/dL (70-99) H Calcium Level 9.8 mg/dL (8.5-10.1) Magnesium Level 2.1 mg/dL (1.8-2.4) Total Bilirubin 0.5 mg/dL (0.2-1.0) Aspartate Amino Transferase (AST) 116 U/L (15-37) H Alanine Aminotransferase (ALT) 159 U/L (14-59) H Alkaline Phosphatase 238 U/L (46-116) H Troponin I Quantitative 0.018 ng/mL (0.000-0.055) Total Protein 6.7 g/dL (6.4-8.2) Albumin 3.6 g/dL (3.4-5.0) Albumin/Globulin Ratio 1.2 (1.0-1.7) Lipase 127 U/L (73-393) Urine Color Yellow Urine Clarity Clear Urine pH 8.0 Urine Specific [place] 1.010 Urine Protein Negative mg/dL (NEG-TRACE) Urine Glucose (UA) Negative mg/dL (NEG) Urine Ketones (Stick) Negative mg/dL (NEG) Urine Blood Large (NEG) Urine Nitrite Negative (NEG) Urine Bilirubin Negative (NEG) Urine Urobilinogen Dipstick 0.2 mg/dL (0.2 mg/dL) Urine Leukocyte Esterase Small (NEG) Urine RBC Tntc /HPF (0-2) Urine WBC 5-10 /HPF (0-4) Urine Squamous Epithelial Cells Few /LPF Urine Bacteria Few /HPF (0-FEW) Urine Mucus Mod /LPF Laboratory Tests 10/09/18 17:35 Laboratory Tests 10/09/18 17:35 (PAM RAY DO) EKG EKG EKG obtained 10/09/18 at 1804 Interpreted by ER physician Sinus rhythm PACs Nonspec. T wave abnorm. Rate 69 No STEMI (REFCHAR GUZMAN CUTTING TABLE OPERATOR FIRST) Radiology/Procedures Radiology/Procedures PROCEDURE: CHEST AP ONLY Chest AP portable at 1820: Reason for examination: Flank pain, fatigue and nausea. Comparison is made to previous study dated 09/30/2018. Heart and mediastinum are unchanged. There continues to be some elevation of the right hemidiaphragm which is unchanged. Lung calle are clear. The right humeral head appears to be located superior to the glenoid. Shoulder dislocation cannot be excluded on this single view. Recommend clinical correlation and follow-up. There is narrowing of the left acromial humeral joint space. IMPRESSION: No acute cardiopulmonary disease. Right humeral head appears to be superior to the glenoid and dislocation cannot be excluded on this single view. Recommend clinical correlation and follow-up. CT abdomen and pelvis with contrast: Helical images were obtained through the abdomen and pelvis with intravenous administration of 75 cc Omnipaque 300. Reconstruction was performed in sagittal and coronal planes. Exposure: One or more of the following individualized dose reduction techniques were utilized for this examination: 1. Automated exposure control 2. Adjustment of the mA and/or kV according to patient size 3. Use of iterative reconstruction technique. There is some linear atelectasis at the left lung base. The heart size is mildly enlarged. No pericardial effusion is seen. No abnormality seen at the liver, spleen, adrenal glands or pancreas. The gallbladder surgically absent. The common bile duct is not abnormally dilated at 6.4 mm post cholecystectomy. The abdominal aorta and inferior vena cava show no acute abnormalities. No abnormality seen at the appendix. The colon shows presence of a few scattered diverticuli but no diverticulitis. The small intestinal tract shows some dilatation and wall thickening in the duodenum and proximal jejunum which may reflect inflammatory process. No abnormality seen at the stomach. The left kidney shows a hypodense lesion consistent with a cyst at the lower pole posteriorly probably representing a cyst measuring 1.6 cm in greatest dimension. There is no evidence of obstructive uropathy or renal calculus. The right kidney shows no renal mass. There is however a dilated right renal pelvis but no renal calculus or obstructive uropathy is evident. There is however some perinephric stranding around the right kidney. No abnormality seen at the bladder. The uterus appears to be atrophic. No adnexal masses are seen. There is no free fluid or free air in the abdomen or pelvis. There are degenerative changes in the spine. No acute bony abnormalities are seen. IMPRESSION: Dilated right renal pelvis and calyceal system with some inflammatory changes in the perinephric fat but no obstructive uropathy seen. 1.6 cm hypodense lesion at the lower pole left kidney which may represent cysts. Dilatation with wall thickening in the duodenum and proximal jejunum which could reflect enteritis. Electronically signed by: Cathy Soler MD (10/09/2018 8:37 PM) [facility] DICTATED and SIGNED BY: CATHY SOLER MD DATE: 10/09/182036 (REFCHAR GUZMAN APRN) Course & Med Decision Making Course & Med Decision Making Pertinent Labs and Imaging studies reviewed. (See chart for details) 1900: On patient's labs patient has elevated LFTs- ALT/AST 116/159. EKG with no acute ST elevation/STEMI and troponin 0.018; H&H slightly improved from prior result from recent admit today's H&H 8.8/27.2. WBCs 11.7 and lactic acid 2.1. UA with large blood and small leuks micro w/TNTC RBCs and sm leuks WBCs 5-10. Will obtain CT abd/pelvis for further eval. Discussed test results with pt- she is in no visible distress. Discussed admission for further care and she is agr eeable with admit plan. Pt appears less fatigued and reports abd pain improved since arriving to ER- she is denying nausea currently and has had no reported vomiting episodes while in the ER. Will admit to hospitalist services and consult GI/urology with admit orders. 0: Spoke with Dr. Forbes, hospitalist and discussed pt's case and admit plan. CT abd/pelvis pending at time of admit. CT abd/pelvis with report of "Dilated right renal pelvis and calyceal system with some inflammatory changes in the perinephric fat but no obstructive uropathy seen"- pt was noted to have leuks/WBCs on UA so dose of IV Rocephin was ordered. (CHAR GIRARD APRN) Dragon Disclaimer Dragon Disclaimer This electronic medical record was generated, in whole or in part, using a voice recognition dictation system. (CHAR GIRARD APRN) Departure Departure Impression: Primary Impression: Elevated LFTs Additional Impressions: Abdominal pain Hematuria Disposition: ADMITTED INPATIENT Admitting Physician: Gillian Forbes (CHAR GIRARD APRN) Condition: STABLE Referrals: DONALD CAGLE MD (PCP) Attending Signature Attending Signature I have reviewed the PA/AUTO AIR CONDITIONING APPRENTICE's note and plan of care. I was available for cons ultation as needed during the patient's visit in the emergency department. I agree with the clinical impression, plan, and disposition. (PAM RAY DO) Problem Qualifiers CHAR GIRARD APRN Oct 09, 2018 18:01 PAM RAY DO Oct 10, 2018 05:52
[2018-10-09 18:02] LABS: ALBUMIN 3.6 g/dL (3.4-5.0); ALBUMIN/GLOBULIN RATIO 1.2 (1.0-1.7); TOTAL BILIRUBIN 0.5 mg/dL (0.2-1.0); TOTAL PROTEIN 6.7 g/dL (6.4-8.2)
[2018-10-09 18:39] LABS: BILIRUBIN,URINE NEGATIVE (NEG); CLARITY,URINE CLEAR; COLOR,URINE YELLOW; NITRITE,URINE NEGATIVE (NEG); PROTEIN,URINE NEGATIVE (NEG-TRACE); UROBILINOGEN,URINE 0.2 mg/dL (0.2 mg/dL)
[2018-10-09 18:48] LABS: BACTERIA,URINE FEW /HPF (0-FEW); RBC,URINE TNTC /HPF (0-2); SQUAMOUS EPITHELIAL CELL,UR FEW /LPF
[2018-10-09] MEDS ORDERED: CONTRAST GIVEN. MC PRN (19:45)
[2018-10-09] MEDS ORDERED: ACETAMINOPHEN 500 MG TABLET PO PRN (20:00)
[2018-10-09] MEDS ORDERED: ONDANSETRON PF 4 MG/2 ML VIAL. IV PRN (20:00)
[2018-10-09] MEDS ORDERED: IOHEXOL 300 MG/ML 100ML VIAL. IV ONE (20:00)
[2018-10-09] MEDS ORDERED: guaiFENesin ORAL 200 MG/10 ML LIQUID. PO PRN (20:00)
[2018-10-09] MEDS ORDERED: cloNIDine HCL 0.1 MG TABLET PO PRN (20:00)
[2018-10-09] MEDS ORDERED: ACETAMINOPHEN/CODEINE 300/30MG TABLET. PO PRN (20:00)
[2018-10-09] MEDS ORDERED: ONDANSETRON ODT 4 MG TAB.RAPDIS. PO PRN (20:00)
[2018-10-09] MEDS ORDERED: ALBUTEROL SULFATE 2.5 MG/3 ML NEBU. NEB PRN (20:15)
--- NOTE | 2018-10-09 20:41 | RAD ---
Chest AP portable at 1820: Reason for examination: Flank pain, fatigue and nausea. Comparison is made to previous study dated 09/30/2018. Heart and mediastinum are unchanged. There continues to be some elevation of the right hemidiaphragm which is unchanged. Lung calle are clear. The right humeral head appears to be located superior to the glenoid. Shoulder dislocation cannot be excluded on this single view. Recommend clinical correlation and follow-up. There is narrowing of the left acromial humeral joint space. IMPRESSION: No acute cardiopulmonary disease. Right humeral head appears to be superior to the glenoid and dislocation cannot be excluded on this single view. Recommend clinical correlation and follow-up. CT abdomen and pelvis with contrast: Helical images were obtained through the abdomen and pelvis with intravenous administration of 75 cc Omnipaque 300. Reconstruction was performed in sagittal and coronal planes. Exposure: One or more of the following individualized dose reduction techniques were utilized for this examination: 1. Automated exposure control 2. Adjustment of the mA and/or kV according to patient size 3. Use of iterative reconstruction technique. There is some linear atelectasis at the left lung base. The heart size is mildly enlarged. No pericardial effusion is seen. No abnormality seen at the liver, spleen, adrenal glands or pancreas. The gallbladder surgically absent. The common bile duct is not abnormally dilated at 6.4 mm post cholecystectomy. The abdominal aorta and inferior vena cava show no acute abnormalities. No abnormality seen at the appendix. The colon shows presence of a few scattered diverticuli but no diverticulitis. The small intestinal tract shows some dilatation and wall thickening in the duodenum and proximal jejunum which may reflect inflammatory process. No abnormality seen at the stomach. The left kidney shows a hypodense lesion consistent with a cyst at the lower pole posteriorly probably representing a cyst measuring 1.6 cm in greatest dimension. There is no evidence of obstructive uropathy or renal calculus. The right kidney shows no renal mass. There is however a dilated right renal pelvis but no renal calculus or obstructive uropathy is evident. There is however some perinephric stranding around the right kidney. No abnormality seen at the bladder. The uterus appears to be atrophic. No adnexal masses are seen. There is no free fluid or free air in the abdomen or pelvis. There are degenerative changes in the spine. No acute bony abnormalities are seen. IMPRESSION: Dilated right renal pelvis and calyceal system with some inflammatory changes in the perinephric fat but no obstructive uropathy seen. 1.6 cm hypodense lesion at the lower pole left kidney which may represent cysts. Dilatation with wall thickening in the duodenum and proximal jejunum which could reflect enteritis. Electronically signed by: Cathy Gong MD (10/09/2018 8:37 PM) [facility]
[2018-10-09] MEDS: TEMAZEPAM 7.5 MG CAPSULE PO PRN (20:51)
[2018-10-09] MEDS: APIXABAN 5 MG TABLET. PO SCH (20:52)
[2018-10-09] MEDS: ATORVASTATIN CALCIUM 40 MG TABLET. PO SCH (20:52)
[2018-10-09 20:53] VITALS: BP 133/64
[2018-10-09] MEDS: IMIPRAMINE HCL 10 MG PO SCH (21:00)
[2018-10-09] MEDS ORDERED: cefTRIAXone IV Push 1 GM VIAL. IVP ONE (21:30)
[2018-10-09 23:30] VITALS: BP 134/70
[2018-10-10] MEDS: traMADol 50 MG TABLET PO PRN ×2 (00:15→06:08)
[2018-10-10 03:44] VITALS: BP 133/67
[2018-10-10] MEDS: LEVOTHYROXINE 75 MCG TABLET PO SCH (06:08)
[2018-10-10 07:00] VITALS: BP 107/44
--- NOTE | 2018-10-10 07:25 | EKG ---
[facility] [address] [place] [address] Test Date: 2018-10-09 Test Time: 18:04:06 Pat Name: EMEKA BROWN Department: Room: [facility] 1 Gender: F Clinical Laboratory Scientist: LEONARD : [id number] Requested By: CHAR GIRARD Order Number: [id number] Reading MD: Ritchie Root Measurements Intervals [place] Rate: 69 P: 41 MN: 216 QRS: 17 QRSD: 92 T: 26 QT: 378 QTc: 406 Interpretive Statements SINUS RHYTHM ATRIAL PREMATURE COMPLEX(ES) NONSPECIFIC ST-T WAVE CHANGES. Electronically Signed On 10-12-2018 17:43:37 CDT by Ritchie Root
[2018-10-10] MEDS: CHOLECALCIFEROL (VITAMIN D3) 1,000 UNIT TABLET PO SCH (08:58)
[2018-10-10] MEDS: CLOPIDOGREL BISULFATE 75 MG TABLET PO SCH (08:58)
[2018-10-10] MEDS: APIXABAN 5 MG TABLET. PO SCH ×2 (08:58→20:17)
--- NOTE | 2018-10-10 10:08 | PDOC2 ---
SAMEERA GRULLON INTERRELATED SPECIAL EDUCATION TEACHER 10/10/18 1008: UROLOGY CONSULT Date of Consult Date of Consult DATE: 10/10/18 TIME: 10:00 Source Source: Caregiver, Chart review, Patient History of Present Illness Reason for Visit: This pleasant 83 year old female is known to us. We saw her on her last admission around the for an unclear obstruction noted on CT; at that time she did not have any pain or dysuria and we recommended no intervention. She started to have pain in her RLQ pain last night around 7 last night and was brought in via ambulance from her assisted living residence where she is currently living. Shortly after she arrived at the ER, the pain disappeared completely and she also denies seeing any blood in her urine, flank or abd pain currently. Also denies dysuria. She would like to go home later if possible but is willing to be seen in clinic. Current Medications Current Medications Current Medications Acetaminophen (Tylenol) 500 mg PRN Q6HRS PRN PO MILD PAIN / TEMP; Start 9 at 20:00 Acetaminophen/ Codeine Phosphate (Tylenol #3) 1 tab PRN Q6HRS PRN PO MODERATE PAIN Last administered on 10/09/18at 20:51; Start 10/09/18 at 20:00 Albuterol Sulfate (Ventolin Neb Soln) 2.5 mg PRN Q4HRS PRN NEB WHEEZING; Start 10/09/18 at 20:15 Apixaban (Eliquis) 5 mg BID PO Last administered on 10/10/18at 08:58; Start 10/09/18 at 21:00 Atorvastatin Calcium (Lipitor) 40 mg QHS PO Last administered on 10/09/18at 20:52; Start 10/09/18 at 21:00 Ceftriaxone Sodium (Rocephin) 1 gm 1X ONCE IVP Last administered on 10/09/18at 23:44; Start 10/09/18 at 21:30; Stop 10/09/18 at 21:31; Status DC Clonidine HCl (Catapres) 0.1 mg PRN Q1HR PRN PO HYPERTENSION, SEE COMMENTS; Start 10/09/18 at 20:00 Clopidogrel Bisulfate (Plavix) 75 mg DAILY PO Last administered on 10/10/18at 08:58; Start 10/10/18 at 09:00 Guaifenesin (Robitussin) 100 mg PRN Q6HRS PRN PO COUGH; Start 10/09/18 at 20:00 Info (CONTRAST GIVEN -- Rx MONITORING) 1 each PRN DAILY PRN MC SEE COMMENTS; Start 10/09/18 at 19:45; Stop 10/11/18 at 19:44 Iohexol (Omnipaque 300 Mg/ml) 75 ml 1X ONCE IV Last administered on 10/09/18at 19:35; Start 10/09/18 at 20:00; Stop 10/09/18 at 20:01; Status DC Levothyroxine Sodium (Synthroid) 75 mcg DAILY06 PO Last administered on 10/10/18at 06:08; Start 10/10/18 at 06:00 Non-Formulary Medication (Imipramine Hcl ) 10 mg HS PO ; Start 10/09/18 at 21:00; Status UNV Ondansetron HCl (Zofran Odt) 4 mg PRN Q6HRS PRN PO NAUSEA/VOMITING; Start 10/09/18 at 20:00 Ondansetron HCl (Zofran) 4 mg PRN Q6HRS PRN IV NAUSEA/VOMITING; Start 10/09/18 at 20:00 Temazepam (Restoril) 7.5 mg PRN QHS PRN PO INSOMNIA Last administered on 10/09/18at 20:51; Start 10/09/18 at 20:00 Tramadol HCl (Ultram) 50 mg PRN Q6HRS PRN PO MODERATE PAIN Last administered on 10/10/18at 06:08; Start 10/10/18 at 00:15 Vitamin D (Vitamin D3) 1,000 unit DAILY PO Last administered on 10/10/18at 08:58; Start 10/10/18 at 09:00 Allergies Allergies: Coded Allergies: No Known Drug Allergies (Unverified , 09/27/18) ROS Review Of Systems: CONSTITUTIONAL: No fever or chills EYES: No recent changes SKIN: No rash or itching CARDIOVASCULAR: No chest pain, syncope, palpitations, or edema RESPIRATORY: No SOB or cough GASTROINTESTINAL: No nausea, vomiting or abdominal pain NEUROLOGICAL: No headaches or weakness ENDOCRINE: No cold or heat intolerance GENITOURINARY: No urgency or frequency of urination MUSCULOSKELETAL: No back pain or joint pain LYMPHATICS: No enlarged lymph nodes PSYCHIATRIC: No anxiety or depression Physical Exam Physical Exam: General: Pleasant, no acute distress, well groomed Eyes: conjunctiva anicteric, eyes full range of motion ENT: moist oral mucosa, normal dentition Neck: Trachea midline, no masses Respiratory: unlabored breathing, not using accessory muscles, Abdomen:soft, obese, nontender, nondistended, no hepatosplenomegaly, no masses Skin: no rashes or skin lesions on visualized skin Psych: normal mood, affect. Alert and oriented x 3. Vitals VITALS Vital Signs Date Time Temp Pulse Resp B/P (MAP) Pulse Ox O2 Delivery O2 Flow Rate FiO2 10/10/18 07:10 18 96 10/10/18 07:00 97.8 93 107/44 (65) Room Air 97.8 10/09/18 20:53 2.0 Labs Labs Laboratory Tests Test 10/09/18 17:35 10/09/18 18:30 White Blood Count 11.7 x10^3/uL (4.0-11.0) Red Blood Count 2.96 x10^6/uL (3.50-5.40) Hemoglobin 8.8 g/dL (12.0-15.5) Hematocrit 27.2 % (36.0-47.0) Mean Corpuscular Volume 92 fL (79-100) Mean Corpuscular Hemoglobin 30 pg (25-35) Mean Corpuscular Hemoglobin Concent 32 g/dL (31-37) Red Cell Distribution Width 16.8 % (11.5-14.5) Platelet Count 325 x10^3/uL (140-400) Neutrophils (%) (Auto) 85 % (31-73) Lymphocytes (%) (Auto) 7 % (24-48) Monocytes (%) (Auto) 4 % (0-9) Eosinophils (%) (Auto) 3 % (0-3) Basophils (%) (Auto) 1 % (0-3) Neutrophils # (Auto) 9.9 x10^3uL (1.8-7.7) Lymphocytes # (Auto) 0.8 x10^3/uL (1.0-4.8) Monocytes # (Auto) 0.5 x10^3/uL (0.0-1.1) Eosinophils # (Auto) 0.4 x10^3/uL (0.0-0.7) Basophils # (Auto) 0.1 x10^3/uL (0.0-0.2) Sodium Level 140 mmol/L (136-145) Potassium Level 4.1 mmol/L (3.5-5.1) Chloride Level 102 mmol/L (98-107) Carbon Dioxide Level 30 mmol/L (21-32) Anion Gap 8 (6-14) Blood Urea Nitrogen 13 mg/dL (7-20) Creatinine 0.9 mg/dL (0.6-1.0) Estimated GFR (Cockcroft-Gault) 60.1 BUN/Creatinine Ratio 14 (6-20) Glucose Level 141 mg/dL (70-99) Calcium Level 9.8 mg/dL (8.5-10.1) Magnesium Level 2.1 mg/dL (1.8-2.4) Total Bilirubin 0.5 mg/dL (0.2-1.0) Aspartate Amino Transf (AST/SGOT) 116 U/L (15-37) Alanine Aminotransferase (ALT/SGPT) 159 U/L (14-59) Alkaline Phosphatase 238 U/L (46-116) Troponin I Quantitative 0.018 ng/mL (0.000-0.055) Total Protein 6.7 g/dL (6.4-8.2) Albumin 3.6 g/dL (3.4-5.0) Albumin/Globulin Ratio 1.2 (1.0-1.7) Lipase 127 U/L (73-393) Urine Color Yellow Urine Clarity Clear Urine pH 8.0 Urine Specific [place] 1.010 Urine Protein Negative mg/dL (NEG-TRACE) Urine Glucose (UA) Negative mg/dL (NEG) Urine Ketones (Stick) Negative mg/dL (NEG) Urine Blood Large (NEG) Urine Nitrite Negative (NEG) Urine Bilirubin Negative (NEG) Urine Urobilinogen Dipstick 0.2 mg/dL (0.2 mg/dL) Urine Leukocyte Esterase Small (NEG) Urine RBC Tntc /HPF (0-2) Urine WBC 5-10 /HPF (0-4) Urine Squamous Epithelial Cells Few /LPF Urine Bacteria Few /HPF (0-FEW) Urine Mucus Mod /LPF Laboratory Tests Test 10/09/18 17:35 10/09/18 18:30 White Blood Count 11.7 x10^3/uL (4.0-11.0) Red Blood Count 2.96 x10^6/uL (3.50-5.40) Hemoglobin 8.8 g/dL (12.0-15.5) Hematocrit 27.2 % (36.0-47.0) Mean Corpuscular Volume 92 fL (79-100) Mean Corpuscular Hemoglobin 30 pg (25-35) Mean Corpuscular Hemoglobin Concent 32 g/dL (31-37) Red Cell Distribution Width 16.8 % (11.5-14.5) Platelet Count 325 x10^3/uL (140-400) Neutrophils (%) (Auto) 85 % (31-73) Lymphocytes (%) (Auto) 7 % (24-48) Monocytes (%) (Auto) 4 % (0-9) Eosinophils (%) (Auto) 3 % (0-3) Basophils (%) (Auto) 1 % (0-3) Neutrophils # (Auto) 9.9 x10^3uL (1.8-7.7) Lymphocytes # (Auto) 0.8 x10^3/uL (1.0-4.8) Monocytes # (Auto) 0.5 x10^3/uL (0.0-1.1) Eosinophils # (Auto) 0.4 x10^3/uL (0.0-0.7) Basophils # (Auto) 0.1 x10^3/uL (0.0-0.2) Sodium Level 140 mmol/L (136-145) Potassium Level 4.1 mmol/L (3.5-5.1) Chloride Level 102 mmol/L (98-107) Carbon Dioxide Level 30 mmol/L (21-32) Anion Gap 8 (6-14) Blood Urea Nitrogen 13 mg/dL (7-20) Creatinine 0.9 mg/dL (0.6-1.0) Estimated GFR (Cockcroft-Gault) 60.1 BUN/Creatinine Ratio 14 (6-20) Glucose Level 141 mg/dL (70-99) Calcium Level 9.8 mg/dL (8.5-10.1) Magnesium Level 2.1 mg/dL (1.8-2.4) Total Bilirubin 0.5 mg/dL (0.2-1.0) Aspartate Amino Transf (AST/SGOT) 116 U/L (15-37) Alanine Aminotransferase (ALT/SGPT) 159 U/L (14-59) Alkaline Phosphatase 238 U/L (46-116) Troponin I Quantitative 0.018 ng/mL (0.000-0.055) Total Protein 6.7 g/dL (6.4-8.2) Albumin 3.6 g/dL (3.4-5.0) Albumin/Globulin Ratio 1.2 (1.0-1.7) Lipase 127 U/L (73-393) Urine Color Yellow Urine Clarity Clear Urine pH 8.0 Urine Specific [place] 1.010 Urine Protein Negative mg/dL (NEG-TRACE) Urine Glucose (UA) Negative mg/dL (NEG) Urine Ketones (Stick) Negative mg/dL (NEG) Urine Blood Large (NEG) Urine Nitrite Negative (NEG) Urine Bilirubin Negative (NEG) Urine Urobilinogen Dipstick 0.2 mg/dL (0.2 mg/dL) Urine Leukocyte Esterase Small (NEG) Urine RBC Tntc /HPF (0-2) Urine WBC 5-10 /HPF (0-4) Urine Squamous Epithelial Cells Few /LPF Urine Bacteria Few /HPF (0-FEW) Urine Mucus Mod /LPF Images Images CT ABD/PELVIS IMPRESSION: Dilated right renal pelvis and calyceal system with some inflammatory changes in the perinephric fat but no obstructive uropathy seen. 1.6 cm hypodense lesion at the lower pole left kidney which may represent cysts. Dilatation with wall thickening in the duodenum and proximal jejunum which could reflect enteritis. Assessment/Plan Assessment/Plan CT findings suspicious for recently passed kidney stone. Patient's LADLE FILLER is 0.9, BUN 13, UA shows small bacteria, lg blood, - nitrite, small leuks. A follow up appointment has been arranged for patient to see Dr. Michael of [facility] at [facility] location on 10/17/18 at 1020 am. Appointment card given to patient's daughter Ok to discharge home from a Urology perspective whenever medical team is ready. Recommend coverage with 7-10 of oral antibiotics if she does go home prior to Urine culture results. ALANNAH MICHAEL MD 10/10/18 1407: UROLOGY CONSULT Assessment/Plan Assessment/Plan I have seen patient and reviewed chart. I agree with f/u in office. SAMEERA GRULLON INTERRELATED SPECIAL EDUCATION TEACHER Oct 10, 2018 10:08 ALANNAH MICHAEL MD Oct 10, 2018 14:07
--- NOTE | 2018-10-10 10:23 | PDOC2 ---
GI CONSULT Reason For Consult: Elevated LFTs, abd pain HPI: HPI: 83 y/o female recently seen by Dr. Mondragon for anemia and GI bleeding, EGDs as below. EGD 09/25/18: esophagus normal, gastritis without ulcer or bleeding, duodenal blood noted - recent bleeding and mild oozing noted in 2nd portion of duodenum but no discrete ulcer, AVM etc - area injected with epi and oozing seemed to stop, scope passed to 3rd portion, all areas irrigated and no other active bleeding seem but recent blood in lumen noted. EGD 09/27/18: normal esophagus, gastritis with few erosions and some bile, no ulcers, no bleeding, duodenitis in bulb - near site of prior oozing but no furt her bleeding here or anywhere in duodenum, no AVM or ulcer. Was treated w/ Carafate and PPI, discharged w/ stable Hgb (8.2 on 10/03). History from daughter. Back to ER yesterday w/ right flank pain that wrapped around to front in right mid/lower abdomen. May have started after having two formed stools and might have been associated w/ spitting out some saliva. Denies pain this morning and is tolerating breakfast. No bleeding. Daughter says has been restarted on Eliquis and Plavix but not ASA. Unclear if taking pantoprazole or Carafate. GI asked to see this time re: elevated LFTs - bili normal w/ AST 116, ALT 159, Alk Phos 238. CT notes CBD 6.4mm post cholecystectomy, diverticulosis, dilatation and wall thickening in the duodenum and proximal jejunum, hypodense left renal lesion/possible cyst, dilated right renal pelvis w/ perinephric stranding, but no renal calculus or obstruction. PMH: PMH: CAD, , HTN, dementia, DVT, UTIs, OA, HLD, hypothyroidism appendectomy, cholecystectomy, cardiac stent ROS: GEN: Denies fevers, chills, sweats HEENT: Denies blurred vision, sore throat CV: Denies chest pain RESP: Denies shortness of air, cough GI: Per HPI : Denies hematuria, dysuria ENDO: Denies weight changes NEURO: Denies confusion, dizziness MSK: Denies weakness, joint pain/swelling SKIN: Denies jaundice, pruritus Vitals: Vitals: Vital Signs Date Time Temp Pulse Resp B/P (MAP) Pulse Ox O2 Delivery O2 Flow Rate FiO2 10/10/18 07:10 18 96 10/10/18 07:00 97.8 93 107/44 (65) Room Air 97.8 10/09/18 20:53 2.0 Labs: Labs: Laboratory Tests Test 10/09/18 17:35 10/09/18 18:30 10/10/18 09:20 White Blood Count 11.7 x10^3/uL (4.0-11.0) Red Blood Count 2.96 x10^6/uL (3.50-5.40) Hemoglobin 8.8 g/dL (12.0-15.5) Hematocrit 27.2 % (36.0-47.0) Mean Corpuscular Volume 92 fL (79-100) Mean Corpuscular Hemoglobin 30 pg (25-35) Mean Corpuscular Hemoglobin Concent 32 g/dL (31-37) Red Cell Distribution Width 16.8 % (11.5-14.5) Platelet Count 325 x10^3/uL (140-400) Neutrophils (%) (Auto) 85 % (31-73) Lymphocytes (%) (Auto) 7 % (24-48) Monocytes (%) (Auto) 4 % (0-9) Eosinophils (%) (Auto) 3 % (0-3) Basophils (%) (Auto) 1 % (0-3) Neutrophils # (Auto) 9.9 x10^3uL (1.8-7.7) Lymphocytes # (Auto) 0.8 x10^3/uL (1.0-4.8) Monocytes # (Auto) 0.5 x10^3/uL (0.0-1.1) Eosinophils # (Auto) 0.4 x10^3/uL (0.0-0.7) Basophils # (Auto) 0.1 x10^3/uL (0.0-0.2) Sodium Level 140 mmol/L (136-145) Potassium Level 4.1 mmol/L (3.5-5.1) Chloride Level 102 mmol/L (98-107) Carbon Dioxide Level 30 mmol/L (21-32) Anion Gap 8 (6-14) Blood Urea Nitrogen 13 mg/dL (7-20) Creatinine 0.9 mg/dL (0.6-1.0) Estimated GFR (Cockcroft-Gault) 60.1 BUN/Creatinine Ratio 14 (6-20) Glucose Level 141 mg/dL (70-99) Calcium Level 9.8 mg/dL (8.5-10.1) Magnesium Level 2.1 mg/dL (1.8-2.4) Total Bilirubin 0.5 mg/dL (0.2-1.0) Aspartate Amino Transf (AST/SGOT) 116 U/L (15-37) Alanine Aminotransferase (ALT/SGPT) 159 U/L (14-59) Alkaline Phosphatase 238 U/L (46-116) Troponin I Quantitative 0.018 ng/mL (0.000-0.055) Total Protein 6.7 g/dL (6.4-8.2) Albumin 3.6 g/dL (3.4-5.0) Albumin/Globulin Ratio 1.2 (1.0-1.7) Lipase 127 U/L (73-393) Urine Color Yellow Urine Clarity Clear Urine pH 8.0 Urine Specific [place] 1.010 Urine Protein Negative mg/dL (NEG-TRACE) Urine Glucose (UA) Negative mg/dL (NEG) Urine Ketones (Stick) Negative mg/dL (NEG) Urine Blood Large (NEG) Urine Nitrite Negative (NEG) Urine Bilirubin Negative (NEG) Urine Urobilinogen Dipstick 0.2 mg/dL (0.2 mg/dL) Urine Leukocyte Esterase Small (NEG) Urine RBC Tntc /HPF (0-2) Urine WBC 5-10 /HPF (0-4) Urine Squamous Epithelial Cells Few /LPF Urine Bacteria Few /HPF (0-FEW) Urine Mucus Mod /LPF C-Reactive Protein, Quantitative 4.0 mg/L (0-3.3) Allergies: Coded Allergies: No Known Drug Allergies (Unverified , 09/27/18) Medications: Current Medications Medications (Trade) Dose Ordered Sig/Tiffanie Route PRN Reason Start Time Stop Time Status Last Admin Dose Admin Iohexol (Omnipaque 300 Mg/ml) 75 ml 1X ONCE IV 10/09/18 20:00 10/09/18 20:01 DC 10/09/18 19:35 Acetaminophen/ Codeine Phosphate (Tylenol #3) 1 tab PRN Q6HRS PRN PO MODERATE PAIN 10/09/18 20:00 10/09/18 20:51 Temazepam (Restoril) 7.5 mg PRN QHS PRN PO INSOMNIA 10/09/18 20:00 10/09/18 20:51 Apixaban (Eliquis) 5 mg BID PO 10/09/18 21:00 10/10/18 08:58 Atorvastatin Calcium (Lipitor) 40 mg QHS PO 10/09/18 21:00 10/09/18 20:52 Vitamin D (Vitamin D3) 1,000 unit DAILY PO 10/10/18 09:00 10/10/18 08:58 Clopidogrel Bisulfate (Plavix) 75 mg DAILY PO 10/10/18 09:00 10/10/18 08:58 Levothyroxine Sodium (Synthroid) 75 mcg DAILY06 PO 10/10/18 06:00 10/10/18 06:08 Ceftriaxone Sodium (Rocephin) 1 gm 1X ONCE IVP 10/09/18 21:30 10/09/18 21:31 DC 10/09/18 23:44 Tramadol HCl (Ultram) 50 mg PRN Q6HRS PRN PO MODERATE PAIN 10/10/18 00:15 10/10/18 06:08 Imaging: Imaging: CXR 10/09 IMPRESSION: No acute cardiopulmonary disease. Right humeral head appears to be superior to the glenoid and dislocation cannot be excluded on this single view. Recommend clinical correlation and follow-up. CT A/P w/ IV contrast 10/09 There is some linear atelectasis at the left lung base. The heart size is mildly enlarged. No pericardial effusion is seen. No abnormality seen at the liver, spleen, adrenal glands or pancreas. The gallbladder surgically absent. The common bile duct is not abnormally dilated at 6.4 mm post cholecystectomy. The abdominal aorta and inferior vena cava show no acute abnormalities. No abnormality seen at the appendix. The colon shows presence of a few scattered diverticuli but no diverticulitis. The small intestinal tract shows some dilatation and wall thickening in the duodenum and proximal jejunum which may reflect inflammatory process. No abnormality seen at the stomach. The left kidney shows a hypodense lesion consistent with a cyst at the lower pole posteriorly probably representing a cyst measuring 1.6 cm in greatest dimension. There is no evidence of obstructive uropathy or renal calculus. The right kidney shows no renal mass. There is however a dilated right renal pelvis but no renal calculus or obstructive uropathy is evident. There is however some perinephric stranding around the right kidney. No abnormality seen at the bladder. The uterus appears to be atrophic. No adnexal masses are seen. There is no free fluid or free air in the abdomen or pelvis. There are degenerative changes in the spine. No acute bony abnormalities are seen. IMPRESSION: Dilated right renal pelvis and calyceal system with some inflammatory changes in the perinephric fat but no obstructive uropathy seen. 1.6 cm hypodense lesion at the lower pole left kidney which may represent cysts. Dilatation with wall thickening in the duodenum and proximal jejunum which could reflect enteritis. PE: GEN: NAD - eating breakfast HEENT: Atraumatic, PERRL LUNGS: CTAB HEART: RRR ABD: NABS, S/ND/NT EXTREMITY: No edema SKIN: No rashes, no jaundice NEURO/PSYCH: pleasant, forgetful A/P: A/P: Right flank pain - resolved H/o recent GI bleeding - no rebleeding, Hgb stable Hematuria Abnormal LFTs Abnormal CT - dilatation and wall thickening in the duodenum and proximal jejunum, hypodense left renal lesion/possible cyst, dilated right renal pelvis w/ perinephric stranding, but no renal calculus or obstruction. CRC screen - unclear timing Diverticulosis S/p cholecystectomy H/o CAD and DVT on Plavix and Eliquis -- Urology consult pending. Follow LFTs, check abd US. Restart PPI and Carafate, add iron, use Miralax PRN. MARIUM NGO Oct 10, 2018 10:23
[2018-10-10] MEDS ORDERED: POLYETHYLENE GLYCOL 3350 17 GM PACKET. PO PRN (10:30)
[2018-10-10 11:00] VITALS: BP 110/64
--- NOTE | 2018-10-10 11:16 | RAD ---
Abdominal ultrasound, 10/10/2018: HISTORY: Elevated liver function test The gallbladder is surgically absent. The common hepatic duct at the level of the ebony hepatis measures 9-10 mm which is considered be at the upper limits of normal for the postcholecystectomy state. No intrahepatic bile duct dilatation is seen. There is no evidence of a hepatic mass. The distal common bile duct, pancreas and central retroperitoneum including the aorta and inferior vena cava were obscured by overlying bowel. The spleen is of normal size. There is mild dilatation of the right renal collecting system. The left kidney is unremarkable. No free fluid is evident in the abdomen. IMPRESSION: 1. Mild prominence of the common hepatic duct is probably secondary to the postcholecystectomy state. 2. Mild right hydronephrosis. Electronically signed by: Clement Jewell MD (10/10/2018 11:13 AM) [facility]
--- NOTE | 2018-10-10 12:15 | PDOC1 ---
History and Physical Date of Admission Date of Admission DATE: 10/10/18 TIME: 12:14 Source Source: Chart review, Patient History of Present Illness History of Present Illness 83-year-old female admit for severe right lower abdominal pain and generalized fatigue and weakness. patient has dementia, history helped by daughter, left flank pain, migrated to pelvis, pain with urination, then bloody urine, pain is much better today, she reported feeling well nausea and vomiting yesterady that is also better She reports she has had intermittent nausea and has been throwing up bilateral. She denies any fever, diarrhea, or urinary symptoms. Patient denies any chest pain or shortness of air. Past Medical History Cardiovascular: No pertinent hx Pulmonary: No pertinent hx GI: No pertinent hx Hepatobiliary: No pertinent hx Family History Family History: Hypertension Social History ALCOHOL: none Current Medications Current Medications Current Medications Iohexol (Omnipaque 300 Mg/ml) 75 ml 1X ONCE IV Last administered on 10/09/18at 19:35; Start 10/09/18 at 20:00; Stop 10/09/18 at 20:01; Status DC Info (CONTRAST GIVEN -- Rx MONITORING) 1 each PRN DAILY PRN MC SEE COMMENTS; Start 10/09/18 at 19:45; Stop 10/11/18 at 19:44 Clonidine HCl (Catapres) 0.1 mg PRN Q1HR PRN PO HYPERTENSION, SEE COMMENTS; Start 10/09/18 at 20:00 Acetaminophen (Tylenol) 500 mg PRN Q6HRS PRN PO MILD PAIN / TEMP; Start 10/09/18 at 20:00 Acetaminophen/ Codeine Phosphate (Tylenol #3) 1 tab PRN Q6HRS PRN PO MODERATE PAIN Last administered on 10/09/18at 20:51; Start 10/09/18 at 20:00 Ondansetron HCl (Zofran) 4 mg PRN Q6HRS PRN IV NAUSEA/VOMITING; Start 10/09/18 at 20:00 Ondansetron HCl (Zofran Odt) 4 mg PRN Q6HRS PRN PO NAUSEA/VOMITING; Start 10/09/18 at 20:00 Temazepam (Restoril) 7.5 mg PRN QHS PRN PO INSOMNIA Last administered on 9at 20:51; Start 10/09/18 at 20:00 Apixaban (Eliquis) 5 mg BID PO Last administered on 10/10/18 08:58; Start 10/09/18 at 21:00 Atorvastatin Calcium (Lipitor) 40 mg QHS PO Last administered on 10/09/18at 20:52; Start 10/09/18 at 21:00 Vitamin D (Vitamin D3) 1,000 unit DAILY PO Last administered on 10/10/18at 08:58; Start 10/10/18 at 09:00 Clopidogrel Bisulfate (Plavix) 75 mg DAILY PO Last administered on 10/10/18at 08:58; Start 10/10/18 at 09:00 Guaifenesin (Robitussin) 100 mg PRN Q6HRS PRN PO COUGH; Start 10/09/18 at 20:00 Albuterol Sulfate (Ventolin Neb Soln) 2.5 mg PRN Q4HRS PRN NEB WHEEZING; Start 10/09/18 at 20:15 Levothyroxine Sodium (Synthroid) 75 mcg DAILY06 PO Last administered on 10/10/18at 06:08; Start 10/10/18 at 06:00 Non-Formulary Medication (Imipramine Hcl ) 10 mg HS PO ; Start 10/09/18 at 21:00; Status UNV Ceftriaxone Sodium (Rocephin) 1 gm 1X ONCE IVP Last administered on 10/09/18at 23:44; Start 10/09/18 at 21:30; Stop 10/09/18 at 21:31; Status DC Tramadol HCl (Ultram) 50 mg PRN Q6HRS PRN PO MODERATE PAIN Last administered on 10/10/18at 06:08; Start 10/10/18 at 00:15 Pantoprazole Sodium (Protonix) 40 mg DAILYAC PO ; Start 10/10/18 at 10:30 Sucralfate (Carafate) 1 gm BID PO ; Start 10/10/18 at 21:00 Polyethylene Glycol (miraLAX PACKET) 17 gm DAILY PO ; Start 10/11/18 at 09:00 Polyethylene Glycol (miraLAX PACKET) 17 gm PRN DAILY PRN PO CONSTIPATION; Start 10/10/18 at 10:30 Ferrous Sulfate (Feosol) 325 mg BID PO ; Start 10/10/18 at 21:00 Active Scripts Active Reported Levothyroxine Sodium 75 Mcg Tablet 75 Mcg PO DAILYAC Imipramine Hcl 10 Mg Tablet 10 Mg PO HS Guaifenesin 100 Mg/5 Ml Liquid 100 Mg PO PRN Q6HRS PRN Vitamin D3 (Cholecalciferol (Vitamin D3)) 1,000 Unit Tablet 1 Tab PO DAILY Lipitor (Atorvastatin Calcium) 40 Mg Tablet 1 Tab PO QHS Eliquis (Apixaban) 5 Mg Tablet 5 Mg PO BID Duoneb 0.5-3(2.5) Mg/3 Ml (Albuterol/Ipratropium) 3 Ml Ampul.neb 3 Ml NEB PRN Q4HRS PRN Clopidogrel (Clopidogrel Bisulfate) 75 Mg Tablet 1 Tab PO DAILY Allergies Allergies: Coded Allergies: No Known Drug Allergies (Unverified , 09/27/18) ROS Review of System unable due to dementia Physical Exam General: Alert, Cooperative, No acute distress, Other (not oriented) HEENT: EOMI Lungs: Clear to auscultation, Normal air movement Heart: S1S2, no murmurs Abdomen: Normal bowel sounds, Soft, No tenderness Rectal Exam: not examined Extremities: No cyanosis, No edema, Normal pulses Neuro: Normal gait, Normal tone Psych/Mental Status: Mood NL, Other Vitals Vitals Vital Signs Date Time Temp Pulse Resp B/P (MAP) Pulse Ox O2 Delivery O2 Flow Rate FiO2 10/10/18 11:00 98.0 62 17 110/64 (79) 96 Room Air 98.0 10/09/18 20:53 2.0 Labs Labs Laboratory Tests Test 10/09/18 17:35 10/09/18 18:30 10/10/18 09:20 White Blood Count 11.7 x10^3/uL (4.0-11.0) Red Blood Count 2.96 x10^6/uL (3.50-5.40) Hemoglobin 8.8 g/dL (12.0-15.5) Hematocrit 27.2 % (36.0-47.0) Mean Corpuscular Volume 92 fL (79-100) Mean Corpuscular Hemoglobin 30 pg (25-35) Mean Corpuscular Hemoglobin Concent 32 g/dL (31-37) Red Cell Distribution Width 16.8 % (11.5-14.5) Platelet Count 325 x10^3/uL (140-400) Neutrophils (%) (Auto) 85 % (31-73) Lymphocytes (%) (Auto) 7 % (24-48) Monocytes (%) (Auto) 4 % (0-9) Eosinophils (%) (Auto) 3 % (0-3) Basophils (%) (Auto) 1 % (0-3) Neutrophils # (Auto) 9.9 x10^3uL (1.8-7.7) Lymphocytes # (Auto) 0.8 x10^3/uL (1.0-4.8) Monocytes # (Auto) 0.5 x10^3/uL (0.0-1.1) Eosinophils # (Auto) 0.4 x10^3/uL (0.0-0.7) Basophils # (Auto) 0.1 x10^3/uL (0.0-0.2) Sodium Level 140 mmol/L (136-145) Potassium Level 4.1 mmol/L (3.5-5.1) Chloride Level 102 mmol/L (98-107) Carbon Dioxide Level 30 mmol/L (21-32) Anion Gap 8 (6-14) Blood Urea Nitrogen 13 mg/dL (7-20) Creatinine 0.9 mg/dL (0.6-1.0) Estimated GFR (Cockcroft-Gault) 60.1 BUN/Creatinine Ratio 14 (6-20) Glucose Level 141 mg/dL (70-99) Calcium Level 9.8 mg/dL (8.5-10.1) Magnesium Level 2.1 mg/dL (1.8-2.4) Total Bilirubin 0.5 mg/dL (0.2-1.0) Aspartate Amino Transf (AST/SGOT) 116 U/L (15-37) Alanine Aminotransferase (ALT/SGPT) 159 U/L (14-59) Alkaline Phosphatase 238 U/L (46-116) Troponin I Quantitative 0.018 ng/mL (0.000-0.055) Total Protein 6.7 g/dL (6.4-8.2) Albumin 3.6 g/dL (3.4-5.0) Albumin/Globulin Ratio 1.2 (1.0-1.7) Lipase 127 U/L (73-393) Urine Color Yellow Urine Clarity Clear Urine pH 8.0 Urine Specific [place] 1.010 Urine Protein Negative mg/dL (NEG-TRACE) Urine Glucose (UA) Negative mg/dL (NEG) Urine Ketones (Stick) Negative mg/dL (NEG) Urine Blood Large (NEG) Urine Nitrite Negative (NEG) Urine Bilirubin Negative (NEG) Urine Urobilinogen Dipstick 0.2 mg/dL (0.2 mg/dL) Urine Leukocyte Esterase Small (NEG) Urine RBC Tntc /HPF (0-2) Urine WBC 5-10 /HPF (0-4) Urine Squamous Epithelial Cells Few /LPF Urine Bacteria Few /HPF (0-FEW) Urine Mucus Mod /LPF Erythrocyte Sedimentation Rate 28 (0-25) C-Reactive Protein, Quantitative 4.0 mg/L (0-3.3) Laboratory Tests Test 10/09/18 17:35 10/09/18 18:30 10/10/18 09:20 White Blood Count 11.7 x10^3/uL (4.0-11.0) Red Blood Count 2.96 x10^6/uL (3.50-5.40) Hemoglobin 8.8 g/dL (12.0-15.5) Hematocrit 27.2 % (36.0-47.0) Mean Corpuscular Volume 92 fL (79-100) Mean Corpuscular Hemoglobin 30 pg (25-35) Mean Corpuscular Hemoglobin Concent 32 g/dL (31-37) Red Cell Distribution Width 16.8 % (11.5-14.5) Platelet Count 325 x10^3/uL (140-400) Neutrophils (%) (Auto) 85 % (31-73) Lymphocytes (%) (Auto) 7 % (24-48) Monocytes (%) (Auto) 4 % (0-9) Eosinophils (%) (Auto) 3 % (0-3) Basophils (%) (Auto) 1 % (0-3) Neutrophils # (Auto) 9.9 x10^3uL (1.8-7.7) Lymphocytes # (Auto) 0.8 x10^3/uL (1.0-4.8) Monocytes # (Auto) 0.5 x10^3/uL (0.0-1.1) Eosinophils # (Auto) 0.4 x10^3/uL (0.0-0.7) Basophils # (Auto) 0.1 x10^3/uL (0.0-0.2) Sodium Level 140 mmol/L (136-145) Potassium Level 4.1 mmol/L (3.5-5.1) Chloride Level 102 mmol/L (98-107) Carbon Dioxide Level 30 mmol/L (21-32) Anion Gap 8 (6-14) Blood Urea Nitrogen 13 mg/dL (7-20) Creatinine 0.9 mg/dL (0.6-1.0) Estimated GFR (Cockcroft-Gault) 60.1 BUN/Creatinine Ratio 14 (6-20) Glucose Level 141 mg/dL (70-99) Calcium Level 9.8 mg/dL (8.5-10.1) Magnesium Level 2.1 mg/dL (1.8-2.4) Total Bilirubin 0.5 mg/dL (0.2-1.0) Aspartate Amino Transf (AST/SGOT) 116 U/L (15-37) Alanine Aminotransferase (ALT/SGPT) 159 U/L (14-59) Alkaline Phosphatase 238 U/L (46-116) Troponin I Quantitative 0.018 ng/mL (0.000-0.055) Total Protein 6.7 g/dL (6.4-8.2) Albumin 3.6 g/dL (3.4-5.0) Albumin/Globulin Ratio 1.2 (1.0-1.7) Lipase 127 U/L (73-393) Urine Color Yellow Urine Clarity Clear Urine pH 8.0 Urine Specific [place] 1.010 Urine Protein Negative mg/dL (NEG-TRACE) Urine Glucose (UA) Negative mg/dL (NEG) Urine Ketones (Stick) Negative mg/dL (NEG) Urine Blood Large (NEG) Urine Nitrite Negative (NEG) Urine Bilirubin Negative (NEG) Urine Urobilinogen Dipstick 0.2 mg/dL (0.2 mg/dL) Urine Leukocyte Esterase Small (NEG) Urine RBC Tntc /HPF (0-2) Urine WBC 5-10 /HPF (0-4) Urine Squamous Epithelial Cells Few /LPF Urine Bacteria Few /HPF (0-FEW) Urine Mucus Mod /LPF Erythrocyte Sedimentation Rate 28 (0-25) C-Reactive Protein, Quantitative 4.0 mg/L (0-3.3) VTE Prophylaxis Ordered VTE Prophylaxis Devices: No VTE Pharmacological Prophylaxi: No Assessment/Plan Assessment/Plan Right flank pain - w. hematuria, poss stone that passed as pain is better H/o recent GI bleeding - no rebleeding, Hgb stable transaminitis - GI consult ROLDAN colitis on CT Hx CAD -- PETER OLIVARES MD Oct 10, 2018 12:15
[2018-10-10] MEDS: PANTOPRAZOLE 40 MG TABLET.DR. PO SCH (12:54)
[2018-10-10] MEDS ORDERED: ANTI-COAG MONITOR BY PHARMACY. MC PRN (15:00)
[2018-10-10 15:21] VITALS: BP 120/51
[2018-10-10 19:30] VITALS: BP 145/61
[2018-10-10] MEDS: IMIPRAMINE HCL 10 MG PO SCH (20:16)
[2018-10-10] MEDS: TEMAZEPAM 7.5 MG CAPSULE PO PRN (20:17)
[2018-10-10] MEDS: ATORVASTATIN CALCIUM 40 MG TABLET. PO SCH (20:17)
[2018-10-10] MEDS: FERROUS SULFATE 325 MG TABLET. PO SCH (20:17)
[2018-10-10] MEDS: SUCRALFATE 1 GM/10 ML ORAL.SUSP. PO SCH (20:18)
[2018-10-10 23:30] VITALS: BP 107/44
[2018-10-11 03:35] VITALS: BP 134/66
[2018-10-11] MEDS: LEVOTHYROXINE 75 MCG TABLET PO SCH (05:25)
[2018-10-11 06:50] LABS: ALBUMIN 3.3 g/dL (3.4-5.0); DIRECT BILIRUBIN 0.2 mg/dL (0.0-0.2); TOTAL BILIRUBIN 0.4 mg/dL (0.2-1.0)
[2018-10-11 07:00] VITALS: BP 139/76
[2018-10-11] MEDS ORDERED: POLYETHYLENE GLYCOL 3350 17 GM PACKET. PO SCH (09:00)
[2018-10-11] MEDS: CHOLECALCIFEROL (VITAMIN D3) 1,000 UNIT TABLET PO SCH (09:51)
[2018-10-11] MEDS: SUCRALFATE 1 GM/10 ML ORAL.SUSP. PO SCH (09:52)
[2018-10-11] MEDS: CLOPIDOGREL BISULFATE 75 MG TABLET PO SCH (09:52)
[2018-10-11] MEDS: PANTOPRAZOLE 40 MG TABLET.DR. PO SCH (09:52)
[2018-10-11] MEDS: APIXABAN 5 MG TABLET. PO SCH (09:52)
[2018-10-11] MEDS: FERROUS SULFATE 325 MG TABLET. PO SCH (09:52)
[2018-10-11 11:00] VITALS: BP 117/45
--- NOTE | 2018-10-11 11:55 | PDOC ---
Subjective: Subjective: Denies pain. Says eating without issue. Asks me to help her find her green bag. Objective: Vital Signs: Vital Signs Date Time Temp Pulse Resp B/P (MAP) Pulse Ox O2 Delivery O2 Flow Rate FiO2 10/11/18 07:00 98.4 99 18 139/76 (97) 95 Room Air 98.4 Labs: Laboratory Tests Test 10/11/18 05:30 Total Bilirubin 0.4 mg/dL Direct Bilirubin 0.2 mg/dL Aspartate Amino Transf (AST/SGOT) 33 U/L Alanine Aminotransferase (ALT/SGPT) 81 U/L Alkaline Phosphatase 161 U/L Total Protein 6.0 g/dL Albumin 3.3 g/dL Imaging: Abd US 10/10 The gallbladder is surgically absent. The common hepatic duct at the level of the ebony hepatis measures 9-10 mm which is considered be at the upper limits of normal for the postcholecystectomy state. No intrahepatic bile duct dilatation is seen. There is no evidence of a hepatic mass. The distal common bile duct, pancreas and central retroperitoneum including the aorta and inferior vena cava were obscured by overlying bowel. The spleen is of normal size. There is mild dilatation of the right renal collecting system. The left kidney is unremarkable. No free fluid is evident in the abdomen. IMPRESSION: 1. Mild prominence of the common hepatic duct is probably secondary to the postcholecystectomy state. 2. Mild right hydronephrosis. PE: GEN: NAD - up to chair LUNGS: room air ABD: NABS, S/ND/NT NEURO/PSYCH: pleasantly confused A/P: Right flank pain, hematuria - ?passed kidney stone Abnormal LFTs - unclear etiology but improved w/ unrevealing US Recent GI bleed H/o CAD and DVT -- LFTs better and US unrevealing. Continue same per GI. MARIUM NGO Oct 11, 2018 11:55
--- NOTE | 2018-10-11 12:00 | NUR ---
Pt alert to self, lungs sound clear, heart rate normal, 1st degree AV block on tele (Dr. Haas notified), voiding adequately, and plans to go back to [place] at 1530. No complaints of pain. ---IV d/c with no complications, all of belongings packed and sent with pt. and transportation. Report given to [place] prior to patient leaving at 1545.
--- NOTE | 2018-10-11 12:35 | SNU/HH DC ---
DISCHARGE WITH HOME HEALTH DISCHARGE INFORMATION: Discharge Date: Oct 11, 2018 Final Diagnosis: renal stone Condition on Discharge: Stable CODE STATUS: Code Status: Full HOME HEALTH: Face to Face: I certify this patient is under my care and that I, or a nurse practitioner or physician's fiscal assistant working with me, had a face to face encounter that meets the physician face to face encounter requirements with this patient on 10/11 Medical Complications: Dementia Intermediate For: Medication Management RN For Eval/Treatment: Yes Physical Therapy For: Evalulation/Treatment Occupational Therapy For: Evaluation/Treatment Pt Meets Homebound Status: Unsteady balance w/ amb,, Limited distance walking POST DISCHARGE ORDERS: Activity Instructions for Disc: Resume previous activity Weight Bearing Status after Di: As tolerated DIET AFTER DISCHARGE: Cardiac FOLLOW-UP: Follow up with: primary care, CERTIFICATION STATEMENT: Certification Statement: Certification Statement: Based on the above finding, I certify that this patient is confined to the home and needs intermittent retirement care, physical therapy and/or speech therapy, or continues to need occupational therapy.~ This patient is under my care, and I have initiated the establishment of the plan of care.~ This patient will be followed by myself or a community physician who will periodically review the plan of care. Home Meds Reported Medications Levothyroxine Sodium (LEVOTHYROXINE SODIUM) 75 Mcg Tablet, 75 MCG PO DAILYAC for THYROID SUPPLEMENT, #30 TAB 0 Refills 09/24/18 Imipramine Hcl (IMIPRAMINE HCL) 10 Mg Tablet, 10 MG PO HS for depression, TAB 09/24/18 Guaifenesin (GUAIFENESIN) 100 Mg/5 Ml Liquid, 100 MG PO PRN Q6HRS PRN for COUGH, LIQUID 09/24/18 Cholecalciferol (Vitamin D3) (VITAMIN D3) 1,000 Unit Tablet, 1 TAB PO DAILY for vitamin, #30 TAB 5 Refills 09/24/18 Atorvastatin Calcium (LIPITOR) 40 Mg Tablet, 1 TAB PO QHS for cholesterol, #90 TAB 1 Refill 09/24/18 Apixaban (ELIQUIS) 5 Mg Tablet, 5 MG PO BID for clot prevention, TAB 09/24/18 Ipratropium/Albuterol Sulfate (DUONEB 0.5-3(2.5) MG/3 ML) 3 Ml Ampul.neb, 3 ML NEB PRN Q4HRS PRN for WHEEZING, EACH 09/24/18 Clopidogrel Bisulfate (CLOPIDOGREL) 75 Mg Tablet, 1 TAB PO DAILY for clot prevention, #90 TAB 1 Refill 09/24/18 PETER OLIVARES MD Oct 11, 2018 12:35
--- NOTE | 2018-10-11 12:38 | PDOC3 ---
Discharge Summary Visit Information Date of Admission: Oct 09, 2018 Date of Discharge: Oct 11, 2018 Final Diagnosis Right flank pain - w. hematuria, poss stone that passed as pain is better, renal stone H/o recent GI bleeding - no rebleeding, Hgb stable transaminitis - NOS dementia colitis on CT Hx CAD Brief Hospital Course Allergies Allergies Coded Allergies Type Severity Reaction Last Updated Verified No Known Drug Allergies 09/27/18 No Vital Signs Vital Signs Date Time Temp Pulse Resp B/P (MAP) Pulse Ox O2 Delivery O2 Flow Rate FiO2 10/11/18 11:00 98.1 92 18 117/45 (69) 98 Room Air 98.1 Lab Results Laboratory Tests Test 10/09/18 17:35 10/09/18 18:30 10/10/18 09:20 10/11/18 05:30 White Blood Count 11.7 x10^3/uL (4.0-11.0) Red Blood Count 2.96 x10^6/uL (3.50-5.40) Hemoglobin 8.8 g/dL (12.0-15.5) Hematocrit 27.2 % (36.0-47.0) Mean Corpuscular Volume 92 fL (79-100) Mean Corpuscular Hemoglobin 30 pg (25-35) Mean Corpuscular Hemoglobin Concent 32 g/dL (31-37) Red Cell Distribution Width 16.8 % (11.5-14.5) Platelet Count 325 x10^3/uL (140-400) Neutrophils (%) (Auto) 85 % (31-73) Lymphocytes (%) (Auto) 7 % (24-48) Monocytes (%) (Auto) 4 % (0-9) Eosinophils (%) (Auto) 3 % (0-3) Basophils (%) (Auto) 1 % (0-3) Neutrophils # (Auto) 9.9 x10^3uL (1.8-7.7) Lymphocytes # (Auto) 0.8 x10^3/uL (1.0-4.8) Monocytes # (Auto) 0.5 x10^3/uL (0.0-1.1) Eosinophils # (Auto) 0.4 x10^3/uL (0.0-0.7) Basophils # (Auto) 0.1 x10^3/uL (0.0-0.2) Sodium Level 140 mmol/L (136-145) Potassium Level 4.1 mmol/L (3.5-5.1) Chloride Level 102 mmol/L (98-107) Carbon Dioxide Level 30 mmol/L (21-32) Anion Gap 8 (6-14) Blood Urea Nitrogen 13 mg/dL (7-20) Creatinine 0.9 mg/dL (0.6-1.0) Estimated GFR (Cockcroft-Gault) 60.1 BUN/Creatinine Ratio 14 (6-20) Glucose Level 141 mg/dL (70-99) Calcium Level 9.8 mg/dL (8.5-10.1) Magnesium Level 2.1 mg/dL (1.8-2.4) Total Bilirubin 0.5 mg/dL (0.2-1.0) 0.4 mg/dL (0.2-1.0) Aspartate Amino Transf (AST/SGOT) 116 U/L (15-37) 33 U/L (15-37) Alanine Aminotransferase (ALT/SGPT) 159 U/L (14-59) 81 U/L (14-59) Alkaline Phosphatase 238 U/L (46-116) 161 U/L (46-116) Troponin I Quantitative 0.018 ng/mL (0.000-0.055) Total Protein 6.7 g/dL (6.4-8.2) 6.0 g/dL (6.4-8.2) Albumin 3.6 g/dL (3.4-5.0) 3.3 g/dL (3.4-5.0) Albumin/Globulin Ratio 1.2 (1.0-1.7) Lipase 127 U/L (73-393) Urine Color Yellow Urine Clarity Clear Urine pH 8.0 Urine Specific [place] 1.010 Urine Protein Negative mg/dL (NEG-TRACE) Urine Glucose (UA) Negative mg/dL (NEG) Urine Ketones (Stick) Negative mg/dL (NEG) Urine Blood Large (NEG) Urine Nitrite Negative (NEG) Urine Bilirubin Negative (NEG) Urine Urobilinogen Dipstick 0.2 mg/dL (0.2 mg/dL) Urine Leukocyte Esterase Small (NEG) Urine RBC Tntc /HPF (0-2) Urine WBC 5-10 /HPF (0-4) Urine Squamous Epithelial Cells Few /LPF Urine Bacteria Few /HPF (0-FEW) Urine Mucus Mod /LPF Erythrocyte Sedimentation Rate 28 (0-25) Miscellaneous Test Comment (.) C-Reactive Protein, Quantitative 4.0 mg/L (0-3.3) Hepatitis A IgM Antibody Nonreactive (Nonreactive) Hepatitis B Surface Antigen Nonreactive (Nonreactive) Hepatitis B Core IgM Antibody Nonreactive (Nonreactive) Hepatitis C IgG Antibody (Nonreactive) Direct Bilirubin 0.2 mg/dL (0.0-0.2) Laboratory Tests Test 10/11/18 05:30 Total Bilirubin 0.4 mg/dL (0.2-1.0) Direct Bilirubin 0.2 mg/dL (0.0-0.2) Aspartate Amino Transf (AST/SGOT) 33 U/L (15-37) Alanine Aminotransferase (ALT/SGPT) 81 U/L (14-59) Alkaline Phosphatase 161 U/L (46-116) Total Protein 6.0 g/dL (6.4-8.2) Albumin 3.3 g/dL (3.4-5.0) Brief Hospital Course Ms. Sandoval is a 83 old female, dementia, admit with flank pain, abd pain, diarrhea, and hematuria, colitis on CT, self-lmited, hematuria stopped, no pain possible stone passed, and poss viral colitis Discharge Information Condition at Discharge: Improved Follow Up: Weeks Disposition/Orders: D/C to Home w/ HH Scheduled Apixaban (Eliquis) 5 Mg Tablet, 5 MG PO BID for clot prevention, (Reported) Entered as Reported by: Jacob Huynh on 09/24/182149 Last Action: Continued on 10/09/181957 by LINCOLN REBOLLEDO Atorvastatin Calcium (Lipitor) 40 Mg Tablet, 1 TAB PO QHS for cholesterol, #90 Ref 1 (Reported) Entered as Reported by: Jacob Huynh on 09/24/182151 Last Action: Continued on 10/09/181957 by LINCOLN REBOLLEDO Cholecalciferol (Vitamin D3) (Vitamin D3) 1,000 Unit Tablet, 1 TAB PO DAILY for vitamin, #30 Ref 5 (Reported) Entered as Reported by: Jacob Huynh on 09/24/182151 Last Action: Continued on 10/09/181957 by LINCOLN REBOLLEDO Clopidogrel Bisulfate (Clopidogrel) 75 Mg Tablet, 1 TAB PO DAILY for clot prevention, #90 Ref 1 (Reported) Entered as Reported by: Jacob Huynh on 09/24/182147 Last Action: Continued on 10/09/181957 by LINCOLN REBOLLEDO Imipramine Hcl (Imipramine Hcl) 10 Mg Tablet, 10 MG PO HS for depression, (Reported) Entered as Reported by: Jacob Huynh on 09/24/182152 Last Action: Converted on 10/09/181957 by LINCOLN REBOLLEDO Levothyroxine Sodium (Levothyroxine Sodium) 75 Mcg Tablet, 75 MCG PO DAILYAC for THYROID SUPPLEMENT, #30 Ref 0 (Reported) Entered as Reported by: Jacob Huynh on 09/24/182152 Last Action: Continued on 10/09/181957 by LINCOLN REBOLLEDO Scheduled PRN Guaifenesin (Guaifenesin) 100 Mg/5 Ml Liquid, 100 MG PO PRN Q6HRS PRN for COUGH, (Reported) Entered as Reported by: Jacob Huynh on 09/24/182152 Last Action: Continued on 10/09/181957 by LINCOLN REBOLLEDO Ipratropium/Albuterol Sulfate (Duoneb 0.5-3(2.5) Mg/3 Ml) 3 Ml Ampul.neb, 3 ML NEB PRN Q4HRS PRN for WHEEZING, (Reported) Entered as Reported by: Jacob Huynh on 09/24/182148 Last Action: Continued on 10/09/181957 by LINCOLN REBOLLEDO Patient Instructions Patient Instructions > 30 min face to face and phone call to Jacki, her daughter, PETER OLIVARES MD Oct 11, 2018 12:38
--- NOTE | 2018-10-11 12:50 | SNU/HH DC ---
DISCHARGE ORDERS DISCHARGE INFORMATION: DISCHARGE DATE: Oct 11, 2018 FINAL DIAGNOSIS renal stone colitis, weakness dementia CONDITION ON DISCHARGE: Stable CODE STATUS: Code Status: Full ALF: SNF STAY <30 DAYS: Yes POST DISCHARGE ORDERS: ACTIVITY ORDERS: Resume previous activity WEIGHT BEARING STATUS: As tolerated DIET AFTER DISCHARGE: Cardiac FOLLOW-UP: PHYSICIAN FOLLOW-UP: primary care, TREATMENT/EQUIPMENT ORDERS: Physical Therapy For: Evalulation/Treatment Occupational Therapy For: Evaluation/Treatment DISCHARGE MEDICATIONS: Home Meds Reported Medications Levothyroxine Sodium (LEVOTHYROXINE SODIUM) 75 Mcg Tablet, 75 MCG PO DAILYAC for THYROID SUPPLEMENT, #30 TAB 0 Refills 09/24/18 Imipramine Hcl (IMIPRAMINE HCL) 10 Mg Tablet, 10 MG PO HS for depression, TAB 09/24/18 Guaifenesin (GUAIFENESIN) 100 Mg/5 Ml Liquid, 100 MG PO PRN Q6HRS PRN for COUGH, LIQUID 09/24/18 Cholecalciferol (Vitamin D3) (VITAMIN D3) 1,000 Unit Tablet, 1 TAB PO DAILY for vitamin, #30 TAB 5 Refills 09/24/18 Atorvastatin Calcium (LIPITOR) 40 Mg Tablet, 1 TAB PO QHS for cholesterol, #90 TAB 1 Refill 09/24/18 Apixaban (ELIQUIS) 5 Mg Tablet, 5 MG PO BID for clot prevention, TAB 09/24/18 Ipratropium/Albuterol Sulfate (DUONEB 0.5-3(2.5) MG/3 ML) 3 Ml Ampul.neb, 3 ML NEB PRN Q4HRS PRN for WHEEZING, EACH 09/24/18 Clopidogrel Bisulfate (CLOPIDOGREL) 75 Mg Tablet, 1 TAB PO DAILY for clot prevention, #90 TAB 1 Refill 09/24/18 PETER OLIVARES MD Oct 11, 2018 12:50
--- NOTE | 2018-10-11 15:55 | NUR ---
SW phoned and faxed orders to [facility]. Pt will transport via facility arranged w/c van between [phone]. RN notified.
[2018-10-21] MEDS ORDERED: POLY17PO28 PO (09:23)
[2018-10-21] MEDS ORDERED: AMOX1TAB58 PO (09:28)
== END 2018-10-11 15:38 | disposition home or self-care (01) | DRG 871 ==
LOC: ER 17:28 → 6 SOUTH 19:15
PROVIDERS: ADMIT Internal Medicine; ATTEND Internal Medicine
DX: A41.9 Sepsis, unspecified organism (principal); G93.41 Metabolic encephalopathy; A08.4 Viral intestinal infection, unspecified; E78.5 Hyperlipidemia, unspecified; R94.5 Abnormal results of liver function studies; R31.9 Hematuria, unspecified; R74.0 Nonspecific elevation of levels of transaminase and lactic acid dehydrogenase [LDH]; I25.10 Atherosclerotic heart disease of native coronary artery without angina pectoris; K57.90 Diverticulosis of intestine, part unspecified, without perforation or abscess without bleeding; D64.9 Anemia, unspecified; G30.9 Alzheimer's disease, unspecified; I10 Essential (primary) hypertension; F32.9 Major depressive disorder, single episode, unspecified; Z82.49 Family history of ischemic heart disease and other diseases of the circulatory system; Z90.49 Acquired absence of other specified parts of digestive tract; Z87.442 Personal history of urinary calculi; Z95.5 Presence of coronary angioplasty implant and graft; F02.80 Dementia in other diseases classified elsewhere, unspecified severity, without behavioral disturbance, psychotic disturbance, mood disturbance, and anxiety
CPT/HCPCS: 36415; 71045; 74177; 76700; 80053; 80076; 81001; 83690; 83735; 84484; 85025; 85651; 86140; 86705; 86709; 86803; 87086; 87340; 93005; J0696; Q9967; 99285-25

== ENCOUNTER 2018-10-18 16:01 | Inpatient (IN) | payer MEDICARE, OTHER ==
[~2018-10-18] VITALS: Ht 152.4 cm; Wt 81.6 kg
[2018-10-18] MEDS ORDERED: IV NORMAL SALINE 500ML BAG 500 ML IV ONE (17:00)
[2018-10-18 17:10] LABS: BASO # 0.1 x10^3/uL (0.0-0.2); BASO % 1 % (0-3); EOS # 0.6 x10^3/uL (0.0-0.7); EOS % 9 % (0-3); HEMATOCRIT 21.4 % (36.0-47.0); LYMPH # 1.3 x10^3/uL (1.0-4.8); LYMPH % 22 % (24-48); MEAN CORPUSCULAR HEMOGLOBIN 30 pg (25-35); MEAN CORPUSCULAR HGB CONC 32 g/dL (31-37); MEAN CORPUSCULAR VOLUME 93 fL (79-100); MONO # 0.5 x10^3/uL (0.0-1.1); MONO % 8 % (0-9); NEUT # 3.6 x10^3uL (1.8-7.7); NEUT % 59 % (31-73); PLATELET COUNT 283 x10^3/uL (140-400); RED BLOOD COUNT 2.31 x10^6/uL (3.50-5.40); RED CELL DISTRIBUTION WIDTH 18.2 % (11.5-14.5)
[2018-10-18 17:16] LABS: HEMOGLOBIN 6.9 g/dL (12.0-15.5)
[2018-10-18 17:19] LABS: PROTHROMBIN TIME PATIENT 15.6 SEC (11.7-14.0)
[2018-10-18 17:27] LABS: ALBUMIN 3.4 g/dL (3.4-5.0); ALBUMIN/GLOBULIN RATIO 1.1 (1.0-1.7); CREATININE 0.8 mg/dL (0.6-1.0); GFR 68.8; TOTAL BILIRUBIN 0.4 mg/dL (0.2-1.0); TOTAL PROTEIN 6.5 g/dL (6.4-8.2)
--- NOTE | 2018-10-18 18:20 | PHYS DOC ---
Past Medical History Past Medical History: Dementia, Diabetes-Type II, GI Bleed, Heart Disease Additional Past Medical Histor: alzheimer's, MDD, insomnia, AORTIC STENOSIS, (PAM MANCUSO APRN) Past Surgical History: Cholecystectomy, Tonsillectomy, Other Additional Past Surgical Histo: 09/30, poor historian (PAM MANCUSO APRN) Additional Information: non smoker Alcohol Use: None Drug Use: None (PAM MANCUSO APRN) Adult General Chief Complaint Chief Complaint: ANEMIA HPI HPI Patient is 83-year-old female who presents to the ER after being sent from her rehabilitation center after they brittany blood work and it showed that she had an abnormal lab value for hemoglobin of 6.1. Patient was just discharged from hospital on 09 October for the same issue. Her hemoglobin at that time on discharge is 8.8. Denies any blood in her stools or any bleeding. She is on Plavix and Eliquis. Denies any pain at this time. (PAM MANCUSO APRN) Review of Systems Review of Systems Constitutional: Denies fever or chills [] Eyes: Denies change in visual acuity, redness, or eye pain [] HENT: Denies nasal congestion or sore throat [] Respiratory: Denies cough or shortness of breath [] Cardiovascular: No additional information not addressed in HPI [] GI: Denies abdominal pain, nausea, vomiting, bloody stools or diarrhea [] : Denies dysuria or hematuria [] Musculoskeletal: Denies back pain or joint pain [] Integument: Denies rash or skin lesions [] Neurologic: Denies headache, focal weakness or sensory changes [] Endocrine: Denies polyuria or polydipsia [] Complete systems were reviewed and found to be within normal limits, except as documented in this note. (PAM MANCUSO APRN) Current Medications Current Medications Current Medications Medications (Trade) Dose Ordered Sig/Tiffanie Start Time Stop Time Status Last Admin Dose Admin Sodium Chloride 500 ml @ 500 mls/hr 1X ONCE 10/18/18 17:00 10/18/18 17:59 DC 10/18/18 17:36 500 MLS/HR (PAM RAY DO) Allergies Allergies Allergies Coded Allergies Type Severity Reaction Last Updated Verified No Known Drug Allergies 09/27/18 No (PAM RAY DO) Physical Exam Physical Exam Constitutional: Well developed, well nourished, no acute distress, non-toxic appearance. [] HENT: Normocephalic, atraumatic, bilateral external ears normal, oropharynx moist, no oral exudates, nose normal. [] Eyes: PERRLA, EOMI, conjunctiva normal, no discharge. [] Neck: Normal range of motion, no tenderness, supple, no stridor. [] Cardiovascular:Heart rate regular rhythm, no murmur [] Lungs & Thorax: Bilateral breath sounds clear to auscultation [] Abdomen: Bowel sounds normal, soft, no tenderness, no masses, no pulsatile masses. [] Skin: Warm, dry, no erythema, no rash. [] Back: No tenderness, no CVA tenderness. [] Extremities: No tenderness, no cyanosis, no clubbing, ROM intact, no edema. [] Neurologic: Alert and oriented X 3, normal motor function, normal sensory function, no focal deficits noted. [] Psychologic: Affect normal, judgement normal, mood normal. [] (PAM MANCUSO APRN) Current Patient Data Vital Signs Vital Signs Date Time Temp Pulse Resp B/P (MAP) Pulse Ox O2 Delivery O2 Flow Rate FiO2 10/18/18 18:00 91 16 142/57 (85) 99 Room Air 10/18/18 16:59 98.5 98.5 (PAM RAY DO) Lab Values Laboratory Tests Test 10/18/18 16:23 White Blood Count 6.0 x10^3/uL (4.0-11.0) Red Blood Count 2.31 x10^6/uL (3.50-5.40) L Hemoglobin 6.9 g/dL (12.0-15.5) *L Hematocrit 21.4 % (36.0-47.0) L Mean Corpuscular Volume 93 fL (79-100) Mean Corpuscular Hemoglobin 30 pg (25-35) Mean Corpuscular Hemoglobin Concent 32 g/dL (31-37) Red Cell Distribution Width 18.2 % (11.5-14.5) H Platelet Count 283 x10^3/uL (140-400) Neutrophils (%) (Auto) 59 % (31-73) Lymphocytes (%) (Auto) 22 % (24-48) L Monocytes (%) (Auto) 8 % (0-9) Eosinophils (%) (Auto) 9 % (0-3) H Basophils (%) (Auto) 1 % (0-3) Neutrophils # (Auto) 3.6 x10^3uL (1.8-7.7) Lymphocytes # (Auto) 1.3 x10^3/uL (1.0-4.8) Monocytes # (Auto) 0.5 x10^3/uL (0.0-1.1) Eosinophils # (Auto) 0.6 x10^3/uL (0.0-0.7) Basophils # (Auto) 0.1 x10^3/uL (0.0-0.2) Prothrombin Time 15.6 SEC (11.7-14.0) H Prothrombin Time INR 1.3 (0.8-1.1) H PTT 32 SEC (24-38) Sodium Level 141 mmol/L (136-145) Potassium Level 4.0 mmol/L (3.5-5.1) Chloride Level 106 mmol/L (98-107) Carbon Dioxide Level 27 mmol/L (21-32) Anion Gap 8 (6-14) Blood Urea Nitrogen 15 mg/dL (7-20) Creatinine 0.8 mg/dL (0.6-1.0) Estimated GFR (Cockcroft-Gault) 68.8 BUN/Creatinine Ratio 19 (6-20) Glucose Level 110 mg/dL (70-99) H Calcium Level 9.0 mg/dL (8.5-10.1) Iron Level 21 ug/dL (50-170) L Total Iron Binding Capacity 330 ug/dL (250-450) Iron Saturation 6 % (15-34) L Total Bilirubin 0.4 mg/dL (0.2-1.0) Aspartate Amino Transferase (AST) 18 U/L (15-37) Alanine Aminotransferase (ALT) 24 U/L (14-59) Alkaline Phosphatase 96 U/L (46-116) Total Protein 6.5 g/dL (6.4-8.2) Albumin 3.4 g/dL (3.4-5.0) Albumin/Globulin Ratio 1.1 (1.0-1.7) Laboratory Tests 10/18/18 16:23 Laboratory Tests 10/18/18 16:23 (PAM RAY DO) EKG EKG EKG interpreted by Dr. Wan EKG shows no STEMI. Sinus Rhythm rate of 95. (PAM MANCUSO APRN) Radiology/Procedures Radiology/Procedures Performed a digit rectal exam. Hemorrhoids was noted externally. No rectal bleeding was noting. Send Occult Blood Sample to Lab. (PAM MANCUSO APRN) Course & Med Decision Making Course & Med Decision Making Pertinent Labs and Imaging studies reviewed. (See chart for details) Discussed signs and symptoms with daughter and patient. Will contact hospitalist for readmission and order labs and fluids. Daughter is agreeable. Hemoglobin is 6.9, Iron is low. Talked to Dr. Lane who will admit to hospital. (PAM MANCUSO APRN) Dragon Disclaimer Dragon Disclaimer This electronic medical record was generated, in whole or in part, using a voice recognition dictation system. (PAM MANCUSO APRN) Departure Departure Impression: Primary Impression: Anemia Disposition: 09 ADMITTED INPATIENT Condition: GOOD Referrals: DONALD CAGLE MD (PCP) Attending Signature Attending Signature I have reviewed the PA/EYE DROPPER ASSEMBLER's note and plan of care. I was available for consultation as needed during the patient's visit in the emergency department. I agree with the clinical impression, plan, and disposition. (PAM RAY DO) Problem Qualifiers Primary Impression: Anemia Iron deficiency anemia type: unspecified iron deficiency PAM MANCUSO APRN October 18, 2018 18:20 PAM RAY DO October 19, 2018 05:22
--- NOTE | 2018-10-18 18:28 | PDOC1 ---
History and Physical Date of Admission Date of Admission DATE: 10/18/18 TIME: 18:28 Past Medical History Cardiovascular: No pertinent hx Pulmonary: No pertinent hx GI: No pertinent hx Hepatobiliary: No pertinent hx Family History Family History: Hypertension Social History ALCOHOL: none Current Problem List Problem List Problems Medical Problems: (1) Anemia Status: Acute Current Medications Current Medications Current Medications Sodium Chloride 500 ml @ 500 mls/hr 1X ONCE IV Last administered on 10/18/18at 17:36; Start 10/18/18 at 17:00; Stop 10/18/18 at 17:59; Status DC Active Scripts Active Reported Levothyroxine Sodium 75 Mcg Tablet 75 Mcg PO DAILYAC Imipramine Hcl 10 Mg Tablet 10 Mg PO HS Guaifenesin 100 Mg/5 Ml Liquid 100 Mg PO PRN Q6HRS PRN Vitamin D3 (Cholecalciferol (Vitamin D3)) 1,000 Unit Tablet 1 Tab PO DAILY Lipitor (Atorvastatin Calcium) 40 Mg Tablet 1 Tab PO QHS Eliquis (Apixaban) 5 Mg Tablet 5 Mg PO BID Duoneb 0.5-3(2.5) Mg/3 Ml (Albuterol/Ipratropium) 3 Ml Ampul.neb 3 Ml NEB PRN Q4HRS PRN Clopidogrel (Clopidogrel Bisulfate) 75 Mg Tablet 1 Tab PO DAILY Allergies Allergies: Coded Allergies: No Known Drug Allergies (Unverified , 09/27/18) Vitals Vitals Vital Signs Date Time Temp Pulse Resp B/P (MAP) Pulse Ox O2 Delivery O2 Flow Rate FiO2 10/18/18 16:59 98.5 88 18 142/57 (85) 96 Room Air 98.5 Labs Labs Laboratory Tests Test 10/18/18 16:23 White Blood Count 6.0 x10^3/uL (4.0-11.0) Red Blood Count 2.31 x10^6/uL (3.50-5.40) Hemoglobin 6.9 g/dL (12.0-15.5) Hematocrit 21.4 % (36.0-47.0) Mean Corpuscular Volume 93 fL (79-100) Mean Corpuscular Hemoglobin 30 pg (25-35) Mean Corpuscular Hemoglobin Concent 32 g/dL (31-37) Red Cell Distribution Width 18.2 % (11.5-14.5) Platelet Count 283 x10^3/uL (140-400) Neutrophils (%) (Auto) 59 % (31-73) Lymphocytes (%) (Auto) 22 % (24-48) Monocytes (%) (Auto) 8 % (0-9) Eosinophils (%) (Auto) 9 % (0-3) Basophils (%) (Auto) 1 % (0-3) Neutrophils # (Auto) 3.6 x10^3uL (1.8-7.7) Lymphocytes # (Auto) 1.3 x10^3/uL (1.0-4.8) Monocytes # (Auto) 0.5 x10^3/uL (0.0-1.1) Eosinophils # (Auto) 0.6 x10^3/uL (0.0-0.7) Basophils # (Auto) 0.1 x10^3/uL (0.0-0.2) Prothrombin Time 15.6 SEC (11.7-14.0) Prothromb Time International Ratio 1.3 (0.8-1.1) Activated Partial Thromboplast Time 32 SEC (24-38) Sodium Level 141 mmol/L (136-145) Potassium Level 4.0 mmol/L (3.5-5.1) Chloride Level 106 mmol/L (98-107) Carbon Dioxide Level 27 mmol/L (21-32) Anion Gap 8 (6-14) Blood Urea Nitrogen 15 mg/dL (7-20) Creatinine 0.8 mg/dL (0.6-1.0) Estimated GFR (Cockcroft-Gault) 68.8 BUN/Creatinine Ratio 19 (6-20) Glucose Level 110 mg/dL (70-99) Calcium Level 9.0 mg/dL (8.5-10.1) Iron Level 21 ug/dL (50-170) Total Iron Binding Capacity 330 ug/dL (250-450) Iron Saturation 6 % (15-34) Total Bilirubin 0.4 mg/dL (0.2-1.0) Aspartate Amino Transf (AST/SGOT) 18 U/L (15-37) Alanine Aminotransferase (ALT/SGPT) 24 U/L (14-59) Alkaline Phosphatase 96 U/L (46-116) Total Protein 6.5 g/dL (6.4-8.2) Albumin 3.4 g/dL (3.4-5.0) Albumin/Globulin Ratio 1.1 (1.0-1.7) Laboratory Tests Test 10/18/18 16:23 White Blood Count 6.0 x10^3/uL (4.0-11.0) Red Blood Count 2.31 x10^6/uL (3.50-5.40) Hemoglobin 6.9 g/dL (12.0-15.5) Hematocrit 21.4 % (36.0-47.0) Mean Corpuscular Volume 93 fL (79-100) Mean Corpuscular Hemoglobin 30 pg (25-35) Mean Corpuscular Hemoglobin Concent 32 g/dL (31-37) Red Cell Distribution Width 18.2 % (11.5-14.5) Platelet Count 283 x10^3/uL (140-400) Neutrophils (%) (Auto) 59 % (31-73) Lymphocytes (%) (Auto) 22 % (24-48) Monocytes (%) (Auto) 8 % (0-9) Eosinophils (%) (Auto) 9 % (0-3) Basophils (%) (Auto) 1 % (0-3) Neutrophils # (Auto) 3.6 x10^3uL (1.8-7.7) Lymphocytes # (Auto) 1.3 x10^3/uL (1.0-4.8) Monocytes # (Auto) 0.5 x10^3/uL (0.0-1.1) Eosinophils # (Auto) 0.6 x10^3/uL (0.0-0.7) Basophils # (Auto) 0.1 x10^3/uL (0.0-0.2) Prothrombin Time 15.6 SEC (11.7-14.0) Prothromb Time International Ratio 1.3 (0.8-1.1) Activated Partial Thromboplast Time 32 SEC (24-38) Sodium Level 141 mmol/L (136-145) Potassium Level 4.0 mmol/L (3.5-5.1) Chloride Level 106 mmol/L (98-107) Carbon Dioxide Level 27 mmol/L (21-32) Anion Gap 8 (6-14) Blood Urea Nitrogen 15 mg/dL (7-20) Creatinine 0.8 mg/dL (0.6-1.0) Estimated GFR (Cockcroft-Gault) 68.8 BUN/Creatinine Ratio 19 (6-20) Glucose Level 110 mg/dL (70-99) Calcium Level 9.0 mg/dL (8.5-10.1) Iron Level 21 ug/dL (50-170) Total Iron Binding Capacity 330 ug/dL (250-450) Iron Saturation 6 % (15-34) Total Bilirubin 0.4 mg/dL (0.2-1.0) Aspartate Amino Transf (AST/SGOT) 18 U/L (15-37) Alanine Aminotransferase (ALT/SGPT) 24 U/L (14-59) Alkaline Phosphatase 96 U/L (46-116) Total Protein 6.5 g/dL (6.4-8.2) Albumin 3.4 g/dL (3.4-5.0) Albumin/Globulin Ratio 1.1 (1.0-1.7) Images Images IMPRESSION: No acute cardiopulmonary disease. Right humeral head appears to be superior to the glenoid and dislocation cannot be excluded on this single view. Recommend clinical correlation and follow-up. CT abdomen and pelvis with contrast: Helical images were obtained through the abdomen and pelvis with intravenous administration of 75 cc Omnipaque 300. Reconstruction was performed in sagittal and coronal planes. Exposure: One or more of the following individualized dose reduction techniques were utilized for this examination: 1. Automated exposure control 2. Adjustment of the mA and/or kV according to patient size 3. Use of iterative reconstruction technique. There is some linear atelectasis at the left lung base. The heart size is mildly enlarged. No pericardial effusion is seen. No abnormality seen at the liver, spleen, adrenal glands or pancreas. The gallbladder surgically absent. The common bile duct is not abnormally dilated at 6.4 mm post cholecystectomy. The abdominal aorta and inferior vena cava show no acute abnormalities. No abnormality seen at the appendix. The colon shows presence of a few scattered diverticuli but no diverticulitis. The small intestinal tract shows some dilatation and wall thickening in the duodenum and proximal jejunum which may reflect inflammatory process. No abnormality seen at the stomach. The left kidney shows a hypodense lesion consistent with a cyst at the lower pole posteriorly probably representing a cyst measuring 1.6 cm in greatest dimension. There is no evidence of obstructive uropathy or renal calculus. The right kidney shows no renal mass. There is however a dilated right renal pelvis but no renal calculus or obstructive uropathy is evident. There is however some perinephric stranding around the right kidney. No abnormality seen at the bladder. The uterus appears to be atrophic. No adnexal masses are seen. There is no free fluid or free air in the abdomen or pelvis. There are degenerative changes in the spine. No acute bony abnormalities are seen. IMPRESSION: Dilated right renal pelvis and calyceal system with some inflammatory changes in the perinephric fat but no obstructive uropathy seen. 1.6 cm hypodense lesion at the lower pole left kidney which may represent cysts. Dilatation with wall thickening in the duodenum and proximal jejunum which could reflect enteritis. Electronically signed by: Cathy Soler MD (10/09/2018 8:37 PM) [employer] DICTATED and SIGNED BY: CATHY SOLER MD DATE: 10/09/182036 VTE Prophylaxis Ordered VTE Prophylaxis Devices: No VTE Pharmacological Prophylaxi: No Assessment/Plan Assessment/Plan impression H/o recent GI bleeding - ? rebleeding, Hgb worse=6.9 Dilatation with wall thickening in the duodenum and proximal jejunum which could reflect enteritis. on recent ct abdomen/pelvis transaminitis - NOS, IMPROVED dementia colitis on recent CT Hx CAD Duodenitis in bulb plan GI CONSULT dr HOUSE TRANSFUSE PRN conservative approach given age and dementia 74 MIN PT EXAM, CHART REVIEW, > 50% of time spent with exam, chart review, pt care coordination PROCEDURE, RECENT Procedure EGD recent UPPER IG bleeding anesthesia with propofol Findings Normal esophagitis Gastritis with few erosions and some bile no ulcers NO bleeding Duodenitis in bulb- near site of prior oozing but NO further bleeding here or an ywhere in duodenum - no AVM, ulcer etc seen Plan- add carafate BID take protonix daily OK to restart blood thinners but will defer to cardiology MARIELLE MARIA MD October 18, 2018 18:28
[2018-10-18] MEDS ORDERED: MORPHINE SULFATE 2 MG/ML VIAL. IV PRN (18:30)
[2018-10-18] MEDS ORDERED: ONDANSETRON PF 4 MG/2 ML VIAL. IV PRN (18:30)
[2018-10-18] MEDS ORDERED: PANTOPRAZOLE IV PUSH 40 MG VIAL. IVP SCH (18:45)
[2018-10-18 19:01] LABS: BILIRUBIN,URINE NEGATIVE (NEG); CLARITY,URINE CLEAR; COLOR,URINE YELLOW; NITRITE,URINE NEGATIVE (NEG); PH,URINE 6.5; PROTEIN,URINE NEGATIVE (NEG-TRACE); UROBILINOGEN,URINE 0.2 mg/dL (0.2 mg/dL)
[2018-10-18 19:07] LABS: BACTERIA,URINE 0 /HPF (0-FEW); RBC,URINE 0 /HPF (0-2); SQUAMOUS EPITHELIAL CELL,UR FEW /LPF; YEAST,URINE PRESENT /HPF
[2018-10-18 19:55] VITALS: BP 155/77
[2018-10-18 22:48] VITALS: BP 136/43
[2018-10-18 23:07] VITALS: BP 158/62
[2018-10-18 23:54] VITALS: BP 122/71
[2018-10-19] VITALS (9 sets, daily range): BP systolic 99–172; BP diastolic 43–91
[2018-10-19 02:08] LABS: HEMATOCRIT 25.2 % (36.0-47.0); HEMOGLOBIN 8.1 g/dL (12.0-15.5)
--- NOTE | 2018-10-19 07:12 | EKG ---
[facility] [address] [place] [address] Test Date: 2018-10-18 Test Time: 17:22:57 Pat Name: EMEKA BROWN Department: Room: 658 1 Gender: F Wardrobe Stylist: : 1935 Requested By: PAM MANCUSO Order Number: [id number] Reading MD: Irvin Ulloa MD Measurements Intervals [place] Rate: 94 P: 15 MD: 222 QRS: 25 QRSD: 92 T: -113 QT: 352 QTc: 445 Interpretive Statements SINUS RHYTHM PROLONGED MD INTERVAL ST & T ABNORMALITY, CONSIDER LATERAL ISCHEMIA OR LEFT VENTRICULAR STRAIN INFEROLATERAL ISCHEMIA OR LEFT VENTRICULAR STRAIN ABNORMAL ECG Electronically Signed On 11-14-2018 9:25:08 CDT by Irvin Ulloa MD
--- NOTE | 2018-10-19 07:49 | NUR ---
Pt rested during the noc pt was able to answer some of admission questions. Pt able to tell me where she was and alert and oriented and able to sign form for blood transfusion. Pt received 1 unit of blood without complications. Vitals within normal limits. Bp slightly elevated however pt asymptomatic. Pt rested with eyes closed during the noc. Pt with bed alarm on since pt not asking to get up with assist. Pt woke up this am wanting to leave the hospital. Pt grabbed her clothes out of her personal belongings bag and started getting dressed. Pt states she had to go to the dining [facility] for breakfast. Attempted to reorient pt to surroundings however pt still insisted on leaving and needing to go to the third floor. Two staff members had to stay in the room since pt wanting to leave and not easily oriented to surroundings. Pt attempting to push staff out of the way and pulled out IV, removed telemonitor and still states she was leaving. Pt called her daughter however pt still refusing plan of care. Daughter called hospital and states she will come by and sit with pt. Report given to day nurse and at this time nurse in room until daughter arrives. No further complaints at this time.
[2018-10-19] MEDS ORDERED: risperiDONE 1 MG TABLET. PO ONE (08:00)
[2018-10-19] MEDS ORDERED: LABETALOL 20 MG/4 ML DISP.SYRIN. IVP PRN (09:15)
[2018-10-19] MEDS ORDERED: ONDANSETRON PF 4 MG/2 ML VIAL. IV PRN (09:15)
[2018-10-19] MEDS ORDERED: guaiFENesin ORAL 200 MG/10 ML LIQUID. PO PRN (09:15)
[2018-10-19] MEDS ORDERED: ALBUTEROL SULFATE 2.5 MG/3 ML NEBU. NEB PRN (09:30)
--- NOTE | 2018-10-19 09:37 | PDOC ---
Subjective: Subjective: Please see GI consults from 09/25 and 10/10/18. Sent to ER from facility last night w/ abnormal labs and need for transfusion, was admitted. Asymptomatic GI-yung - no bleeding, n/v, abd pain, diarrhea, constipation, etc. Confused this morning - took IVs out and put her street clothes on, daughter present now. Hgb on 10/09 was 8.8, yesterday was 6.9, now 8.1 s/p 1 unit pRBCs. On Eliquis and Plavix - daughter says saw Dr. An to discuss valvular surgery - he suggested stopping Eliquis but "that's up to GI." They have a f/u appt w/ Dr. Mondragon on 10/31. Daughter thinks is taking Protonix but not sure about Carafate or iron. Reportedly normal colonoscopy years ago, was told at one point she didn't need to have another. EGD 09/25/18: esophagus normal, gastritis without ulcer or bleeding, duodenal blood noted - recent bleeding and mild oozing noted in 2nd portion of duodenum but no discrete ulcer, AVM etc - area injected with epi and oozing seemed to stop, scope passed to 3rd portion, all areas irrigated and no other active bleeding seem but recent blood in lumen noted. EGD 09/27/18: normal esophagus, gastritis with few erosions and some bile, no ulcers, no bleeding, duodenitis in bulb - near site of prior oozing but no further bleeding here or anywhere in duodenum, no AVM or ulcer. Objective: Vital Signs: Vital Signs Date Time Temp Pulse Resp B/P (MAP) Pulse Ox O2 Delivery O2 Flow Rate FiO2 10/19/18 07:21 97.9 96 172/91 (118) 95 Room Air 97.9 10/19/18 07:15 18 Labs: Laboratory Tests Test 10/18/18 16:23 10/18/18 18:40 10/19/18 01:55 White Blood Count 6.0 x10^3/uL Red Blood Count 2.31 x10^6/uL Hemoglobin 6.9 g/dL 8.1 g/dL Hematocrit 21.4 % 25.2 % Mean Corpuscular Volume 93 fL Mean Corpuscular Hemoglobin 30 pg Mean Corpuscular Hemoglobin Concent 32 g/dL Red Cell Distribution Width 18.2 % Platelet Count 283 x10^3/uL Neutrophils (%) (Auto) 59 % Lymphocytes (%) (Auto) 22 % Monocytes (%) (Auto) 8 % Eosinophils (%) (Auto) 9 % Basophils (%) (Auto) 1 % Neutrophils # (Auto) 3.6 x10^3uL Lymphocytes # (Auto) 1.3 x10^3/uL Monocytes # (Auto) 0.5 x10^3/uL Eosinophils # (Auto) 0.6 x10^3/uL Basophils # (Auto) 0.1 x10^3/uL Prothrombin Time 15.6 SEC Prothromb Time International Ratio 1.3 Activated Partial Thromboplast Time 32 SEC Sodium Level 141 mmol/L Potassium Level 4.0 mmol/L Chloride Level 106 mmol/L Carbon Dioxide Level 27 mmol/L Anion Gap 8 Blood Urea Nitrogen 15 mg/dL Creatinine 0.8 mg/dL Estimated GFR (Cockcroft-Gault) 68.8 BUN/Creatinine Ratio 19 Glucose Level 110 mg/dL Calcium Level 9.0 mg/dL Iron Level 21 ug/dL Total Iron Binding Capacity 330 ug/dL Iron Saturation 6 % Total Bilirubin 0.4 mg/dL Aspartate Amino Transf (AST/SGOT) 18 U/L Alanine Aminotransferase (ALT/SGPT) 24 U/L Alkaline Phosphatase 96 U/L Total Protein 6.5 g/dL Albumin 3.4 g/dL Albumin/Globulin Ratio 1.1 Urine Collection Type Unknown Urine Color Yellow Urine Clarity Clear Urine pH 6.5 Urine Specific [place] <=1.005 Urine Protein Negative mg/dL Urine Glucose (UA) Negative mg/dL Urine Ketones (Stick) Negative mg/dL Urine Blood Negative Urine Nitrite Negative Urine Bilirubin Negative Urine Urobilinogen Dipstick 0.2 mg/dL Urine Leukocyte Esterase Moderate Urine RBC 0 /HPF Urine WBC 11-20 /HPF Urine Squamous Epithelial Cells Few /LPF Urine Bacteria 0 /HPF Urine Yeast Present /HPF PE: GEN: NAD, up to chair LUNGS: CTAB HEART: RRR ABD: NABS, S/ND/NT NEURO/PSYCH: pleasantly confused A/P: Chronic BRIAN Recent GI bleeding (09/2018) - no recurrence, recent EGDs as above H/o CAD and DVT on Plavix and Eliquis -- Change to PO PPI, resume Carafate and iron. Okay to eat. Would stop Eliquis. MARIUM NGO October 19, 2018 09:37
[2018-10-19] MEDS ORDERED: IV 1/2 NORMAL SALINE 1,000 ML IV SCH (10:00)
[2018-10-19] MEDS: LEVOTHYROXINE 75 MCG TABLET PO SCH (10:55)
--- NOTE | 2018-10-19 11:07 | NUR ---
SW following pt for anticipated dc needs. Chart reviewed and discussed with RN. Pt lives at [facility] but was at the Skilled side prior hospital admission. Stacy at [facility] reported pt was about discharge from SNU prior hospital admission but is able to return either to AL or SNU upon dc. PT/OT pending. SW will await for PT/OT recommendation to assess skilled needs.
[2018-10-19] MEDS: SUCRALFATE 1 GM TABLET. PO SCH ×2 (12:08→16:26)
[2018-10-19] MEDS: CHOLECALCIFEROL (VITAMIN D3) 1,000 UNIT TABLET PO SCH (12:08)
[2018-10-19] MEDS: POLYETHYLENE GLYCOL 3350 17 GM PACKET. PO SCH (12:08)
[2018-10-19] MEDS: FERROUS SULFATE 325 MG TABLET. PO SCH ×2 (12:08→17:28)
--- NOTE | 2018-10-19 12:09 | PDOC ---
PROGRESS NOTES Chief Complaint Chief Complaint Acute Precipitous drop in hemoglobin-hemoglobin 6.8 on admission History of duodenitis, recent colitis, mild gastritis - EGD Dr Nevarez (09/2018) History cardiac indwelling stents and right knee clot-both on Eliquis and Plavix Accelerated hypertension POA dementia-chronic stable History of Present Illness History of Present Illness Pt is pleasantly demented cannot tell me details She has a coloring book at bedside Daughter able to fill me in with the details Patient on Plavix and Eliquis because of cardiac stents, [facility] [place] and also a recent knee clot during that hospitalization and [facility]. Blood pressure on the high side, heart rate in the 90s. Patient asymptomatic Hemoglobin 8.1 from 6.9 after 2 packed RBC Has had chronic anemia-known to Dr. Lorenzo No overt blood loss Cleared by GI to have some diet, recent EGD/C scope showed showed colitis, duodenitis gastritis etc. After heavy discussion with the daughter she is agreeable that upon discharge will only do Plavix since recent knee imaging showed resolution of that clot She follows with Doc. Lucrecia Fitzgerald for planned heart valve surgery October 31 PLAN: start diet HH tmr Home tmr on plavix alone when HH tmr ok dtr agreeable with my plan Vitals Vitals Vital Signs Date Time Temp Pulse Resp B/P (MAP) Pulse Ox O2 Delivery O2 Flow Rate FiO2 10/19/18 11:00 97.7 94 18 151/56 (87) 99 Room Air 97.7 Physical Exam General: Alert, Cooperative, No acute distress Heart: Regular rate, Normal S1, Normal S2, No murmurs Lungs: Clear, Other Abdomen: Normal bowel sounds, Soft, No tenderness Extremities: No clubbing, No edema Skin: No rashes, No breakdown, No significant lesion Labs LABS Laboratory Tests Test 10/18/18 16:23 10/18/18 18:40 10/19/18 01:55 White Blood Count 6.0 x10^3/uL (4.0-11.0) Red Blood Count 2.31 x10^6/uL (3.50-5.40) Hemoglobin 6.9 g/dL (12.0-15.5) 8.1 g/dL (12.0-15.5) Hematocrit 21.4 % (36.0-47.0) 25.2 % (36.0-47.0) Mean Corpuscular Volume 93 fL (79-100) Mean Corpuscular Hemoglobin 30 pg (25-35) Mean Corpuscular Hemoglobin Concent 32 g/dL (31-37) Red Cell Distribution Width 18.2 % (11.5-14.5) Platelet Count 283 x10^3/uL (140-400) Neutrophils (%) (Auto) 59 % (31-73) Lymphocytes (%) (Auto) 22 % (24-48) Monocytes (%) (Auto) 8 % (0-9) Eosinophils (%) (Auto) 9 % (0-3) Basophils (%) (Auto) 1 % (0-3) Neutrophils # (Auto) 3.6 x10^3uL (1.8-7.7) Lymphocytes # (Auto) 1.3 x10^3/uL (1.0-4.8) Monocytes # (Auto) 0.5 x10^3/uL (0.0-1.1) Eosinophils # (Auto) 0.6 x10^3/uL (0.0-0.7) Basophils # (Auto) 0.1 x10^3/uL (0.0-0.2) Prothrombin Time 15.6 SEC (11.7-14.0) Prothromb Time International Ratio 1.3 (0.8-1.1) Activated Partial Thromboplast Time 32 SEC (24-38) Sodium Level 141 mmol/L (136-145) Potassium Level 4.0 mmol/L (3.5-5.1) Chloride Level 106 mmol/L (98-107) Carbon Dioxide Level 27 mmol/L (21-32) Anion Gap 8 (6-14) Blood Urea Nitrogen 15 mg/dL (7-20) Creatinine 0.8 mg/dL (0.6-1.0) Estimated GFR (Cockcroft-Gault) 68.8 BUN/Creatinine Ratio 19 (6-20) Glucose Level 110 mg/dL (70-99) Calcium Level 9.0 mg/dL (8.5-10.1) Iron Level 21 ug/dL (50-170) Total Iron Binding Capacity 330 ug/dL (250-450) Iron Saturation 6 % (15-34) Total Bilirubin 0.4 mg/dL (0.2-1.0) Aspartate Amino Transf (AST/SGOT) 18 U/L (15-37) Alanine Aminotransferase (ALT/SGPT) 24 U/L (14-59) Alkaline Phosphatase 96 U/L (46-116) Total Protein 6.5 g/dL (6.4-8.2) Albumin 3.4 g/dL (3.4-5.0) Albumin/Globulin Ratio 1.1 (1.0-1.7) Urine Collection Type Unknown Urine Color Yellow Urine Clarity Clear Urine pH 6.5 Urine Specific [place] <=1.005 Urine Protein Negative mg/dL (NEG-TRACE) Urine Glucose (UA) Negative mg/dL (NEG) Urine Ketones (Stick) Negative mg/dL (NEG) Urine Blood Negative (NEG) Urine Nitrite Negative (NEG) Urine Bilirubin Negative (NEG) Urine Urobilinogen Dipstick 0.2 mg/dL (0.2 mg/dL) Urine Leukocyte Esterase Moderate (NEG) Urine RBC 0 /HPF (0-2) Urine WBC 11-20 /HPF (0-4) Urine Squamous Epithelial Cells Few /LPF Urine Bacteria 0 /HPF (0-FEW) Urine Yeast Present /HPF Review of Systems Review of Systems A 14 point ROS was completed with the following noted as positive: Other systems reviewed and negative. \CONSTITUTIONAL: No fever or chills EYES: No recent changes SKIN: No rash or itching CARDIOVASCULAR: No chest pain, syncope, palpitations, or edema RESPIRATORY: No SOB or cough GASTROINTESTINAL: No nausea, vomiting or abdominal pain NEUROLOGICAL: No headaches or weakness ENDOCRINE: No cold or heat intolerance GENITOURINARY: No urgency or frequency of urination MUSCULOSKELETAL: No back pain or joint pain LYMPHATICS: No enlarged lymph nodes PSYCHIATRIC: No anxiety or depression Assessment and Plan Assessmemt and Plan Problems Medical Problems: (1) Anemia Status: Acute Comment Review of Relevant I have reviewed the following items matty (where applicable) has been applied. Labs Laboratory Tests Test 10/18/18 16:23 10/18/18 18:40 10/19/18 01:55 White Blood Count 6.0 x10^3/uL (4.0-11.0) Red Blood Count 2.31 x10^6/uL (3.50-5.40) Hemoglobin 6.9 g/dL (12.0-15.5) 8.1 g/dL (12.0-15.5) Hematocrit 21.4 % (36.0-47.0) 25.2 % (36.0-47.0) Mean Corpuscular Volume 93 fL (79-100) Mean Corpuscular Hemoglobin 30 pg (25-35) Mean Corpuscular Hemoglobin Concent 32 g/dL (31-37) Red Cell Distribution Width 18.2 % (11.5-14.5) Platelet Count 283 x10^3/uL (140-400) Neutrophils (%) (Auto) 59 % (31-73) Lymphocytes (%) (Auto) 22 % (24-48) Monocytes (%) (Auto) 8 % (0-9) Eosinophils (%) (Auto) 9 % (0-3) Basophils (%) (Auto) 1 % (0-3) Neutrophils # (Auto) 3.6 x10^3uL (1.8-7.7) Lymphocytes # (Auto) 1.3 x10^3/uL (1.0-4.8) Monocytes # (Auto) 0.5 x10^3/uL (0.0-1.1) Eosinophils # (Auto) 0.6 x10^3/uL (0.0-0.7) Basophils # (Auto) 0.1 x10^3/uL (0.0-0.2) Prothrombin Time 15.6 SEC (11.7-14.0) Prothromb Time International Ratio 1.3 (0.8-1.1) Activated Partial Thromboplast Time 32 SEC (24-38) Sodium Level 141 mmol/L (136-145) Potassium Level 4.0 mmol/L (3.5-5.1) Chloride Level 106 mmol/L (98-107) Carbon Dioxide Level 27 mmol/L (21-32) Anion Gap 8 (6-14) Blood Urea Nitrogen 15 mg/dL (7-20) Creatinine 0.8 mg/dL (0.6-1.0) Estimated GFR (Cockcroft-Gault) 68.8 BUN/Creatinine Ratio 19 (6-20) Glucose Level 110 mg/dL (70-99) Calcium Level 9.0 mg/dL (8.5-10.1) Iron Level 21 ug/dL (50-170) Total Iron Binding Capacity 330 ug/dL (250-450) Iron Saturation 6 % (15-34) Total Bilirubin 0.4 mg/dL (0.2-1.0) Aspartate Amino Transf (AST/SGOT) 18 U/L (15-37) Alanine Aminotransferase (ALT/SGPT) 24 U/L (14-59) Alkaline Phosphatase 96 U/L (46-116) Total Protein 6.5 g/dL (6.4-8.2) Albumin 3.4 g/dL (3.4-5.0) Albumin/Globulin Ratio 1.1 (1.0-1.7) Urine Collection Type Unknown Urine Color Yellow Urine Clarity Clear Urine pH 6.5 Urine Specific [place] <=1.005 Urine Protein Negative mg/dL (NEG-TRACE) Urine Glucose (UA) Negative mg/dL (NEG) Urine Ketones (Stick) Negative mg/dL (NEG) Urine Blood Negative (NEG) Urine Nitrite Negative (NEG) Urine Bilirubin Negative (NEG) Urine Urobilinogen Dipstick 0.2 mg/dL (0.2 mg/dL) Urine Leukocyte Esterase Moderate (NEG) Urine RBC 0 /HPF (0-2) Urine WBC 11-20 /HPF (0-4) Urine Squamous Epithelial Cells Few /LPF Urine Bacteria 0 /HPF (0-FEW) Urine Yeast Present /HPF Laboratory Tests Test 10/18/18 16:23 10/18/18 18:40 10/19/18 01:55 White Blood Count 6.0 x10^3/uL (4.0-11.0) Red Blood Count 2.31 x10^6/uL (3.50-5.40) Hemoglobin 6.9 g/dL (12.0-15.5) 8.1 g/dL (12.0-15.5) Hematocrit 21.4 % (36.0-47.0) 25.2 % (36.0-47.0) Mean Corpuscular Volume 93 fL (79-100) Mean Corpuscular Hemoglobin 30 pg (25-35) Mean Corpuscular Hemoglobin Concent 32 g/dL (31-37) Red Cell Distribution Width 18.2 % (11.5-14.5) Platelet Count 283 x10^3/uL (140-400) Neutrophils (%) (Auto) 59 % (31-73) Lymphocytes (%) (Auto) 22 % (24-48) Monocytes (%) (Auto) 8 % (0-9) Eosinophils (%) (Auto) 9 % (0-3) Basophils (%) (Auto) 1 % (0-3) Neutrophils # (Auto) 3.6 x10^3uL (1.8-7.7) Lymphocytes # (Auto) 1.3 x10^3/uL (1.0-4.8) Monocytes # (Auto) 0.5 x10^3/uL (0.0-1.1) Eosinophils # (Auto) 0.6 x10^3/uL (0.0-0.7) Basophils # (Auto) 0.1 x10^3/uL (0.0-0.2) Prothrombin Time 15.6 SEC (11.7-14.0) Prothromb Time International Ratio 1.3 (0.8-1.1) Activated Partial Thromboplast Time 32 SEC (24-38) Sodium Level 141 mmol/L (136-145) Potassium Level 4.0 mmol/L (3.5-5.1) Chloride Level 106 mmol/L (98-107) Carbon Dioxide Level 27 mmol/L (21-32) Anion Gap 8 (6-14) Blood Urea Nitrogen 15 mg/dL (7-20) Creatinine 0.8 mg/dL (0.6-1.0) Estimated GFR (Cockcroft-Gault) 68.8 BUN/Creatinine Ratio 19 (6-20) Glucose Level 110 mg/dL (70-99) Calcium Level 9.0 mg/dL (8.5-10.1) Iron Level 21 ug/dL (50-170) Total Iron Binding Capacity 330 ug/dL (250-450) Iron Saturation 6 % (15-34) Total Bilirubin 0.4 mg/dL (0.2-1.0) Aspartate Amino Transf (AST/SGOT) 18 U/L (15-37) Alanine Aminotransferase (ALT/SGPT) 24 U/L (14-59) Alkaline Phosphatase 96 U/L (46-116) Total Protein 6.5 g/dL (6.4-8.2) Albumin 3.4 g/dL (3.4-5.0) Albumin/Globulin Ratio 1.1 (1.0-1.7) Urine Collection Type Unknown Urine Color Yellow Urine Clarity Clear Urine pH 6.5 Urine Specific [place] <=1.005 Urine Protein Negative mg/dL (NEG-TRACE) Urine Glucose (UA) Negative mg/dL (NEG) Urine Ketones (Stick) Negative mg/dL (NEG) Urine Blood Negative (NEG) Urine Nitrite Negative (NEG) Urine Bilirubin Negative (NEG) Urine Urobilinogen Dipstick 0.2 mg/dL (0.2 mg/dL) Urine Leukocyte Esterase Moderate (NEG) Urine RBC 0 /HPF (0-2) Urine WBC 11-20 /HPF (0-4) Urine Squamous Epithelial Cells Few /LPF Urine Bacteria 0 /HPF (0-FEW) Urine Yeast Present /HPF Medications Current Medications Sodium Chloride 500 ml @ 500 mls/hr 1X ONCE IV Last administered on 10/18/18at 17:36; Start 10/18/18 at 17:00; Stop 10/18/18 at 17:59; Status DC Ondansetron HCl (Zofran) 4 mg PRN Q8HRS PRN IV NAUSEA/VOMITING; Start 10/18/18 at 18:30; Stop 10/19/18 at 09:12; Status DC Morphine Sulfate (Morphine Sulfate) 2 mg PRN Q2HR PRN IV PAIN; Start 10/18/18 at 18:30; Stop 10/19/18 at 18:29 Pantoprazole Sodium (PROTONIX VIAL for IV PUSH) 40 mg DAILY08 IVP Last administered on 10/18/18at 18:45; Start 10/18/18 at 18:45; Stop 10/19/18 at 09:39; Status DC Risperidone (RisperDAL) 0.5 mg 1X ONCE PO Last administered on 10/19/18at 09:28; Start 10/19/18 at 08:00; Stop 10/19/18 at 08:03; Status DC Ondansetron HCl (Zofran) 4 mg PRN Q6HRS PRN IV NAUSEA/VOMITING; Start 10/19/18 at 09:15 Sodium Chloride 1,000 ml @ 75 mls/hr [id number] IV Last administered on 10/19/18at 10:00; Start 10/19/18 at 10:00; Stop 10/19/18 at 11:16; Status DC Labetalol HCl (Normodyne Iv Push) 10 mg PRN Q2HR PRN IVP HYPERTENSION, SEE COMMENTS; Start 10/19/18 at 09:15 Atorvastatin Calcium (Lipitor) 40 mg QHS PO ; Start 10/19/18 at 21:00 Vitamin D (Vitamin D3) 1,000 unit DAILY PO ; Start 10/19/18 at 10:00 Guaifenesin (Robitussin) 100 mg PRN Q6HRS PRN PO COUGH; Start 10/19/18 at 09:15 Albuterol Sulfate (Ventolin Neb Soln) 2.5 mg PRN Q4HRS PRN NEB WHEEZING; Start 10/19/18 at 09:30 Levothyroxine Sodium (Synthroid) 75 mcg DAILYAC PO Last administered on 10/19/18at 10:55; Start 10/19/18 at 10:00 Imipramine HCl (Tofranil) 12.5 mg QHS PO ; Start 10/19/18 at 21:00 Pantoprazole Sodium (Protonix) 40 mg DAILYAC PO ; Start 10/20/18 at 07:30 Sucralfate (Carafate) 1 gm BIDBFRMEAL PO ; Start 10/19/18 at 11:30 Ferrous Sulfate (Feosol) 325 mg BIDWMEALS PO ; Start 10/19/18 at 12:00 Polyethylene Glycol (miraLAX PACKET) 17 gm DAILY PO ; Start 10/19/18 at 10:00 Active Scripts Active Reported Levothyroxine Sodium 75 Mcg Tablet 75 Mcg PO DAILYAC Imipramine Hcl 10 Mg Tablet 10 Mg PO HS Guaifenesin 100 Mg/5 Ml Liquid 100 Mg PO PRN Q6HRS PRN Vitamin D3 (Cholecalciferol (Vitamin D3)) 1,000 Unit Tablet 1 Tab PO DAILY Lipitor (Atorvastatin Calcium) 40 Mg Tablet 1 Tab PO QHS Eliquis (Apixaban) 5 Mg Tablet 5 Mg PO BID Duoneb 0.5-3(2.5) Mg/3 Ml (Albuterol/Ipratropium) 3 Ml Ampul.neb 3 Ml NEB PRN Q4HRS PRN Clopidogrel (Clopidogrel Bisulfate) 75 Mg Tablet 1 Tab PO DAILY Vitals/I & O Vital Sign - Last 24 Hours 10/18/18 10/18/18 10/18/18 10/18/18 16:59 18:00 19:00 19:50 Temp 98.5 98.5 Pulse 88 91 92 Resp 18 16 16 B/P (MAP) 142/57 (85) 142/57 (85) 179/71 (107) Pulse Ox 96 99 98 O2 Delivery Room Air Room Air Room Air Room Air 10/18/18 10/18/18 10/18/18 10/18/18 19:55 22:48 23:07 23:07 Temp 97.7 98.1 98.1 98.1 97.7 98.1 98.1 98.1 Pulse 82 72 72 72 Resp 18 16 16 B/P (MAP) 155/77 (103) 136/43 158/62 158/62 Pulse Ox 99 O2 Delivery Room Air 10/18/18 10/19/18 10/19/18 10/19/18 23:54 00:15 01:28 03:23 Temp 98.0 98.4 98.4 97.9 98.0 98.4 98.4 97.9 Pulse 61 72 91 96 Resp 18 16 16 18 B/P (MAP) 122/71 (88) 171/78 169/75 172/91 (118) Pulse Ox 95 95 O2 Delivery Room Air Room Air 10/19/18 10/19/18 10/19/18 10/19/18 07:02 07:15 07:21 11:00 Temp 98.5 97.9 97.7 98.5 97.9 97.7 Pulse 90 96 94 Resp 18 18 B/P (MAP) 164/81 (108) 172/91 (118) 151/56 (87) Pulse Ox 95 99 O2 Delivery Room Air Room Air Room Air Room Air Intake and Output 10/18/18 10/18/18 10/19/18 15:00 23:00 07:00 Intake Total 0 ml Output Total 300 ml Balance -300 ml LINCOLN REBOLLEDO MD October 19, 2018 12:08
--- NOTE | 2018-10-19 18:00 | NUR ---
Transferred Kimberli to [facility], gave report to Opal. Pt stated "I don't like all this moving around. I want to go home". Pt appeared more confused, took a moment to calm her, So she wouldn't get worked up.
[2018-10-19] MEDS: IMIPRAMINE 25 MG TABLET PO SCH (20:56)
[2018-10-19] MEDS: ATORVASTATIN CALCIUM 40 MG TABLET. PO SCH (20:56)
[2018-10-20] VITALS (7 sets, daily range): BP systolic 113–148; BP diastolic 55–83
[2018-10-20] MEDS: CHOLECALCIFEROL (VITAMIN D3) 1,000 UNIT TABLET PO SCH (07:40)
[2018-10-20] MEDS: PANTOPRAZOLE 40 MG TABLET.DR. PO SCH (07:40)
[2018-10-20] MEDS: LEVOTHYROXINE 75 MCG TABLET PO SCH (07:40)
[2018-10-20] MEDS: FERROUS SULFATE 325 MG TABLET. PO SCH ×2 (07:40→17:17)
[2018-10-20] MEDS: POLYETHYLENE GLYCOL 3350 17 GM PACKET. PO SCH (07:41)
[2018-10-20] MEDS: SUCRALFATE 1 GM TABLET. PO SCH ×2 (07:41→17:18)
[2018-10-20 08:18] LABS: HEMATOCRIT 28.3 % (36.0-47.0)
--- NOTE | 2018-10-20 08:43 | NUR ---
SW following pt. PT/OT recommends back to Assisted Living. Spoke with Bonita at [facility] and pt will need to be off of 1:1 for 24 hours before returning to Assisted Living. Pt can dc back with Home health. Discussed with RN.
--- NOTE | 2018-10-20 09:36 | PDOC ---
PROGRESS NOTES Chief Complaint Chief Complaint Acute Precipitous drop in hemoglobin-hemoglobin 6.8 on admission HBG 9.0 10/20 History of duodenitis, recent colitis, mild gastritis - EGD Dr Nevarez (09/2018) History cardiac indwelling stents and right knee clot-both on Eliquis and Plavix Accelerated hypertension POA dementia-chronic CREATES HIGH FALL RISK FE DEF ANEMIA History of Present Illness History of Present Illness Pt is pleasantly demented cannot tell me details She has a coloring book at bedside Daughter able to fill me in with the details Patient on Plavix and Eliquis because of cardiac stents, [facility]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 Blood pressure on the high side, heart rate in the 90s. Patient asymptomatic Hemoglobin 8.1 from 6.9 after 2 packed RBC Has had chronic anemia-known to Dr. Lorenzo No overt blood loss Cleared by GI to have some diet, recent EGD/C scope showed showed colitis, duodenitis gastritis etc. After heavy discussion with the daughter she is agreeable that upon discharge will only do Plavix since recent knee imaging showed resolution of that clot She follows with Doc. Lucrecia Fitzgerald for planned heart valve surgery October 31 PLAN: start diet HH tmr Home tmr on plavix alone when HH tmr ok dtr agreeable with my plan Vitals Vitals Vital Signs Date Time Temp Pulse Resp B/P (MAP) Pulse Ox O2 Delivery O2 Flow Rate FiO2 10/20/18 08:00 Room Air 10/20/18 07:00 97.5 93 18 145/62 (89) 95 97.5 Physical Exam General: Alert, Cooperative, No acute distress, Other (CONFUSED, WANDERS FROM ROOM, ALARM PLACED) Heart: Regular rate, Normal S1, Normal S2, No murmurs Lungs: Clear, Other Abdomen: Normal bowel sounds, Soft, No tenderness Extremities: No clubbing, No cyanosis, No edema Skin: No rashes, No breakdown, No significant lesion Labs LABS Laboratory Tests Test 10/20/18 07:15 Hemoglobin 9.0 g/dL (12.0-15.5) Hematocrit 28.3 % (36.0-47.0) Mean Corpuscular Hemoglobin Concent 32 g/dL (31-37) Assessment and Plan Assessmemt and Plan Problems Medical Problems: (1) Anemia Status: Acute Comment Review of Relevant I have reviewed the following items matty (where applicable) has been applied. Labs Laboratory Tests Test 10/18/18 16:23 10/18/18 18:40 10/19/18 01:55 10/19/18 07:29 White Blood Count 6.0 x10^3/uL (4.0-11.0) Red Blood Count 2.31 x10^6/uL (3.50-5.40) Hemoglobin 6.9 g/dL (12.0-15.5) 8.1 g/dL (12.0-15.5) Hematocrit 21.4 % (36.0-47.0) 25.2 % (36.0-47.0) Mean Corpuscular Volume 93 fL (79-100) Mean Corpuscular Hemoglobin 30 pg (25-35) Mean Corpuscular Hemoglobin Concent 32 g/dL (31-37) Red Cell Distribution Width 18.2 % (11.5-14.5) Platelet Count 283 x10^3/uL (140-400) Neutrophils (%) (Auto) 59 % (31-73) Lymphocytes (%) (Auto) 22 % (24-48) Monocytes (%) (Auto) 8 % (0-9) Eosinophils (%) (Auto) 9 % (0-3) Basophils (%) (Auto) 1 % (0-3) Neutrophils # (Auto) 3.6 x10^3uL (1.8-7.7) Lymphocytes # (Auto) 1.3 x10^3/uL (1.0-4.8) Monocytes # (Auto) 0.5 x10^3/uL (0.0-1.1) Eosinophils # (Auto) 0.6 x10^3/uL (0.0-0.7) Basophils # (Auto) 0.1 x10^3/uL (0.0-0.2) Prothrombin Time 15.6 SEC (11.7-14.0) Prothromb Time International Ratio 1.3 (0.8-1.1) Activated Partial Thromboplast Time 32 SEC (24-38) Sodium Level 141 mmol/L (136-145) Potassium Level 4.0 mmol/L (3.5-5.1) Chloride Level 106 mmol/L (98-107) Carbon Dioxide Level 27 mmol/L (21-32) Anion Gap 8 (6-14) Blood Urea Nitrogen 15 mg/dL (7-20) Creatinine 0.8 mg/dL (0.6-1.0) Estimated GFR (Cockcroft-Gault) 68.8 BUN/Creatinine Ratio 19 (6-20) Glucose Level 110 mg/dL (70-99) Calcium Level 9.0 mg/dL (8.5-10.1) Iron Level 21 ug/dL (50-170) Total Iron Binding Capacity 330 ug/dL (250-450) Iron Saturation 6 % (15-34) Total Bilirubin 0.4 mg/dL (0.2-1.0) Aspartate Amino Transf (AST/SGOT) 18 U/L (15-37) Alanine Aminotransferase (ALT/SGPT) 24 U/L (14-59) Alkaline Phosphatase 96 U/L (46-116) Total Protein 6.5 g/dL (6.4-8.2) Albumin 3.4 g/dL (3.4-5.0) Albumin/Globulin Ratio 1.1 (1.0-1.7) Urine Collection Type Unknown Urine Color Yellow Urine Clarity Clear Urine pH 6.5 Urine Specific Marshall <=1.005 Urine Protein Negative mg/dL (NEG-TRACE) Urine Glucose (UA) Negative mg/dL (NEG) Urine Ketones (Stick) Negative mg/dL (NEG) Urine Blood Negative (NEG) Urine Nitrite Negative (NEG) Urine Bilirubin Negative (NEG) Urine Urobilinogen Dipstick 0.2 mg/dL (0.2 mg/dL) Urine Leukocyte Esterase Moderate (NEG) Urine RBC 0 /HPF (0-2) Urine WBC 11-20 /HPF (0-4) Urine Squamous Epithelial Cells Few /LPF Urine Bacteria 0 /HPF (0-FEW) Urine Yeast Present /HPF Nasal Screen MRSA (PCR) Negative (Negative) Test 10/20/18 07:15 Hemoglobin 9.0 g/dL (12.0-15.5) Hematocrit 28.3 % (36.0-47.0) Mean Corpuscular Hemoglobin Concent 32 g/dL (31-37) Laboratory Tests Test 10/20/18 07:15 Hemoglobin 9.0 g/dL (12.0-15.5) Hematocrit 28.3 % (36.0-47.0) Mean Corpuscular Hemoglobin Concent 32 g/dL (31-37) Medications Current Medications Sodium Chloride 500 ml @ 500 mls/hr 1X ONCE IV Last administered on 10/18/18at 17:36; Start 10/18/18 at 17:00; Stop 10/18/18 at 17:59; Status DC Ondansetron HCl (Zofran) 4 mg PRN Q8HRS PRN IV NAUSEA/VOMITING; Start 10/18/18 at 18:30; Stop 10/19/18 at 09:12; Status DC Morphine Sulfate (Morphine Sulfate) 2 mg PRN Q2HR PRN IV PAIN; Start 10/18/18 at 18:30; Stop 10/19/18 at 18:29; Status DC Pantoprazole Sodium (PROTONIX VIAL for IV PUSH) 40 mg DAILY08 IVP Last administered on 10/18/18at 18:45; Start 10/18/18 at 18:45; Stop 10/19/18 at 09:39; Status DC Risperidone (RisperDAL) 0.5 mg 1X ONCE PO Last administered on 10/19/18at 09:28; Start 10/19/18 at 08:00; Stop 10/19/18 at 08:03; Status DC Ondansetron HCl (Zofran) 4 mg PRN Q6HRS PRN IV NAUSEA/VOMITING; Start 10/19/18 at 09:15 Sodium Chloride 1,000 ml @ 75 mls/hr [id number] IV Last administered on 10/19/18at 10:00; Start 10/19/18 at 10:00; Stop 10/19/18 at 11:16; Status DC Labetalol HCl (Normodyne Iv Push) 10 mg PRN Q2HR PRN IVP HYPERTENSION, SEE COMMENTS; Start 10/19/18 at 09:15 Atorvastatin Calcium (Lipitor) 40 mg QHS PO Last administered on 10/19/18at 20:56; Start 10/19/18 at 21:00 Vitamin D (Vitamin D3) 1,000 unit DAILY PO Last administered on 10/20/18at 07:40; Start 10/19/18 at 10:00 Guaifenesin (Robitussin) 100 mg PRN Q6HRS PRN PO COUGH; Start 10/19/18 at 09:15 Albuterol Sulfate (Ventolin Neb Soln) 2.5 mg PRN Q4HRS PRN NEB WHEEZING; Start 10/19/18 at 09:30 Levothyroxine Sodium (Synthroid) 75 mcg DAILYAC PO Last administered on 10/20/18 07:40; Start 10/19/18 at 10:00 Imipramine HCl (Tofranil) 12.5 mg QHS PO Last administered on 10/19/18at 20:56; Start 10/19/18 at 21:00 Pantoprazole Sodium (Protonix) 40 mg DAILYAC PO Last administered on 10/20/18 07:40; Start 10/20/18 at 07:30 Sucralfate (Carafate) 1 gm BIDBFRMEAL PO Last administered on 10/20/18 07:41; Start 10/19/18 at 11:30 Ferrous Sulfate (Feosol) 325 mg BIDWMEALS PO Last administered on 10/20/18 07:40; Start 10/19/18 at 12:00 Polyethylene Glycol (miraLAX PACKET) 17 gm DAILY PO Last administered on 10/20/18 07:41; Start 10/19/18 at 10:00 Active Scripts Active Reported Levothyroxine Sodium 75 Mcg Tablet 75 Mcg PO DAILYAC Imipramine Hcl 10 Mg Tablet 10 Mg PO HS Guaifenesin 100 Mg/5 Ml Liquid 100 Mg PO PRN Q6HRS PRN Vitamin D3 (Cholecalciferol (Vitamin D3)) 1,000 Unit Tablet 1 Tab PO DAILY Lipitor (Atorvastatin Calcium) 40 Mg Tablet 1 Tab PO QHS Eliquis (Apixaban) 5 Mg Tablet 5 Mg PO BID Duoneb 0.5-3(2.5) Mg/3 Ml (Albuterol/Ipratropium) 3 Ml Ampul.neb 3 Ml NEB PRN Q4HRS PRN Clopidogrel (Clopidogrel Bisulfate) 75 Mg Tablet 1 Tab PO DAILY Vitals/I & O Vital Sign - Last 24 Hours 10/19/18 10/19/18 10/19/18 10/19/18 11:00 14:25 15:01 19:00 Temp 97.7 98.0 98.3 97.7 98.0 98.3 Pulse 94 94 90 Resp 18 18 20 B/P (MAP) 151/56 (87) 99/43 (61) 136/57 (83) Pulse Ox 99 96 92 98 O2 Delivery Room Air Room Air Room Air Room Air 10/19/18 10/19/18 10/20/18 10/20/18 20:00 23:00 03:00 05:00 Temp 98.0 98.3 98.3 98.0 98.3 98.3 Pulse 88 100 100 Resp 18 18 18 B/P (MAP) 140/60 (86) 148/65 (92) 148/63 (91) Pulse Ox 98 97 O2 Delivery Room Air 10/20/18 10/20/18 07:00 08:00 Temp 97.5 97.5 Pulse 93 Resp 18 B/P (MAP) 145/62 (89) Pulse Ox 95 O2 Delivery Room Air Room Air Intake and Output 10/19/18 10/19/18 10/20/18 15:00 23:00 07:00 Intake Total 360 ml 980 ml 120 ml Balance 360 ml 980 ml 120 ml MARIELLE MARIA MD October 20, 2018 09:36
--- NOTE | 2018-10-20 13:25 | PDOC ---
Subjective: Subjective: Walking halls w/ daughter - daughter says she's "antsy." No GI complaints. Objective: Vital Signs: Vital Signs Date Time Temp Pulse Resp B/P (MAP) Pulse Ox O2 Delivery O2 Flow Rate FiO2 10/20/18 11:00 97.4 90 18 113/74 (87) 94 Room Air 97.4 Labs: Laboratory Tests Test 10/20/18 07:15 Hemoglobin 9.0 g/dL Hematocrit 28.3 % Mean Corpuscular Hemoglobin Concent 32 g/dL PE: GEN: NAD - street clothes, walking with walker LUNGS: room air NEURO/PSYCH: probably confused A/P: Chronic BRIAN - improved/stable, no obvious bleeding this admission -- Change to PPI, Carafate, iron. Hopefully can avoid Eliquis, defer Plavix to primary. DC per primary, could pursue colonoscopy later on (after cardio/valvular issues settled). MARIUM NGO October 20, 2018 13:25
[2018-10-20] MEDS: ATORVASTATIN CALCIUM 40 MG TABLET. PO SCH (20:59)
[2018-10-20] MEDS: IMIPRAMINE 25 MG TABLET PO SCH (21:00)
[2018-10-21 03:00] VITALS: BP 140/83
[2018-10-21 07:00] VITALS: BP 153/102
[2018-10-21] MEDS: LEVOTHYROXINE 75 MCG TABLET PO SCH (07:44)
[2018-10-21] MEDS: SUCRALFATE 1 GM TABLET. PO SCH (07:44)
[2018-10-21] MEDS: PANTOPRAZOLE 40 MG TABLET.DR. PO SCH (07:44)
[2018-10-21] MEDS: CHOLECALCIFEROL (VITAMIN D3) 1,000 UNIT TABLET PO SCH (08:56)
[2018-10-21] MEDS: FERROUS SULFATE 325 MG TABLET. PO SCH (08:56)
[2018-10-21] MEDS: POLYETHYLENE GLYCOL 3350 17 GM PACKET. PO SCH (08:57)
--- NOTE | 2018-10-21 09:20 | PDOC ---
Subjective: Subjective: Wants me to check on her dentures in the bathroom. Asks me if I've seen the movie about grandlaura. Says breakfast was good. Objective: Vital Signs: Vital Signs Date Time Temp Pulse Resp B/P (MAP) Pulse Ox O2 Delivery O2 Flow Rate FiO2 10/21/18 07:00 209.3 85 153/102 (119) 95 Room Air 209.3 10/21/18 07:00 18 PE: GEN: NAD - up to chair, breakfast tray nearly empty LUNGS: room air NEURO/PSYCH: pleasantly confused A/P: Chronic BRIAN Dementia -- Stable from GI standpoint, DC per primary on PPI, Carafate, and iron. Follow-up w/ Dr. Mondragon as planned. MARIUM NGO October 21, 2018 09:20
--- NOTE | 2018-10-21 09:22 | PDOC ---
PROGRESS NOTES Chief Complaint Chief Complaint Acute Precipitous drop in hemoglobin-hemoglobin 6.8 on admission HBG 9.0 10/20 History of duodenitis, recent colitis, mild gastritis - EGD Dr Nevarez (09/2018) History cardiac indwelling stents and right knee clot-both on Eliquis and Plavix Accelerated hypertension POA dementia-chronic CREATES HIGH FALL RISK FE DEF ANEMIA will d/c eliquis, home health on d/c arranged History of Present Illness History of Present Illness Pt is pleasantly demented cannot tell me details She has a coloring book at bedside Daughter able to fill me in with the details Patient on Plavix and Eliquis because of cardiac stents, [facility]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 Blood pressure on the high side, heart rate in the 90s. Patient asymptomatic Hemoglobin 8.1 from 6.9 after 2 packed RBC Has had chronic anemia-known to Dr. Lorenzo No overt blood loss Cleared by GI to have some diet, recent EGD/C scope showed showed colitis, duodenitis gastritis etc. After heavy discussion with the daughter she is agreeable that upon discharge will only do Plavix since recent knee imaging showed resolution of that clot She follows with Doc. Lucrecia Fitzgerald for planned heart valve surgery October 31 PLAN: start diet HH tmr Home tmr on plavix alone when HH tmr ok dtr agreeable with my plan Vitals Vitals Vital Signs Date Time Temp Pulse Resp B/P (MAP) Pulse Ox O2 Delivery O2 Flow Rate FiO2 10/21/18 07:00 209.3 85 153/102 (119) 95 Room Air 209.3 10/21/18 07:00 18 Physical Exam General: Alert, Cooperative, No acute distress, Other (CONFUSED, WANDERS FROM ROOM, ALARM PLACED) Heart: Regular rate, Normal S1, Normal S2, No murmurs Lungs: Clear, Other Abdomen: Normal bowel sounds, Soft, No tenderness Extremities: No clubbing, No cyanosis, No edema Skin: No rashes, No breakdown, No significant lesion Assessment and Plan Assessmemt and Plan Problems Medical Problems: (1) Anemia Status: Acute Comment Review of Relevant I have reviewed the following items matty (where applicable) has been applied. Labs Laboratory Tests Test 10/20/18 07:15 Hemoglobin 9.0 g/dL (12.0-15.5) Hematocrit 28.3 % (36.0-47.0) Mean Corpuscular Hemoglobin Concent 32 g/dL (31-37) Medications Current Medications Sodium Chloride 500 ml @ 500 mls/hr 1X ONCE IV Last administered on 10/18/18at 17:36; Start 10/18/18 at 17:00; Stop 10/18/18 at 17:59; Status DC Ondansetron HCl (Zofran) 4 mg PRN Q8HRS PRN IV NAUSEA/VOMITING; Start 10/18/18 at 18:30; Stop 10/19/18 at 09:12; Status DC Morphine Sulfate (Morphine Sulfate) 2 mg PRN Q2HR PRN IV PAIN; Start 10/18/18 at 18:30; Stop 10/19/18 at 18:29; Status DC Pantoprazole Sodium (PROTONIX VIAL for IV PUSH) 40 mg DAILY08 IVP Last administered on 10/18/18at 18:45; Start 10/18/18 at 18:45; Stop 10/19/18 at 09:39; Status DC Risperidone (RisperDAL) 0.5 mg 1X ONCE PO Last administered on 10/19/18at 09:28; Start 10/19/18 at 08:00; Stop 10/19/18 at 08:03; Status DC Ondansetron HCl (Zofran) 4 mg PRN Q6HRS PRN IV NAUSEA/VOMITING; Start 10/19/18 at 09:15 Sodium Chloride 1,000 ml @ 75 mls/hr [id number] IV Last administered on 10/19/18at 10:00; Start 10/19/18 at 10:00; Stop 10/19/18 at 11:16; Status DC Labetalol HCl (Normodyne Iv Push) 10 mg PRN Q2HR PRN IVP HYPERTENSION, SEE COMMENTS; Start 10/19/18 at 09:15 Atorvastatin Calcium (Lipitor) 40 mg QHS PO Last administered on 10/19/18at 20:56; Start 10/19/18 at 21:00 Vitamin D (Vitamin D3) 1,000 unit DAILY PO Last administered on 10/21/18at 08:56; Start 10/19/18 at 10:00 Guaifenesin (Robitussin) 100 mg PRN Q6HRS PRN PO COUGH; Start 10/19/18 at 09:15 Albuterol Sulfate (Ventolin Neb Soln) 2.5 mg PRN Q4HRS PRN NEB WHEEZING; Start 10/19/18 at 09:30 Levothyroxine Sodium (Synthroid) 75 mcg DAILYAC PO Last administered on 10/21/18 07:44; Start 10/19/18 at 10:00 Imipramine HCl (Tofranil) 12.5 mg QHS PO Last administered on 10/19/18 20:56; Start 10/19/18 at 21:00 Pantoprazole Sodium (Protonix) 40 mg DAILYAC PO Last administered on 10/21/18 07:44; Start 10/20/18 at 07:30 Sucralfate (Carafate) 1 gm BIDBFRMEAL PO Last administered on 10/21/18 07:44; Start 10/19/18 at 11:30 Ferrous Sulfate (Feosol) 325 mg BIDWMEALS PO Last administered on 10/21/18 08:56; Start 10/19/18 at 12:00 Polyethylene Glycol (miraLAX PACKET) 17 gm DAILY PO Last administered on 10/21/18 08:57; Start 10/19/18 at 10:00 Active Scripts Active Reported Levothyroxine Sodium 75 Mcg Tablet 75 Mcg PO DAILYAC Imipramine Hcl 10 Mg Tablet 10 Mg PO HS Guaifenesin 100 Mg/5 Ml Liquid 100 Mg PO PRN Q6HRS PRN Vitamin D3 (Cholecalciferol (Vitamin D3)) 1,000 Unit Tablet 1 Tab PO DAILY Lipitor (Atorvastatin Calcium) 40 Mg Tablet 1 Tab PO QHS Eliquis (Apixaban) 5 Mg Tablet 5 Mg PO BID Duoneb 0.5-3(2.5) Mg/3 Ml (Albuterol/Ipratropium) 3 Ml Ampul.neb 3 Ml NEB PRN Q4HRS PRN Clopidogrel (Clopidogrel Bisulfate) 75 Mg Tablet 1 Tab PO DAILY Vitals/I & O Vital Sign - Last 24 Hours 10/20/18 10/20/18 10/20/18 10/20/18 11:00 15:00 19:00 23:00 Temp 97.4 98.2 97.8 98.8 97.4 98.2 97.8 98.8 Pulse 90 89 94 99 Resp 18 18 20 B/P (MAP) 113/74 (87) 145/55 (85) 133/73 (93) 145/83 (103) Pulse Ox 94 95 97 100 O2 Delivery Room Air Room Air Room Air Room Air 10/21/18 10/21/18 10/21/18 03:00 07:00 07:00 Temp 98.0 98.5 209.3 98.0 98.5 209.3 Pulse 98 85 85 Resp 20 18 B/P (MAP) 140/83 (102) 153/102 (119) 153/102 (119) Pulse Ox 96 95 95 O2 Delivery Room Air Room Air Room Air Intake and Output 10/20/18 10/20/18 10/21/18 15:00 23:00 07:00 Intake Total 400 ml 280 ml Balance 400 ml 280 ml MARIELLE MARIA MD October 21, 2018 09:22
[2018-10-21] MEDS ORDERED: POLY17PO28 PO (09:23)
--- NOTE | 2018-10-21 09:24 | SNU/HH DC ---
DISCHARGE WITH HOME HEALTH DISCHARGE INFORMATION: Final Diagnosis: Problems Medical Problems: (1) Anemia Status: Acute Condition on Discharge: Stable CODE STATUS: Code Status: Full HOME HEALTH: Face to Face: I certify this patient is under my care and that I, or a nurse practitioner or physician's property assistant working with me, had a face to face encounter that meets the physician face to face encounter requirements with this patient on []. 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 Pt Meets Homebound Status: Limited distance walking, Poor cognition POST DISCHARGE ORDERS: Activity Instructions for Disc: Resume previous activity Weight Bearing Status after Di: As tolerated DIET AFTER DISCHARGE: Cardiac FOLLOW-UP: Follow up with: dr inman 2 weeks CERTIFICATION STATEMENT: Certification Statement: Certification Statement: Based on the above finding, I certify that this patient is confined to the home and needs intermittent penitentiary care, physical therapy and/or speech therapy, or continues to need occupational therapy.~ This patient is under my care, and I have initiated the establishment of the plan of care.~ This patient will be followed by myself or a community physician who will periodically review the plan of care. Home Meds Active Scripts Polyethylene Glycol 3350 (POLYETHYLENE GLYCOL 3350) 17 Gm Powd.pack, 17 GM PO DAILY for constipation for 30 Days, #30 PKT Prov:MARIELLE MARIA MD 10/21/18 Reported Medications Levothyroxine Sodium (LEVOTHYROXINE SODIUM) 75 Mcg Tablet, 75 MCG PO DAILYAC for THYROID SUPPLEMENT, #30 TAB 0 Refills 09/24/18 Imipramine Hcl (IMIPRAMINE HCL) 10 Mg Tablet, 10 MG PO HS for depression, TAB 09/24/18 Guaifenesin (GUAIFENESIN) 100 Mg/5 Ml Liquid, 100 MG PO PRN Q6HRS PRN for COUGH, LIQUID 09/24/18 Cholecalciferol (Vitamin D3) (VITAMIN D3) 1,000 Unit Tablet, 1 TAB PO DAILY for vitamin, #30 TAB 5 Refills 09/24/18 Atorvastatin Calcium (LIPITOR) 40 Mg Tablet, 1 TAB PO QHS for cholesterol, #90 TAB 1 Refill 09/24/18 Ipratropium/Albuterol Sulfate (DUONEB 0.5-3(2.5) MG/3 ML) 3 Ml Ampul.neb, 3 ML NEB PRN Q4HRS PRN for WHEEZING, EACH 09/24/18 Clopidogrel Bisulfate (CLOPIDOGREL) 75 Mg Tablet, 1 TAB PO DAILY for clot prevention, #90 TAB 1 Refill 09/24/18 Discontinued Reported Medications Apixaban (ELIQUIS) 5 Mg Tablet, 5 MG PO BID for clot prevention, TAB 09/24/18 MARIELLE MARIA MD October 21, 2018 09:24
[2018-10-21] MEDS ORDERED: AMOX1TAB58 PO (09:28)
--- NOTE | 2018-10-21 09:31 | PDOC3 ---
Discharge Summary Date of Admission: October 18, 2018 Date of Discharge: October 21, 2018 Follow-Up: 1-2 days Admitting Diagnosis comment: discharge dx uti Acute Precipitous drop in hemoglobin-hemoglobin 6.8 on admission HBG 9.0 10/20 History of duodenitis, recent colitis, mild gastritis - EGD Dr Nevarez (09/2018) History cardiac indwelling stents and right knee clot-both on Eliquis and Plavix Accelerated hypertension POA dementia-chronic CREATES HIGH FALL RISK FE DEF ANEMIA will d/c eliquis, home health on d/c arranged rx augmentin 500mg po bid x 10 days History of Present Illness History of Present Illness Pt is pleasantly demented cannot tell me details She has a coloring book at bedside Daughter able to fill me in with the details Patient on Plavix and Eliquis because of cardiac stents, [facility] rn transplant and also a recent knee clot during that hospitalization and [facility]. Blood pressure on the high side, heart rate in the 90s. Patient asymptomatic Hemoglobin 8.1 from 6.9 after 2 packed RBC Has had chronic anemia-known to Dr. Lorenzo No overt blood loss Cleared by GI to have some diet, recent EGD/C scope showed showed colitis, duodenitis gastritis etc. After heavy discussion with the daughter she is agreeable that upon discharge will only do Plavix She follows with Doc. Lucrecia Fitzgerald for planned heart valve surgery October 31 PLAN: start diet HH tmr Home tmr on plavix alone when HH tmr ok dtr agreeable with my plan Vitals Vitals Vital Signs Date Time Temp Pulse Resp B/P (MAP) Pulse Ox O2 Delivery O2 Flow Rate FiO2 10/21/18 07:00 209.3 85 153/102 (119) 95 Room Air 209.3 10/21/18 07:00 18 Physical Exam General: Alert, Cooperative, No acute distress, Other (CONFUSED, WANDERS FROM ROOM, ALARM PLACED) Heart: Regular rate, Normal S1, Normal S2, No murmurs Lungs: Clear, Other Abdomen: Normal bowel sounds, Soft, No tenderness Extremities: No clubbing, No cyanosis, No edema Skin: No rashes, No breakdown, No significant lesion FINAL DIAGNOSIS Problems Medical Problems: (1) Anemia Status: Acute Brief Hospital Course Ms. Sandoval is a 83 old [sex] who presented with [ severe anemia, uti ] CONDITION AT DISCHARGE: Improved Discharge Medications Current Medications Sodium Chloride 500 ml @ 500 mls/hr 1X ONCE IV Last administered on 10/18/18at 17:36; Start 10/18/18 at 17:00; Stop 10/18/18 at 17:59; Status DC Ondansetron HCl (Zofran) 4 mg PRN Q8HRS PRN IV NAUSEA/VOMITING; Start 10/18/18 at 18:30; Stop 10/19/18 at 09:12; Status DC Morphine Sulfate (Morphine Sulfate) 2 mg PRN Q2HR PRN IV PAIN; Start 10/18/18 at 18:30; Stop 10/19/18 at 18:29; Status DC Pantoprazole Sodium (PROTONIX VIAL for IV PUSH) 40 mg DAILY08 IVP Last admi nistered on 10/18/18at 18:45; Start 10/18/18 at 18:45; Stop 10/19/18 at 09:39; Status DC Risperidone (RisperDAL) 0.5 mg 1X ONCE PO Last administered on 10/19/18at 09:28; Start 10/19/18 at 08:00; Stop 10/19/18 at 08:03; Status DC Ondansetron HCl (Zofran) 4 mg PRN Q6HRS PRN IV NAUSEA/VOMITING; Start 10/19/18 at 09:15 Sodium Chloride 1,000 ml @ 75 mls/hr [id number] IV Last administered on 10/19/18at 10:00; Start 10/19/18 at 10:00; Stop 10/19/18 at 11:16; Status DC Labetalol HCl (Normodyne Iv Push) 10 mg PRN Q2HR PRN IVP HYPERTENSION, SEE COMMENTS; Start 10/19/18 at 09:15 Atorvastatin Calcium (Lipitor) 40 mg QHS PO Last administered on 10/19/18at 20:56; Start 10/19/18 at 21:00 Vitamin D (Vitamin D3) 1,000 unit DAILY PO Last administered on 10/21/18 08:56; Start 10/19/18 at 10:00 Guaifenesin (Robitussin) 100 mg PRN Q6HRS PRN PO COUGH; Start 10/19/18 at 09:15 Albuterol Sulfate (Ventolin Neb Soln) 2.5 mg PRN Q4HRS PRN NEB WHEEZING; Start 10/19/18 at 09:30 Levothyroxine Sodium (Synthroid) 75 mcg DAILYAC PO Last administered on 10/21/18 07:44; Start 10/19/18 at 10:00 Imipramine HCl (Tofranil) 12.5 mg QHS PO Last administered on 10/19/18 20:56; Start 10/19/18 at 21:00 Pantoprazole Sodium (Protonix) 40 mg DAILYAC PO Last administered on 10/21/18 07:44; Start 10/20/18 at 07:30 Sucralfate (Carafate) 1 gm BIDBFRMEAL PO Last administered on 10/21/18 07:44; Start 10/19/18 at 11:30 Ferrous Sulfate (Feosol) 325 mg BIDWMEALS PO Last administered on 10/21/18 08:56; Start 10/19/18 at 12:00 Polyethylene Glycol (miraLAX PACKET) 17 gm DAILY PO Last administered on 10/21/18 08:57; Start 10/19/18 at 10:00 Active Scripts Active Augmentin 500-125 Tablet (Amoxicillin/Potassium Clav) 1 Each Tablet 1 Tab PO BID Polyethylene Glycol 3350 17 Gm Powd.pack 17 Gm PO DAILY 30 Days Reported Levothyroxine Sodium 75 Mcg Tablet 75 Mcg PO DAILYAC Imipramine Hcl 10 Mg Tablet 10 Mg PO HS Guaifenesin 100 Mg/5 Ml Liquid 100 Mg PO PRN Q6HRS PRN Vitamin D3 (Cholecalciferol (Vitamin D3)) 1,000 Unit Tablet 1 Tab PO DAILY Lipitor (Atorvastatin Calcium) 40 Mg Tablet 1 Tab PO QHS Duoneb 0.5-3(2.5) Mg/3 Ml (Albuterol/Ipratropium) 3 Ml Ampul.neb 3 Ml NEB PRN Q4HRS PRN Clopidogrel (Clopidogrel Bisulfate) 75 Mg Tablet 1 Tab PO DAILY Vital Signs Vital Signs Date Time Temp Pulse Resp B/P (MAP) Pulse Ox O2 Delivery O2 Flow Rate FiO2 10/21/18 07:00 209.3 85 153/102 (119) 95 Room Air 209.3 10/21/18 07:00 18 Labs Laboratory Tests Test 10/20/18 07:15 Hemoglobin 9.0 g/dL (12.0-15.5) Hematocrit 28.3 % (36.0-47.0) Mean Corpuscular Hemoglobin Concent 32 g/dL (31-37) Allergies Allergies Coded Allergies Type Severity Reaction Last Updated Verified No Known Drug Allergies 09/27/18 No Disposition/Orders: D/C to Home w/ HH Patient Instructions d/c planning 34 min MARIELLE MARIA MD October 21, 2018 09:31
[2018-10-21] MEDS ORDERED: AMOXICILLIN/K CLAV 500/125MG TABLET. PO SCH (10:00)
[2018-10-21 11:00] VITALS: BP 122/39
--- NOTE | 2018-10-21 11:35 | NUR ---
[facility] following Pt. Pt's daughter was agreeable with [facility] yesterday. [facility] phoned and faxed orders to [facility] and [facility]. Pt will transport via facility arranged transport between [phone]. [facility] attempted to reach pt's daughter, Jacki but phone is not working. RN notified. Addendum: 10/21/18 at 1225 by BRIDGET DUTTON Pt's daughter aware of plan and agreeable.
--- NOTE | 2018-10-21 14:12 | NUR ---
pt discharged home to [facility] with home health. pt stable upon dc. had no iv access.
== END 2018-10-21 14:14 | disposition home health service (06) | DRG 811 ==
LOC: ER 16:01 → 6 SOUTH 18:25 → 5 NORTH 10-19 18:35
PROVIDERS: ADMIT Family Medicine; ATTEND Family Medicine
PROC: 30233N1 Transfusion of Nonautologous Red Blood Cells into Peripheral Vein, Percutaneous Approach (ICD-10-PCS; principal; 2018-10-18)
DX: D50.9 Iron deficiency anemia, unspecified (principal); G93.41 Metabolic encephalopathy; N39.0 Urinary tract infection, site not specified; E11.9 Type 2 diabetes mellitus without complications; F32.9 Major depressive disorder, single episode, unspecified; F02.80 Dementia in other diseases classified elsewhere, unspecified severity, without behavioral disturbance, psychotic disturbance, mood disturbance, and anxiety; G30.9 Alzheimer's disease, unspecified; I10 Essential (primary) hypertension; I25.10 Atherosclerotic heart disease of native coronary artery without angina pectoris; Z79.02 Long term (current) use of antithrombotics/antiplatelets; Z82.49 Family history of ischemic heart disease and other diseases of the circulatory system; Z79.899 Other long term (current) drug therapy; Z90.49 Acquired absence of other specified parts of digestive tract; Z95.5 Presence of coronary angioplasty implant and graft
CPT/HCPCS: 36415; 80053; 81001; 83540; 83550; 85014; 85018; 85025; 85610; 85730; 86850; 86900; 86901; 86920; 87641; 93005; 94760; 96361; 96374; C9113; J7040; P9016; 97110; 97116; 99285-25

== ENCOUNTER 2019-07-09 14:08 | Emergency (ER) | payer MEDICARE, OTHER ==
[~2019-07-09] VITALS: Ht 162.6 cm; Wt 79.5 kg
[~2019-07-09 14:08] MED LIST changes: +AMOX1TAB58 PO; +POLY17PO28 PO
[2019-07-09 14:39] LABS: BASO # 0.1 x10^3/uL (0.0-0.2); BASO % 1 % (0-3); EOS # 0.3 x10^3/uL (0.0-0.7); EOS % 4 % (0-3); HEMATOCRIT 37.7 % (36.0-47.0); HEMOGLOBIN 12.6 g/dL (12.0-15.5); LYMPH # 1.8 x10^3/uL (1.0-4.8); LYMPH % 27 % (24-48); MEAN CORPUSCULAR HEMOGLOBIN 31 pg (25-35); MEAN CORPUSCULAR HGB CONC 34 g/dL (31-37); MEAN CORPUSCULAR VOLUME 92 fL (79-100); MONO # 0.5 x10^3/uL (0.0-1.1); MONO % 8 % (0-9); NEUT # 4.1 x10^3/uL (1.8-7.7); NEUT % 61 % (31-73); PLATELET COUNT 195 x10^3/uL (140-400); RED BLOOD COUNT 4.09 x10^6/uL (3.50-5.40); RED CELL DISTRIBUTION WIDTH 14.8 % (11.5-14.5); WHITE BLOOD COUNT 6.7 x10^3/uL (4.0-11.0)
[2019-07-09 14:43] LABS: FECAL OB PT POSITIVE (NEG)
[2019-07-09 14:51] LABS: CALCIUM 8.6 mg/dL (8.5-10.1); CREATININE 0.7 mg/dL (0.6-1.0); GFR 80.1
[2019-07-09 14:56] LABS: PROTHROMBIN TIME PATIENT 12.4 SEC (11.7-14.0)
[2019-07-09 14:57] LABS: ALBUMIN 3.3 g/dL (3.4-5.0); ALBUMIN/GLOBULIN RATIO 1.1 (1.0-1.7); TOTAL BILIRUBIN 0.4 mg/dL (0.2-1.0); TOTAL PROTEIN 6.2 g/dL (6.4-8.2)
--- NOTE | 2019-07-09 15:17 | PHYS DOC ---
Past Medical History Past Medical History: Dementia, Diabetes-Type II, GI Bleed, Heart Disease Additional Past Medical Histor: alzheimer's, MDD, insomnia, AORTIC STENOSIS, Past Surgical History: Cholecystectomy, Tonsillectomy, Other Additional Past Surgical Histo: 09/30, poor historian Alcohol Use: None Drug Use: None Adult General Chief Complaint Chief Complaint: GI PROBLEM HPI HPI Patient is a 84 year old with history of aortic stenosis, Alzheimer, GI bleed, pretension, diabetes mellitus, dementia, depression resident of assisted living, who presents via EMS with complaining of black stool. Patient stated she had 2 of patient for a few days and then had a large bowel movement and dark black stool yesterday and 2 episodes of black stool today by Previous GI bleed. Patient denies chest pain, shortness of breath, dizziness, focal neuro deficit, abdominal pain, nausea and vomiting. Review of Systems Review of Systems Constitutional: Denies fever or chills [] Eyes: Denies change in visual acuity, redness, or eye pain [] HENT: Denies nasal congestion or sore throat [] Respiratory: Denies cough or shortness of breath [] Cardiovascular: No additional information not addressed in HPI [] GI: Denies abdominal pain, nausea, vomiting, bloody stools or diarrhea [] : Denies dysuria or hematuria [] Musculoskeletal: Denies back pain or joint pain [] Integument: Denies rash or skin lesions [] Neurologic: Denies headache, focal weakness or sensory changes [] Endocrine: Denies polyuria or polydipsia [] All other systems were reviewed and found to be within normal limits, except as documented in this note. Allergies Allergies Allergies Coded Allergies Type Severity Reaction Last Updated Verified No Known Drug Allergies 09/27/18 No Physical Exam Physical Exam Constitutional: Well developed, well nourished, no acute distress, non-toxic appearance. [] HENT: Normocephalic, atraumatic, bilateral external ears normal, oropharynx moist, no oral exudates, nose normal. [] Eyes: PERRLA, EOMI, conjunctiva normal, no discharge. [] Neck: Normal range of motion, no tenderness, supple, no stridor. [] Cardiovascular:Heart rate regular rhythm, systolic murmur [] Lungs & Thorax: Bilateral breath sounds clear to auscultation [] Abdomen: Bowel sounds normal, soft, no tenderness, no masses, no pulsatile masses. 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 Skin: Warm, dry, no erythema, no rash. [] Back: No tenderness, no CVA tenderness. [] Extremities: No tenderness, no cyanosis, no clubbing, ROM intact, no edema. [] Neurologic: Alert and oriented X 3, normal motor function, normal sensory function, no focal deficits noted. [] Psychologic: Affect normal, mood normal. [] Current Patient Data Vital Signs Vital Signs Date Time Temp Pulse Resp B/P (MAP) Pulse Ox O2 Delivery O2 Flow Rate FiO2 07/09/19 16:11 64 16 175/77 (109) 97 Room Air 07/09/19 14:08 98.8 98.8 Lab Values Laboratory Tests Test 07/09/19 14:19 07/09/19 14:29 White Blood Count 6.7 x10^3/uL (4.0-11.0) Red Blood Count 4.09 x10^6/uL (3.50-5.40) Hemoglobin 12.6 g/dL (12.0-15.5) Hematocrit 37.7 % (36.0-47.0) Mean Corpuscular Volume 92 fL (79-100) Mean Corpuscular Hemoglobin 31 pg (25-35) Mean Corpuscular Hemoglobin Concent 34 g/dL (31-37) Red Cell Distribution Width 14.8 % (11.5-14.5) H Platelet Count 195 x10^3/uL (140-400) Neutrophils (%) (Auto) 61 % (31-73) Lymphocytes (%) (Auto) 27 % (24-48) Monocytes (%) (Auto) 8 % (0-9) Eosinophils (%) (Auto) 4 % (0-3) H Basophils (%) (Auto) 1 % (0-3) Neutrophils # (Auto) 4.1 x10^3/uL (1.8-7.7) Lymphocytes # (Auto) 1.8 x10^3/uL (1.0-4.8) Monocytes # (Auto) 0.5 x10^3/uL (0.0-1.1) Eosinophils # (Auto) 0.3 x10^3/uL (0.0-0.7) Basophils # (Auto) 0.1 x10^3/uL (0.0-0.2) Prothrombin Time 12.4 SEC (11.7-14.0) Prothrombin Time INR 1.0 (0.8-1.1) Activated Partial Thromboplast Time 27 SEC (24-38) Sodium Level 140 mmol/L (136-145) Potassium Level 4.0 mmol/L (3.5-5.1) Chloride Level 103 mmol/L (98-107) Carbon Dioxide Level 30 mmol/L (21-32) Anion Gap 7 (6-14) Blood Urea Nitrogen 17 mg/dL (7-20) Creatinine 0.7 mg/dL (0.6-1.0) Estimated GFR (Cockcroft-Gault) 80.1 BUN/Creatinine Ratio 24 (6-20) H Glucose Level 110 mg/dL (70-99) H Calcium Level 8.6 mg/dL (8.5-10.1) Total Bilirubin 0.4 mg/dL (0.2-1.0) Aspartate Amino Transferase (AST) 17 U/L (15-37) Alanine Aminotransferase (ALT) 9 U/L (14-59) L Alkaline Phosphatase 71 U/L (46-116) Creatine Kinase 62 U/L (26-192) Troponin I Quantitative < 0.017 ng/mL (0.000-0.055) BE-Rbq-K-Type Natriuretic Peptide 667 pg/mL (0-449) H Total Protein 6.2 g/dL (6.4-8.2) L Albumin 3.3 g/dL (3.4-5.0) L Albumin/Globulin Ratio 1.1 (1.0-1.7) Lipase 159 U/L (73-393) Stool Occult Blood Positive (NEG) Laboratory Tests 07/09/19 14:19 Laboratory Tests 07/09/19 14:19 EKG EKG EKG interpreted by me. EKG at 1415 showed normal sinus rhythm at rate of 70, normal IA and QT intervals, no acute ST-T wave elevation. Radiology/Procedures Radiology/Procedures [] Course & Med Decision Making Course & Med Decision Making Pertinent Labs reviewed. (See chart for details) Evaluation of patient in ER showed 84-year-old female patient with complaining of episodes of black stools since yesterday. Rectal exam showed skin color of stool without gross blood with positive occult blood and hemoglobin of 12.6 that was the highest hemoglobin she had for a while. Patient also had blood pressure more than 200 at arrival to ER that gradually decreased to 174/71 without any treatment. Patient ambulated like her baseline. Plan discharge patient home to the assisted living and instruction to follow up with GI specialist. I've spoken with the patient and/or caregivers. I've explained the patient's condition, diagnosis and treatment plan based on information available to me at this time. I've answered the patient's and/or caregivers questions and addressed any concerns. The patient and/or caregivers have a good understanding the patient's diagnosis, condition and treatment plan as can be expected at this point. Vital signs have been stabilized. The patient's condition is stable for discharge from the emergency department. The patient will pursue further outpatient evaluation with her primary care provider or other designated consulting physician as outlined in the discharge instructions. Patient and/or caregivers are agreeable to this plan of care and follow-up instructions have been explained in detail. The patient and/or caregivers have received these instructions in written format and expressed understanding of these discharge instructions. The patient and her caregivers are aware that if any significant change in condition or worsening of symptoms should prompt him to immediately return to this of the closest emergency department. If an emergent department is not readily available I would encourage him to call 911. Daveon Disclaimer Dragon Disclaimer This electronic medical record was generated, in whole or in part, using a voice recognition dictation system. Departure Departure Impression: Primary Impression: Hypertension, accelerated Additional Impression: Occult blood positive stool Disposition: HOME, SELF-CARE (assisting living home at 1620) Condition: IMPROVED Referrals: DONALD CAGLE MD (PCP) CHAD DUFFY MD Patient Instructions: Managing Your High Blood Pressure, Rectal Bleeding, [id number] Additional Instructions: Follow-up with GI specialist in 2 or 3 days Follow-up with your primary care physician in 2-3 days Return to ER if not getting better Problem Qualifiers LOYDA OROSCO MD Jul 09, 2019 15:17
[2019-07-09 16:11] VITALS: BP 175/77
--- NOTE | 2019-07-10 07:41 | EKG ---
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
== END 2019-07-09 16:42 | disposition home or self-care (01) ==
LOC: ER 14:08
DX: R19.5 Other fecal abnormalities (principal); I11.9 Hypertensive heart disease without heart failure; E11.9 Type 2 diabetes mellitus without complications; G30.9 Alzheimer's disease, unspecified; F02.80 Dementia in other diseases classified elsewhere, unspecified severity, without behavioral disturbance, psychotic disturbance, mood disturbance, and anxiety; Z90.49 Acquired absence of other specified parts of digestive tract
CPT/HCPCS: 36415; 80053; 82274; 82550; 83690; 83880; 84484; 85025; 85610; 85730; 93005; 99285-25

== ENCOUNTER 2020-12-24 15:42 | Emergency (ER) | payer MEDICARE, OTHER ==
[~2020-12-24] VITALS: Ht 162.6 cm; Wt 75.0 kg
[~2020-12-24 15:42] MED LIST changes: -POLY17PO28 PO; +POLY17PO52 PO
--- NOTE | 2020-12-24 16:04 | PHYS DOC ---
Past Medical History Past Medical History: Dementia, Diabetes-Type II, GI Bleed, Heart Disease Additional Past Medical Histor: alzheimer's, MDD, insomnia, AORTIC STENOSIS, Past Surgical History: Cholecystectomy, Tonsillectomy, Other Additional Past Surgical Histo: 09/30, poor historian Smoking Status: Never Smoker Alcohol Use: None Drug Use: None General Adult HPI: HPI: Patient is a 85 year old female transported by EMS mold maker transport from [facility] facility for a reported witnessed fall. Per mold maker statement, he was given report that patient was sitting in her lounge chair when she was getting up she stumbled and fell forward striking her head on the gr ound, did not lose consciousness, has a laceration to her scalp on the right side, complains of left knee pain. Patient has a history of severe Alzheimer's dementia, is alert and oriented to self only. Per patient mold maker statement patient is at baseline mentation. Unknown tetanus immunization status. Patient unable to rate pain. Patient has no complaints during HPI. When asked, patient does not remember the fall. Patient denies any physical complaints or physical concerns. Limited verbal HPI from patient related to severe Alzheimer's dementia history, per fdc transfer forms patient has a past medical history of allergic rhinitis, Alzheimer's disease, cognitive communication deficit, generalized arthrosclerosis, hypothyroidism, iron deficiency anemia, metabolic encephalopathy, need for assistance with personal care, venous thrombosis and embolism, unsteadiness on feet, altered mental status, bilateral primary osteoarthritis of knees, essential hypertension, hydronephrosis with renal and ureteral calculus obstructions, insomnia, major depressive disorder, muscle weakness, nonrheumatic aortic valve stenosis, type 2 diabetes mellitus. Patient is on mechanical soft texture diet with thickener for nutrition. Review of Systems: Review of Systems: 14 body systems of review of systems have been reviewed. See HPI for pertinent positives and negative responses, otherwise all other systems are negative, nonpertinent or noncontributory. Constitutional: Negative except as outlined in HPI above. Skin: Negative except as outlined in HPI above. Eyes: Negative except as outlined in HPI above. HENT: Negative except as outlined in HPI above. Respiratory: Negative except as outlined in HPI above. Cardiovascular: Negative except as outlined in HPI above. GI: Negative except as outlined in HPI above. : Negative except as outlined in HPI above. Musculoskeletal: Negative except as outlined in HPI above. Integument: Negative except as outlined in HPI above. Neurologic: Negative except as outlined in HPI above. Endocrine: Negative except as outlined in HPI above. Lymphatic: Negative except as outlined in HPI above. Psychiatric: Negative except as outlined in HPI above. Heart Score: C/O Chest Pain: No Risk Factors: Risk Factors: DM, Current or recent (<one month) smoker, HTN, HLP, family history of CAD, obesity. Risk Scores: Score 0 - 3: 2.5% MACE over next 6 weeks - Discharge Home Score 4 - 6: 20.3% MACE over next 6 weeks - Admit for Clinical Observation Score 7 - 10: 72.7% MACE over next 6 weeks - Early Invasive Strategies Current Medications: Per fdc MAR current med list: Tylenol 325 mg 2 tabs p.o. every 4 hours as needed pain/fever, amlodipine 5 mg daily, Anusol cream 2.5% twice daily, 81 mg aspirin daily, atorvastatin 80 mg daily, Carafate 1 g every 6 hours, carvedilol 6.25 mg twice daily, Chloraseptic throat lozenge 6 to 10 mg every 2 hours as needed, cholecalciferol 1000 units daily, Plavix 75 mg daily, vitamin B 12 1000 mcg daily, Depakote delayed release 500 mg twice daily, Pepcid 20 mg daily, iron tablet 324 mg daily, guaifenesin 100 mg/5 mill, 1 teaspoon p.o. every 4 hours as needed cough, hydrochlorothiazide 12.5 mg daily, DuoNeb treatments every 4 hours as needed shortness of breath, levothyroxine 75 mcg daily, loratadine 10 mg every morning, melatonin 3 mg nightly, Namenda 5 mg twice daily, senna tablet 8.6 mg twice daily, Seroquel 50 mg twice daily, trazodone 50 mg nightly. Allergies: Allergies: Allergies Coded Allergies Type Severity Reaction Last Updated Verified No Known Drug Allergies 09/27/18 No Physical Exam: PE: Constitutional: Well developed, well nourished, no acute distress, non-toxic appearance. 85-year-old female in no apparent distress. HENT: Normocephalic, scalp contusion to the right parieto-occipital area with 0.8 cm laceration, no skull depression appreciated. No other contusions, skin discrepancies, or skull depressions appreciated. No other trauma appreciated. The patient denies any other pains of the head or face. Eyes: Conjunctiva normal, no discharge. Neck: Normal range of motion, no stridor. No C-spine spinal tenderness. Cardiovascular: No cyanosis appreciated, distal cap refill less than 2 seconds. Lungs & Thorax: Patient is in no respiratory distress, no audible adventitious lung sounds appreciated. Abdomen: Nontender, no abnormalities noted. Skin: Warm, dry, no erythema, no rash. See HEENT note for focused skin assessment. Back: No tenderness, no deformities. Extremities: No tenderness, no cyanosis, no clubbing, ROM intact, no edema. Except for patient's left knee, old dark purple ecchymotic area with contusion and pain elicited with palpation of left knee. No crepitus appreciated, distal cap refill less than 2 seconds, 2+ dorsalis pedis/posterior tibial pulses bilaterally. No edema appreciated. Neurologic: Alert and oriented to self and birthday only, normal motor function, normal sensory function, no focal deficits noted. Psychologic: Affect normal, judgement normal, mood normal. EKG: EKG: [] Radiology/Procedures: Radiology/Procedures: PATIENT: EMEKA BROWN ACCOUNT: [id number] : 1935 LOCATION: ER AGE: 85 SEX: F EXAM STATUS: REG ER ORD. PHYSICIAN: LUIS PONCE APRN REASON: fall, pain, hematoma PROCEDURE: KNEE LEFT 4V Examination: 4 views of the left knee HISTORY: History of fall, pain, hematoma COMPARISON: None available Findings/ impression: Severe joint space loss identified in the medial, lateral, patellofemoral co mpartments likely severe degenerative changes. Large osteophyte formation identified in the patellofemoral compartments and medial, lateral compartments. Probable 1.4 cm calcified density posteriorly in the knee joint could be calcified loose body. Electronically signed by: David Cesar MD (12/24/2020 4:31 PM) [id number] DICTATED and SIGNED BY: DAVID CESAR MD DATE: 12/24/20 [id number] PATIENT: EMEKA BROWN ACCOUNT: [id number] : 1935 LOCATION: ER AGE: 85 SEX: F EXAM STATUS: REG ER ORD. PHYSICIAN: LUIS PONCE APRN REASON: fall PROCEDURE: CT HEAD AND CERVICAL SPINE WO PQRS Compliance Statement: One or more of the following individualized dose reduction techniques were utilized for this examination: 1. Automated exposure control 2. Adjustment of the mA and/or kV according to patient size 3. Use of iterative reconstruction technique CT head and cervical spine without contrast 12/24/2020 4:07 PM INDICATION: Fall COMPARISON: None available TECHNIQUE: Multiple axial CT images of the head were obtained from skull base through the vertex without intravenous contrast. Multiple axial CT images of the cervical spine were obtained without intravenous contrast. Coronal and sagittal reformats are provided. FINDINGS: Head: There is scalp edema along the right parieto-occipital scalp compatible with recent injury. Ventricles, sulci and basal cisterns are prominent compatible with moderate generalized cerebral volume loss. Low-attenuation in the periventricular white matter is suggestive of chronic small vessel ischemic changes. There is no hydrocephalus. Ballard-white matter differentiation is normal. There is no acute intracranial hemorrhage. There is no mass, mass effect or midline shift. Posterior fossa is normal in appearance. Atherosclerotic calcifications identified involving the anterior circulation. Visualized portions of the orbits are normal with exception of bilateral lens replacement. Paranasal sinuses are well aerated. Mastoid air cells are well aerated. Small extra-axial cyst identified along the left middle cranial fossa. Cervical spine: Dextro convex curvature of the cervical spine is noted. Minimal anterolisthesis of C4 on C5. Skull base is intact. Craniocervical junction is normal in appearance. Atlantoaxial articulation is normal. Vertebral body heights are maintained without evidence for acute fracture. Mild multilevel disc height loss with mild anterior marginal osteophytosis. At C6-C7, there is a posterior disc osteophyte complex with moderate left and mild right facet arthropathy and moderate left uncovertebral joint disease resulting in moderate left and mild right neuroforaminal stenosis and mild osseous spinal ca nal stenosis. Transverse foramen are intact. There is no prevertebral soft tissue swelling. Thyroid gland is normal in appearance. Visualized portions of the lung apices are normal without evidence for suspicious pulmonary nodule or infiltrate. IMPRESSION: 1. No acute intracranial hemorrhage. Moderate generalized cerebral volume loss. Low-attenuation in the periventricular white matter is suggestive of chronic small vessel ischemic changes. Right parietal and occipital scalp edema/hematoma. No underlying calvarial defect. 2. No acute fracture of the cervical spine. Mild cervical spondylosis. Electronically signed by: Thea Britt MD (12/24/2020 4:58 PM) [facility] Course & Med Decision Making: Course & Med Decision Making Pertinent Labs and Imaging studies reviewed. (See chart for details) 85-year-old female presents emergency department via EMS mold maker transport with chief complaint of stumbling out of her chair and striking her head on the ground without loss of consciousness while at fdc. Physical examination concerning for possible neurological injury, possible skull fracture , has laceration to scalp with scalp contusion. A CT head and C-spine was ordered, the patient's tetanus immunization was brought up-to-date today in the emergency department using Adacel Tdap, see laceration repair note, x-ray ordered of left knee joint. CT negative for acute process, x-ray negative for acute fracture of the left knee, patient's laceration was repaired, discussed findings with patient's daughter who is at bedside, will send patient back to fdc with instructions for wound care and rhiannon out in 7 to 10 days. ED nurse gave discharge instructions report to fdc staff, patient was transported back to her fdc via EMS mold maker transport. Daveon Disclaimer: Dragiliana Disclaimer: This electronic medical record was generated, in whole or in part, using a voice recognition dictation system. Laceration Repair Lac Repair Indication: Scalp laceration Time: 1800 Confirmed: Patient, procedure, side, and site correct. Consent: Patient, has given verbal consent. Description/repair Procedure: The patient was placed in the appropriate position and anesthesia around the laceration was achieved with topical LET. The area was then cleansed with chlorhexidine skin wash, rinsed with 500 cc pressurized normal saline using 60 cc syringe and Zerowet PPE device. The laceration was closed using 3 dermal rhiannon. The wound area was then dressed with bacitracin per ED nursing staff. Complexity: Single layer. Post procedure exam: Circulation, motor, sensory examination intact, bleeding controlled. Total repaired wound length: 0.8 cm. Other Items: No other items. The patient tolerated the procedure well. Complications: There were no complications. Performed by: Luis Cerda, PUTTY REMOVER-C Supervision: Dr. Baum was present for the critical aspects of the procedure including closure and post procedure exam. Total time: 5 minutes. Departure Departure Impression: Primary Impression: Fall at fdc Qualified Codes: W19.XXXA - Unspecified fall, initial encounter; Y92.129 - Unspecified place in fdc as the place of occurrence of the external cause Additional Impressions: Scalp contusion Qualified Codes: S00.03XA - Contusion of scalp, initial encounter Scalp laceration Qualified Codes: S01.01XA - Laceration without foreign body of scalp, initi al encounter Need for tetanus, diphtheria, and acellular pertussis (Tdap) vaccine Contusion of left knee Qualified Codes: S80.02XA - Contusion of left knee, initial encounter Disposition: HOME / SELF CARE / HOMELESS Condition: GOOD Referrals: DONALD CAGLE MD (PCP) Patient Instructions: Contusion, Fall Prevention and Home Safety, Laceration Care, Adult Additional Instructions: You were seen today in the emergency department after a fall out of your wheelchair at the fdc. A CT scan of your head and cervical spine did not reveal any concerning findings, there is no bleed in the brain, there is no apparent brain injury, there are no broken bones of your head or neck. You did have a 0.8 cm scalp laceration on the right side of your head that was stapled with 3 dermal rhiannon. Please keep clean and dry, apply double or triple antibiotic ointment 3 times a day, the rhiannon require removal in 7 to 10 days. Please follow-up with your primary care physician for staple removal in 7 to 10 days. Please return to the emergency department for worsening symptoms or other concerns, follow-up with your primary care physician to discuss your complaint of frequent falls. An x-ray of your left knee was performed today in the emergency department, there was no fracture appreciated as interpreted by a radiologist. You may use RICE therapy, rest, ice, compression, elevation for comfort. Please continue to use your home pain medications for discomfort. It was a pleasure taking care of you today in the emergency department and I thank you for allowing me to participate in your emergency health care needs. Your tetanus immunization was brought up-to-date today in the emergency department with a medication called Adacel/Tdap, please record this in your immunization records accordingly. EMERGENCY DEPARTMENT GENERAL DISCHARGE INSTRUCTIONS Thank you for coming to [facility] Emergency Department (ED) today and trusting us with you care. We trust that you had a positive experience in our Emergency Department. If you wish to speak to the department management, you may call the Director at [phone]. YOUR FOLLOW UP INSTRUCTIONS ARE FOLLOWS: 1. Do you have a private Doctor? If you do not have a private doctor, please ask for a resource list of physicians or clinics that may be able to assist you with follow up care. 2. The Emergency Physicain has interpreted your x-rays. The X-Ray specialist will also review them. If there is a change in the findings, you will be notified in 48 hours when at all possible. 3. A lab test or culture has been done, your results will be reviewed and you will be notified if you need a change in treatment. ADDITIONAL INSTRUCTIONS AND INFORMATION: 1. Your care today has been supervised by a physician who is specially trained in emergency care. Many problems require more than one evaluation for a complete diagnosis and treatment. We recommend that you schedule your follow up appointment as recommended to ensure complete treatment of you illness or injury. If you are unable to obtain follow up care and continue to have a problem, or if your condition worsens, we recommend that you return to the ED. 2. We are not able to safely determine your condition over the phone nor are we able to give sound medical advice over the phone. For these safety reasons, if you call for medical advice we will ask you to come to the ED for further evaluation. 3. If you have any questions regarding these discharge instructions please call the ED at [phone]. SAFETY INFORMATION: In the interest of safety, wellness, and injury prevention; we encourage you to wear your sealbelt, if you smoke; quite smoking, and we encourage family to use a protective helmet for bicycling and other sporting events that present an increased risk for head injury. IF YOUR SYMPTOMS WORSEN OR NEW SYMPTOMS DEVELOP, OR YOU HAVE CONCERNS ABOUT YOUR CONDITION; OR IF YOUR CONDITION WORSENS WHILE YOU ARE WAITING FOR YOUR FOLLOW UP APPOINTMENT; EITHER CONTACT YOUR PRIMARY CARE DOCTOR, THE PHYSICIAN WHOSE NAME AND NUMBER YOU WERE GIVEN, OR RETURN TO THE ED IMMEDIATELY. LUIS PONCE APRN Dec 24, 2020 16:04
[2020-12-24] MEDS ORDERED: BACITRACIN TOPICAL OINT PACKET. TP ONE (16:30)
[2020-12-24] MEDS ORDERED: DIPH,PERTUSS(ACELL),TET VAC/PF 0.5 ML SYRINGE. VAX IM ONE (16:30)
[2020-12-24] MEDS ORDERED: LIDOCAINE/EPI/TETRACAINE TOPICAL GEL 3 ML. TP ONE (16:30)
--- NOTE | 2020-12-24 16:33 | RAD ---
Examination: 4 views of the left knee HISTORY: History of fall, pain, hematoma COMPARISON: None available Findings/ impression: Severe joint space loss identified in the medial, lateral, patellofemoral compartments likely severe degenerative changes. Large osteophyte formation identified in the patellofemoral compartments and me dial, lateral compartments. Probable 1.4 cm calcified density posteriorly in the knee joint could be calcified loose body. Electronically signed by: David Cesar MD (12/24/2020 4:31 PM) [id number]
--- NOTE | 2020-12-24 17:01 | RAD ---
PQRS Compliance Statement: One or more of the following individualized dose reduction techniques were utilized for this examinat ion: 1. Automated exposure control 2. Adjustment of the mA and/or kV according to patient size 3. Use of iterative reconstruction technique CT head and cervical spine without contrast 12/24/2020 4:07 PM INDICATION: Fall COMPARISON: None available TECHNIQUE: Multiple axial CT images of the head were obtained from skull base through the vertex with out intravenous contrast. Multiple axial CT images of the cervical spine were obtained without intrav enous contrast. Coronal and sagittal reformats are provided. FINDINGS: Head: There is scalp edema along the right parieto-occipital scalp compatible with recent injury. Ventricle s, sulci and basal cisterns are prominent compatible with moderate generalized cerebral volume loss. Low-attenuation in the periventricular white matter is suggestive of chronic small vessel ischemic ch anges. There is no hydrocephalus. Ballard-white matter differentiation is normal. There is no acute intr acranial hemorrhage. There is no mass, mass effect or midline shift. Posterior fossa is normal in carina earance. Atherosclerotic calcifications identified involving the anterior circulation. Visualized por tions of the orbits are normal with exception of bilateral lens replacement. Paranasal sinuses are we ll aerated. Mastoid air cells are well aerated. Small extra-axial cyst identified along the left midd le cranial fossa. Cervical spine: Dextro convex curvature of the cervical spine is noted. Minimal anterolisthesis of C4 on C5. Skull ba se is intact. Craniocervical junction is normal in appearance. Atlantoaxial articulation is normal. Vertebral body heights are maintained without evidence for acute fracture. Mild multilevel disc heigh t loss with mild anterior marginal osteophytosis. At C6-C7, there is a posterior disc osteophyte comp katelin with moderate left and mild right facet arthropathy and moderate left uncovertebral joint disease resulting in moderate left and mild right neuroforaminal stenosis and mild osseous spinal canal sten osis. Transverse foramen are intact. There is no prevertebral soft tissue swelling. Thyroid gland is normal in appearance. Visualized port ions of the lung apices are normal without evidence for suspicious pulmonary nodule or infiltrate. IMPRESSION: 1. No acute intracranial hemorrhage. Moderate generalized cerebral volume loss. Low-attenuation in th e periventricular white matter is suggestive of chronic small vessel ischemic changes. Right parietal and occipital scalp edema/hematoma. No underlying calvarial defect. 2. No acute fracture of the cervical spine. Mild cervical spondylosis. Electronically signed by: Thea Britt MD (12/24/2020 4:58 PM) [facility]
[2020-12-24 19:00] VITALS: BP 148/92
== END 2020-12-24 19:25 | disposition home or self-care (01) ==
LOC: ER 15:42
DX: S01.01XA Laceration without foreign body of scalp, initial encounter (principal); S80.02XA Contusion of left knee, initial encounter; G30.9 Alzheimer's disease, unspecified; F02.80 Dementia in other diseases classified elsewhere, unspecified severity, without behavioral disturbance, psychotic disturbance, mood disturbance, and anxiety; E11.9 Type 2 diabetes mellitus without complications; Z86.79 Personal history of other diseases of the circulatory system; E03.9 Hypothyroidism, unspecified; W18.39XA Other fall on same level, initial encounter; Y93.89 Activity, other specified; Y92.89 Other specified places as the place of occurrence of the external cause; Y99.8 Other external cause status
CPT/HCPCS: 12031; 70450; 72125; 73564; 90471; 90715; 99284; 99285-25